=== PATIENT | female | born 1995 ===

== ENCOUNTER 2020-08-07 10:49 | Outpatient (REF) | payer MEDICARE, MEDICAID, SELFPAY ==
[2020-08-08 09:27] LABS: CT PCR NOT DETECTED (Not Detect.); NG PCR NOT DETECTED (Not Detect.)
== END 2020-08-07 10:50 | disposition home or self-care (01) ==
LOC: HO.LAB 10:49
PROVIDERS: Visit Provider Obstetrics & Gynecology
DX: Z01.419 Encounter for gynecological examination (general) (routine) without abnormal findings (principal)
CPT/HCPCS: 87491; 87591

== ENCOUNTER 2020-09-23 16:08 | Outpatient (REF) | payer MEDICARE, MEDICAID, SELFPAY | END 2020-09-23 16:09 | disposition home or self-care (01) | LOC: HO.LAB 16:08 | PROVIDERS: Visit Provider Internal Medicine | DX: Z20.828 Contact with and (suspected) exposure to other viral communicable diseases (principal) | CPT/HCPCS: C9803; U0003 ==

== ENCOUNTER 2020-10-23 09:43 | Emergency (ER) | payer OTHER, MEDICAID, SELFPAY ==
[2020-10-23 10:12] VITALS: PULSE 97; RESP 16; TEMP 36.1; O2SAT 98; BMI 31.9
--- NOTE | 2020-10-23 10:40 | ED.URI ---
HPI - URI/Sore Throat General Chief Complaint: Headache Stated Complaint: sore throat,bodyaches Time Seen by Provider: 10/23/20 10:14 Source: patient Mode of arrival: ambulatory Limitations: no limitations History of Present Illness HPI Narrative: 24yoF c PMHx of obesity presenting to the ED c c/o of 1 week of intermittent headaches, body aches, sore throat and productive cough. Denies recent travel or sick contacts. 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 Denies any other symptoms complaints or concerns at this time. Related Data Previous Rx's Medication Instructions Recorded acetaminophen [Tylenol] 650 mg PO Q6H PRN #10 tab 10/23/20 azithromycin See Rx Instructions .ROUTE 10/23/20 .COMPLEX #6 tab cyclobenzaprine 10 mg PO TID PRN #10 tab 10/23/20 ibuprofen 800 mg PO Q8H PRN #14 tab 10/23/20 Allergies Allergy/AdvReac Type Severity Reaction Status Date / Time No Known Allergies Allergy Unverified 08/07/20 11:01 Review of Systems Review of Systems: Constitutional : No Fever, + Chills, + fatigue, + Malaise ENT/Mouth : No sore throat, No runny nose Eyes: No Discharge Cardiovascular : No Chest Pain, No SOB Respiratory : + Cough, + Sputum, No Wheezing, No Smoke Exposure, No Dyspnea Gastrointestinal : No Nausea, No Vomiting, No Diarrhea Genitourinary : No irregular bleeding, No Dysuria, No Urinary Frequency, No Hematuria, No Urinary Incontinence, No Urgency, No Flank Pain, Musculoskeletal : + Myalgia Skin : No rash Neuro : + Headache Yes all other systems are reviewed and are negative [facility] Past Medical History Attestation statement: The following information was validated with the patient. Medical History Obesity Social History Social History Alcohol intake: never Smoking Status: Current every day smoker Advance Directives: No Advance Directives Information Provided: No Sexual orientation: Straight/Heterosexual Gender identity: female Physical Exam Vital Signs: Vital Signs: Last Vital Signs Temp 96.9 F 10/23/20 10:12 Pulse 97 10/23/20 10:12 Resp 16 10/23/20 10:12 Pulse Ox 98 10/23/20 10:12 Body Mass Index 31.9 vital signs have been reviewed as normal and appeared to be correct. Blood pressure normal. Heart rate normal. Respiration rate normal. Temperature normal. Oxygen saturation normal. Appearance: Alert. Oriented X3. No acute distress. Head: Normal external exam. Normocephalic. Atraumatic. Eyes: PERRLA. EOMI. Conjunctiva and sclera normal. Eyelids normal. ENT: EAC normal. TM's Normal. Pharynx normal. Uvula midline. Moist mucous membranes. No trismus noted. No drooling noted. No muffled voice noted. Neck: Normal inspection. Neck supple. FROM. No adenopathy. No meningeal signs. CVS: Normal heart rate and rhythm. Heart sound normal. No murmurs noted. Pulses normal throughout. Respiratory: No respiratory distress. Painless inspiration. Breath sounds normal. No wheezes/rales/rhonchi noted. Chest nontender. No accessory muscle usage noted or decreased air movement noted. Back: Full range of motion noted. Skin: Skin warm and dry. Normal skin color. Normal skin turgor. No rashes/lesions/lacerations noted. Extremities: Extremities exhibit normal range of motion. Extremities nontender. Neuro: Oriented X 3. No motor deficit. No sensory deficit. Reflexes normal. Course Course Course Narrative: 24-year-old female with no significant past medical history presenting to the ED with upper respiratory like symptoms. Not in any acute distress. No signs of dehydration. No indication for x-rays or labs work done at this time. Will DC home with antibiotics and symptomatic treatment. Patient was already swab for COVID/RSV/flu and rapid strep. Instructed to return if any new or worsening symptoms to self isolate until negative test results and 10 days after symptoms started. Patient understands agrees with this plan. MDM - URI/Sore Throat Differential Diagnosis Differential diagnosis: Likely upper respiratory infection, viral infection, bronchitis and pharyngitis Medical Records Attestation: I reviewed the patient's medical records. Discharge Plan Discharge Clinical Impression: Acute viral syndrome Patient Disposition: Home, Self-Care Instructions: Viral Syndrome (ED), COVID-19 (Coronavirus Disease 2019) (ED) Additional Instructions: Based on your symptoms and history we have sent a COVID-19. Although your RESULT IS PENDING at this time. RESULTS should return within 72 hours. At this time you will be contacted with either NEGATIVE OR POSITIVE results. -Please wait until we contact you for your results. At this time you will be okay for discharge. Please plan for self quarantine for up to 14 days. Do not expose yourself to others. You may not go to work. If testing does come back negative you may return to activities as long as you are no longer having any symptoms for at least 3 days. Please continue to follow cold instructions and wash your hands frequently. You may take Tylenol as directed on the bottle for pain or fever. Patient seen in the emergency department on 10/23/2020 and should be excused from work until negative test results AND until 72 hours without any symptoms AND at least 10 days have passed since symptoms first appeared or since last exposure to COVID-19 positive patient CDC Guidelines for home isolation: - Stay away from others - WEAR A MASK if you are sick AND STAY HOME - Cover your mouth and nose with a tissue when you cough or sneeze. Dispose of tissues in a lined trash can and wash your hands immediately with soap and water for at least 20 seconds. If soap and water are not available, clean hands with alcohol-based hand mill operator helper that contains at least 60% alcohol. - Clean your hands often with soap and water for at least 20 seconds - Avoid touching your eyes, nose and mouth with unwashed hands - Do not share dishes, drinking glasses, cups, eating utensils, towels, or bedding with other people in your home. After using these items, wash them thoroughly with soap and water or put in the product support sales representative. - Clean high-touch surfaces in your isolation area ( sick room and bathroom) every day; let a caregiver clean and disinfect high-touch surfaces in other areas of the home. Clean the area or item with soap and water or another detergent if it is dirty. Then, use a household disinfectant. - Limit contact with pets and animals: If you must care for a pet, wash your hands before and after interacting with them). Prescriptions: New cyclobenzaprine 10 mg tablet 10 mg PO TID PRN (Reason: muscle spasm) Qty: 10 RF: 0 acetaminophen [Tylenol] 325 mg tablet 650 mg PO Q6H PRN (Reason: fever or pain) Qty: 10 RF: 0 azithromycin 250 mg tablet See Rx Instructions .ROUTE .COMPLEX Qty: 6 RF: 0 ibuprofen 800 mg tablet 800 mg PO Q8H PRN (Reason: pain) Qty: 14 RF: 0 Referrals: Physician,Unknown [Primary Care Provider] - 2 days (your pcp) Stand Alone Forms: Work/School Release Print Language: [place]se
[2020-10-23 11:28] LABS: Influenza A PCR NEGATIVE (Negative); Influenza B PCR NEGATIVE (Negative); Resp Syncy Virus RNA Qual PCR NEGATIVE (Negative); SARS COV2 PCR INHOUSE NEGATIVE (Negative)
== END 2020-10-23 11:04 | disposition home or self-care (01) ==
PROVIDERS: Physician Assistant Medical; Emergency Provider Emergency Medicine Emergency Medical Services
DX: B34.9 Viral infection, unspecified (principal); R51.9 Headache, unspecified; M79.10 Myalgia, unspecified site; R05 Cough; F17.200 Nicotine dependence, unspecified, uncomplicated; Z71.6 Tobacco abuse counseling; Z79.899 Other long term (current) drug therapy; Z20.822 Contact with and (suspected) exposure to COVID-19
CPT/HCPCS: 0241U; 36415; 87071; 87880; 99282; 99283

== ENCOUNTER 2020-11-16 13:55 | Emergency (ER) | payer OTHER, SELFPAY ==
--- NOTE | ~2020-11-16 | XR_ITS ---
EXAMINATION: XR LUMBOSACRAL SPINE CLINICAL INFORMATION: Status post fall COMPARISON: CT of the abdomen and pelvis 06/28/2020 TECHNIQUE: Three views of the lumbosacral spine. FINDINGS: There is mild straightening of the normal lordosis of the lumbar spine. The vertebral body heights and intervertebral disc spaces are maintained. The posterior elements are intact. The paravertebral soft tissues are normal. XR/XR lumbar spine 2-3V IMPRESSION: No acute bony abnormality of the lumbar spine.
[2020-11-16 13:57] VITALS: BP 129/81; PULSE 110; RESP 20; TEMP 36.2; O2SAT 98; BMI 29.0
--- NOTE | 2020-11-16 15:18 | ED_ITS ---
HPI - Back Pain/Injury General Chief Complaint: Back Pain/Injury Stated Complaint: FELL DOWN STAIRS Time Seen by Provider: 11/16/20 14:12 Source: patient Mode of arrival: ambulatory Limitations: no limitations History of Present Illness HPI Narrative: Patient slipped on ice steps yesterday and fell backwards hitting her lower back to the steps complaining of pain since then no neuro deficit no paresthesias patient ambulatory in the ER prior back pain problem MD elicited complaint: back pain Pertinent past history: recent trauma Onset (ago): day(s) (1) Timing: constant Severity: moderate Quality: sharp Location: lumbar spine Radiation: none Exacerbating factors: movement Relieving factors: none Associated symptoms: denies other symptoms Related Data Previous Rx's Medication Instructions Recorded acetaminophen [Tylenol] 650 mg PO Q6H PRN #10 tab 10/23/20 azithromycin See Rx Instructions .ROUTE 10/23/20 .COMPLEX #6 tab cyclobenzaprine 10 mg PO TID PRN #10 tab 10/23/20 ibuprofen 800 mg PO Q8H PRN #14 tab 10/23/20 tramadol 50 mg PO Q6H PRN #20 tab 11/16/20 Allergies Allergy/AdvReac Type Severity Reaction Status Date / Time No Known Allergies Allergy Unverified 08/07/20 11:01 Review of Systems Review of Systems: Yes all other systems are reviewed and are negative [facility] Past Medical History Medical History Obesity Social History Social History Alcohol intake: never Smoking Status: Current every day smoker Advance Directives: No Advance Directives Information Provided: No Sexual orientation: Straight/Heterosexual Gender identity: female Physical Exam Vital Signs: Vital Signs: Last Vital Signs Temp 97.2 F 11/16/20 13:57 Pulse 110 H 11/16/20 13:57 Resp 20 11/16/20 13:57 BP 129/81 11/16/20 13:57 Pulse Ox 98 11/16/20 13:57 Body Mass Index 29.0 Const: General: healthy appearing, comfortable and no acute distress HENMT: Head: Yes normocephalic and Yes atraumatic Eyes: General: appearance normal, both eyes and all related structures Neck: Neck: Yes normal visual inspection, Yes full ROM and No tender Chest: Chest palpation & inspection: normal inspection of the chest Resp: Effort & Inspection: normal respiratory effort Auscultation: clear to auscultation bilaterally Cardio: Rate: regular rate Rhythm: regular rhythm Heart sounds: S1 normal heart sound present and S2 normal heart sound present GI: Inspection: Yes normal to inspection Palpation (GI): Soft to palpation and nontender Auscultation: normal bowel sounds Back/Spine/Pelvis: Cervical Spine: normal cervical lordosis and cervical ROM normal Thoracic/Lumbar Spine: thoraco-lumbar ROM normal, No straight leg raise negative bilaterally, paraspinal muscle tenderness, No thoracic spinal tenderness and No lumbar spinal tenderness Skin: General skin exam: no rashes or lesions noted Neuro: General: patient oriented x3, gait normal and no focal motor deficits Extrem: General: Yes normal to inspection and Yes normal gait MDM - Back Pain/Injury MDM Narrative Medical decision making narrative: Patient status post mechanical fall with minor injury to the lower back x-ray of the spine is negative for any acute fracture clinically patient does not have any spinal cord involvement likely contusion to the lower back will discharge patient home on tramadol Discharge Plan Discharge Clinical Impression: Contusion of lower back Qualifiers: Encounter type: initial encounter Qualified Code(s): S30.0XXA - Contusion of lower back and pelvis, initial encounter Patient Disposition: Home, Self-Care Instructions: Acute Low Back Pain (ED) Additional Instructions: Apply ice take Tylenol for pain and tramadol for severe pain Prescriptions: New tramadol 50 mg tablet 50 mg PO Q6H PRN (Reason: pain) Qty: 20 RF: 0 No Action cyclobenzaprine 10 mg tablet 10 mg PO TID PRN (Reason: muscle spasm) Qty: 10 RF: 0 acetaminophen [Tylenol] 325 mg tablet 650 mg PO Q6H PRN (Reason: fever or pain) Qty: 10 RF: 0 azithromycin 250 mg tablet See Rx Instructions .ROUTE .COMPLEX Qty: 6 RF: 0 ibuprofen 800 mg tablet 800 mg PO Q8H PRN (Reason: pain) Qty: 14 RF: 0
[2020-11-16] MEDS: traMADoL HCL 50 MG TABLET PO (15:27)
== END 2020-11-16 15:34 | disposition home or self-care (01) ==
PROVIDERS: Emergency Provider Internal Medicine
DX: S30.0XXA Contusion of lower back and pelvis, initial encounter (principal); W00.1XXA Fall from stairs and steps due to ice and snow, initial encounter; Y93.89 Activity, other specified; Y92.019 Unspecified place in single-family (private) house as the place of occurrence of the external cause; Y99.9 Unspecified external cause status
CPT/HCPCS: 72100; 99283

== ENCOUNTER 2021-02-13 21:25 | Emergency (ER) | payer OTHER, SELFPAY ==
--- NOTE | ~2021-02-13 | XR_ITS ---
EXAMINATION: XR CHEST CLINICAL INFORMATION: Cough COMPARISON: None TECHNIQUE: 2 views of the chest were obtained. FINDINGS: No significant abnormality is noted involving the heart, lungs, mediastinum, bony thorax or soft tissues. XR/XR chest 2V IMPRESSION: Unremarkable examination.
--- NOTE | ~2021-02-13 | CT_ITS ---
EXAMINATION: CT ABDOMEN AND PELVIS WITH CONTRAST CLINICAL INFORMATION: Lower abdominal pain COMPARISON: CT abdomen pelvis 06/18/2020 TECHNIQUE: Multidetector volumetric images were obtained from the superior aspect of the liver through the pubic symphysis following administration 85 mL of Omnipaque 350 intravenous contrast. Sagittal and coronal reformatted images were obtained on the technologist's workstation. Oral contrast: No This CT examination was performed using dose optimization techniques as appropriate, variously including the following: *Automated exposure control *Adjustment of mA and/or kV according to patient size (this includes techniques or standardized protocols for targeted exams where dose is matched to indication/reason for exam; i.e. extremities or head) *Use of iterative reconstruction technique DLP: 890 mGy-cm FINDINGS: LUNG BASES: The visualized lung bases are unremarkable. LIVER, GALLBLADDER, AND BILIARY TREE: The liver is normal in size, shape, and attenuation. No focal hepatic lesion or biliary ductal dilatation is present. The gallbladder is contracted but otherwise unremarkable with no evidence of radiopaque gallstones, gallbladder wall thickening, or obvious pericholecystic inflammatory changes. PANCREAS: There is a hypoattenuating area is seen in the pancreatic tail which could be artifactual. If real I would suspect pancreatic enzymes would be elevated. Please correlate. No pancreatic ductal dilatation is seen. No discrete pancreatic mass is present. SPLEEN: Unremarkable. ADRENAL GLANDS: Unremarkable. KIDNEYS AND URETERS: The kidneys are normal in size, shape, and attenuation. No hydronephrosis, hydroureter, or calculi seen. No perinephric stranding. BLADDER: Unremarkable. GASTROINTESTINAL TRACT: The small and large bowel are unremarkable. The appendix is unremarkable. ABDOMINAL WALL: No significant hernia is appreciated. There is a tiny periumbilical hernia seen containing only fat. LYMPH NODES: No retroperitoneal lymphadenopathy seen. VASCULAR: Unremarkable. PELVIC VISCERA: An anteverted retroflexed uterus is present which appears normal. Normal ovaries are seen. No free intraperitoneal fluid present OSSEOUS STRUCTURES: Unremarkable. No fractures or bony destructive lesions. CT/CT abdomen pelvis w con IMPRESSION: No significant abnormality lower abdominal pain. There is a hypoattenuating area in the pancreatic tail which I suspect is probably artifactual in nature.
[2021-02-13 21:45] VITALS: BP 127/70; PULSE 91; RESP 18; TEMP 36.4; O2SAT 99; BMI 32.3
[2021-02-13 22:12] LABS: Appearance Urine TURBID; Color Urine YELLOW; Glucose Urine UA NEG (NEG); Leukocyte Esterase Urine 1+ (NEG); Nitrite Urine NEG (NEG); PH 6.5 (5.0-8.0); Specific Gravity - Urine 1.025 (1.005-1.025); UACC Culture Trigger YES; Urine Blood 1+ (NEG); Urine Ketones NEG (NEG); Urine Protein NEG (NEG-TRACE)
[2021-02-13 22:19] LABS: MANUAL DIFF FLAG NO
[2021-02-13 22:20] LABS: Basophils Absolute Auto 0.1 X10*3/uL (0.0-0.2); Basophils Percent Auto 0.3 % (0-2); Eosinophils Absolute Auto 0.2 X10*3/uL (0.0-0.4); Eosinophils Percent Auto 1.1 % (0-4); Hematocrit 39.6 % (37-47); Hemoglobin 12.9 g/dl (12.0-16.0); Imm Gran Abs Auto 0.09 X10*3/uL (0.00-0.03); Imm Gran Pct Auto 0.5 % (0.0-0.4); Lymphocytes Absolute Auto 3.5 X10*3/uL (1.2-4.9); Lymphocytes Percent Auto 19.5 % (20-40); Mean Corpuscular HGB Conc 32.6 g/dl (31.0-35.0); Mean Corpuscular Hemoglobin 25.1 pg (27.0-33.0); Mean Platelet Volume 11.2 fL (9.4-12.3); Monocytes Absolute Auto 0.9 X10*3/uL (0.1-1.2); Monocytes Percent Auto 5.1 % (2-11); Neutrophils Absolute Auto 13.2 X10*3/uL (2.0-8.3); Neutrophils Percent Auto 73.5 % (45-73); Platelet Count 318 X10*3/uL (160-400); Red Blood Count 5.14 X10*6/uL (4.20-5.50); Red Cell Distribution Width 16.4 % (11.0-16.0); White Blood Count 17.9 X10*3/uL (4.8-10.8)
[2021-02-13 22:24] LABS: COVID-19 Test Negative (Negative)
[2021-02-13 22:26] LABS: Bacteria Urine TRACE /LPF; Squamous Epithelial Cell Urine 2+ /LPF
--- NOTE | 2021-02-13 22:30 | ED.GENADULT ---
HPI - General Adult General Chief complaint: General Medical Stated complaint: abd pain, sob Time Seen by Provider: 02/13/21 22:29 Source: patient Mode of arrival: ambulatory History of Present Illness HPI narrative: 25-year-old female with history of dyspnea on exertion as well as cough and stating that she has had suprapubic pain without radiation that has been associated with a few episodes of nausea and vomiting but denies any urinary pain/burning/frequency or diarrhea. No recent history of long car rides or plane trips, hemoptysis, estrogen supplementation, personal history of cancer, recent surgery or bed bound state, calf pain or calf swelling. Related Data Previous Rx's Medication Instructions Recorded acetaminophen [Tylenol] 650 mg PO Q6H PRN #10 tab 10/23/20 azithromycin See Rx Instructions .ROUTE 10/23/20 .COMPLEX #6 tab cyclobenzaprine 10 mg PO TID PRN #10 tab 10/23/20 ibuprofen 800 mg PO Q8H PRN #14 tab 10/23/20 tramadol 50 mg PO Q6H PRN #20 tab 11/16/20 Allergies Allergy/AdvReac Type Severity Reaction Status Date / Time No Known Allergies Allergy Verified 02/13/21 21:45 Review of Systems Review of Systems: Pertinent positives and negatives as stated in HPI 10 point review systems is otherwise negative. PMFSH Past Medical History Source: nursing notes reviewed Medical History Obesity Social History Social History Alcohol intake: never Smoking Status: Current every day smoker Advance Directives: No Advance Directives Information Provided: Yes Sexual orientation: Straight/Heterosexual Gender identity: female Physical Exam Vital Signs: Vital Signs: Last Vital Signs Temp 97.6 F 02/13/21 21:45 Pulse 91 02/13/21 21:45 Resp 18 02/13/21 21:45 BP 127/70 02/13/21 21:45 Pulse Ox 99 02/13/21 21:45 Body Mass Index 32.3 VITAL SIGNS: Reviewed. GENERAL: Well developed, well nourished, in no acute distress. HEAD: Normocephalic/atraumatic EYES: PERRLA, EOMI OROPHARYNX: no oral lesions noted, posterior pharynx clear NECK: Supple, no adenopathy LUNGS: Normal breath sounds. No adventitious sounds or accessory muscle use. SpO2<99> CARDIOVASCULAR: Regular rate and rhythm without noted murmurs ABDOMEN: Obesity, Soft, non-tender, non-distended with bowel sounds. Exam limited by body habitus. EXTREMITIES: No cyanosis, clubbing or edema. NEUROLOGIC: Alert and oriented x 4. Course Course Course Narrative: 25-year-old female with history and clinical presentation suggestive of possible appendicitis as urinalysis reviewed is negative for infection when taken in contacts with nausea and vomiting episodes. Less likely felt to be renal colic as there is no history of flank pain or prior kidney stones. Low clinical suspicion for pneumonia and doubt PE. On review of all investigations there is a noted leukocytosis with left shift the may be further indication in support of possible appendicitis and will pursue CT abdomen/pelvis. Review of all investigations negative for any acute findings. Although there is a noted leukocytosis this is consistent with prior findings on 06/18/2020 and may be patient's baseline. She denies any use of steroids at this time however there are no findings in /GI/chest that would better explain patient's noted leukocytosis. Patient was informed of all results and discharged in stable condition with instructions to follow-up with her primary care provider for re-evaluation outpatient management. Medical Decision Making Lab Data Result diagrams: 02/13/21 22:12 02/13/21 22:12 Labs: Lab Results 02/13/21 02/13/21 02/13/21 Range/Units 22:00 22:01 22:01 WBC (4.8-10.8) X10*3/uL RBC (4.20-5.50) X10*6/uL Hgb (12.0-16.0) g/dl Hct (37-47) % MCV (80-98) fL MCH (27.0-33.0) pg MCHC (31.0-35.0) g/dl RDW (11.0-16.0) % Plt Count (160-400) X10*3/uL MPV (9.4-12.3) fL Immature Gran % (Auto) (0.0-0.4) % Neut % (Auto) (45-73) % Lymph % (Auto) (20-40) % [place] % (Auto) (2-11) % Eos % (Auto) (0-4) % Baso % (Auto) (0-2) % Lymph # (Auto) (1.2-4.9) X10*3/uL [place] # (Auto) (0.1-1.2) X10*3/uL Eos # (Auto) (0.0-0.4) X10*3/uL Baso # (Auto) (0.0-0.2) X10*3/uL Abs Immat Gran (auto) (0.00-0.03) X10*3/uL Absolute Neuts (auto) (2.0-8.3) X10*3/uL Absolute Nucleated RBC (0.0-0.012) X10*3/uL Nucleated RBC % (auto) (0.0-0.2) /100WBC Hold Blue Top Sodium (135-145) mmol/L Potassium (3.3-5.1) mmol/L Chloride (96-108) mmol/L Carbon Dioxide (22-29) mmol/L Anion Gap (12-20) BUN (9-16) mg/dL Creatinine (0.5-1.4) mg/dL Estim Creat Clear Calc Estimated GFR Random Glucose (60-115) mg/dL Calcium (8.4-10.2) mg/dL Total Bilirubin (0.0-1.0) mg/dL AST (5-31) U/L ALT (0-31) U/L Alkaline Phosphatase (39-117) U/L Total Protein (6.5-8.0) g/dL Albumin (3.5-5.0) g/dL Lipase (8-78) U/L Urine Color YELLOW Urine Appearance TURBID Urine pH 6.5 (5.0-8.0) Ur Specific Bliss 1.025 (1.005-1.025) Urine Protein NEG (NEG-TRACE) MG/DL Urine Glucose (UA) NEG (NEG) MG/DL Urine Ketones NEG (NEG) MG/DL Urine Blood 1+ H (NEG) Urine Nitrite NEG (NEG) Ur Leukocyte Esterase 1+ H (NEG) Urine RBC 1-4 (0) /HPF Urine WBC 1-4 (0-4) /HPF Ur Squamous Epith Cells 2+ /LPF Urine Bacteria TRACE /LPF Urine Test NEGATIVE (NEGATIVE) COVID-19 (MAR) Negative (Negative) COVID-19 Clin Com See Note 02/13/21 02/13/21 02/13/21 Range/Units 22:12 22:12 22:12 WBC 17.9 H (4.8-10.8) X10*3/uL RBC 5.14 (4.20-5.50) X10*6/uL Hgb 12.9 (12.0-16.0) g/dl Hct 39.6 (37-47) % MCV 77.0 L (80-98) fL MCH 25.1 L (27.0-33.0) pg MCHC 32.6 (31.0-35.0) g/dl RDW 16.4 H (11.0-16.0) % Plt Count 318 (160-400) X10*3/uL MPV 11.2 (9.4-12.3) fL Immature Gran % (Auto) 0.5 H (0.0-0.4) % Neut % (Auto) 73.5 H (45-73) % Lymph % (Auto) 19.5 L (20-40) % [place] % (Auto) 5.1 (2-11) % Eos % (Auto) 1.1 (0-4) % Baso % (Auto) 0.3 (0-2) % Lymph # (Auto) 3.5 (1.2-4.9) X10*3/uL [place] # (Auto) 0.9 (0.1-1.2) X10*3/uL Eos # (Auto) 0.2 (0.0-0.4) X10*3/uL Baso # (Auto) 0.1 (0.0-0.2) X10*3/uL Abs Immat Gran (auto) 0.09 H (0.00-0.03) X10*3/uL Absolute Neuts (auto) 13.2 H (2.0-8.3) X10*3/uL Absolute Nucleated RBC 0.000 (0.0-0.012) X10*3/uL Nucleated RBC % (auto) 0.0 (0.0-0.2) /100WBC Hold Blue Top SEE NOTE Sodium 141 (135-145) mmol/L Potassium 4.1 (3.3-5.1) mmol/L Chloride 105 (96-108) mmol/L Carbon Dioxide 27 (22-29) mmol/L Anion Gap 13 (12-20) BUN 13 (9-16) mg/dL Creatinine 0.83 (0.5-1.4) mg/dL Estim Creat Clear Calc 118.6 Estimated GFR > 60 Random Glucose 84 (60-115) mg/dL Calcium 9.2 (8.4-10.2) mg/dL Total Bilirubin 0.3 (0.0-1.0) mg/dL AST 16 (5-31) U/L ALT 20 (0-31) U/L Alkaline Phosphatase 83 (39-117) U/L Total Protein 6.7 (6.5-8.0) g/dL Albumin 3.8 (3.5-5.0) g/dL Lipase 11 (8-78) U/L Urine Color Urine Appearance Urine pH (5.0-8.0) Ur Specific Bliss (1.005-1.025) Urine Protein (NEG-TRACE) MG/DL Urine Glucose (UA) (NEG) MG/DL Urine Ketones (NEG) MG/DL Urine Blood (NEG) Urine Nitrite (NEG) Ur Leukocyte Esterase (NEG) Urine RBC (0) /HPF Urine WBC (0-4) /HPF Ur Squamous Epith Cells /LPF Urine Bacteria /LPF Urine Test (NEGATIVE) COVID-19 (MAR) (Negative) COVID-19 Clin Com Discharge Plan Discharge Clinical Impression: Abdominal discomfort, Shortness of breath Patient Disposition: Home, Self-Care Instructions: Abdominal Pain (ED) Additional Instructions: Follow-up with your primary care provider in the next 2-3 days for re-evaluation and further outpatient management of your symptoms. Do not hesitate to return to the emergency department should you experience any acute worsening of symptoms. Prescriptions: No Action cyclobenzaprine 10 mg tablet 10 mg PO TID PRN (Reason: muscle spasm) Qty: 10 RF: 0 acetaminophen [Tylenol] 325 mg tablet 650 mg PO Q6H PRN (Reason: fever or pain) Qty: 10 RF: 0 azithromycin 250 mg tablet See Rx Instructions .ROUTE .COMPLEX Qty: 6 RF: 0 ibuprofen 800 mg tablet 800 mg PO Q8H PRN (Reason: pain) Qty: 14 RF: 0 tramadol 50 mg tablet 50 mg PO Q6H PRN (Reason: pain) Qty: 20 RF: 0 Referrals: Physician,Unknown [Primary Care Provider] - 2 days
[2021-02-13 22:49] LABS: UPreg QC Valid YES; Urine Pregnancy NEGATIVE (NEGATIVE)
[2021-02-13 23:00] LABS: Alanine Aminotransferase 20 U/L (0-31); Albumin Level 3.8 g/dL (3.5-5.0); Alkaline Phosphatase 83 U/L (39-117); Anion Gap 13 (12-20); Aspartate Amino Transferase 16 U/L (5-31); Bilirubin Total 0.3 mg/dL (0.0-1.0); Blood Urea Nitrogen 13 mg/dL (9-16); Calcium 9.2 mg/dL (8.4-10.2); Carbon Dioxide 27 mmol/L (22-29); Chloride 105 mmol/L (96-108); Creatinine Clr Calc Pharmacy 118.6; Estimated Glomerular Filt Rate > 60; Glucose Random 84 mg/dL (60-115); Lipase 11 U/L (8-78); Potassium 4.1 mmol/L (3.3-5.1); Sodium 141 mmol/L (135-145); Total Protein 6.7 g/dL (6.5-8.0)
[2021-02-13] MEDS: iohexoL 350 MG/ML 100 ML INFUS..BTL 85 ML IV (23:57)
== END 2021-02-14 00:44 | disposition home or self-care (01) ==
PROVIDERS: Emergency Provider Student in an Organized Health Care Education/Training Program
DX: R06.02 Shortness of breath (principal); R10.9 Unspecified abdominal pain; F17.200 Nicotine dependence, unspecified, uncomplicated; Z71.6 Tobacco abuse counseling; Z20.822 Contact with and (suspected) exposure to COVID-19; Z79.899 Other long term (current) drug therapy
CPT/HCPCS: 36415; 71046; 74177; 80053; 81001; 81003; 81025; 83690; 85025; 87086; 87635; 96365; 99284; Q9967

== ENCOUNTER 2021-04-15 18:03 | Emergency (ER) | payer OTHER, SELFPAY ==
--- NOTE | ~2021-04-15 | US_ITS ---
EXAMINATION: US VENOUS ULTRASOUND WITH DOPPLER LOWER EXTREMITY, LEFT CLINICAL INFORMATION: Calf pain COMPARISON: None TECHNIQUE: Ultrasound of the deep veins is performed from the hip to the calf with compression sonography and color and pulse Doppler assessment. Spectral analysis with color-flow imaging is performed. FINDINGS: There is normal venous compression and respiratory variation and augmented flow. The visualized common femoral vein, superficial femoral vein, profunda femoral vein, popliteal vein, and the trifurcation region shows no evidence of deep venous thrombosis. There is no significant popliteal fossa cyst. If the patient's symptoms persist, followup ultrasound in 5 days 7 days might be of value to exclude proximal propagation from a non-visualized calf vein. US/US venous duplex LE LT IMPRESSION: No DVT demonstrated in the left lower extremity.
[2021-04-15 18:45] VITALS: BP 111/60; PULSE 90; RESP 16; TEMP 35.8; O2SAT 99; BMI 31.6
--- NOTE | 2021-04-15 19:13 | ED.EXTPRO ---
HPI - Extremity Problem General Chief complaint: Extremity Problem Stated complaint: leg pain Time Seen by Provider: 04/15/21 18:53 Source: patient Mode of arrival: ambulatory Limitations: no limitations History of Present Illness HPI Narrative: 25 y/o female presenting with 4 days of left calf cramping and pain. She denies injury or trauma but recalls a bruise on her calf. It was swollen 2 days ago but swelling has improved. She reports pain with palpation and walking. She has no ankle or knee pain. She reports both her mother and father have history of blood clots in their legs. She denies a personal history of clots. She is not on OCPs. No chest pain or SOB. MD Complaint: extremity pain Onset (ago): day(s) (4) Pain Consistency: constant Location: left and lower extremity Severity scale (1-10): 6 Quality: aching and sharp Radiation: none Relieving factors: immobilization and rest Exacerbating factors: walking and palpation Related Data Previous Rx's Medication Instructions Recorded acetaminophen [Tylenol] 650 mg PO Q6H PRN #10 tab 10/23/20 azithromycin See Rx Instructions .ROUTE 10/23/20 .COMPLEX #6 tab cyclobenzaprine 10 mg PO TID PRN #10 tab 10/23/20 ibuprofen 800 mg PO Q8H PRN #14 tab 10/23/20 tramadol 50 mg PO Q6H PRN #20 tab 11/16/20 cyclobenzaprine 10 mg PO TID PRN #10 tab 04/15/21 ibuprofen 600 mg PO Q8H PRN #15 tab 04/15/21 lidocaine [Lidoderm] 1 patch TOPICAL DAILY #15 ea 04/15/21 Allergies Allergy/AdvReac Type Severity Reaction Status Date / Time No Known Allergies Allergy Verified 02/13/21 21:45 Review of Systems Review of Systems: Constitutional: No Fever, No Chills Cardiovascular: No Chest Pain, No SOB, No Orthopnea, No Edema Respiratory: No Cough, No dyspnea Gastrointestinal: No Nausea, No Vomiting, No Diarrhea, No abdominal Pain Genitourinary: No Dysuria, No Urinary Frequency, No Hematuria Musculoskeletal: No joint pain, + Myalgias Skin: No Skin Lesions, No rash Neuro: No Weakness, No Numbness Psych: + Anxiety/Panic, No Depression Heme/Lymph: + Bruising, No Lymphadenopathy PMFSH Past Medical History Attestation statement: The following information was validated with the patient. Medical History Obesity Social History Social History Alcohol intake: never Advance Directives: No Advance Directives Information Provided: No Patient : No Sexual orientation: Straight/Heterosexual Gender identity: female Physical Exam Vital Signs: Vital Signs: Last Vital Signs Temp 96.4 F L 04/15/21 18:45 Pulse 90 04/15/21 18:45 Resp 16 04/15/21 18:45 BP 111/60 04/15/21 18:45 Pulse Ox 99 04/15/21 18:45 Body Mass Index 31.6 Appearance: Alert. Oriented X3. No acute distress. HEENT: normal inspection CVS: Normal heart rate and rhythm. Pulses normal. Respiratory: No respiratory distress. Skin: Skin warm and dry. Normal skin color. Normal skin turgor. No rashes. Extremities: normal inspection of left calf, tender gastronemius muscle medially, healing ecchymosis centrally, Achielles tendon intact. normal plantar and dorsiflexion, no warmth or erythema, NV intact distally. Neuro: Oriented X 3. No motor deficit. No sensory deficit. Ambulates with slight limping gait. Course Course Course Narrative: 25 y/o female presenting with left calf pain, question of trauma with bruising and prior swelling. Family hx blood clot. Will get U/S to r/o DVT although exam is most consistent with muscle strain and spasm. Reevaluation(s) Reevaluation #1: US negative for DVT. Will treat for muscle strain/spasm and have her f/u with her PCP for further management. Stable for d/c home. Critical Care Time Critical Care Time Critical Care Time: No Discharge Plan Discharge Clinical Impression: Muscle strain Patient Disposition: Home, Self-Care Instructions: Muscle Strain (ED) Additional Instructions: Your ultrasound today was normal. You most likely strained or pulled a muscle in your lower leg. Recommend rest and elevation of your leg when possible. Use ice several times per day for 20 minutes at a time for the next 48 hours and then change to heat. Take medications as prescribed to help with pain and discomfort. Follow up with your Primary Care Doctor this week. If your pain worsens, if you develop new numbness, tingling, weakness, loss of function or any other concerning symptoms call 911 or come back to the ER right away for evaluation. Prescriptions: New cyclobenzaprine 10 mg tablet 10 mg PO TID PRN (Reason: muscle spasm) Qty: 10 RF: 0 ibuprofen 600 mg tablet 600 mg PO Q8H PRN (Reason: pain) Qty: 15 RF: 0 lidocaine [Lidoderm] 5 % adhesive patch,medicated 1 patch topical DAILY Qty: 15 RF: 0 No Action cyclobenzaprine 10 mg tablet 10 mg PO TID PRN (Reason: muscle spasm) Qty: 10 RF: 0 acetaminophen [Tylenol] 325 mg tablet 650 mg PO Q6H PRN (Reason: fever or pain) Qty: 10 RF: 0 azithromycin 250 mg tablet See Rx Instructions .ROUTE .COMPLEX Qty: 6 RF: 0 ibuprofen 800 mg tablet 800 mg PO Q8H PRN (Reason: pain) Qty: 14 RF: 0 tramadol 50 mg tablet 50 mg PO Q6H PRN (Reason: pain) Qty: 20 RF: 0 Stand Alone Forms: Work/School Release
== END 2021-04-15 20:28 | disposition home or self-care (01) ==
PROVIDERS: Emergency Provider Emergency Medicine
DX: S86.912A Strain of unspecified muscle(s) and tendon(s) at lower leg level, left leg, initial encounter (principal); M79.605 Pain in left leg; X58.XXXA Exposure to other specified factors, initial encounter; Y93.9 Activity, unspecified; Y92.9 Unspecified place or not applicable; Y99.9 Unspecified external cause status
CPT/HCPCS: 93971; 99284

== ENCOUNTER 2021-09-05 21:22 | Emergency (ER) | payer OTHER, SELFPAY ==
[2021-09-05 22:02] LABS: COVID-19 Test Negative (Negative)
--- NOTE | 2021-09-05 22:11 | ED_ITS ---
HPI - General Adult General Chief complaint: General Medical Stated complaint: fever,chills ,body aches headache Source: patient Mode of arrival: ambulatory Limitations: no limitations History of Present Illness HPI narrative: 25-year-old female presents with fevers, body aches, headaches accompanied with nausea and vomiting. States that she has felt this way for several months. Onset (ago): month(s) Location: head and abdomen Severity: moderate Severity scale (1-10): 7 Quality: aching Pain Consistency: intermittent Relieving factors: none Associated symptoms: fever/chills, headaches and nausea/vomiting Treatments prior to arrival: none Related Data Previous Rx's Medication Instructions Recorded acetaminophen 325 mg tablet 650 mg PO Q6H PRN #10 tab 10/23/20 (Tylenol) azithromycin 250 mg tablet See Rx Instructions .ROUTE 10/23/20 .COMPLEX #6 tab cyclobenzaprine 10 mg tablet 10 mg PO TID PRN #10 tab 10/23/20 ibuprofen 800 mg tablet 800 mg PO Q8H PRN #14 tab 10/23/20 tramadol 50 mg tablet 50 mg PO Q6H PRN #20 tab 11/16/20 cyclobenzaprine 10 mg tablet 10 mg PO TID PRN #10 tab 04/15/21 ibuprofen 600 mg tablet 600 mg PO Q8H PRN #15 tab 04/15/21 lidocaine 5 % topical patch 1 patch TOPICAL DAILY #15 ea 04/15/21 (Lidoderm) ondansetron HCl 4 mg tablet 4 mg PO Q8H PRN #20 tab 09/05/21 (Zofran) Allergies Allergy/AdvReac Type Severity Reaction Status Date / Time No Known Allergies Allergy Verified 02/13/21 21:45 Review of Systems Review of Systems: Constitutional: Positive Fever, positive Chills ENT/Mouth: No Ear Pain, No Hoarseness, No sore throat Eyes: No Eye Pain, No Swelling, No Redness, No Foreign Body Cardiovascular: No Chest Pain, No SOB Respiratory: No Cough, No Dyspnea Gastrointestinal: Positive Nausea, positive Vomiting, No Diarrhea, No abdominal Pain Genitourinary: No Dysuria, No Hematuria Musculoskeletal: positive joint pain, No Myalgias, No Joint Swelling Skin: No Skin lacerations, No rash Neuro: No Weakness, No Numbness, No Paresthesias, No Loss of Consciousness, No Dizziness, positive Headache Psych: No Anxiety/Panic, No Depression Heme/Lymph: no easy bruising, no Lymphadenopathy Endocrine: No Polyuria, No Polydipsia Yes all other systems are reviewed and are negative [facility] Past Medical History Attestation statement: The following information was validated with the patient. Source: old records reviewed Medical History Obesity Social History Social History Alcohol intake: never Patient Tobacco Use Status: Never used Tobacco Use of substances other than those prescribed or required for medical reasons: No Advance Directives: No Patient : No Sexual orientation: Straight/Heterosexual Gender identity: Female Physical Exam Vital Signs: Vital Signs: Last Vital Signs Temp 98.4 F 09/05/21 22:34 Pulse 84 09/05/21 22:34 Resp 14 09/05/21 22:34 BP 138/68 09/05/21 22:34 Pulse Ox 99 09/05/21 22:34 Body Mass Index 33.3 Appearance: Alert. Oriented X3. No acute distress. Eyes: Pupils equal, round and reactive to light. ENT: Pharynx normal. Neck: Normal inspection. Neck supple. CVS: Normal heart rate and rhythm. Pulses normal. Respiratory: No respiratory distress. Breath sounds normal. Abdomen: Soft and nontender. Skin: Skin warm and dry. Normal skin color. Normal skin turgor. Extremities: No lower extremity edema. Neuro: No motor deficit. No sensory deficit. Cranial nerves 2-12 intact. Course Course Course Narrative: 25-year-old female presents with body aches, fevers, chills, nausea and vomiting for the past several months. COVID test was completed while patient was in the emergency department waiting room. COVID test is negative. When I informed patient that her COVID test negative, she stated that she had concerns because she does not feel that anyone takes her complaints seriously. She has had a history of leukocytosis for the past 2 years and was evaluated by heme oncology in [place]. She stated that ?they did not do anything? and that nothing she has tried has helped her. She did not report losing any weight, denies diarrhea. Patient is afebrile, even unlabored respirations. Vital signs are stable and within normal limits. I did inform patient that I would probably not be able to solve her problem today, that she must follow-up with heme oncology. I did order CBC, Chem 7 and urinalysis with test. White count is 17.3 which is consistent with prior values dating back to 2 years ago. I discussed options with her, I will refer to heme Onc at [facility]. Patient agrees to that plan. I did prescribe Zofran for her nausea Patient verbalized understanding of and agrees to plan of care discharge home. Medical Decision Making Differential Diagnosis Differential Diagnosis: URI, viral syndrome, gastritis, IBD Medical Records Medical records reviewed: Yes I reviewed the patient's medical records. Lab Data Lab results reviewed: Yes I reviewed the patient's lab results. Result diagrams: 09/05/21 22:55 09/05/21 22:55 Labs: Lab Results 09/05/21 09/05/21 09/05/21 Range/Units 21:31 22:54 22:55 WBC 17.3 H (4.8-10.8) X10*3/uL RBC 5.48 (4.20-5.50) X10*6/uL Hgb 13.6 (12.0-16.0) g/dl Hct 41.9 (37.0-47.0) % MCV 76.5 L (80.0-98.0) fL MCH 24.8 L (27.0-33.0) pg MCHC 32.5 (31.0-35.0) g/dl RDW 16.9 H (11.0-16.0) % Plt Count 331 (160-400) X10*3/uL MPV 10.8 (9.4-12.3) fL Immature Gran % (Auto) 0.4 (0.0-0.4) % Neut % (Auto) 65.3 (45-73) % Lymph % (Auto) 26.6 (20-40) % Dubois % (Auto) 6.2 (2-11) % Eos % (Auto) 1.2 (0-4) % Baso % (Auto) 0.3 (0-2) % Lymph # (Auto) 4.6 (1.2-4.9) X10*3/uL Dubois # (Auto) 1.1 (0.1-1.2) X10*3/uL Eos # (Auto) 0.2 (0.0-0.4) X10*3/uL Baso # (Auto) 0.1 (0.0-0.2) X10*3/uL Abs Immat Gran (auto) 0.07 H (0.00-0.03) X10*3/uL Absolute Neuts (auto) 11.3 H (2.0-8.3) x10*3/uL Absolute Nucleated RBC 0.000 (0.0-0.012) X10*3/uL Nucleated RBC % (auto) 0.0 (0.0-0.2) /100WBC Sodium (135-145) mmol/L Potassium (3.3-5.1) mmol/L Chloride (96-108) mmol/L Carbon Dioxide (22-29) mmol/L Anion Gap (12-20) BUN (9-16) mg/dL Creatinine (0.5-1.4) mg/dL Estim Creat Clear Calc Estimated GFR Random Glucose (60-115) mg/dL Calcium (8.4-10.2) mg/dL Urine Color Urine Appearance Urine pH (5.0-8.0) Ur Specific [place] (1.005-1.025) Urine Protein (NEG-TRACE) MG/DL Urine Glucose (UA) (NEG) MG/DL Urine Ketones (NEG) MG/DL Urine Blood (NEG) Urine Nitrite (NEG) Ur Leukocyte Esterase (NEG) Urine Test NEGATIVE (NEGATIVE) COVID-19 (MAR) Negative (Negative) COVID-19 Clin Com See Note 09/05/21 09/05/21 Range/Units 22:55 22:55 WBC (4.8-10.8) X10*3/uL RBC (4.20-5.50) X10*6/uL Hgb (12.0-16.0) g/dl Hct (37.0-47.0) % MCV (80.0-98.0) fL MCH (27.0-33.0) pg MCHC (31.0-35.0) g/dl RDW (11.0-16.0) % Plt Count (160-400) X10*3/uL MPV (9.4-12.3) fL Immature Gran % (Auto) (0.0-0.4) % Neut % (Auto) (45-73) % Lymph % (Auto) (20-40) % Dubois % (Auto) (2-11) % Eos % (Auto) (0-4) % Baso % (Auto) (0-2) % Lymph # (Auto) (1.2-4.9) X10*3/uL [place] # (Auto) (0.1-1.2) X10*3/uL Eos # (Auto) (0.0-0.4) X10*3/uL Baso # (Auto) (0.0-0.2) X10*3/uL Abs Immat Gran (auto) (0.00-0.03) X10*3/uL Absolute Neuts (auto) (2.0-8.3) x10*3/uL Absolute Nucleated RBC (0.0-0.012) X10*3/uL Nucleated RBC % (auto) (0.0-0.2) /100WBC Sodium 141 (135-145) mmol/L Potassium 4.2 (3.3-5.1) mmol/L Chloride 110 H (96-108) mmol/L Carbon Dioxide 24 (22-29) mmol/L Anion Gap 11 L (12-20) BUN 12 (9-16) mg/dL Creatinine 0.71 (0.5-1.4) mg/dL Estim Creat Clear Calc 135.9 Estimated GFR > 60 Random Glucose 92 (60-115) mg/dL Calcium 9.0 (8.4-10.2) mg/dL Urine Color YELLOW Urine Appearance HAZY Urine pH 6.0 (5.0-8.0) Ur Specific [place] 1.025 (1.005-1.025) Urine Protein NEG (NEG-TRACE) MG/DL Urine Glucose (UA) NEG (NEG) MG/DL Urine Ketones NEG (NEG) MG/DL Urine Blood NEG (NEG) Urine Nitrite NEG (NEG) Ur Leukocyte Esterase NEG (NEG) Urine Test (NEGATIVE) COVID-19 (MAR) (Negative) COVID-19 Clin Com Discharge Plan Discharge Clinical Impression: Leukocytosis, Nausea & vomiting, Acute viral syndrome Patient Disposition: Home, Self-Care Instructions: Acute Nausea and Vomiting (ED), Leukocytosis (ED), Viral Syndrome (ED) Additional Instructions: You were evaluated for flu-like symptoms. Your COVID test was negative. Your lab values indicate an elevated white count, which is consistent with your prior lab values over the past 2 years. Please follow-up with heme oncology. I referred you to Dr. Morin. Please call and request an appointment. I prescribe Zofran for your nausea. Please follow the directions and take medication as prescribed. Thank you for choosing this emergency department for evaluation. Please follow-up with primary care physician as needed. Return to the emergency department for any new, concerning, or worsening symptoms. Prescriptions: New ondansetron HCl [Zofran] 4 mg tablet 4 mg PO Q8H PRN (Reason: nausea and vomiting) Qty: 20 RF: 0 No Action cyclobenzaprine 10 mg tablet 10 mg PO TID PRN (Reason: muscle spasm) Qty: 10 RF: 0 ibuprofen 600 mg tablet 600 mg PO Q8H PRN (Reason: pain) Qty: 15 RF: 0 lidocaine [Lidoderm] 5 % adhesive patch,medicated 1 patch topical DAILY Qty: 15 RF: 0 cyclobenzaprine 10 mg tablet 10 mg PO TID PRN (Reason: muscle spasm) Qty: 10 RF: 0 acetaminophen [Tylenol] 325 mg tablet 650 mg PO Q6H PRN (Reason: fever or pain) Qty: 10 RF: 0 azithromycin 250 mg tablet See Rx Instructions .ROUTE .COMPLEX Qty: 6 RF: 0 ibuprofen 800 mg tablet 800 mg PO Q8H PRN (Reason: pain) Qty: 14 RF: 0 tramadol 50 mg tablet 50 mg PO Q6H PRN (Reason: pain) Qty: 20 RF: 0 Referrals: Alison Morin MD [Physician] - 2 days (Chronic leukocytosis) Stand Alone Forms: Work/School Release Interventions: ED Discharge Assessment Last Done: 09/05/21 23:50 Discharge Date/Time: 09/05/21 23:51
[2021-09-05 22:34] VITALS: BP 138/68; PULSE 84; RESP 14; TEMP 36.9; O2SAT 99; BMI 33.3
[2021-09-05 23:02] LABS: Basophils Absolute Auto 0.1 X10*3/uL (0.0-0.2); Basophils Percent Auto 0.3 % (0-2); Eosinophils Absolute Auto 0.2 X10*3/uL (0.0-0.4); Eosinophils Percent Auto 1.2 % (0-4); Hematocrit 41.9 % (37.0-47.0); Hemoglobin 13.6 g/dl (12.0-16.0); Imm Gran Abs Auto 0.07 X10*3/uL (0.00-0.03); Imm Gran Pct Auto 0.4 % (0.0-0.4); Lymphocytes Absolute Auto 4.6 X10*3/uL (1.2-4.9); Lymphocytes Percent Auto 26.6 % (20-40); MANUAL DIFF FLAG NO; Mean Corpuscular HGB Conc 32.5 g/dl (31.0-35.0); Mean Corpuscular Hemoglobin 24.8 pg (27.0-33.0); Mean Corpuscular Volume 76.5 fL (80.0-98.0); Mean Platelet Volume 10.8 fL (9.4-12.3); Monocytes Absolute Auto 1.1 X10*3/uL (0.1-1.2); Monocytes Percent Auto 6.2 % (2-11); Neutrophils Absolute Auto 11.3 x10*3/uL (2.0-8.3); Neutrophils Percent Auto 65.3 % (45-73); Platelet Count 331 X10*3/uL (160-400); Red Blood Count 5.48 X10*6/uL (4.20-5.50); Red Cell Distribution Width 16.9 % (11.0-16.0); White Blood Count 17.3 X10*3/uL (4.8-10.8)
[2021-09-05 23:07] LABS: Appearance Urine HAZY; Color Urine YELLOW; Glucose Urine UA NEG (NEG); Leukocyte Esterase Urine NEG (NEG); Nitrite Urine NEG (NEG); Specific Gravity - Urine 1.025 (1.005-1.025); Urine Blood NEG (NEG); Urine Ketones NEG (NEG); Urine Protein NEG (NEG-TRACE)
[2021-09-05 23:09] LABS: UPreg QC Valid YES; Urine Pregnancy NEGATIVE (NEGATIVE)
[2021-09-05 23:15] LABS: Anion Gap 11 (12-20); Blood Urea Nitrogen 12 mg/dL (9-16); Carbon Dioxide 24 mmol/L (22-29); Chloride 110 mmol/L (96-108); Creatinine Clr Calc Pharmacy 135.9; Estimated Glomerular Filt Rate > 60; Glucose Random 92 mg/dL (60-115); Potassium 4.2 mmol/L (3.3-5.1); Sodium 141 mmol/L (135-145)
== END 2021-09-05 23:51 | disposition home or self-care (01) ==
PROVIDERS: Nurse Practitioner Family; Emergency Provider Internal Medicine
DX: B34.9 Viral infection, unspecified (principal); R11.2 Nausea with vomiting, unspecified; D72.829 Elevated white blood cell count, unspecified; Z20.822 Contact with and (suspected) exposure to COVID-19
CPT/HCPCS: 36415; 80048; 81003; 81025; 85025; 87635; 99283

== ENCOUNTER 2021-09-24 09:57 | Outpatient (REF) | payer OTHER, SELFPAY ==
[2021-09-25 02:47] LABS: CT PCR NOT DETECTED (Not Detect.); NG PCR NOT DETECTED (Not Detect.)
== END 2021-09-24 09:58 | disposition home or self-care (01) ==
LOC: HO.LAB 09:57
PROVIDERS: Visit Provider Obstetrics & Gynecology
DX: Z01.419 Encounter for gynecological examination (general) (routine) without abnormal findings (principal)
CPT/HCPCS: 87491; 87591; 88142

== ENCOUNTER 2021-10-08 14:07 | Emergency (ER) | payer OTHER, SELFPAY ==
[2021-10-08 14:55] VITALS: BP 105/69; PULSE 99; RESP 18; TEMP 36.6; O2SAT 99; BMI 33.4
== END 2021-10-08 18:34 | disposition left against medical advice (07) ==
PROVIDERS: Emergency Provider Emergency Medicine
DX: M79.605 Pain in left leg (principal)
CPT/HCPCS: 99281; 99282

== ENCOUNTER 2021-11-04 14:48 | Emergency (ER) | payer OTHER, SELFPAY ==
--- NOTE | ~2021-11-04 | XR_ITS ---
EXAMINATION: XR WRIST, RIGHT CLINICAL INFORMATION: Right wrist pain COMPARISON: None TECHNIQUE: PA, lateral, and oblique views of the right wrist. FINDINGS: The bones and soft tissues are normal. No fracture. Alignment is anatomic with normal joint spaces. No erosions or abnormal soft tissue calcifications. There is a small bone fragment adjacent to the ulnar styloid process likely old injury. XR/XR wrist RT 2V IMPRESSION: Normal right wrist.
[2021-11-04 15:15] VITALS: BP 131/81; PULSE 88; RESP 18; TEMP 36.9; BMI 33.3
--- NOTE | 2021-11-04 16:57 | ED_ITS ---
HPI - Extremity Problem General Chief complaint: Extremity Problem Stated complaint: r wrist inj Time Seen by Provider: 11/04/21 16:54 Source: patient Mode of arrival: ambulatory History of Present Illness HPI Narrative: 26-year-old female presenting to the ED complaining of right wrist pain and decreased ROM s/p trip and fall on Tuesday. Patient reports she was intoxicated and tripped and fell and landed on right hand, denies head trauma or LOC. Denies numbness, tingling, weakness, injury to other area MD Complaint: joint paint Onset (ago): day(s) Related Data Allergies Allergy/AdvReac Type Severity Reaction Status Date / Time No Known Allergies Allergy Verified 09/24/21 10:26 Review of Systems Verdana 4l Review of Systems: Verdana 4d Verdana 4d Constitutional: No Fever, No Chills ENT/Mouth: No Ear Pain, No Hoarseness, No sore throat, No Rhinorrhea, No Swallowing Difficulty Cardiovascular: No Chest Pain, No SOB Respiratory: No Cough Gastrointestinal: No Nausea, No Vomiting, No DiarrheaDiarrhea, No Constipation, No Abdominal pain Musculoskeletal: + joint pain, No Myalgias, No Joint Swelling Skin: No Skin Lesions, No rash Neuro: No Weakness, No Numbness, No Paresthesias Yes all other systems are reviewed and are negative [facility] Past Medical History Attestation statement: The following information was validated with the patient. 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 4d Temp 98.4 F 11/04/21 15:15 [employer] 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 Service 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 4d Pulse 88 11/04/21 15:15 [employer] Machine Service 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 4d Resp 18 11/04/21 15:15 BP 131/81 11/04/21 15:15 BMI result Body Mass Index 33.3 Const: General: cooperative, healthy appearing and no acute distress Orientation/consciousness: patient oriented x3 Limitations: no limitations HENMT: Head: Yes normal to inspection Ears: hearing grossly normal bilaterally General nose exam: Normal external nose present Face and sinus: Yes normal facial exam Eyes: General: appearance normal, both eyes and all related structures EOM: EOMs intact bilaterally Neck: Neck: Yes normal visual inspection and Yes no meningeal signs Resp: Effort & Inspection: normal respiratory effort and no respiratory distress Cardio: Rate: regular rate Peripheral pulses: radial pulses present Skin: Rashes: no rashes Wounds: no wounds Neuro: General: patient oriented x3 and no meningeal signs Gait exam (Neuro): Normal gait present Extrem: Other: Right wrist with mild swelling. Tender to palpation. Decreased ROM secondary to pain. Neurovascularly intact, cap refill WNL. No snuffbox tenderness. Digits/hand nontender. [id number] opposition intact No erythema/crepitus/warmth Course Course Course Narrative: XR wrist RT 2V IMPRESSION: Normal right wrist. >> patient placed in Manuel wrap. Is to follow-up with PCP MDM - Extremity (Nontraumatic) MDM Narrative Medical decision making narrative: 26-year-old female presenting to the ED complaining of right wrist pain and decreased ROM s/p trip and fall on Tuesday. On exam vital signs stable, NAD/nontoxic-appearing, physical exam as above. Concern for fracture versus sprain. Plan: X-rays Medical Records Attestation: I reviewed the patient's medical records. Lab Data Attestation: I reviewed the patient's lab results. Discharge Plan Discharge Clinical Impression: Sprain of wrist Qualifiers: Encounter type: initial encounter Laterality: right Qualified Code(s): S63.501A - Unspecified sprain of right wrist, initial encounter Patient Disposition: Home, Self-Care Instructions: Wrist Sprain (ED) Additional Instructions: Your x-rays do not show fracture, use range her wrist. Wear Manuel wrap at home for comfort instability Ice, elevate, rest. Take Tylenol and Motrin for pain/swelling follow up with your doctor as needed Referrals: Physician,Unknown J [Primary Care Provider] - 1 week Stand Alone Forms: Work/School Release
[2021-11-04 17:06] VITALS: BP 123/86; PULSE 88; RESP 16; O2SAT 99
== END 2021-11-04 17:43 | disposition home or self-care (01) ==
PROVIDERS: Emergency Provider Internal Medicine
DX: S63.501A Unspecified sprain of right wrist, initial encounter (principal); W01.0XXA Fall on same level from slipping, tripping and stumbling without subsequent striking against object, initial encounter; Y93.9 Activity, unspecified; Y92.9 Unspecified place or not applicable; Y99.9 Unspecified external cause status
CPT/HCPCS: 73100; 99283; 99284

== ENCOUNTER → 2021-11-24 09:54 | Outpatient (BNVA) | payer OTHER, SELFPAY | PROVIDERS: Visit Provider Nurse Practitioner Family | DX: M79.18 Myalgia, other site (principal); M47.816 Spondylosis without myelopathy or radiculopathy, lumbar region; M47.812 Spondylosis without myelopathy or radiculopathy, cervical region; E66.9 Obesity, unspecified; Z68.39 Body mass index [BMI] 39.0-39.9, adult | CPT/HCPCS: 99202 ==

== ENCOUNTER 2021-12-23 09:00 | Outpatient (RCR) | payer OTHER, SELFPAY ==
--- NOTE | 2021-12-11 13:54 | MHC.PT.EP ---
[facility] [place] Office [place] Office [place] Office [address] Elliott Chambers [address] [phone] F: [phone] F: [phone] F: [phone] F: [phone] Physical Therapy Plan of Care Date of Evaluation: Date of Surgery: N/A Diagnosis: INCREASING LOW BACK PAIN OVER THE LAST FEW MONTHS. STATES THAT SHE HAS HAD BACK PAIN FOR SEVERAL YEARS, HAS HAD SOME PT/CHIRO IN THE PAST BUT DCed DUE TO COVID CONCERNS. SHE REPORTS THAT SHE IS IN PAIN ALL THE TIME: AND PAIN WORSENS WITH WALKING, CARRYING, STAIRS AND BENDING (IE TO SCRUB FLOORS) REPORTS DISRUPTED SLEEP AND PAIN IS WORSE AT NIGHT AND KEEPS HER AWAKE. SHE HAS BEEN SEEN BY PAIN MANAGEMENT X 1. LIVES IN 3RD FLOOR APARTMENT WITH 8 AND 10 YEAR OLD DAUGHTERS AT HOME. REPORTS THAT HEAT PACKS HELP WITH PAIN. PREFERS TO PERFORM MOVEMENT THROUGHOUT THE DAY. REPORTS NUMBNESS DOWN ANTERIOR THIGH AND TORRES STOPPING IN FOOT ON THE LEFT. Assessment: ANABEL IS A PLEASANT 26 YO FEMALE WHO PRESENTS WITH CHRONIC LOW BACK PAIN. UPON EXAM SHE DEMONSTRATES IMPAIRMENTS OF DECREASED LE AND LUMBAR ROM, DECREASED LE STRENGTH, DECREASED SOFT TISSUE MOBILITY AND MUSCULAR LENGTH AND STRENGTH IMBALANCES WHICH ARE FOSTERING PATTERNED MOVEMENT STYLES AND LEADING TO INCREASED PAIN. FUNCTIONAL LIMITATIONS INCLUDE DECREASED TOLERANCE TO LIFTING, CARRYING, PUSHING, PULLING AND SLEEPING. SHE REPORTS DECREASED PARTICIPATION IN HOMEMAKING AND SELF CARE TASKS, DECREASED PARTICIPATION IN FITNESS AND RECREATIONAL ACTIVITIES AND DISRUPTED SLEEP. A PT IS A GOOD CANDIDATE FOR SKILLED PT DUE TO AGE, POTENTIAL REMEDIATION OF IMPAIRMENTS, TYPICAL DISEASE/CONDITION PROGRESSION AND PROGNOSIS, COMORBIDITIES, AND MOTIVATION. PT WOULD BENEFIT FROM TAILORED PROGRAM OF THERAPEUTIC ACTIVITIES, FUNCTIONAL TRAINING, GAIT TRAINING, POSTURAL EDUCATION, NEUROMUSCULAR RE-EDUCATION, AND MODALITIES NEEDED. Frequency and Duration: The patient will be seen 2 X WEEK FOR 4 WEEKS THEN REASSESS Short Term Goals: INITIATE HEP AND PROMOTE SELF MANAGEMENT OF SYMPTOMS Hand Embroiderer Goals: To ambulate ad clementina without pain greater than 2/10 in 5 weeks To demonstrate 5/5 LE strength equal Jc IN 5 weeks To demonstrate full lumbar ROM without pain greater than 2/10 in 5 weeks Independent HEP in 5 weeks Treatment Plan: Modalities to reduce pain, spasms and effusion. Manual therapy to restore motion and function. Therapeutic exercise to improve strength and flexibility. Neuromuscular re-education for posture and balance. Therapeutic activities to return to functional activities of daily living. Electronically signed by: ARTI ALVAREZ PT, DPT Please sign and return to therapist. Thank you for your referral.
--- NOTE | 2022-02-08 16:42 | MHC.PT.DC ---
[facility] [place] [facility] [place] [facility] [place] [facility] [address] Elliott Chambers [address] [phone] F: [phone] F: [phone] F: [phone] F: [phone] Physical Therapy Discharge Report Diagnosis: LOW BACK PAIN Date of Surgery: N/A Date of Evaluation: 12/11/21 Date of Discharge: 12/30/21 Treatments to Date: 4 Cancellations to Date: 1 No Shows to Date: 1 Discharge Status: Achieved Goals Improved Function Independent with HEP Discharge Summary: Independent with current HEP and self management of symptoms. Did not return for her final appointment but we would be happy to address any questions or concerns she has with her home program in the future. Electronically signed by: Mely Gonzalez PT, DPT Please sign and return to therapist. Thank you for your referral.
== END 2022-02-08 16:42 | disposition home or self-care (01) ==
LOC: HO.PT 09:00
PROVIDERS: Visit Provider Nurse Practitioner Family
DX: M79.18 Myalgia, other site (principal); M47.816 Spondylosis without myelopathy or radiculopathy, lumbar region; M47.812 Spondylosis without myelopathy or radiculopathy, cervical region
CPT/HCPCS: 97110; 97140; 97161

== ENCOUNTER 2022-04-28 16:35 | Emergency (ER) | payer OTHER, SELFPAY ==
[2022-04-28 17:28] VITALS: BP 117/66; PULSE 99; RESP 18; TEMP 36.6; O2SAT 99; BMI 33.3
[2022-04-28 17:58] LABS: IDNOW Serial# 55D5AD1C; Influenza A Negative (Negative); Influenza B2 Negative (Negative)
[2022-04-28 18:02] LABS: Strep A Nucleic Acid Negative (Negative)
[2022-04-28 18:04] LABS: COVID-19 Test Negative (Negative); IDNOW Serial# 16C4AD1C
--- NOTE | 2022-04-28 21:11 | ED_ITS ---
HPI - URI/Sore Throat General Chief Complaint: Upper Respiratory Symptoms Stated Complaint: body aches, sore throat, rash on r foot Time Seen by Provider: 04/28/22 21:05 Source: patient Mode of arrival: ambulatory Limitations: no limitations History of Present Illness HPI Narrative: Patient comes to the emergency room complaining of bilateral ear pain, flu-like symptoms, diffuse body aches. Patient complaining of nasal congestion. Patient denies fever chills, patient denies UTI symptoms Related Data Home Medications Medication Instructions Recorded Confirmed fluticasone propionate 50 spray intranasal 11/24/21 mcg/actuation nasal spray,suspension ibuprofen 600 mg tablet 600 mg PO TID 11/24/21 loratadine 10 mg tablet 10 mg PO DAILY 11/24/21 ondansetron 4 mg disintegrating 0 mg PO 11/24/21 tablet trazodone 100 mg tablet 200 mg PO BEDTIME PRN 11/24/21 Previous Rx's Medication Instructions Recorded tizanidine 4 mg tablet 4 mg PO Q8H PRN muscle spasticity 01/28/22 30 days #90 tabs ibuprofen 600 mg tablet 600 mg PO TID PRN fever or pain 04/28/22 #20 tabs Allergies Allergy/AdvReac Type Severity Reaction Status Date / Time No Known Allergies Allergy Verified 11/24/21 10:03 Review of Systems Review of Systems: Constitutional : No Weight loss, No Fever, No Chills, No Night Sweats, complaining of fatigue, generalized malaise, diffuse body aches ENT/Mouth : No Hearing loss, No Ear Pain, complaining of Nasal Congestion, No Sinus Pain, No Hoarseness, mild sore throat, No Rhinorrhea, No Swallowing Difficulty Eyes: No Eye Pain, No Swelling, No Redness, No Foreign Body, No Discharge, No Vision Changes Cardiovascular : No Chest Pain, No SOB, No Dyspnea on Exertion, No Orthopnea, No Edema, No Palpitations Respiratory : No Cough, No Sputum, No Wheezing, No Smoke Exposure, No Dyspnea Gastrointestinal : No Nausea, No Vomiting, No Diarrhea, No Constipation, No abdominal Pain, No Hematochezia, No Melena Genitourinary : no irregular bleeding, No Dysuria, No Urinary Frequency, No Hematuria, No Urinary Incontinence, No Urgency, No Flank Pain, No Urinary Flow Changes, No Hesitancy Musculoskeletal : No joint pain, No Myalgias, No Joint Swelling Skin : No Skin Lesions, No rash Neuro : No Weakness, No Numbness, No Paresthesias, No Loss of Consciousness, No Dizziness, No Headache Psych : No Anxiety/Panic, No Depression, No SI/HI/AH/VH, No Social Issues, Heme/Lymph: No Bruising, No Bleeding,No Lymphadenopathy Endocrine : No Polyuria, No Polydipsia, No Temperature Intolerance [facility] Past Medical History Medical History Bipolar affective disorder, current episode depressed Obesity Scoliosis Surgical History Hx of tonsillectomy Family History Family History Mother Deep vein thrombosis (DVT) Hypothyroidism Arthritis Social History Social History Alcohol intake: never Patient Tobacco Use Status: Never used Tobacco Advance Directives: No Sexual orientation: Straight/Heterosexual Gender identity: Female Physical Exam Vital Signs: Vital Signs: Last Vital Signs Temp 97.8 F 04/28/22 17:28 Pulse 99 04/28/22 17:28 Resp 18 04/28/22 17:28 BP 117/66 04/28/22 17:28 Pulse Ox 99 04/28/22 17:28 O2 Del Method 04/28/22 17:28 BMI result Body Mass Index 33.3 Const: Other: Appearance: Alert. Oriented X3. No acute distress. Eyes: Pupils equal, round and reactive to light. ENT: Very mild erythema in the Pharynx , no exudates, no abscess is visualized. Does not seem congested, bilateral tympanic membranes within normal limits Neck: Normal inspection. Neck supple. No lymph nodes noted. No crepitus CVS: Normal heart rate and rhythm. Pulses normal. Normal S1 and S2 Respiratory: No respiratory distress. Breath sounds normal. No Wheezing. No rales Abdomen: Soft and nontender. No rigidity. No distention. Skin: Skin warm and dry. Normal skin color. Normal skin turgor. Extremities: No lower extremity edema. No Lacerations. No Rash Neuro: Oriented X 3. No motor deficit. No sensory deficit. Moving all extremities. No slurred speech. CN 2 through 12 grossly intact Psych: calm, cooperative, normal affect Course Course Course Narrative: Patient tested negative for COVID and influenza, all of her vitals are stable. Patient likely having a viral syndrome. MDM - URI/Sore Throat Lab Data Labs: Lab Results 04/28/22 04/28/22 04/28/22 Range/Units 17:31 17:31 17:31 COVID-19 (MAR) Negative (Negative) COVID-19 Clin Com See Note Influenza Type A (CATERINA) Negative (Negative) Influenza Type B ([facility]) Negative (Negative) Influenza A & B Note See Note S. pyogenes GrpA [facility] Negative (Negative) Discharge Plan Discharge Clinical Impression: Acute viral syndrome Patient Disposition: Home, Self-Care Instructions: Viral Syndrome (ED) Additional Instructions: Please follow-up with your primary care physician tomorrow. If you have any worsening or new symptoms, please return to the emergency room or call 911 Prescriptions: New ibuprofen 600 mg tablet 600 mg PO TID PRN (Reason: fever or pain) Qty: 20 0RF No Action tizanidine 4 mg tablet 4 mg PO Q8H PRN (Reason: muscle spasticity) 30 Days Qty: 90 1RF ondansetron 4 mg tablet,disintegrating 0 mg PO trazodone 100 mg tablet 200 mg PO BEDTIME PRN ibuprofen 600 mg tablet 600 mg PO TID fluticasone propionate 50 mcg/actuation spray,suspension intranasal loratadine 10 mg tablet 10 mg PO DAILY
== END 2022-04-28 21:22 | disposition home or self-care (01) ==
PROVIDERS: Emergency Provider Emergency Medicine
DX: B34.9 Viral infection, unspecified (principal); M79.10 Myalgia, unspecified site; J02.9 Acute pharyngitis, unspecified; Z20.822 Contact with and (suspected) exposure to COVID-19; Z79.899 Other long term (current) drug therapy
CPT/HCPCS: 87502; 87635; 87651; 99283; 99284

== ENCOUNTER 2022-05-29 09:37 | Emergency (ER) | payer OTHER, SELFPAY ==
--- NOTE | ~2022-05-29 | US_ITS ---
EXAMINATION: US PELVIS CLINICAL INFORMATION: Abnormal vaginal bleeding, cramping. COMPARISON: CT scan of the abdomen and pelvis dated 02/14/2021, pelvic ultrasound dated 08/02/2018. TECHNIQUE: Ultrasound of the pelvis is performed using both transabdominal and transvaginal transducers along with Doppler. Transvaginal imaging is performed due to inadequate visualization transabdominally. FINDINGS: Uterus: Anteverted, mildly retroflexed measuring 8.1 x 4.6 x 4.5 cm. The endometrial stripe measures up to 1.2 cm. The cervix is closed without abnormality. No significant free fluid in the cul-de-sac. The uterus is smooth in contour and has normal myometrial echogenicity. No visible fibroid. Right ovary: 3.9 x 3.7 x 3.8 cm with a volume of 29 mL. Dominant anechoic follicle measures 3.1 cm. Color Doppler showed no abnormal vascular flow. Left ovary: 2.8 x 2.3 x 1.9 cm with a volume of 6 4 4 mL. Small anechoic follicles. Color Doppler showed no abnormal vascular flow. US/US pelvic ovarian doppler IMPRESSION: Unremarkable pelvic ultrasound.
--- NOTE | ~2022-05-29 | US_ITS ---
EXAMINATION: US PELVIS CLINICAL INFORMATION: Abnormal vaginal bleeding, cramping. COMPARISON: CT scan of the abdomen and pelvis dated 02/14/2021, pelvic ultrasound dated 08/02/2018. TECHNIQUE: Ultrasound of the pelvis is performed using both transabdominal and transvaginal transducers along with Doppler. Transvaginal imaging is performed due to inadequate visualization transabdominally. FINDINGS: Uterus: Anteverted, mildly retroflexed measuring 8.1 x 4.6 x 4.5 cm. The endometrial stripe measures up to 1.2 cm. The cervix is closed without abnormality. No significant free fluid in the cul-de-sac. The uterus is smooth in contour and has normal myometrial echogenicity. No visible fibroid. Right ovary: 3.9 x 3.7 x 3.8 cm with a volume of 29 mL. Dominant anechoic follicle measures 3.1 cm. Color Doppler showed no abnormal vascular flow. Left ovary: 2.8 x 2.3 x 1.9 cm with a volume of 6 4 4 mL. Small anechoic follicles. Color Doppler showed no abnormal vascular flow. US/US pelvic and transvaginal IMPRESSION: Unremarkable pelvic ultrasound.
[2022-05-29 09:45] VITALS: BP 122/57; PULSE 83; RESP 18; TEMP 36.2; O2SAT 98
[2022-05-29 10:37] VITALS: BMI 32.4
[2022-05-29 10:53] LABS: MANUAL DIFF FLAG NO
[2022-05-29 10:59] LABS: Basophils Percent Auto 0.3 % (0-2); Eosinophils Absolute Auto 0.1 X10*3/uL (0.0-0.4); Eosinophils Percent Auto 1.1 % (0-4); Hematocrit 40.9 % (37.0-47.0); Hemoglobin 13.3 g/dl (12.0-16.0); Imm Gran Abs Auto 0.04 X10*3/uL (0.00-0.03); Imm Gran Pct Auto 0.3 % (0.0-0.4); Lymphocytes Absolute Auto 3.1 X10*3/uL (1.2-4.9); Mean Corpuscular HGB Conc 32.5 g/dl (31.0-35.0); Mean Corpuscular Hemoglobin 24.4 pg (27.0-33.0); Mean Corpuscular Volume 74.9 fL (80.0-98.0); Mean Platelet Volume 10.4 fL (9.4-12.3); Monocytes Absolute Auto 0.6 X10*3/uL (0.1-1.2); Monocytes Percent Auto 5.3 % (2-11); Neutrophils Absolute Auto 8.1 x10*3/uL (2.0-8.3); Platelet Count 312 X10*3/uL (160-400); Red Blood Count 5.46 X10*6/uL (4.20-5.50); Red Cell Distribution Width 16.1 % (11.0-16.0)
[2022-05-29 11:02] LABS: Appearance Urine Cloudy; Color Urine Red; Glucose Urine UA Negative (Negative); Leukocyte Esterase Urine Moderate (2+) (Negative); Nitrite Urine Negative (Negative); PH 5.5 (5.0-8.0); UPreg QC Valid YES; Urine Blood Large (3+) (Negative); Urine Ketones Negative (Negative); Urine Pregnancy NEGATIVE (NEGATIVE); Urine Protein 30 (1+) mg/dL (Neg-Trace)
[2022-05-29 11:05] LABS: Bacteria Urine None Seen (None Seen); Hyaline Casts Urine 0-2 /LPF (0-2); RBC Urine >20 /HPF (0-2); Squamous Epithelial Cell Urine 0-2 /HPF (0-2); UACC Culture Trigger YES
[2022-05-29 11:15] LABS: Anion Gap 13 (12-20); Blood Urea Nitrogen 9 mg/dL (9-16); Carbon Dioxide 26 mmol/L (22-29); Chloride 106 mmol/L (96-108); Creatinine Clr Calc Pharmacy 143.1; Estimated Glomerular Filt Rate > 60; Glucose Random 82 mg/dL (60-115); Potassium 4.1 mmol/L (3.3-5.1); Sodium 141 mmol/L (135-145)
[2022-05-29 11:56] VITALS: BP 116/68; PULSE 77; RESP 18; TEMP 36.6; O2SAT 100
--- NOTE | 2022-05-29 12:29 | ED_ITS ---
HPI - General Chief complaint: General Medical Stated complaint: heavy vaginal bleeding dizzy headache Time Seen by Provider: 05/29/22 10:38 Source: patient Mode of arrival: ambulatory Limitations: no limitations History of Present Illness HPI Narrative: 26-year-old female with a past medical history of obesity and scoliosis presenting to the ED with complaints of abnormal vaginal bleeding for the past 2 weeks. Reports she is changing her pad every 30-60 minutes where it is completely saturated with bright red blood. Denies any clots. She reports associated dizziness/lightheadedness and headaches. She is not on any control at this time. She denies any thoughts of STDs. She reports this has never happened in the past. She reports she usually has her menstrual period for approximately 2 days and resolved on its own. She denies any thoughts of . She denies any fevers, chills, change in vision, neck pain/stiffness, trouble swallowing or breathing, chest pain or shortness of breath, dyspnea on exertion, orthopnea, palpitations, paresthesias, flank pain, back pain, abdominal pain, abnormal vaginal discharge, black or bloody stools, recent travel or sick contacts or any other symptoms complaints or concerns at this time. MD Complaint: vaginal bleeding Onset (ago): week(s) (2) Pain Consistency: constant Location: pelvis Severity: mild Relieving factors: none Exacerbating factors: none Associated symptoms: denies other symptoms Vaginal discharge: none Vaginal bleeding: heavy Patient : No Related Data Home Medications Medication Instructions Recorded Confirmed fluticasone propionate 50 spray intranasal 11/24/21 mcg/actuation nasal spray,suspension ibuprofen 600 mg tablet 600 mg PO TID 11/24/21 loratadine 10 mg tablet 10 mg PO DAILY 11/24/21 ondansetron 4 mg disintegrating 0 mg PO 11/24/21 tablet trazodone 100 mg tablet 200 mg PO BEDTIME PRN 11/24/21 Previous Rx's Medication Instructions Recorded ibuprofen 600 mg tablet 600 mg PO TID PRN fever or pain 04/28/22 #20 tabs tizanidine 4 mg tablet 4 mg PO Q8H PRN for muscle spasm 05/13/22 30 days #90 tabs desogestrel 0.15 mg-ethinyl 1 tab PO DAILY Menorrhagia #84 tabs 05/29/22 estradiol 0.03 mg tablet (Apri) Allergies Allergy/AdvReac Type Severity Reaction Status Date / Time No Known Allergies Allergy Verified 11/24/21 10:03 Review of Systems Review of Systems: Constitutional : No Fever, No Chills ENT/Mouth : No sore throat, No Rhinorrhea Eyes: No Eye Pain, No Redness Cardiovascular : No Chest Pain, No SOB Respiratory : No Cough, No Sputum, No Wheezing Gastrointestinal : No Nausea, No Vomiting, No Diarrhea, No abdominal pain, Genitourinary : + irregular bleeding, No Dysuria, No Urinary Frequency, No pelvic pain Musculoskeletal : No Myalgias Skin : No rash Neuro : No Weakness, No Headache Psych : No Anxiety/Panic, No Depression Heme/Lymph: No bruising, No Lymphadenopathy Endocrine : No Polyuria, No Polydipsia Yes all other systems are reviewed and are negative [facility] Past Medical History Attestation statement: The following information was validated with the patient. Source: old records reviewed and nursing notes reviewed Medical History Bipolar affective disorder, current episode depressed Obesity Scoliosis Surgical History Hx of tonsillectomy Family History Family History Mother Deep vein thrombosis (DVT) Hypothyroidism Arthritis Social History Social History Alcohol intake: never Patient Tobacco Use Status: Never used Tobacco Use of substances other than those prescribed or required for medical reasons: No Advance Directives: No Advance Directives Information Provided: No Patient : No Sexual orientation: Straight/Heterosexual Gender identity: Female Physical Exam Vital Signs: Vital Signs: Last Vital Signs Temp 97.9 F 05/29/22 11:56 Pulse 77 05/29/22 11:56 Resp 18 05/29/22 11:56 BP 116/68 05/29/22 11:56 Pulse Ox 100 05/29/22 11:56 O2 Del Method 05/29/22 11:56 BMI result Body Mass Index 32.4 vital signs have been reviewed as normal and appeared to be correct. Blood pressure 122/57. Heart rate normal. Respiration rate normal. Temperature normal. Oxygen saturation normal. Appearance: Alert. Oriented X3. No acute distress. Head: Normal external exam. Normocephalic. Atraumatic. Eyes: PERRLA. EOMI. Conjunctiva and sclera normal. Eyelids normal. ENT: Pharynx normal. Uvula midline. Moist mucous membranes. No trismus noted. No drooling noted. No muffled voice noted. Neck: Normal inspection. Neck supple. FROM. No adenopathy. Thyroid Normal. No meningeal signs. No neck mass noted. CVS: Normal heart rate and rhythm. Heart sound normal. No murmurs noted. Pulses normal throughout. Respiratory: No respiratory distress. Painless inspiration. Breath sounds normal. No wheezes/rales/rhonchi noted. No accessory muscle usage noted or decreased air movement noted. Abdomen: Soft and nontender. Bowel sounds normal in all 4 quadrants. No distention noted. No organomegaly noted. No visible injury noted. : Supervised byRAJI Steel. Normal external appearance of urethra. No lesions/lacerations or discharge or tenderness noted. Speculum exam normal appearance/palpation of vagina normal. No abnormal vaginal discharge noted. Otherwise no vaginal erythema. No foreign bodies noted. No vaginal laceration/lesions. Although patient is noted to have some bright red blood in the vaginal canal. No hemorrhaging noted. No tissue present in vagina. No vaginal mass noted. No vaginal swelling noted. No vaginal tenderness noted. Normal appearance of cervix. Normal palpation of cervix. Cervical os is closed. No abnormal cervical discharge noted. No cervical lesion/mass. No Bartholin cyst noted. No cervical motion tenderness noted. Negative chandelier sign. Normal bimanual exam. Uterine size normal. Bladder normal to palpation. Uterine consistency normal. Normal cervical palpation. Uterine mobility normal. Uterine shape normal. Normal adnexa. Normal rectovaginal exam. Back: No CVA tenderness. Full range of motion noted. Skin: Skin warm and dry. Normal skin color. Normal skin turgor. No rashes/lesions/lacerations noted. Extremities: No lower extremity edema. Extremities exhibit normal range of motion. Extremities nontender. Neuro: Oriented X 3. No motor deficit. No sensory deficit. Reflexes normal. Course Course Course Narrative: 12:15pm - 26-year-old female with a past medical history of obesity and scoliosis presenting to the ED with complaints of abnormal vaginal bleeding for the past 2 weeks. Reports she is changing her pad every 30-60 minutes where it is completely saturated with bright red blood. Denies any clots. She reports associated dizziness/lightheadedness and headaches. She is not on any control at this time. She denies any thoughts of STDs. She reports this has never happened in the past. She reports she usually has her menstrual period for approximately 2 days and resolved on its own. On exam she does have bright red blood in the vaginal canal although cervical os is closed and no active bleeding/hemorrhaging. No abdominal pain or CVA tenderness or flank pain noted at this time. Labs were obtained while the patient was in waiting room and patient has an elevated white blood cell count at 12,000 otherwise she has a normal H&H. Otherwise all other labs are within normal limits. UA revealed 30 protein and large amounts of blood and leukocytes otherwise negative for . Plan: Will obtain bacterial vaginosis/Trichomonas/yeast/gonorrhea chlamydia swab, pelvic/transvaginal/ovarian and Doppler ultrasound re-evaluate. Reevaluation(s) Reevaluation #1: - ultrasound was unremarkable no acute processes were noted. Therefore discussing this case with Dr. Bee the OBGYN at this time and he recommended starting the patient on Apri control daily and to follow-up in the next few weeks with OBGYN and to return if any new or worsening symptoms. Patient understands agrees with this plan. Time: 14:21 [facility] - OB/Uterine Contractions Medical Records Attestation: I reviewed the patient's medical records. Lab Data Attestation: I reviewed the patient's lab results. Result diagrams: 05/29/22 10:48 05/29/22 10:48 Labs: Lab Results 05/29/22 05/29/22 05/29/22 Range/Units 10:48 10:48 10:48 WBC 12.0 H (4.8-10.8) X10*3/uL RBC 5.46 (4.20-5.50) X10*6/uL Hgb 13.3 (12.0-16.0) g/dl Hct 40.9 (37.0-47.0) % MCV 74.9 L (80.0-98.0) fL MCH 24.4 L (27.0-33.0) pg MCHC 32.5 (31.0-35.0) g/dl RDW 16.1 H (11.0-16.0) % Plt Count 312 (160-400) X10*3/uL MPV 10.4 (9.4-12.3) fL Immature Gran % (Auto) 0.3 (0.0-0.4) % Neut % (Auto) 67.0 (45-73) % Lymph % (Auto) 26.0 (20-40) % [place] % (Auto) 5.3 (2-11) % Eos % (Auto) 1.1 (0-4) % Baso % (Auto) 0.3 (0-2) % Lymph # (Auto) 3.1 (1.2-4.9) X10*3/uL [place] # (Auto) 0.6 (0.1-1.2) X10*3/uL Eos # (Auto) 0.1 (0.0-0.4) X10*3/uL Baso # (Auto) 0.0 (0.0-0.2) X10*3/uL Abs Immat Gran (auto) 0.04 H (0.00-0.03) X10*3/uL Absolute Neuts (auto) 8.1 (2.0-8.3) x10*3/uL Absolute Nucleated RBC 0.000 (0.0-0.012) X10*3/uL Nucleated RBC % (auto) 0.0 (0.0-0.2) /100WBC Sodium (135-145) mmol/L Potassium (3.3-5.1) mmol/L Chloride (96-108) mmol/L Carbon Dioxide (22-29) mmol/L Anion Gap (12-20) BUN (9-16) mg/dL Creatinine (0.5-1.4) mg/dL Estim Creat Clear Calc Estimated GFR Random Glucose (60-115) mg/dL Calcium (8.4-10.2) mg/dL Urine Color Red A Urine Appearance Cloudy Urine pH 5.5 (5.0-8.0) Ur Specific [place] 1.020 (1.005-1.025) Urine Protein 30 (1+) H (Neg-Trace) mg/dL Urine Glucose (UA) Negative (Negative) mg/dL Urine Ketones Negative (Negative) mg/dL Urine Blood Large (3+) H (Negative) Urine Nitrite Negative (Negative) Ur Leukocyte Esterase Moderate (2+) H (Negative) Urine RBC >20 H (0-2) /HPF Urine WBC 11-20 H (0-5) /HPF Ur Squamous Epith Cells 0-2 (0-2) /HPF Urine Bacteria None Seen (None Seen) Hyaline Casts 0-2 (0-2) /LPF Urine Test NEGATIVE (NEGATIVE) 05/29/22 Range/Units 10:48 WBC (4.8-10.8) X10*3/uL RBC (4.20-5.50) X10*6/uL Hgb (12.0-16.0) g/dl Hct (37.0-47.0) % MCV (80.0-98.0) fL MCH (27.0-33.0) pg MCHC (31.0-35.0) g/dl RDW (11.0-16.0) % Plt Count (160-400) X10*3/uL MPV (9.4-12.3) fL Immature Gran % (Auto) (0.0-0.4) % Neut % (Auto) (45-73) % Lymph % (Auto) (20-40) % [place] % (Auto) (2-11) % Eos % (Auto) (0-4) % Baso % (Auto) (0-2) % Lymph # (Auto) (1.2-4.9) X10*3/uL [place] # (Auto) (0.1-1.2) X10*3/uL Eos # (Auto) (0.0-0.4) X10*3/uL Baso # (Auto) (0.0-0.2) X10*3/uL Abs Immat Gran (auto) (0.00-0.03) X10*3/uL Absolute Neuts (auto) (2.0-8.3) x10*3/uL Absolute Nucleated RBC (0.0-0.012) X10*3/uL Nucleated RBC % (auto) (0.0-0.2) /100WBC Sodium 141 (135-145) mmol/L Potassium 4.1 (3.3-5.1) mmol/L Chloride 106 (96-108) mmol/L Carbon Dioxide 26 (22-29) mmol/L Anion Gap 13 (12-20) BUN 9 (9-16) mg/dL Creatinine 0.66 (0.5-1.4) mg/dL Estim Creat Clear Calc 143.1 Estimated GFR > 60 Random Glucose 82 (60-115) mg/dL Calcium 9.0 (8.4-10.2) mg/dL Urine Color Urine Appearance Urine pH (5.0-8.0) Ur Specific [place] (1.005-1.025) Urine Protein (Neg-Trace) mg/dL Urine Glucose (UA) (Negative) mg/dL Urine Ketones (Negative) mg/dL Urine Blood (Negative) Urine Nitrite (Negative) Ur Leukocyte Esterase (Negative) Urine RBC (0-2) /HPF Urine WBC (0-5) /HPF Ur Squamous Epith Cells (0-2) /HPF Urine Bacteria (None Seen) Hyaline Casts (0-2) /LPF Urine Test (NEGATIVE) Imaging Data Pelvic/Doppler/ovarian ultrasound: Attestation: I personally reviewed and interpreted this imaging study as follows: Radiologist's impression: FINDINGS: Uterus: Anteverted, mildly retroflexed measuring 8.1 x 4.6 x 4.5 cm. The endometrial stripe measures up to 1.2 cm. The cervix is closed without abnormality. No significant free fluid in the cul-de-sac. The uterus is smooth in contour and has normal myometrial echogenicity. ? No visible fibroid. Right ovary: 3.9 x 3.7 x 3.8 cm with a volume of 29 mL. Dominant anechoic follicle measures 3.1 cm. Color Doppler showed no abnormal vascular flow. Left ovary: 2.8 x 2.3 x 1.9 cm with a volume of 6 4 4 mL. Small anechoic follicles. Color Doppler showed no abnormal vascular flow. US/US pelvic and transvaginal IMPRESSION: Unremarkable pelvic ultrasound. Discharge Plan Discharge Clinical Impression: Menorrhagia Patient Disposition: Home, Self-Care Instructions: Menorrhagia (ED) Prescriptions: New desogestrel-ethinyl estradiol [Apri] 0.15-0.03 mg tablet 1 tab PO DAILY Qty: 84 0RF No Action tizanidine 4 mg tablet 4 mg PO Q8H PRN (Reason: for muscle spasm) 30 Days Qty: 90 1RF ibuprofen 600 mg tablet 600 mg PO TID PRN (Reason: fever or pain) Qty: 20 0RF ondansetron 4 mg tablet,disintegrating 0 mg PO trazodone 100 mg tablet 200 mg PO BEDTIME PRN ibuprofen 600 mg tablet 600 mg PO TID fluticasone propionate 50 mcg/actuation spray,suspension intranasal loratadine 10 mg tablet 10 mg PO DAILY Referrals: Abiodun Bee MD [Physician] - 2 weeks (Call to make a follow-up appointment within the next 2-4 weeks) Print Language: [place]
[2022-05-29 14:00] VITALS: BP 135/63; PULSE 70; RESP 18; TEMP 36.7; O2SAT 100
--- NOTE | 2022-05-29 16:15 | P.CONOB_ITS ---
[employer] - CN: HPI Data of Consult Consult date: 05/29/22 Primary Care Provider: Unknown Physician Consult Narrative Narrative: Late entry note I was consulted at 14:17 on Deyanira Thomas at who is a 26 year old female presented to the emergency room planing of vaginal bleeding for the last 2 weeks, no passage of blood clots or pelvic cramping.? LMP was 2 weeks ago and since then the patient has been bleeding.? No other associated symptoms. cc:: CC: [facility] Past Medical History Medical History Bipolar affective disorder, current episode depressed Obesity Scoliosis Family History Family History Mother Deep vein thrombosis (DVT) Hypothyroidism Arthritis Surgical History Surgical History Hx of tonsillectomy Social History Social History Alcohol intake: never Patient Tobacco Use Status: Never used Tobacco Use of substances other than those prescribed or required for medical reasons: No Advance Directives: No Advance Directives Information Provided: No Patient : No Sexual orientation: Straight/Heterosexual Gender identity: Female Meds Allergies Allergy/AdvReac Type Severity Reaction Status Date / Time No Known Allergies Allergy Verified 11/24/21 10:03 Home Medications Medication Instructions Recorded Confirmed Last Taken Type fluticasone propionate 50 spray intranasal 11/24/21 Unknown History mcg/actuation nasal spray,suspension ibuprofen 600 mg tablet 600 mg PO TID 11/24/21 Unknown History loratadine 10 mg tablet 10 mg PO DAILY 11/24/21 Unknown History ondansetron 4 mg disintegrating 0 mg PO 11/24/21 Unknown History tablet trazodone 100 mg tablet 200 mg PO BEDTIME PRN 11/24/21 Unknown History [employer] Physical Exam Vitals Vital signs: Temp Pulse Resp BP Pulse Ox O2 Del Method 98.0 F 70 18 135/63 100 05/29/22 14:00 05/29/22 14:00 05/29/22 14:00 05/29/22 14:00 05/29/22 14:00 05/29/22 14:00 BMI result Body Mass Index 32.4 Additional Comments: Exam reported by BRANDAN Zhong in the emergency as the following: Abdomen soft benign nontender Pelvic exam: Minimal blood per vagina no active bleeding , no blood clots otherwise unremarkable [employer] - Results Labs CBC & Chem 7: 05/29/22 10:48 05/29/22 10:48 Labs: Short CBC 05/29/22 Range/Units 10:48 WBC 12.0 H (4.8-10.8) X10*3/uL Hgb 13.3 (12.0-16.0) g/dl Hct 40.9 (37.0-47.0) % Plt Count 312 (160-400) X10*3/uL BMP 05/29/22 10:48 Sodium 141 Potassium 4.1 Chloride 106 Carbon Dioxide 26 BUN 9 Creatinine 0.66 Calcium 9.0 Urine 05/29/22 05/29/22 Range/Units 10:48 10:48 Urine Color Red A Urine Appearance Cloudy Urine pH 5.5 (5.0-8.0) Ur Specific [place] 1.020 (1.005-1.025) Urine Protein 30 (1+) H (Neg-Trace) mg/dL Urine Glucose (UA) Negative (Negative) mg/dL Urine Test NEGATIVE (NEGATIVE) Imaging US - abdomen: Radiologist's impression: ITS Impressions Doppler Study Ultrasound 05/29/22 12:40 IMPRESSION: Unremarkable pelvic ultrasound. Pelvic/Transvag US 05/29/22 12:40 IMPRESSION: Unremarkable pelvic ultrasound. Assessment and Plan (1) Abnormal uterine bleeding (AUB): Status: Acute Plan Since the patient's abdominal and pelvic exam is within normal with no evidence of active vaginal bleeding, stable vital signs, H&H is within normal and negative test , I recommended to BRANDAN Zhong in the emergency room the following: Start the patient on Apri 1 tablet p.o. q.d. if the patient is not interested in future fertility, the patient is to follow up in the outpatient office within few days, to come back to the emergency room in case of heavy vaginal bleeding, passage of blood clots, fever above 100.4 and other concerns. I spent a total of 20 minutes reviewing the chart, communicating with the ER provider and documenting in the medical record
[2022-05-29 18:12] LABS: CT PCR NOT DETECTED (Not Detect.)
[2022-05-29 18:13] LABS: NG PCR NOT DETECTED (Not Detect.)
[2022-05-31 09:55] LABS: BV Int Neg Control Negative (Negative); BV Int Pos Control Positive (Positive)
== END 2022-05-29 14:40 | disposition home or self-care (01) ==
PROVIDERS: Physician Assistant Medical; Emergency Provider Emergency Medicine
DX: N92.0 Excessive and frequent menstruation with regular cycle (principal); R42 Dizziness and giddiness; R51.9 Headache, unspecified; E66.9 Obesity, unspecified; Z68.32 Body mass index [BMI] 32.0-32.9, adult; R82.71 Bacteriuria; B95.1 Streptococcus, group B, as the cause of diseases classified elsewhere
CPT/HCPCS: 36415; 76830; 76856; 80048; 81001; 81003; 81025; 85025; 87086; 87147; 87480; 87491; 87510; 87591; 87660; 93975; 99284

== ENCOUNTER 2022-06-11 07:58 | Outpatient (REF) | payer OTHER, SELFPAY ==
[2022-06-11 08:23] LABS: COVID-19 Test Positive (Negative); IDNOW Serial# 9DB6401D
== END 2022-06-11 07:59 | disposition home or self-care (01) ==
LOC: HO.LAB 07:58
PROVIDERS: Visit Provider Internal Medicine
DX: Z20.822 Contact with and (suspected) exposure to COVID-19 (principal)
CPT/HCPCS: 87635; C9803

== ENCOUNTER 2022-11-01 19:52 | Emergency (ER) | payer OTHER, SELFPAY ==
[2022-11-01 19:56] VITALS: BP 145/82; RESP 20; TEMP 36.2; O2SAT 96; BMI 32.9
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
[2022-11-01] MEDS: Ketorolac Tromethamine 30 MG/ML VIAL IM (20:17)
[2022-11-01] MEDS: Lidocaine 4 % Patch ADH..PATCH 1 PATCH TRANSDERMA (20:18)
[2022-11-01 20:26] VITALS: BP 140/89; PULSE 69; RESP 16; O2SAT 98
== END 2022-11-01 20:27 | disposition home or self-care (01) ==
PROVIDERS: Emergency Provider Emergency Medicine
DX: S16.1XXA Strain of muscle, fascia and tendon at neck level, initial encounter (principal); V43.52XA Car driver injured in collision with other type car in traffic accident, initial encounter; Y93.89 Activity, other specified; Y92.414 Local residential or business street as the place of occurrence of the external cause; Y99.9 Unspecified external cause status
CPT/HCPCS: 96372; 99284; J1885

== ENCOUNTER → 2022-12-29 09:15 | Outpatient (BNVA) | payer OTHER, SELFPAY | PROVIDERS: Visit Provider Obstetrics & Gynecology | DX: Z13.89 Encounter for screening for other disorder (principal) ==

== ENCOUNTER 2023-07-01 07:50 | Emergency (ER) | payer OTHER, SELFPAY ==
--- NOTE | ~2023-07-01 | CT_ITS ---
CT HEAD WITHOUT CONTRAST CLINICAL INFORMATION: Headaches and dizziness. COMPARISON: Head CT 12/26/2018. TECHNIQUE: Contiguous axial imaging was performed from the skull base to vertex without intravenous administration of contrast. This CT examination was performed using dose optimization techniques as appropriate, variously including the following: *Automated exposure control *Adjustment of mA and/or kV according to patient size (this includes techniques or standardized protocols for targeted exams where dose is matched to indication/reason for exam; i.e. extremities or head) *Use of iterative reconstruction technique FINDINGS: There is no intracranial hemorrhage, hydrocephalus, extra-axial surface collection, midline shift, or other herniation pattern. [place] to white matter differentiation is diffusely maintained without evidence of an evolved acute territorial infarct. The basilar cisterns are preserved. No significant soft tissue abnormality. No acute osseous abnormality. The paranasal sinuses and the mastoid air cells are well aerated. CT/CT head/brain wo IV con IMPRESSION: No acute intracranial abnormality.
[2023-07-01 07:56] VITALS: BP 116/65; PULSE 87; RESP 16; TEMP 36.7; O2SAT 97; BMI 33.3
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
[2023-07-01 12:20] VITALS: BP 117/62; PULSE 76
[2023-07-01 12:21] VITALS: BP 119/76; PULSE 83
[2023-07-01 12:22] VITALS: BP 114/68; PULSE 90
[2023-07-01 12:53] LABS: Basophils Percent Auto 0.3 % (0-2); Eosinophils Absolute Auto 0.2 X10*3/uL (0.0-0.4); Eosinophils Percent Auto 1.7 % (0-4); Hematocrit 40.1 % (37.0-47.0); Hemoglobin 12.9 g/dl (12.0-16.0); Imm Gran Abs Auto 0.04 X10*3/uL (0.00-0.03); Imm Gran Pct Auto 0.3 % (0.0-0.4); Lymphocytes Absolute Auto 3.9 X10*3/uL (1.2-4.9); Lymphocytes Percent Auto 32.3 % (20-40); MANUAL DIFF FLAG NO; Mean Corpuscular HGB Conc 32.2 g/dl (31.0-35.0); Mean Corpuscular Hemoglobin 23.9 pg (27.0-33.0); Mean Corpuscular Volume 74.3 fL (80.0-98.0); Mean Platelet Volume 10.7 fL (9.4-12.3); Monocytes Absolute Auto 0.7 X10*3/uL (0.1-1.2); Monocytes Percent Auto 5.9 % (2-11); Neutrophils Absolute Auto 7.1 x10*3/uL (2.0-8.3); Neutrophils Percent Auto 59.5 % (45-73); Platelet Count 335 X10*3/uL (160-400); Red Cell Distribution Width 16.6 % (11.0-16.0); White Blood Count 11.9 X10*3/uL (4.8-10.8)
[2023-07-01 13:08] LABS: Alanine Aminotransferase 12 U/L (0-31); Albumin Level 3.8 g/dL (3.5-5.0); Alkaline Phosphatase 70 U/L (39-117); Anion Gap 12 (12-20); Aspartate Amino Transferase 14 U/L (5-31); Bilirubin Total 0.3 mg/dL (0.0-1.0); Blood Urea Nitrogen 8 mg/dL (9-16); Calcium 9.1 mg/dL (8.4-10.2); Carbon Dioxide 24 mmol/L (22-29); Chloride 108 mmol/L (96-108); Creatinine Clr Calc Pharmacy 163.5; Estimated Glomerular Filt Rate > 60; Glucose Random 73 mg/dL (60-115); Potassium 3.9 mmol/L (3.3-5.1); Sodium 140 mmol/L (135-145); Total Protein 7.3 g/dL (6.5-8.0)
[2023-07-01] MEDS: Ketorolac Tromethamine 15 MG/ML VIAL 30 MG IM (13:16)
[2023-07-01 13:50] VITALS: BP 122/66; PULSE 72; RESP 18; TEMP 36.6; O2SAT 100
== END 2023-07-01 13:53 | disposition home or self-care (01) ==
PROVIDERS: Physician Assistant; Emergency Provider Emergency Medicine Emergency Medical Services
DX: F07.81 Postconcussional syndrome (principal); H53.8 Other visual disturbances; R51.9 Headache, unspecified; R42 Dizziness and giddiness; Z79.899 Other long term (current) drug therapy
CPT/HCPCS: 36415; 70450; 80053; 85025; 96372; 99284; J1885

== ENCOUNTER 2024-01-05 08:04 | Outpatient (REF) | payer OTHER, SELFPAY | END 2024-01-05 08:05 | disposition home or self-care (01) | LOC: HO.LNP 08:04 | PROVIDERS: Visit Provider Obstetrics & Gynecology | DX: Z01.419 Encounter for gynecological examination (general) (routine) without abnormal findings (principal) | CPT/HCPCS: 88142 ==

== ENCOUNTER 2024-01-05 08:04 | Outpatient (AMB) | payer OTHER, SELFPAY ==
--- NOTE | 2024-01-05 08:28 | MHC.OFFVIS ---
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 No complaints. 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 Sexually active: No Sexual orientation: Straight/Heterosexual Gender identity: Female Female Reproductive History Menstrual Age of Menarche: 11 Duration of menses: 3-5 days Date of last menstrual period: 12/09/23 control method: pills Total pregnancies: 2 Full term: 2 Number of Living Children: 2 Date of last pap smear: 09/10/21 Review of Systems Const All systems reviewed & are unremarkable except as noted in HPI and below Card Reports as per HPI Resp Reports as per HPI GI Reports as per HPI and Reports no additional complaints Reports as per HPI Physical Exam Vital Signs: BMI result Body Mass Index 41.9 Const General: cooperative, healthy appearing and comfortable Chest Chest palpation & inspection: normal inspection of the chest and normal palpation of entire chest wall Breast/axilla inspection: normal inspection of the breasts and normal inspection of the axillae Breast/axilla palpation: normal palpation of the breasts, normal palpation of the axillae and no axillary lymphadenopathy Resp Effort & Inspection: normal respiratory effort Auscultation: clear to auscultation bilaterally Percussion: percussion normal Cardio Palpation: normal PMI Rate: regular rate Rhythm: regular rhythm Heart sounds: no murmurs and no rubs Peripheral pulses: Peripheral pulses 2+ throughout GI Inspection: Yes normal to inspection Palpation (GI): Soft to palpation, nontender, no guarding, not rigid and No hepatosplenomegaly present Percussion: Yes normal to percussion Auscultation: normal bowel sounds Rectal Exam - Female: deferred General: Yes bladder normal to palpation External Female Exam: No lesion Speculum Exam - Vagina: normal appearance of the vagina, normal palpation, normal vaginal discharge and not erythematous Speculum Exam - Cervix: normal appearance of the cervix and normal palpation Bimanual exam- vagina & uterus: normal bimanual exam, normal palpation, uterine size normal, bladder normal to palpation, consistency normal and normal palpation Bimanual Exam- Adnexa, other: normal adnexae, no masses and no tenderness Assessment & Plan Assessment & Plan (1) Well woman exam: Code(s): Z01.419 - Encounter for gynecological examination (general) (routine) without abnormal findings Plan: Pap smear taken. Counseled the patient about the recommended dietary allowance of 1000 mg of Calcium & 600 IU of vitamin D. The patient was instructed to perform monthly self-breast exams , to call for any changes in menstrual patterns and to schedule an annual exam in a year; all questions answered and the patient verbalized understanding. Coding Level of Care Code Est Pt Prev Care [id number]) Diagnoses Well woman exam Z01.419
[2024-01-05 08:30] VITALS: BMI 41.9
== END 2024-01-05 08:52 | disposition home or self-care (01) ==
PROVIDERS: Visit Provider Obstetrics & Gynecology
DX: Z01.419 Encounter for gynecological examination (general) (routine) without abnormal findings (principal)
CPT/HCPCS: 99395

== ENCOUNTER 2024-04-30 21:10 | Emergency (ER) | payer OTHER, SELFPAY ==
--- NOTE | 2024-04-30 | ECG_ITS ---
Test Reason : CHEST PAIN Blood Pressure : / mmHG Vent. Rate : 114 BPM Atrial Rate : 114 BPM P-R Int : 144 ms QRS Dur : 084 ms QT Int : 316 ms P-R-T Axes : 049 007 028 degrees QTc Int : 435 ms Sinus tachycardia Minimal voltage criteria for LVH, may be normal variant ( R in aVL ) Borderline ECG When compared with ECG of 01-JUL-2014 01:23, No significant change was found Referred By: Generic ED Physician Electronically Signed By:ES NINO
--- NOTE | ~2024-04-30 | XR_ITS ---
EXAMINATION: CHEST 2 VIEWS CLINICAL INFORMATION: Dyspnea. COMPARISON: 02/13/2021. TECHNIQUE: PA and lateral views of the chest obtained. FINDINGS: The lungs are mildly hypoexpanded. No focal infiltrate, effusion, edema, or pneumothorax. Cardiac and mediastinal silhouettes are within normal limits for technique. No acute bony abnormality seen XR/XR chest 2V IMPRESSION: Mildly hypoexpanded but otherwise no evidence of acute disease.
--- NOTE | ~2024-04-30 | US_ITS ---
EXAMINATION: US PELVIS CLINICAL INFORMATION: Reason for Exam Abnormal CT in abdominal pain COMPARISON: CT from the same day TECHNIQUE: Ultrasound of the pelvis is performed using both transabdominal and transvaginal transducers along with Doppler. Transvaginal imaging is performed due to inadequate visualization transabdominally. FINDINGS: The uterus measures 9.1 x 4.0 x 5.5 cm. Endometrial stripe measures 0.6 cm in thickness. The right ovary measures 7.1 x 4.1 x 4.6 cm. There is a complex cystic appearing structure in the right adnexa measuring up to 4.9 cm with multiple low-level internal echoes, suggestive of a hemorrhagic cyst. An additional smaller cystic structure measures up to approximately 1.9 cm. The left ovary measures 2.6 x 1.5 x 2.4 cm on transabdominal imaging and is not visible on transvaginal imaging. Doppler evaluation demonstrates arterial and venous waveforms in both ovaries. No free fluid identified. US/US pelvic and transvaginal IMPRESSION: Complex cystic structure in the right adnexa measuring up to 4.9 cm, suggestive of a hemorrhagic cyst. Follow-up pelvic ultrasound in 6-12 weeks is recommended to assess for resolution.
--- NOTE | ~2024-04-30 | CT_ITS ---
EXAMINATION: CT ABDOMEN AND PELVIS WITHOUT CONTRAST CLINICAL INFORMATION: Abdominal pain and elevated white blood cell count COMPARISON: 02/14/2021 TECHNIQUE: Multidetector volumetric imaging was performed from the superior aspect of the liver through the pubic symphysis. Sagittal and coronal reformatted images were obtained on the technologist's workstation. This CT examination was performed using dose optimization techniques as appropriate, variously including the following: *Automated exposure control *Adjustment of mA and/or kV according to patient size (this includes techniques or standardized protocols for targeted exams where dose is matched to indication/reason for exam; i.e. extremities or head) *Use of iterative reconstruction technique DLP: 880 mGy-cm FINDINGS: LUNG BASES: The visualized lung bases are unremarkable. LIVER, GALLBLADDER, AND BILIARY TREE: The liver is normal in size, shape, and attenuation. No focal hepatic lesion or biliary ductal dilatation is identified on this noncontrast exam. The gallbladder is unremarkable. PANCREAS: Unremarkable. SPLEEN: Unremarkable. ADRENAL GLANDS: Unremarkable. KIDNEYS AND URETERS: The kidneys are normal in size, shape, and attenuation. No hydronephrosis, hydroureter, or calculi seen. No perinephric stranding. BLADDER: Unremarkable. GASTROINTESTINAL TRACT: No evidence of bowel obstruction or wall thickening. Appendix appears nondilated. No free fluid or free air is seen. ABDOMINAL WALL: No significant hernia is appreciated. LYMPH NODES: No lymphadenopathy is seen, though assessment is limited in the absence of intravenous contrast. VASCULAR: Unremarkable. PELVIC VISCERA: There is increased fullness of tissue in the right adnexa compared to prior, for example measuring up to approximately 5.2 cm in diameter on image 70/102 with density at the upper limits of simple fluid. OSSEOUS STRUCTURES: Unremarkable. CT/CT abdomen pelvis wo IV con IMPRESSION: 1. Increased fullness of the right adnexa compared to 02/14/2021, which may represent a mildly complex cyst measuring up to approximately 5.2 cm. In the proper clinical setting, tubo-ovarian abscess cannot be excluded. Further workup with pelvic ultrasound is recommended. 2. No additional acute findings identified in the abdomen/pelvis.
--- NOTE | ~2024-04-30 | US_ITS ---
EXAMINATION: US PELVIS CLINICAL INFORMATION: Reason for Exam Abnormal CT in abdominal pain COMPARISON: CT from the same day TECHNIQUE: Ultrasound of the pelvis is performed using both transabdominal and transvaginal transducers along with Doppler. Transvaginal imaging is performed due to inadequate visualization transabdominally. FINDINGS: The uterus measures 9.1 x 4.0 x 5.5 cm. Endometrial stripe measures 0.6 cm in thickness. The right ovary measures 7.1 x 4.1 x 4.6 cm. There is a complex cystic appearing structure in the right adnexa measuring up to 4.9 cm with multiple low-level internal echoes, suggestive of a hemorrhagic cyst. An additional smaller cystic structure measures up to approximately 1.9 cm. The left ovary measures 2.6 x 1.5 x 2.4 cm on transabdominal imaging and is not visible on transvaginal imaging. Doppler evaluation demonstrates arterial and venous waveforms in both ovaries. No free fluid identified. US/US pelvic ovarian doppler IMPRESSION: Complex cystic structure in the right adnexa measuring up to 4.9 cm, suggestive of a hemorrhagic cyst. Follow-up pelvic ultrasound in 6-12 weeks is recommended to assess for resolution.
[2024-04-30 21:14] VITALS: BP 125/64; PULSE 113; RESP 22; TEMP 36.9; O2SAT 99; BMI 42.0
[2024-04-30 21:38] LABS: MANUAL DIFF FLAG NO
[2024-04-30 21:41] LABS: Appearance Urine Clear; Basophils Percent Auto 0.2 % (0-2); Color Urine Yellow; Eosinophils Absolute Auto 0.2 X10*3/uL (0.0-0.4); Eosinophils Percent Auto 0.9 % (0-4); Glucose Urine UA Negative (Negative); Hematocrit 37.9 % (37.0-47.0); Hemoglobin 12.7 g/dl (12.0-16.0); Imm Gran Abs Auto 0.05 X10*3/uL (0.00-0.03); Imm Gran Pct Auto 0.3 % (0.0-0.4); Leukocyte Esterase Urine Negative (Negative); Lymphocytes Absolute Auto 3.5 X10*3/uL (1.2-4.9); Lymphocytes Percent Auto 20.8 % (20-40); Mean Corpuscular HGB Conc 33.5 g/dl (31.0-35.0); Mean Corpuscular Hemoglobin 24.7 pg (27.0-33.0); Mean Corpuscular Volume 73.7 fL (80.0-98.0); Mean Platelet Volume 10.9 fL (9.4-12.3); Monocytes Absolute Auto 0.9 X10*3/uL (0.1-1.2); Neutrophils Absolute Auto 12.3 x10*3/uL (2.0-8.3); Neutrophils Percent Auto 72.8 % (45-73); Nitrite Urine Negative (Negative); Platelet Count 327 X10*3/uL (160-400); Red Blood Count 5.14 X10*6/uL (4.20-5.50); Red Cell Distribution Width 17.3 % (11.0-16.0); UPreg QC Valid YES; Urine Blood Negative (Negative); Urine Ketones Negative (Negative); Urine Pregnancy NEGATIVE (NEGATIVE); Urine Protein Negative (Neg-Trace); White Blood Count 16.9 X10*3/uL (4.8-10.8)
[2024-04-30 21:54] LABS: Alanine Aminotransferase 13 U/L (0-31); Albumin Level 3.7 g/dL (3.5-5.0); Alkaline Phosphatase 90 U/L (39-117); Anion Gap 14 (12-20); Aspartate Amino Transferase 13 U/L (5-31); Bilirubin Direct < 0.2 mg/dL (0.0-0.5); Bilirubin Total 0.2 mg/dL (0.0-1.0); Blood Urea Nitrogen 10 mg/dL (9-16); Calcium 9.2 mg/dL (8.4-10.2); Carbon Dioxide 20 mmol/L (22-29); Chloride 108 mmol/L (96-108); Creatinine Clr Calc Pharmacy 154.6; Estimated Glomerular Filt Rate > 60; Glucose Random 145 mg/dL (60-115); Lipase 12 U/L (8-78); Potassium 3.7 mmol/L (3.3-5.1); Sodium 138 mmol/L (135-145); Total Protein 7.2 g/dL (6.5-8.0)
[2024-04-30 22:52] VITALS: BP 104/45; PULSE 100; RESP 19; TEMP 36.8; O2SAT 98
--- NOTE | 2024-05-01 00:38 | ED_ITS ---
HPI - General Adult General Chief complaint: General Medical Stated complaint: abdominal pain, lower back pain Time Seen by Provider: 05/01/24 00:13 Source: patient Mode of arrival: ambulatory Limitations: no limitations History of Present Illness ED Provider: DR. Browne HPI narrative: 28-year-old female came in for evaluation of multiple complaints, abdominal cramps radiate to the lower abdomen, pain started 7 days ago pain is been intermittent described as severe, patient also describing another pain of mid back that radiates to the chest, no shortness of breath, no fever, no chills. Normal bowel movement, passing flatus, no dysuria, no frequency urination, no previous intra-abdominal surgery in the past. Related Data Home Medications ?Medication ?Instructions ?Recorded ?Confirmed fluticasone propionate 50 spray intranasal 11/24/21 mcg/actuation nasal spray,suspension loratadine 10 mg tablet 10 mg PO DAILY 11/24/21 ondansetron 4 mg disintegrating 0 mg PO 11/24/21 tablet Previous Rx's ?Medication ?Instructions ?Recorded ibuprofen 600 mg tablet 600 mg PO TID PRN fever or pain 04/28/22 #20 tabs diphenhydramine HCl 25 mg capsule 25 mg PO TID PRN allergic reaction 07/01/23 (Benadryl) #20 caps ketorolac 10 mg tablet 10 mg PO TID PRN pain 5 days #15 07/01/23 tabs desogestrel 0.15 mg-ethinyl 1 tab PO DAILY Menorrhagia #84 tabs 11/30/23 estradiol 0.03 mg tablet (Apri) Allergies Allergy/AdvReac Type Severity Reaction Status Date / Time No Known Allergies Allergy Verified 04/30/24 21:21 Review of Systems 2 Review of Systems: All other systems are reviewed and are negative Constitutional: Reports as per HPI and Reports no additional constitutional complaints Eyes: Reports as per HPI and Reports no additional eye complaints Reports system reviewed and no additional complaints, except as documented Cardiovascular: Reports as per HPI and Reports no additional cardiovascular complaints Respiratory: Reports as per HPI and Reports no additional respiratory complaints Gastrointestinal: Reports as per HPI and Reports no additional gastrointestinal complaints Genitourinary: Reports no additional female genitourinary complaints Musculoskeletal: Reports no additional musculoskeletal complaints Skin/Breast: Reports system reviewed and no additional complaints, except as docu Psychiatric: Reports no additional psychiatric complaints Endocrine: Reports no additional endocrine complaints Hematologic/Lymphatic: Reports no additional hematologic/lymphatic complaints Allergic/Immunologic: Reports no additional allergic/immunologic complaints Reports system reviewed and no additional complaints, except as documented and Reports Abnormal speech present [facility] Past Medical History Medical History Bipolar affective disorder, current episode depressed Scoliosis Obesity Surgical History Hx of tonsillectomy Family History Family History Mother Deep vein thrombosis (DVT) Hypothyroidism Arthritis Maternal Grandmother Diabetes Paternal Grandmother Diabetes Father HTN (hypertension) Social History Social History Household Members: Children Housing: Condominium Alcohol intake: never Patient Tobacco Use Status: Former Tobacco user Smoked in Last 30 Days: No Advance Directives: No Advance Directives Information Provided: No Do you have a plan to hurt others: No Plan Patient : No Current occupational status: employed 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 Blood pressure elevated. Heart rate normal. Respiratory rate normal. Temperature normal. Oxygen saturation normal. Appearance: Alert. Oriented X3. No acute distress. Head: Normal external exam. Normocephalic. Atraumatic. No [place]les[place] signs noted. No raccoon eyes noted Eyes: PERRLA. EOMI. Conjunctiva and sclera normal. Eyelids normal. ENT: TM's Normal. Pharynx normal. Uvula midline. Moist mucous membranes. No trismus noted. No drooling noted. No muffled voice noted. Neck: Normal inspection. Neck supple. FROM. No adenopathy. Thyroid Normal. No meningeal signs. No neck mass noted. CVS: Normal heart rate and rhythm. Heart sound normal. No murmurs noted. Pulses normal throughout. Respiratory: No respiratory distress. Painless inspiration. Breath sounds normal. No wheezes/rales/rhonchi noted. Chest nontender. No accessory muscle usage noted or decreased air movement noted. Abdomen: Soft and nontender. Bowel sounds normal in all 4 quadrants. No distention noted. No organomegaly noted. No visible injury noted. Back: No CVA tenderness. Full range of motion noted. Skin: Skin warm and dry. Normal skin color. Normal skin turgor. No rashes/lesions/lacerations noted. Extremities: No lower extremity edema. Extremities exhibit normal range of motion. Extremities nontender. Neuro: Oriented X 3. Cranial nerve exam: II-XII are grossly intact No motor deficit. No sensory deficit. Reflexes normal. Course Reevaluation(s) Reevaluation #1: 28-year-old female came in with nonspecific intermittent abdominal pain radiates to the lower back. Labs revealed leukocytosis patient with chronic leukocytosis. CT abdomen pelvis is unremarkable for acute intra-abdominal pathology, pelvic ultrasound reveals reveals complex cyst on right ovary with no evidence of ovarian torsionrest of the workup today in the ED is unremarkable. Reassured and to follow-up with PCP. Time: 05:13 Medical Decision Making Differential Diagnosis Differential Diagnoses: The differential diagnosis associated with the presentation includes (UTI, pyelonephritis, colitis, diverticulitis, acute appendicitis, pancreatitis, acute cholecystitis, electrolyte derangement, severe anemia.) Admission/Observation Consideration of admission/observation: Escalation of care including admission/observation considered Lab Data MDM Lab Attestation statement: I reviewed the patient's lab results. 04/30/24 21:27 04/30/24 21:27 Labs: Lab Results 04/30/24 Range/Units 21:27 WBC 16.9 H (4.8-10.8) X10*3/uL RBC 5.14 (4.20-5.50) X10*6/uL Hgb 12.7 (12.0-16.0) g/dl Hct 37.9 (37.0-47.0) % MCV 73.7 L (80.0-98.0) fL MCH 24.7 L (27.0-33.0) pg MCHC 33.5 (31.0-35.0) g/dl RDW 17.3 H (11.0-16.0) % Plt Count 327 (160-400) X10*3/uL MPV 10.9 (9.4-12.3) fL Immature Gran % (Auto) 0.3 (0.0-0.4) % Neut % (Auto) 72.8 (45-73) % Lymph % (Auto) 20.8 (20-40) % Hart % (Auto) 5.0 (2-11) % Eos % (Auto) 0.9 (0-4) % Baso % (Auto) 0.2 (0-2) % Lymph # (Auto) 3.5 (1.2-4.9) X10*3/uL Hart # (Auto) 0.9 (0.1-1.2) X10*3/uL Eos # (Auto) 0.2 (0.0-0.4) X10*3/uL Baso # (Auto) 0.0 (0.0-0.2) X10*3/uL Abs Immat Gran (auto) 0.05 H (0.00-0.03) X10*3/uL Absolute Neuts (auto) 12.3 H (2.0-8.3) x10*3/uL Absolute Nucleated RBC 0.000 (0.0-0.012) X10*3/uL Nucleated RBC % (auto) 0.0 (0.0-0.2) /100WBC Sodium 138 (135-145) mmol/L Potassium 3.7 (3.3-5.1) mmol/L Chloride 108 (96-108) mmol/L Carbon Dioxide 20 L (22-29) mmol/L Anion Gap 14 (12-20) BUN 10 (9-16) mg/dL Creatinine 0.69 (0.5-1.4) mg/dL Estim Creat Clear Calc 154.6 Estimated GFR > 60 Random Glucose 145 H (60-115) mg/dL Calcium 9.2 (8.4-10.2) mg/dL Total Bilirubin 0.2 (0.0-1.0) mg/dL Direct Bilirubin < 0.2 (0.0-0.5) mg/dL AST 13 (5-31) U/L ALT 13 (0-31) U/L Alkaline Phosphatase 90 (39-117) U/L Total Protein 7.2 (6.5-8.0) g/dL Albumin 3.7 (3.5-5.0) g/dL Lipase 12 (8-78) U/L Urine Color Yellow Urine Appearance Clear Urine pH 6.0 (5.0-9.0) Ur Specific [place] 1.010 (1.005-1.025) Urine Protein Negative (Neg-Trace) mg/dL Urine Glucose (UA) Negative (Negative) mg/dL Urine Ketones Negative (Negative) mg/dL Urine Blood Negative (Negative) Urine Nitrite Negative (Negative) Ur Leukocyte Esterase Negative (Negative) Urine Test NEGATIVE (NEGATIVE) Independent Interpretation I performed an independent interpretation of an: CT Scan (Abdomen and Pelvis: No acute intra abdominal pathology) Radiology Impression Discussion of test interpretation with radiology: I have reviewed the radiologist's reading. Discharge Plan Discharge Clinical Impression: Leukocytosis, Abdominal pain, Cyst of right ovary Patient Disposition: Home, Self-Care Instructions: Abdominal Pain (ED) Prescriptions: No Action desogestrel-ethinyl estradiol [Apri] 0.15-0.03 mg tablet 1 tab PO DAILY Qty: 84 3RF ibuprofen 600 mg tablet 600 mg PO TID PRN (Reason: fever or pain) Qty: 20 0RF diphenhydramine HCl [Benadryl] 25 mg capsule 25 mg PO TID PRN (Reason: allergic reaction) Qty: 20 0RF ketorolac 10 mg tablet 10 mg PO TID PRN (Reason: pain) 5 Days Qty: 15 0RF ondansetron 4 mg tablet,disintegrating 0 mg PO fluticasone propionate 50 mcg/actuation spray,suspension intranasal loratadine 10 mg tablet 10 mg PO DAILY Referrals: Abiodun Bee MD [Physician] - Print Language: Azeri
[2024-05-01 02:01] VITALS: BP 108/55; PULSE 76; RESP 16; TEMP 36.6; O2SAT 97
[2024-05-01 05:00] VITALS: BP 122/72; PULSE 86; RESP 16; TEMP 36.6; O2SAT 97
[2024-05-01 05:22] VITALS: BP 122/72; PULSE 86; RESP 16; TEMP 36.6; O2SAT 97
== END 2024-05-01 05:24 | disposition home or self-care (01) ==
PROVIDERS: Emergency Provider Emergency Medicine
DX: N83.291 Other ovarian cyst, right side (principal); D72.829 Elevated white blood cell count, unspecified; R10.9 Unspecified abdominal pain; R07.89 Other chest pain; R00.0 Tachycardia, unspecified; R10.2 Pelvic and perineal pain; Z79.899 Other long term (current) drug therapy
CPT/HCPCS: 36415; 71046; 74176; 76830; 76856; 80048; 80076; 81003; 81025; 83690; 85025; 93005; 93975; 99284

== ENCOUNTER → 2024-04-30 21:27 | Outpatient (BNV) | payer OTHER, SELFPAY | PROVIDERS: Emergency Provider Emergency Medicine; Visit Provider Internal Medicine | DX: R07.9 Chest pain, unspecified (principal) | CPT/HCPCS: 93010 ==

== ENCOUNTER → 2024-08-08 10:49 | Outpatient (BNVA) | payer OTHER, SELFPAY | PROVIDERS: Visit Provider Physician Assistant Surgical ==

== ENCOUNTER 2024-08-17 08:02 | Outpatient (AMB) | payer OTHER, SELFPAY ==
--- NOTE | 2024-08-17 10:09 | A.OFFVIS_ITS ---
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 Allergies No Known Allergies Allergy (Verified 08/17/24 10:10) Medication List - Last Reconciled 08/17/24 by Vish Loera MD albuterol sulfate 90 mcg/actuation (Ventolin HFA) inhalation cholecalciferol (vitamin D3) 50 mcg PO DAILY clonazepam 1 mg PO TID PRN desogestrel-ethinyl estradiol 0.15-0.03 mg (Apri) 1 tab PO DAILY diphenhydramine HCl (Benadryl) 25 mg PO TID PRN famotidine 40 mg PO DAILY fluticasone propionate 50 mcg/actuation sprays intranasal ibuprofen 600 mg PO TID PRN loratadine 10 mg PO DAILY mecobalamin (vitamin B12) mcg IM ondansetron 0 mg PO HPI 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: Details: Start time: 10.02am, End time: 10.47am ?I spent 40 minutes speaking with the patient on the phone plus an additional 5 minutes reviewing and updating records for a total of 45 minutes HPI Comments Details: Previous weight loss efforts: OTC diet pills Wakes up: 6am, Sleeps: 1am Breakfast: skips Lunch: skips Dinner: 5pm (rice, beans, chicken) Snacks: 3 snacks before dinner (Doritos, candy), after dinner (candy) Exercise: none Fluids: Coffee/Tea: none, soda: Regular Coca-Cola, juice: none, ETOH: none PFSH Medical History (Updated 08/17/24 @ 10:25 by Vish Loera MD) Morbid obesity Bipolar affective disorder, current episode depressed Scoliosis Obesity Surgical History (Updated 08/17/24 @ 10:16 by Vish Loera MD) History of ovarian cystectomy Hx of bladder endoscopy Hx of tonsillectomy Family History (Updated 08/08/24 @ 11:29 by Elidia Flores CMA) Mother Deep vein thrombosis (DVT) Hypothyroidism Arthritis Maternal Grandmother Diabetes Paternal Grandmother Diabetes Father HTN (hypertension) Daughter Asthma ADHD Daughter ADHD Asthma Social History Household Members: Children Housing: Condominium Alcohol intake: never Patient Tobacco Use Status: Former Tobacco user Current occupational status: employed 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 Sexual orientation: Straight/Heterosexual Gender identity: Female Female Reproductive History Menstrual Age of Menarche: 11 Telehealth Telehealth Telehealth Platform: Telephone Location of provider rendering services: practice address Location of patient: address on file Patient Identification confirmed using: Name, : Yes Telehealth method: voice only Patient verbally consented to treatment: Yes Patient verbally consented to billing insurance company: Yes Patient informed of any privacy concerns related to visit: Yes Minutes spent on Phone/Video with Pt.: 45 Assessment & Plan Assessment & Plan (1) Morbid obesity: Code(s): E66.01 - Morbid (severe) obesity due to excess calories Category: Medical Plan: 1.? Plan for lap sleeve gastrectomy. If diaphragmatic or ventral hernias are present at time of surgery, these will be repaired laparoscopically as well. Risks and complications include possible conversion to an open procedure, anastomotic leak, bleeding requiring transfusion, small bowel obstruction, , DVT and pulmonary embolism, cardiac, or pulmonary complications, as qc analyst complications such as anastomotic ulcer, insufficient weight loss and vitamin deficiencies. I emphasized the importance of close follow-up, adherence to instructions and good communication. 2. Nutritional counseling. Start with 2 CELEBRATE REBUILD protein (buy at [facility] gift shop) shakes (HALF scoop EACH in 8oz low fat unsweetened almond milk each) at 7am-9am and 10am-12pm, 2 protein bars (CELEBRATE protein bars, buy at [facility]'s [employer] shop) at 1pm-3pm and 4p-6pm, dinner at 7pm (10 forks of protein and 10 forks of salad/vegetables) AND one more protein bar after dinner at 9pm-11pm. So you do 2 protein shakes, 3 protein bars and one meal per day. Meal to include lean meat (beef, fish, pork, turkey, chicken), or saudi [place]abian yogurt, or egg whites, or beans with a salad with olive oil and fruits (berries, pears, apples, kiwi). Avoid salt, breads, potatoes, rice, pasta, desserts. 3. Each shake would be drunk slowly, like coffee in a period of 2 hours. 4. Cut each bar in 4 pieces and eat each piece in 30min ?to make each bar last 2 hours. 5. I emphasized the importance of measuring accurately the food portion and measure it when serving the food in plate 6. The meal portions include 10 full-size forks of meat and 10 full-size forks of salad. You always eat the meat portion but you can replace up to 5 forks for salad/vegetables with rice, potatoes or pasta, or a fruit ?if you like. The less you do it the better weight loss will be. 7. One full-size fork is what it can be scooped on the fork without falling aside and not what can be bit with the fork. Use regular forks like those you find in a typical restaurant. 8.? Please send me weight measurements as soon as possible and then once a week. Always include your diet and exercise plan. 9. Start walking outside daily, tracking calories with a goal of 300 calories per day, daily. Goal is to burn 2000 calories per week on exercise, which means either 300 calories daily, or 400 calories 5 days per week, or 500 calories 4 days per week, or 650 calories 3 days per week. 10. The best choice would be to purchase a stationary bike, elliptical or treadmill at home that can track calories. Let me know if you do so I can give you an exercise plan. 11.?It is important of avoiding and for at least 18 months postoperatively and has been discussed at the infosession. 12. Goal is to lose at least 1.5-2lbs per week 13. Goal to lose 10% of your weight before surgery, which is about 25lbs. Ultimate weight goal: 220lbs before surgery 14. Please follow the diet plan exactly without any change. If you don't like something about the plan or you feel hungry you need to communicate with me so I can help you revise the plan. You should not change the plan yourself. 15. To be scheduled for EGD due to history of GERD. The possibility of biopsies was discussed. Patient needs to avoid use of NSAIDs and aspirin for 1 week prior to EGD. Risks of perforation and bleeding was discussed with the patient. This will be an outpatient procedure with IV sedation. Orders: Orders Hemoglobin A1c Today E66.01 - Morbid (severe) obesity due to excess calories, J45.909 - Unspecified asthma, uncomplicated, K21.9 - Gastro-esophageal reflux disease without esophagitis, M54.9 - Dorsalgia, unspecified H Pylori Breath Test Today E66.01 - Morbid (severe) obesity due to excess calories, J45.909 - Unspecified asthma, uncomplicated, K21.9 - Gastro-esophageal reflux disease without esophagitis, M54.9 - Dorsalgia, unspecified Lipid Panel Today E66.01 - Morbid (severe) obesity due to excess calories, J45.909 - Unspecified asthma, uncomplicated, K21.9 - Gastro-esophageal reflux disease without esophagitis, M54.9 - Dorsalgia, unspecified Vitamin B12 and Folate Today E66.01 - Morbid (severe) obesity due to excess calories, J45.909 - Unspecified asthma, uncomplicated, K21.9 - Gastro-esophageal reflux disease without esophagitis, M54.9 - Dorsalgia, unspecified Zinc Today E66.01 - Morbid (severe) obesity due to excess calories, J45.909 - Unspecified asthma, uncomplicated, K21.9 - Gastro-esophageal reflux disease without esophagitis, M54.9 - Dorsalgia, unspecified C Reactive Protein Today E66.01 - Morbid (severe) obesity due to excess calories, J45.909 - Unspecified asthma, uncomplicated, K21.9 - Gastro-esophageal reflux disease without esophagitis, M54.9 - Dorsalgia, unspecified Vitamin A Today E66.01 - Morbid (severe) obesity due to excess calories, J45.909 - Unspecified asthma, uncomplicated, K21.9 - Gastro-esophageal reflux disease without esophagitis, M54.9 - Dorsalgia, unspecified TSH reflex Free T4 Today E66.01 - Morbid (severe) obesity due to excess calories, J45.909 - Unspecified asthma, uncomplicated, K21.9 - Gastro-esophageal reflux disease without esophagitis, M54.9 - Dorsalgia, unspecified XR chest 2V Today E66.01 - Morbid (severe) obesity due to excess calories, J45.909 - Unspecified asthma, uncomplicated, K21.9 - Gastro-esophageal reflux disease without esophagitis, M54.9 - Dorsalgia, unspecified ECG 12 lead EKG Today E66.01 - Morbid (severe) obesity due to excess calories, J45.909 - Unspecified asthma, uncomplicated, K21.9 - Gastro-esophageal reflux disease without esophagitis, M54.9 - Dorsalgia, unspecified FL upper GI w air Today E66.01 - Morbid (severe) obesity due to excess calories, J45.909 - Unspecified asthma, uncomplicated, K21.9 - Gastro-esophageal reflux disease without esophagitis, M54.9 - Dorsalgia, unspecified Insulin Today E66.01 - Morbid (severe) obesity due to excess calories, J45.909 - Unspecified asthma, uncomplicated, K21.9 - Gastro-esophageal reflux disease without esophagitis, M54.9 - Dorsalgia, unspecified Complete Blood Count Auto Diff Today E66.01 - Morbid (severe) obesity due to excess calories, J45.909 - Unspecified asthma, uncomplicated, K21.9 - Gastro- esophageal reflux disease without esophagitis, M54.9 - Dorsalgia, unspecified IRON PROFILE Today E66.01 - Morbid (severe) obesity due to excess calories, J45.909 - Unspecified asthma, uncomplicated, K21.9 - Gastro-esophageal reflux disease without esophagitis, M54.9 - Dorsalgia, unspecified Comprehensive Met. Panel Today E66.01 - Morbid (severe) obesity due to excess calories, J45.909 - Unspecified asthma, uncomplicated, K21.9 - Gastro-esophageal reflux disease without esophagitis, M54.9 - Dorsalgia, unspecified Vitamin B1 Today E66.01 - Morbid (severe) obesity due to excess calories, J45.909 - Unspecified asthma, uncomplicated, K21.9 - Gastro-esophageal reflux disease without esophagitis, M54.9 - Dorsalgia, unspecified Ferritin Today E66.01 - Morbid (severe) obesity due to excess calories, J45.909 - Unspecified asthma, uncomplicated, K21.9 - Gastro-esophageal reflux disease without esophagitis, M54.9 - Dorsalgia, unspecified Vitamin D 25-OH Total Today E66.01 - Morbid (severe) obesity due to excess calories, J45.909 - Unspecified asthma, uncomplicated, K21.9 - Gastro-esophageal reflux disease without esophagitis, M54.9 - Dorsalgia, unspecified US abdomen comp w elastography Today E66.01 - Morbid (severe) obesity due to excess calories, J45.909 - Unspecified asthma, uncomplicated, K21.9 - Gastro- esophageal reflux disease without esophagitis, M54.9 - Dorsalgia, unspecified Referrals Behavioral Health Referral E66.01 - Morbid (severe) obesity due to excess calories, J45.909 - Unspecified asthma, uncomplicated, K21.9 - Gastro-esophageal reflux disease without esophagitis, M54.9 - Dorsalgia, unspecified Nutrition/Dietitian Referral E66.01 - Morbid (severe) obesity due to excess calories, J45.909 - Unspecified asthma, uncomplicated, K21.9 - Gastro-esophageal reflux disease without esophagitis, M54.9 - Dorsalgia, unspecified
[2024-08-17 10:19] VITALS: BMI 40.8
== END 2024-08-17 10:48 | disposition home or self-care (01) ==
LOC: HO.HBS 08:02
PROVIDERS: Visit Provider Surgery
DX: E66.813 Obesity, class 3 (principal); Z68.41 Body mass index [BMI] 40.0-44.9, adult
CPT/HCPCS: 99443

== ENCOUNTER → 2024-08-17 08:02 | Outpatient (BNVA) | payer OTHER, SELFPAY | PROVIDERS: Visit Provider Surgery ==

== ENCOUNTER → 2024-08-24 08:57 | Outpatient (REF) | payer OTHER, SELFPAY ==
--- NOTE | 2024-08-24 09:10 | ECG_ITS ---
Test Reason : E66.01 - Morbid (severe) obesity due to excess calories Blood Pressure : / mmHG Vent. Rate : 097 BPM Atrial Rate : 097 BPM P-R Int : 142 ms QRS Dur : 080 ms QT Int : 352 ms P-R-T Axes : 058 -02 025 degrees QTc Int : 447 ms Normal sinus rhythm Minimal voltage criteria for LVH, may be normal variant ( R in aVL ) Borderline ECG When compared with ECG of 30-APR-2024 21:27, No significant change was found Referred By: Vish Loera Electronically Signed By:Mir Feldman
[2024-08-24 09:35] LABS: MANUAL DIFF FLAG NO
[2024-08-24 10:40] LABS: Basophils Percent Auto 0.3 % (0-2); Eosinophils Absolute Auto 0.1 X10*3/uL (0.0-0.4); Eosinophils Percent Auto 1.1 % (0-4); Hematocrit 39.8 % (37.0-47.0); Hemoglobin 12.9 g/dl (12.0-16.0); Imm Gran Abs Auto 0.05 X10*3/uL (0.00-0.03); Imm Gran Pct Auto 0.4 % (0.0-0.4); Lymphocytes Absolute Auto 2.8 X10*3/uL (1.2-4.9); Lymphocytes Percent Auto 21.2 % (20-40); Mean Corpuscular HGB Conc 32.4 g/dl (31.0-35.0); Mean Corpuscular Hemoglobin 23.8 pg (27.0-33.0); Mean Corpuscular Volume 73.4 fL (80.0-98.0); Mean Platelet Volume 11.1 fL (9.4-12.3); Monocytes Absolute Auto 0.7 X10*3/uL (0.1-1.2); Neutrophils Absolute Auto 9.6 x10*3/uL (2.0-8.3); Platelet Count 331 X10*3/uL (160-400); Red Blood Count 5.42 X10*6/uL (4.20-5.50); White Blood Count 13.3 X10*3/uL (4.8-10.8)
[2024-08-24 10:55] LABS: Estimated Average Glucose 80 mg/dL; Hemoglobin A1C 84.8742 umol/L; Hemoglobin A1c % 4.4 % (<6.0); Total Hemoglobin (HGBA1C) 3390.6777 umol/L
[2024-08-24 11:24] LABS: Alanine Aminotransferase 14 U/L (0-31); Albumin Level 3.7 g/dL (3.5-5.0); Alkaline Phosphatase 103 U/L (39-117); Anion Gap 12 (12-20); Aspartate Amino Transferase 20 U/L (5-31); Bilirubin Total 0.6 mg/dL (0.0-1.0); Blood Urea Nitrogen 10 mg/dL (9-16); C Reactive Protein 3.35 mg/dL (< or = 0.50); Calcium 9.4 mg/dL (8.4-10.2); Carbon Dioxide 23 mmol/L (22-29); Chloride 106 mmol/L (96-108); Cholesterol 175 mg/dL (<200); Estimated Glomerular Filt Rate > 60; Ferritin 111 ng/mL (10-122); Glucose Random 84 mg/dL (60-115); HDL Cholesterol 33 mg/dL (>40); Insulin 22 uU/mL (2-29); Iron 84 mcg/dL (30-160); LDL Cholesterol Calculated 124 mg/dL (<100); Percent Iron Saturation 26 % (15-50); Sodium 137 mmol/L (135-145); TSH reflex Free T4 0.71 uIU/mL (0.32-4.0); Total Iron Binding Capacity 318 mcg/dL (228-428); Total Protein 7.3 g/dL (6.5-8.0); Triglycerides 91 mg/dL (<150); Unsaturated Iron Binding 234 ug/dL; Vitamin D 25-OH Total 31.2 ng/mL (>30)
[2024-08-24 11:41] LABS: Folate 14.5 ng/mL (> or = 4.0); Vitamin B12 353 pg/mL (200-900)
[2024-08-28 21:58] LABS: Zinc 66 mcg/dL (60-130)
[2024-08-30 17:58] LABS: Vitamin A 30 mcg/dL (38-98)
[2024-09-01 14:04] LABS: Vitamin B1 8 nmol/L (8-30)
== END ==
LOC: HO.CARD 08:57
PROVIDERS: PCP Family Medicine; Visit Provider Surgery
DX: Z13.1 Encounter for screening for diabetes mellitus (principal); K21.9 Gastro-esophageal reflux disease without esophagitis; J45.909 Unspecified asthma, uncomplicated; M54.9 Dorsalgia, unspecified; E66.01 Morbid (severe) obesity due to excess calories
CPT/HCPCS: 36415; 71046; 80053; 80061; 82306; 82607; 82728; 82746; 83036; 83525; 83540; 84425; 84443; 84590; 84630; 85025; 86140; 93005

== ENCOUNTER → 2024-08-24 09:10 | Outpatient (BNV) | payer OTHER, SELFPAY | PROVIDERS: PCP Family Medicine; Visit Provider Internal Medicine Cardiovascular Disease | DX: E66.01 Morbid (severe) obesity due to excess calories (principal) | CPT/HCPCS: 93010 ==

== ENCOUNTER 2024-08-31 08:22 | Outpatient (REF) | payer OTHER, SELFPAY | END 2024-08-31 08:23 | disposition home or self-care (01) | LOC: HO.US 08:22 | PROVIDERS: PCP Family Medicine; Visit Provider Surgery | DX: E66.01 Morbid (severe) obesity due to excess calories (principal); K21.9 Gastro-esophageal reflux disease without esophagitis; J45.909 Unspecified asthma, uncomplicated; M54.9 Dorsalgia, unspecified | CPT/HCPCS: 76700; 76981 ==

== ENCOUNTER → 2024-08-31 08:24 | Outpatient (BNV) | payer OTHER, SELFPAY | PROVIDERS: PCP Family Medicine; Visit Provider Radiology Diagnostic Radiology | DX: E66.01 Morbid (severe) obesity due to excess calories (principal) | CPT/HCPCS: 76700; 76981 ==

== ENCOUNTER 2024-09-11 08:46 | Day surgery (SDC) | payer OTHER, SELFPAY ==
--- NOTE | 2024-09-10 10:23 | HO.ANESPROP2 ---
Documented by User: Dixie Hampton NP 09/10/24 10:23 HPI - Anesthesia Eval Consult details Narrative: 28yo F for Upper Endoscopy PMFSH Active Problems Active Problems: All Active Problems Morbid obesity (Acute) Abnormal uterine bleeding (AUB) (Acute) Obesity (BMI 35.0-39.9 without comorbidity) (Acute) Myofascial pain (Acute) Lumbar spondylosis (Acute) Cervical spondylosis (Acute) Well woman exam (Acute) Leukocytosis (Acute) Obesity (Acute) Past Medical History Medical History Morbid obesity Bipolar affective disorder, current episode depressed Scoliosis Obesity Family History Family History Mother Deep vein thrombosis (DVT) Hypothyroidism Arthritis Maternal Grandmother Diabetes Paternal Grandmother Diabetes Father HTN (hypertension) Daughter Asthma ADHD Daughter ADHD Asthma Surgical History Surgical History History of ovarian cystectomy Hx of bladder endoscopy Hx of tonsillectomy Social History Social History Household Members: Children [facility] Alcohol intake: never Patient Tobacco Use Status: Current someday Tobacco user Cigarettes Per Day: 2 Use of substances other than those prescribed or required for medical reasons: No Are you DNR?: No Advance Directives: No Advance Directives Information Provided: Yes Current occupational status: employed 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 Sexual orientation: Straight/Heterosexual Gender identity: Female Meds Allergies Allergy/AdvReac Type Severity Reaction Status Date / Time No Known Allergies Allergy Verified 09/11/24 09:41 Home Medications ?Medication ?Instructions ?Recorded ?Confirmed ?Last Taken ?Type fluticasone propionate 50 spray intranasal 11/24/21 08/17/24 Unknown History mcg/actuation nasal spray,suspension loratadine 10 mg tablet 10 mg PO DAILY 11/24/21 09/11/24 Unknown History ondansetron 4 mg disintegrating 0 mg PO 11/24/21 08/17/24 Unknown History tablet albuterol sulfate 90 mcg/actuation inhalation 08/08/24 08/17/24 Unknown History aerosol inhaler (Ventolin HFA) cholecalciferol (vitamin D3) 50 50 mcg PO DAILY 08/08/24 09/11/24 Unknown History mcg (2,000 unit) capsule clonazepam 1 mg tablet 1 mg PO TID PRN Anxiety 08/08/24 09/11/24 Unknown History mecobalamin (vitamin B12) 10,000 mcg IM 08/08/24 08/17/24 Unknown History mcg solution for injection famotidine 40 mg tablet 40 mg PO DAILY 08/17/24 09/11/24 Unknown History Assessment and Plan Assessment Anesthesia Assessment: Chart Reviewed Documented by User: Genesis Martin MD 09/11/24 10:37 [facility] Past Medical History Medical History Morbid obesity Bipolar affective disorder, current episode depressed Scoliosis Obesity Family History Family History Mother Deep vein thrombosis (DVT) Hypothyroidism Arthritis Maternal Grandmother Diabetes Paternal Grandmother Diabetes Father HTN (hypertension) Daughter Asthma ADHD Daughter ADHD Asthma Surgical History Surgical History History of ovarian cystectomy Hx of bladder endoscopy Hx of tonsillectomy History of Problems with Anesthesia: No Social History Social History Household Members: Children [facility] Alcohol intake: never Patient Tobacco Use Status: Current someday Tobacco user Cigarettes Per Day: 2 Use of substances other than those prescribed or required for medical reasons: No Are you DNR?: No Advance Directives: No Advance Directives Information Provided: Yes Current occupational status: employed 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 Sexual orientation: Straight/Heterosexual Gender identity: Female Meds Allergies Allergy/AdvReac Type Severity Reaction Status Date / Time No Known Allergies Allergy Verified 09/11/24 09:41 Home Medications ?Medication ?Instructions ?Recorded ?Confirmed ?Last Taken ?Type fluticasone propionate 50 spray intranasal 11/24/21 08/17/24 Unknown History mcg/actuation nasal spray,suspension loratadine 10 mg tablet 10 mg PO DAILY 11/24/21 09/11/24 Unknown History ondansetron 4 mg disintegrating 0 mg PO 11/24/21 08/17/24 Unknown History tablet albuterol sulfate 90 mcg/actuation inhalation 08/08/24 08/17/24 Unknown History aerosol inhaler (Ventolin HFA) cholecalciferol (vitamin D3) 50 50 mcg PO DAILY 08/08/24 09/11/24 Unknown History mcg (2,000 unit) capsule clonazepam 1 mg tablet 1 mg PO TID PRN Anxiety 08/08/24 09/11/24 Unknown History mecobalamin (vitamin B12) 10,000 mcg IM 08/08/24 08/17/24 Unknown History mcg solution for injection famotidine 40 mg tablet 40 mg PO DAILY 08/17/24 09/11/24 Unknown History Exam Airway Mallampati Class: II TM Dist: >3cm Neck ROM: Full Loose/Missing/Broken Teeth: No Heart: RRR Lungs: CTA Assessment and Plan Assessment Anesthesia Assessment: Anesthesia Plan Discussed Final Anesthetic Review History of Problems with Anesthesia: No NPO: Yes ASA Class: III Final Preanesthetic Review: Meds/Allgs Chart Reviewed, Consent Obtained/Reviewed and Anes Risks/Benef Reviewed Patient Risk: Intermediate Procedure Risk: Intermediate Anesthetic Plan Anesthetic Plan: MAC: Disposition: Standard PACU
[2024-09-11 09:56] VITALS: BP 108/65; PULSE 87; RESP 16; TEMP 36; O2SAT 98; BMI 41.4
[2024-09-11 10:06] LABS: UPreg QC Valid YES; Urine Pregnancy NEGATIVE (NEGATIVE)
--- NOTE | 2024-09-11 10:10 | MHC.SHP ---
Pre-Procedural Eval Section A - 24 Hr Update-Section A only Date of Service: 09/11/24 The patient is an INPATIENT: No The patient has been examined within 24 hours of the surgical procedure. The History & Physical has been completed within 30 days and I have reviewed it.: Yes Section B - Complete if H&P > 30 days Chief Complaint: Morbid (severe) obesity due to excess calories Relevant Family History (Specify if Yes): No Relevant Social History: None Present Medications: None Medical History: No relevant PMH History of Previous Operations: No relevant previous surgery Allergies: Allergies Allergy/AdvReac Type Severity Reaction Status Date / Time No Known Allergies Allergy Verified 09/11/24 09:41 Review of Systems Sugical H&P ROS: Negative: Constitution, Cardiovascular, Respiratory, Neurological, Psychiatric, Hem-Onc, Allergic/Immunologic, Gastrointestinal, Genitourinary, Musculoskeletal, Integumentary, Endocrine and Eyes/Ears/Nose/Throat Exam Surgical H&P Exam: Normal: HEENT, Normal: Heart, Normal: Lungs, Normal: Extremities, Normal: Abdomen, Normal: Skin and Normal: Neurological Plan Diagnosis/Plan: Unchanged (EGD to assess the stomach's anatomy. Risks of bleeding and perforation were discussed with the patient and she is in agreement with the plan.) I have reviewed the history and physical and performed a pertinent physical examination on my patient. No changes have occurred unless specified. Time Spent With Patient Time: Total time managing care of this patient today ____ minutes.
[2024-09-11] MEDS: Lactated Ringers 1,000 ML 100 ML IVCONT (10:17)
--- NOTE | 2024-09-11 10:37 | PM.OP ---
Brief Operative Note Date of Service: 09/11/24 Pre-op diagnosis: Morbid obesity Post-op diagnosis: same Procedure: PROCEDURE DATE: 09/11/2024 PREOPERATIVE DIAGNOSIS: GERD POSTOPERATIVE DIAGNOSIS: ?Same as above. 1) very small hiatal hernia PROCEDURE: [id number] with biopsies Surgeon: ?Gomez Loera M.D.. Ph.D. Academic Intern: None ? Anesthesia: IV sedation Estimated blood loss: ?Minimal FINDINGS AND PROCEDURE: ? OPERATIVE INDICATIONS: ?The patient is a 28 year old female known to me who is interested in bariatric surgery. Based on this information I recommended an upper endoscopy to evaluate the stomach's anatomy. Risks and complications of the surgery were discussed with the patient in advance particularly the possibility of perforation or bleeding that may require surgical intervention. The patient understood the risks and was in agreement with the plan. ? PROCEDURE: After informed consent was obtained by the patient, the patient was ?transferred to the Operating Room and was placed in the supine position.? After successful induction of IV sedation, a mouth block was inserted and the patient was placed in the left lateral decubitus position. An upper endoscopy was performed next, the oropharynx and esophagus appeared within the normal limits. There was a very small 1cm hiatal hernia. The z-line was smooth. Two biopsies were obtained from the distal esophagus 2-3 cm proximal to the GE junction and two additional biopsies from the GE junction. The stomach was entered and it appeared to be of normal size. There was no gastritis. There was no stricture or ulcer. A biopsy was obtained from the gastric fundus and the antrum. No significant bleeding was noted from any of the biopsy sites. Retroflexion of the scope revealed no other significant pathology. The scope was then advanced into the duodenum which appeared to be normal as well. At that point the duodenum ?and the stomach were decompressed and the scope was withdrawn from the patient's mouth. The patient extubated and was transferred in stable condition to the Recovery Room for further care. I was present and performed all steps of the procedure. There were no residents to assist with this case. Gomez Loera M.D., Ph.D. Surgeon: Vish Loera MD Anesthesia: MAC Was an Academic Intern used for this Procedure?: No Estimated blood loss (mL): 0 IV fluids (mL): 400 Urine output (mL): 0 (No James to record output) Pathology: other (1) antrum x1, 2) fundus x1, 3) GE junction x2, 4) distal esophagus x2) Condition: stable Disposition: PACU
[2024-09-11 11:05] VITALS: BP 97/36; PULSE 99; RESP 18; TEMP 36.4; O2SAT 99
[2024-09-11 11:20] VITALS: BP 114/67; PULSE 94; RESP 18; TEMP 36.6; O2SAT 100
== END 2024-09-11 11:54 | disposition home or self-care (01) ==
PROVIDERS: Nurse Practitioner; PCP Family Medicine; Visit Provider Surgery
PROC: 0DJ08ZZ Inspection of Upper Intestinal Tract, Via Natural or Artificial Opening Endoscopic (ICD-10-PCS; CPT 43235; principal; 2024-09-11 11:10)
DX: K21.9 Gastro-esophageal reflux disease without esophagitis (principal); E66.01 Morbid (severe) obesity due to excess calories; Z68.41 Body mass index [BMI] 40.0-44.9, adult; K44.9 Diaphragmatic hernia without obstruction or gangrene; J45.909 Unspecified asthma, uncomplicated; F31.30 Bipolar disorder, current episode depressed, mild or moderate severity, unspecified; M41.9 Scoliosis, unspecified; M54.9 Dorsalgia, unspecified; Z79.1 Long term (current) use of non-steroidal anti-inflammatories (NSAID); Z79.899 Other long term (current) drug therapy; Z87.891 Personal history of nicotine dependence
CPT/HCPCS: 43239; 81025; 88305; 88313; 88342; J2003; J2250; J2704

== ENCOUNTER → 2024-09-11 08:46 | Outpatient (BNV) | payer OTHER, SELFPAY | PROVIDERS: PCP Family Medicine; Visit Provider Surgery | DX: K44.9 Diaphragmatic hernia without obstruction or gangrene (principal) | CPT/HCPCS: 43239 ==

== ENCOUNTER → 2024-09-14 10:23 | Outpatient (AMB) | payer OTHER, SELFPAY ==
--- NOTE | 2024-09-14 10:05 | MHC.WMTHER ---
Intake Intake Visit Reasons: VIDEO BH Intake Allergies No Known Allergies Allergy (Verified 09/11/24 09:41) PFSH Medical History Morbid obesity Bipolar affective disorder, current episode depressed Scoliosis Obesity Surgical History History of ovarian cystectomy Hx of bladder endoscopy Hx of tonsillectomy Family History Mother Deep vein thrombosis (DVT) Hypothyroidism Arthritis Maternal Grandmother Diabetes Paternal Grandmother Diabetes Father HTN (hypertension) Daughter Asthma ADHD Daughter ADHD Asthma Social History Household Members: Children Housing: Condominium Alcohol intake: never Patient Tobacco Use Status: Current someday Tobacco user Cigarettes Per Day: 2 Current occupational status: employed 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 Presenting Concerns Referral Source WMP Provider - PT has initial visit with Dr. Alexis on 08/17. Reason for referral Completion of behavioral health assessment as part of process for weight-loss surgery. Precipitating Event Obesity. Weight at initial visit: 245Lbs Living Situation Current Living Situation Rent At risk of losing current housing? No Satisfied with current living situation? Yes Comments PT lives with her 2 children. Food/Weight/Diet Expectations of change Initial goal to lose 10% of your weight before surgery, which is about 25lbs. Ultimate weight goal: 220lbs before surgery Weight at initial visit: 245Lbs Recent weight: Hasn't weight herself. PT is implementing the following: Current meal plan: 2 shakes, 3 bars, 1 meal (10F/10F) Exercise plan: walking. History/Relationship with food Example of meals before starting the program: Breakfast: Lunch: Dinner: Snacks: Drinks/Liquids: History/Relationship with weight In the last 10 years, the patient's Lowest weight was and highest Social History Family history and relationship PT is a single mother of 2. PT has 7 siblings on her mother's side and 2 from her dad's side. Parents are alive. PT reports she is close to her father, but not to her mom. Her family is distant from her and they don't communicate well. 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 As an adult she feels she's on the hyper side of ADHD. Social support Father. Community support PCP, therapist. Alevism/Spirituality None. Cultural/Ethnic information PT was born in [place] but her parents are from [place]. She lived in [place] in childhood, moved back to [place] at age 14. PT is bi-lingual. Legal Involvement and History Current or historical involvement with the legal system? None reported. Education Highest grade completed 10th grade. Preferred learning style Auditory and Visual Currently enrolled in educational program? No Interested in further educational program? No Educational Interests/Skills Health care, attending/caring for people. Employment Employment Status Unemployed (Last job 1 month ago. 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 Looking or a another job. ) Wants help to find employment? No Meaningful activities Cellphone, watching videos/shorts in [employer]. Financial Situation Describe current financial situation Comfortable Financial assistance? Food Avis, SSI (For youngest child. ) and TAFDC Service Service? No Mental Health and Addiction Treatment Current/Past substance abuse? No Comments Alcohol: None. Cigarettes/Tobacco: Daily, smokes 3 at day. when upset smokes more. PT has been without smoking 1 month but when anxiety increases then she gets back at smoking. Cannabis/Edibles: None. She gets arrhythmia when smokes cannabis. Current/Past addictive behavior concerns? No Psychiatric history PT reports she currently attends therapy via Telehealth on a weekly basis (on Mondays) at [facility] Address: [address] [place] [address], [address]. [place], [place] [address]. Prescriber was at [facility] in [place], this practice has closed but prescriber still provides medication until she's able to get a new one. PT reports she is diagnosed with bipolar disorder and anxiety. Currently gets prescribed with: - Clonazepam 1mg, 3 at day. 1 in the morning for anxiety and 2 at night to sleep. - Seroquel 300mg, 1 at bedtime. She's been using this meds for over 5 years and reports if she doesn't take then she gets very irritated and dunbar. PT reports she has sleeping disturbances, when not sleeping well her mood is fluctuating and mostly irritated. Pt also reports she has some short lapses of 2-3 days with some depressive Sx. At times she has to miss work due to her mood and levels of irritation. PT denies ever been in crisis or inpatient for mental health. There is no history and/or current concern about SI/SA and self-harm or other harm. Medical and Physical Health Summary Additional Medical History not covered in history Asthma, diagnosed 1 week ago with Sickle cell anemia Sexual History concerns None reported Physical exam in the last year? Yes Pain Screening Current pain? Yes Pain in the last few months? Yes Comments Back pain due to spondylosis. Medications Is the patient compliant with medications? Yes Does the patient have Paz Guardian in place? Not applicable Does the patient use complimentary health approaches? No Trauma/Abuse History History of trauma? No Questionnaires PHQ-9 Over the last 2 weeks, how often have you been bothered by any of the following problems? 1. Little interest or pleasure in doing things: more than half the days 2. Feeling down, depressed, or hopeless: several days 3. Trouble falling or staying asleep, or sleeping too much: nearly every day 4. Feeling tired or having little energy: nearly every day 5. Poor appetite or overeating: not at all 6. Feeling bad about yourself - or that you are a failure or have let yourself or your family down: nearly every day 7. Trouble concentrating on things, such as reading the newspaper or watching television: nearly every day 8. Moving or speaking so slowly that other people could have noticed. Or the opposite - being so fidgety or restless that you have been moving around a lot more than usual: not at all 9. Thoughts that you would be better off or of hurting yourself in some way: not at all Total score: 15 Depression Screening Interpretation: Positive (From new PT pack. New one will be repeated before finishing assessment. ) Depression Screening Follow-up: Existing condition Depression Screening Done: Yes Source: Developed by Drs. Leandro Palmer, Rubina Murrell, Gordon Yap and colleagues, with an educational meg from [employer]. Binge Eating Scale Group 1 A. I don't feel self-conscious about my wt. or body size when I'm with others. B. I feel concerned about how I look to others, but it normally does not make me fell disappointed with myself C. I do get self-conscious about my appearance and wt. which makes me feel disappointed in myself. D. I feel very self-conscious about my wt. and frequently I feel intense shame and disgust for myself. I try to avoid social contacts because of my self-consciousness. Response Group 1: C Group 2 A. I don't have any difficulty eating slowly in the proper manner. B. Although I seem to gobble down foods, I don't end up feeling stuffed because of eating to much. C. At times, I tend to eat quickly and then, I feel uncomfortably full afterwards. D. I have the habit of bolting down my food, without really chewing it. When this happens I usually feel uncomfortably stuffed because I've eaten to much. Response Group 2: C Group 3 A. I feel capable to control my eating urges when I want to. B. I feel like I have failed to control my eating more than the average person. C. I feel utterly helpless when it comes to feeling in control of my eating urges. D. Because I feel so helpless about controlling my eating I have become very desperate about trying to get control. Response Group 3: B Group 4 A. I don't have the habit of eating when I'm bored. B. I sometimes eat when I'm bored, but often I'm able to get busy and get my mind off food. C. I have a regular habit of eating when I'm bored, but occasionally, I can use some other activity to get my mind off eating. D. I have a strong habit of eating when I'm bored. Nothing seems to help me breath the habit. Response Group 4: D Group 5 A. I'm usually physically hungry when I eat something. B. Occasionally, I eat something on impulse even though I really am not hungry. C. I have the regular habit of eating foods, that I might not really enjoy, to satisfy a hungry feeling even though physically, I don't need the food. D. Although I'm not physically hungry, I get a hungry feeling in my mouth that only seems to be satisfied when I eat a food, like sandwich, that fills my mouth. Sometimes, when I eat the food to satisfy my mouth hunger, I then spit the food out so I won't gain weight. Response Group 5: A Group 6 A. I don't feel any guilt or self-hate after I overeat. B. After I overeat, occasionally I feel guilt or self-hate. C. Almost all the time I experience strong guilt or self-hate after I overeat. Response Group 6: B Group 7 A. I don't lose total control of my eating when dieting even after periods when I overeat. B. Sometimes when I eat a forbidden food on a diet, I feel like I blew it and eat even more. C. Frequently, I have the habit of saying to myself, I've blown it now, why not go all the way, when I overeat on a diet. When that happens I eat more. D. I have a regular habit of starting a strict diets for myself but I break the diets by going on an eating binge. My life seems to be either a feast or famine. Response Group 7: A Group 8 A. I rarely eat so much food that I feel uncomfortably stuffed afterwards. B. Usually about once a month, I each such a quantity of food, I end up feeling very stuffed. C. I have regular periods during the month when I eat large amounts of food, either at mealtime or at snacks. D. I eat so much food that I regularly feel quite uncomfortable after eating and sometimes a bit nauseous. Response Group 8: D Group 9 A. My level of calorie intake does not go up very high or go down very low on a regular basis. B. Sometimes after I overeat, I will try to reduce my caloric intake to almost nothing to compensate for the excess calories I've eaten. C. I have a regular habit of overeating during the night. It seems that my routine is not to be hungry in the morning but overeat in the evening. D. In my adult years, I have had week-long periods where I practically starve myself. This follows periods when I overeat. It seems I live a life of either feast or famine. Response Group 9: C Group 10 A. I usually am able to stop eating when I want to. I know when enough is enough. B. Every so often, I experience a compulsion to eat which I can't seem to control. C. Frequently, I experience strong urges to eat which I seem unable to control, but at other times I can control my eating urges. D. I feel incapable of controlling urges to eat. I have a fear of not being able to stop eating voluntarily. Response Group 10: B Group 11 A. I don't have any problem stopping eating when I feel full. B. I usually can stop eating when I feel full but occasionally overeat leaving me feeling uncomfortably stuffed. C. I have a problem stopping eating once I start and usually I feel uncomfortably stuffed after I eat a meal. D. Because I have a problem not being able to stop eating when I want, I sometimes have to induce vomiting to relieve my stuffed feeling. Response Group 11: A Group 12 A. I seem to eat just as much when I'm with others, Family social gatherings as when I'm by myself. B. Sometimes, when I'm with other persons, I don't eat as much as I want to eat because I'm self-conscious about my eating. C. Frequently, I eat only a small amount of food when others are present, because I'm very embarrassed about my eating. D. I feel so ashamed about overeating that I pick times to overeat when I know no one will see me. I feel like a closet eater. Response Group 12: C Group 13 A. I eat three meals a day with only an occasional between meal snack. B. I eat 3 meals a day, but I also normally snack between meals. C. When I am snacking heavily, I get in the habit of skipping regular meals. D. There are regular periods when I seem to be continually eating, with no planned meals. Response Group 13: C Group 14 A. I don't think much about trying to control unwanted eating urges. B. At least some of the time, I feel my thoughts are pre-occupied with trying to control my eating urges. C. I feel that frequently I spend much time thinking about how much I ate or about trying not to eat anymore. D. It seems to me that most of my waking hours are pre-occupied by thoughts about eating or not eating. I feel like I'm constantly struggling not to eat. Response Group 14: A Group 15 A. I don't think about food a great deal. B. I have strong craving for food but they last only for brief periods of time. C. I have days when I can't seem to think about anything else but food. D. Most of my days seem to be pre-occupied with thoughts about food. I feel like I live to eat. Response Group 15: B Group 16 A. I usually know whether or not I'm physically hungry. I take the right portion of food to satisfy me. B. Occasionally, I feel uncertain about knowing whether or not I'm physically hungry. A these times it's hard to know how much food I should take to satisfy me. C. Even though I might know how many calories I should eat, I don't have any idea what is a normal amount of food for me. Response Group 16: A Binge Eating Score: 20 Score less than 17 Minimal Risk Score between 18-26 Moderate Risk Score between 27-46 High Risk Assessment & Plan Assessment & Plan (1) Unspecified mood [affective] disorder: Code(s): F39 - Unspecified mood [affective] disorder (2) Anxiety disorder, unspecified: Code(s): F41.9 - Anxiety disorder, unspecified Plan PT not cleared yet, she will be seen again in 2-4 weeks to continue assessment. PT will need to provide a letter from provider to support her clearance. Next stephanie: 10/04/24 at 11am, Telehealth Telehealth Telehealth Telehealth Platform: [employer] Location of provider rendering services: practice address Location of patient: address on file Patient Identification confirmed using: Name, : Yes Telehealth method: video Patient verbally consented to treatment: Yes Patient verbally consented to billing insurance company: Yes Patient informed of any privacy concerns related to visit: Yes Minutes spent on Phone/Video with Pt.: 50 Coding Level of Care Code New Pt Tele Psy Diag Eval ([id number]) Patient Type New Diagnoses Unspecified mood [affective] disorder F39 Anxiety disorder, unspecified F41.9 Time Spent (min) 50
== END ==
PROVIDERS: PCP Family Medicine; Visit Provider Counselor Mental Health
DX: F39 Unspecified mood [affective] disorder (principal); F41.9 Anxiety disorder, unspecified
CPT/HCPCS: 90791

== ENCOUNTER 2024-10-12 09:09 | Outpatient (AMB) | payer OTHER, SELFPAY ==
--- NOTE | 2024-10-12 09:00 | A.OFFWM_ITS ---
Intake Intake Visit Reasons: VIDEO BH F/U Allergies No Known Allergies Allergy (Verified 09/11/24 09:41) [facility] Medical History Morbid obesity Bipolar affective disorder, current episode depressed Scoliosis Obesity Surgical History History of ovarian cystectomy Hx of bladder endoscopy Hx of tonsillectomy Family History Mother Deep vein thrombosis (DVT) Hypothyroidism Arthritis Maternal Grandmother Diabetes Paternal Grandmother Diabetes Father HTN (hypertension) Daughter Asthma ADHD Daughter ADHD Asthma Social History Household Members: Children Housing: Condominium Alcohol intake: never Patient Tobacco Use Status: Current someday Tobacco user Cigarettes Per Day: 2 Current occupational status: employed 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 The patient reports attending counseling but is currently without a prescriber. She has a history of bipolar disorder and anxiety. She is currently prescribed: * Clonazepam 1mg, 3 times a day (1 in the morning for anxiety and 2 at night for sleep). * Seroquel 300mg, 1 at bedtime. She has been using these medications for over 5 years and reports that if she misses a dose, she becomes very irritated and dunbar. The patient also reports sleep disturbances, with her mood fluctuating and becoming mostly irritated when she does not sleep well. Occasionally, she experiences 2-3 day episodes of depressive symptoms. At times, her mood and irritability interfere with her ability to work. The patient denies any past mental health crises or inpatient admissions. She also denies any current or past concerns regarding suicidal ideation (SI), suicidal attempts (SA), self-harm, or harm to others. Substance use is limited to daily cigarette smoking. During today?s visit, the patient reported discontinuing her medications about a month ago. Since then, she has felt more anxious and down, with increased difficulty sleeping, leading to daily naps. She has not weighed herself in several weeks and reports being ill with a stomach bug followed by asthma, which has prevented her from exercising. Today?s PHQ-9 scores were elevated, indicating active depressive symptoms, which align with her reports of ongoing challenges. Due to the active symptoms of depression and anxiety, as well as her discontinuation of psychotropic medications, the patient is not cleared from a behavioral health standpoint at this time. She will need to achieve stability before being considered for clearance. Presenting Concerns Referral Source WMP Provider - PT has initial visit with Dr. Alexis on 08/17. Reason for referral Completion of behavioral health assessment as part of process for weight-loss surgery. Precipitating Event Obesity. Weight at initial visit: 245Lbs Living Situation Current Living Situation Rent At risk of losing current housing? No Satisfied with current living situation? Yes Comments PT lives with her 2 children. Food/Weight/Diet Expectations of change Initial goal to lose 10% of your weight before surgery, which is about 25lbs. Ultimate weight goal: 220lbs before surgery Weight at initial visit: 245Lbs (10/12/24)Today's weight: 245Lbs PT is implementing the following: Current meal plan: 2 shakes, 3 bars, 1 meal (10F/10F). Not following as indicated, because Exercise plan: None. PT reports she's not aware of [facility]. History/Relationship with food PT reports she doesn't have appetite in the morning, she has only 1 big meal at day, which is her Dinner, and snacks on sweets after dinner. When feeling anxious/stressed she tends to pick on candy and sweets which happens often. PT doesn't like vegetables or salads. She only eats Lettuce, tomatoes, boiled broccoli with cheese and corn. Her diet consist in chicken ron pasta, rice/beans/pork dish, fried food like tostones, alcapurrias, fried meat. PT reports she doesn't use food to reward her good behavior with food but tends to use food to lift her mood after a hard/difficult day. Example of meals before starting the program: Breakfast: Skip. - would have 1 glass of coke and 1 cigarrette. Lunch: Skip. Dinner: In between 3 and 5pm. white Rice, beans, fried pork or pasta with ron sauce. Does take out on weekends, 2-3 Saturdays at month, her go to is pizza or Gabonese food. Night snacks: Soda, caramels and kit-Stephanie (5-10 total), Doritos once in a while. Drinks/Liquids: drinking 12-15 cans of soda at day. 1 large [place] dragon fruit refresher w/ 2 sugars (around 200Calories) History/Relationship with weight PT reports she has at a healthy weight in childhood. PT was 120Lbs at age 15. At this age age had her first child, she didn't gain as much weight during the , was 135Lbs at her . Her second was at age 17, she was around 130Lbs pre- and was around 190Lbs when had the child. Her second was hard emotionally and started over eating. She had the arm implant ( control) post 2nd for 1 year and she ga ined 30Lbs during that period. Before having the implant was around 160-170Lbs. She removed the implant at 210Lbs, and has not been able to lose that weight. PT also Tried the short and also had increased appetite and had hair loss. In the last 10 years, the patient's Lowest weight was 190Lbs and highest 250Lbs (last year) History/Relationship with dieting OTC Pills, weight-loss teas, gym membership. Binge Eating Do you frequently eat large amounts of food in short periods of time, not feeling physically hungry? No Do you feel out of control when you eat a large amount of food in a short period of time? No Do you eat large amounts of food rapidly and typically alone? No Night Eating Do you wake up at least once during the night to eat? No If you wake up in the night, do you find that it is necessary to eat something in order to fall back asleep? No Do you have little or no appetite in the morning and feel very hungry in the evening, often overeating between dinner and when you go to bed? Yes Social History Family history and relationship PT is a single mother of 2. PT has 7 siblings on her mother's side and 2 from her dad's side. Parents are alive. PT reports she is close to her father, but not to her mom. Her family is distant from her and they don't communicate well. 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 As an adult she feels she's on the hyper side of ADHD. Social support Father. Community support PCP, therapist. Judaism/Spirituality None. Cultural/Ethnic information PT was born in [place] but her parents are from [place]. She lived in [place] in childhood, moved back to [place] at age 14. PT is bi-lingual. Legal Involvement and History Current or historical involvement with the legal system? None reported. Education Highest grade completed 10th grade. Preferred learning style Auditory and Visual Currently enrolled in educational program? No Interested in further educational program? No Educational Interests/Skills Health care, attending/caring for people. Employment Employment Status Unemployed (Last job 1 month ago. 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 Looking or a another job. ) Wants help to find employment? No Meaningful activities Cellphone, watching videos/shorts in [place]. Financial Situation Describe current financial situation Comfortable Financial assistance? Food [employer], SSI (For youngest child. ) and TAFDC Service Service? No Mental Health and Addiction Treatment Current/Past substance abuse? No Comments Alcohol: None. Cigarettes/Tobacco: Daily, smokes 3 at day. when upset smokes more. PT has been without smoking 1 month but when anxiety increases then she gets back at smoking. Cannabis/Edibles: None. She gets arrhythmia when smokes cannabis. Current/Past addictive behavior concerns? No Psychiatric history PT reports she currently attends therapy via Telehealth on a weekly basis (on Mondays) at [facility] Address: [facility], [address]. [place], [place] [address]. Therapist: Linda Laughlin - Prescriber was at [facility] in [place], this practice has closed but prescriber still provides medication until she's able to get a new one. PT reports she is diagnosed with bipolar disorder and anxiety. Currently gets prescribed with: - Clonazepam 1mg, 3 at day. 1 in the mor harriet for anxiety and 2 at night to sleep. - Seroquel 300mg, 1 at bedtime. She's been using this meds for over 5 years and reports if she doesn't take then she gets very irritated and dunbar. PT reports she has sleeping disturbances, when not sleeping well her mood is fluctuating and mostly irritated. Pt also reports she has some short lapses of 2-3 days with some depressive Sx. At times she has to miss work due to her mood and levels of irritation. PT denies ever been in crisis or inpatient for mental health. There is no history and/or current concern about SI/SA and self-harm or other harm. Medical and Physical Health Summary Additional Medical History not covered in history Asthma, diagnosed 1 week ago with Sickle cell anemia Sexual History concerns None reported Physical exam in the last year? Yes Pain Screening Current pain? Yes Pain in the last few months? Yes Comments Back pain due to spondylosis. Medications Is the patient compliant with medications? Yes Does the patient have Paz Guardian in place? Not applicable Does the patient use complimentary health approaches? No Trauma/Abuse History History of trauma? No Questionnaires PHQ-9 Over the last 2 weeks, how often have you been bothered by any of the following problems? 1. Little interest or pleasure in doing things: nearly every day 2. Feeling down, depressed, or hopeless: not at all 3. Trouble falling or staying asleep, or sleeping too much: more than half the days (during the day because she cant' fall asleep at night. ) 4. Feeling tired or having little energy: nearly every day 5. Poor appetite or overeating: several days (Eating more) 6. Feeling bad about yourself - or that you are a failure or have let yourself or your family down: not at all 7. Trouble concentrating on things, such as reading the newspaper or watching television: more than half the days 8. Moving or speaking so slowly that other people could have noticed. Or the opposite - being so fidgety or restless that you have been moving around a lot more than usual: nearly every day (Anxious, feeling stressed. ) 9. Thoughts that you would be better off or of hurting yourself in some way: not at all Total score: 14 Depression Screening Interpretation: Positive (PT has been off of psych meds about a month ago since she hasn't find a prescriber. ) Depression Screening Follow-up: Existing condition and In treatment Depression Screening Done: Yes 99772 - PHQ-9 Billing: Yes Source: Developed by Drs. Leandro Palmer, Rubina Murrell, Gordon Yap and colleagues, with an educational meg from [employer]. Binge Eating Scale Group 1 A. I don't feel self-conscious about my wt. or body size when I'm with others. B. I feel concerned about how I look to others, but it normally does not make me fell disappointed with myself C. I do get self-conscious about my appearance and wt. which makes me feel disappointed in myself. D. I feel very self-conscious about my wt. and frequently I feel intense shame and disgust for myself. I try to avoid social contacts because of my self- consciousness. Response Group 1: C Group 2 A. I don't have any difficulty eating slowly in the proper manner. B. Although I seem to gobble down foods, I don't end up feeling stuffed because of eating to much. C. At times, I tend to eat quickly and then, I feel uncomfortably full afterwards. D. I have the habit of bolting down my food, without really chewing it. When this happens I usually feel uncomfortably stuffed because I've eaten to much. Response Group 2: C Group 3 A. I feel capable to control my eating urges when I want to. B. I feel like I have failed to control my eating more than the average person. C. I feel utterly helpless when it comes to feeling in control of my eating urges. D. Because I feel so helpless about controlling my eating I have become very desperate about trying to get control. Response Group 3: B Group 4 A. I don't have the habit of eating when I'm bored. B. I sometimes eat when I'm bored, but often I'm able to get busy and get my mind off food. C. I have a regular habit of eating when I'm bored, but occasionally, I can use some other activity to get my mind off eating. D. I have a strong habit of eating when I'm bored. Nothing seems to help me breath the habit. Response Group 4: D Group 5 A. I'm usually physically hungry when I eat something. B. Occasionally, I eat something on impulse even though I really am not hungry. C. I have the regular habit of eating foods, that I might not really enjoy, to satisfy a hungry feeling even though physically, I don't need the food. D. Although I'm not physically hungry, I get a hungry feeling in my mouth that only seems to be satisfied when I eat a food, like sandwich, that fills my mouth. Sometimes, when I eat the food to satisfy my mouth hunger, I then spit the food out so I won't gain weight. Response Group 5: A Group 6 A. I don't feel any guilt or self-hate after I overeat. B. After I overeat, occasionally I feel guilt or self-hate. C. Almost all the time I experience strong guilt or self-hate after I overeat. Response Group 6: B Group 7 A. I don't lose total control of my eating when dieting even after periods when I overeat. B. Sometimes when I eat a forbidden food on a diet, I feel like I blew it and eat even more. C. Frequently, I have the habit of saying to myself, I've blown it now, why not go all the way, when I overeat on a diet. When that happens I eat more. D. I have a regular habit of starting a strict diets for myself but I break the diets by going on an eating binge. My life seems to be either a feast or famine. Response Group 7: A Group 8 A. I rarely eat so much food that I feel uncomfortably stuffed afterwards. B. Usually about once a month, I each such a quantity of food, I end up feeling very stuffed. C. I have regular periods during the month when I eat large amounts of food, either at mealtime or at snacks. D. I eat so much food that I regularly feel quite uncomfortable after eating and sometimes a bit nauseous. Response Group 8: D Group 9 A. My level of calorie intake does not go up very high or go down very low on a regular basis. B. Sometimes after I overeat, I will try to reduce my caloric intake to almost nothing to compensate for the excess calories I've eaten. C. I have a regular habit of overeating during the night. It seems that my routine is not to be hungry in the morning but overeat in the evening. D. In my adult years, I have had week-long periods where I practically starve myself. This follows periods when I overeat. It seems I live a life of either feast or famine. Response Group 9: C Group 10 A. I usually am able to stop eating when I want to. I know when enough is enough. B. Every so often, I experience a compulsion to eat which I can't seem to control. C. Frequently, I experience strong urges to eat which I seem unable to control, but at other times I can control my eating urges. D. I feel incapable of controlling urges to eat. I have a fear of not being able to stop eating voluntarily. Response Group 10: B Group 11 A. I don't have any problem stopping eating when I feel full. B. I usually can stop eating when I feel full but occasionally overeat leaving me feeling uncomfortably stuffed. C. I have a problem stopping eating once I start and usually I feel uncomfortably stuffed after I eat a meal. D. Because I have a problem not being able to stop eating when I want, I sometimes have to induce vomiting to relieve my stuffed feeling. Response Group 11: A Group 12 A. I seem to eat just as much when I'm with others, Family social gatherings as when I'm by myself. B. Sometimes, when I'm with other persons, I don't eat as much as I want to eat because I'm self-conscious about my eating. C. Frequently, I eat only a small amount of food when others are present, because I'm very embarrassed about my eating. D. I feel so ashamed about overeating that I pick times to overeat when I know no one will see me. I feel like a closet eater. Response Group 12: C Group 13 A. I eat three meals a day with only an occasional between meal snack. B. I eat 3 meals a day, but I also normally snack between meals. C. When I am snacking heavily, I get in the habit of skipping regular meals. D. There are regular periods when I seem to be continually eating, with no planned meals. Response Group 13: C Group 14 A. I don't think much about trying to control unwanted eating urges. B. At least some of the time, I feel my thoughts are pre-occupied with trying to control my eating urges. C. I feel that frequently I spend much time thinking about how much I ate or about trying not to eat anymore. D. It seems to me that most of my waking hours are pre-occupied by thoughts about eating or not eating. I feel like I'm constantly struggling not to eat. Response Group 14: A Group 15 A. I don't think about food a great deal. B. I have strong craving for food but they last only for brief periods of time. C. I have days when I can't seem to think about anything else but food. D. Most of my days seem to be pre-occupied with thoughts about food. I feel like I live to eat. Response Group 15: B Group 16 A. I usually know whether or not I'm physically hungry. I take the right portion of food to satisfy me. B. Occasionally, I feel uncertain about knowing whether or not I'm physically hungry. A these times it's hard to know how much food I should take to satisfy me. C. Even though I might know how many calories I should eat, I don't have any idea what is a normal amount of food for me. Response Group 16: A Binge Eating Score: 20 Score less than 17 Minimal Risk Score between 18-26 Moderate Risk Score between 27-46 High Risk Assessment & Plan Assessment & Plan (1) Unspecified mood [affective] disorder: Code(s): F39 - Unspecified mood [affective] disorder (2) Anxiety disorder, unspecified: Code(s): F41.9 - Anxiety disorder, unspecified Plan The patient is not cleared from a behavioral health standpoint at this time, as she is currently experiencing increased anxiety and depressive symptoms. She attends weekly counseling but has been off of psychiatric medications for several weeks. The patient will need to initiate outpatient psychiatric care to stabilize her symptoms before proceeding with surgery. Additionally, she must begin making the necessary behavioral changes outlined by the program to demonstrate her commitment and readiness for surgery. The patient should focus on habit-building and addressing emotional eating concerns prior to clearance. This provider will take the following actions before the next visit: * Contact the program RN (Gurdeep) to arrange a visit with a provider or to receive support with re-engaging in required practices, such as the meal/exercise plan. * Request a behavioral health questionnaire from the patient's current therapist. Next appointment: 11/08/2024 at 10:00 AM, Telehealth (Video). Telehealth Telehealth Telehealth Platform: [employer] Location of provider rendering services: practice address Location of patient: address on file Patient Identification confirmed using: Name, : Yes Telehealth method: video Patient verbally consented to treatment: Yes Patient verbally consented to billing insurance company: Yes Patient informed of any privacy concerns related to visit: Yes Minutes spent on Phone/Video with Pt.: 60 Coding Level of Care Code Established Pt Tele Psytx >53 mins (08591) Patient Type Established Diagnoses Unspecified mood [affective] disorder F39 Anxiety disorder, unspecified F41.9 Additional Codes PHQ-9 - 21253 - PHQ-9 Billing: Yes ([id number]) Time Spent (min) 60
== END 2024-10-12 10:45 | disposition home or self-care (01) ==
LOC: HO.HBST 09:09
PROVIDERS: PCP Family Medicine; Visit Provider Counselor Mental Health
DX: F39 Unspecified mood [affective] disorder (principal); F41.9 Anxiety disorder, unspecified
CPT/HCPCS: 90837

== ENCOUNTER → 2024-10-12 09:09 | Outpatient (BNVA) | payer OTHER, SELFPAY | PROVIDERS: PCP Family Medicine; Visit Provider Counselor Mental Health ==

== ENCOUNTER 2025-03-08 08:47 | Outpatient (AMB) | payer OTHER, SELFPAY ==
--- OUTSIDE RECORDS SUMMARY | 2025-03-08 08:50 | XMS_ITS | Clinical Summary ---
Author Organization [facility] [address] [place] [address] Address [address] [place] [address] Phone Care Team Providers Care Tobacco Grower Name Role Phone Deepti Espinoza MD Primary Care Pr ovider Allergies No known active allergies Medications ibuprofen (ADVIL,MOTRIN) 600 mg tablet Take 1 Tablet by mouth every 8 hours as needed for Pain. 4 Active albuterol HFA (PROAIR HFA ; PROVENTIL HFA ; VENTOLIN HFA) 90 mcg/actuation inhaler Inhale 2 Puffs into the lungs every 4 hours as needed for Cough or Wheezing. 4 Active albuterol HFA (PROAIR HFA ; PROVENTIL HFA ; VENTOLIN HFA) 90 mcg/actuation inhaler Inhale 2 Puffs into the lungs every 6 hours as needed for Cough or Wheezing. 3 INHALERS AND 3 REFILLS 4 025 Active cholecalcifero l (VITAMIN D-3) 50 mcg (2,000 unit) capsule Take 1 Capsule by mouth daily. 4 Active clonazePAM (KlonoPIN) 1 mg tablet Take 1 Tablet by mouth 3 times daily. 4 Active aluminum-magne sium hydroxide-richa thicone (MAALOX) 200-200-20 mg/5 mL suspension Take 15 mL by mouth 3 times daily as needed (heartburn and reflux). 3 Active fluticasone propion-salmet Tuan (ADVAIR HFA) 230-21 mcg/actuation inhaler Inhale 2 Puffs into the lungs 2 times daily for 360 days. 4 025 Active fluticasone propionate (FLONASE) 50 mcg/actuation nasal spray 1 [place] by Each Nare route daily. 2 sprays in each nostril daily 1 Active fluticasone HFA (FLOVENT HFA) 110 mcg/actuation inhaler Inhale 1 Puff into the lungs 2 times daily. 4 Active ondansetron (ZOFRAN) 4 mg tablet Take 1 Tablet by mouth every 8 hours as needed for Nausea. 4 Active sodium chloride (AYR) 0.65 % nasal drops 1 [place] by Nasal route as needed for Congestion. [place] each nostril as needed for postnasal drip 3 Active esomeprazole (NexIUM) [address] capsule TAKE 1 CAPSULE BY MOUTH EVERY MORNING (BEFORE BREAKFAST). ON EMPTY STOMACH, WAIT 30 MINUTES AND THEN EAT TO ACTIVATE MEDICATION 90 capsule 3 4 Active famotidine (PEPCID) 20 mg tablet TAKE 1 TABLET BY MOUTH 2 TIMES DAILY NEEDED FOR HEARTBURN. 180 tablet 1 5 Active albuterol HFA (PROAIR HFA ; PROVENTIL HFA ; VENTOLIN HFA) 90 mcg/actuation inhaler Inhale 2 puffs by mouth every 6 (six) hours if needed for wheezing. 1 each 2 5 025 Active desogestreL-et hinyl estradioL (Apri) 0.15-0.03 mg per tablet Take 1 tablet by mouth 1 (one) time each day. 84 tablet 3 5 Active Apri 0.15-0.03 mg per tablet TAKE 1 TABLET BY MOUTH EVERY DAY FOR MENORRHAGIA 84 tablet 5 025 Discontinu ed(Reorder ) doxycycline (VIBRAMYCIN) 100 mg capsule Take 1 capsule (100 mg total) by mouth 2 (two) times a day for 7 days. Take with at least 8 ounces (large glass) of water, do not lie down for 30 minutes after. Administer 2 hours before or after multivitamins, antacids, or other products containing polyvalent cations (i.e., calcium, iron, magnesium, selenium, zinc). 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 We cannot say for sure that this overall simple appearing cyst is causing her pain, but it may be. I discussed laparoscopic cystectomy. I explained risks of bleeding, infection, damage to surrounding organs, need to remove ovary. I discussed recovery. She will plan to take 4 weeks off. She is aware that it may take a month or two to get the surgery scheduled, but should hear from my sales and service advisor within the next 2 weeks with a date. If not, she should call back to our office and inquire on getting this arranged. She voiced understanding and agreed. Leukocytosis (leucocytosis) 11/20/2020 Sacroiliitis ([facility] V24) 10/25/2019 Overview (08/02/2024): Follows with [facility] referred for physical therapy as well as an x-ray of the lumbar spine Non-ulcer dyspepsia 08/06/2019 Hiatal hernia 05/08/2019 Gastroesophageal reflux disease 02/01/2019 Overview (08/02/2024): Normal gastric emptying study 06/2019 Anxiety 11/01/2018 Bipolar affective disorder, current episode depressed ([facility] V24, [facility] V28) 11/01/2018 Mild intermittent asthma without complication Morbid obesity with BMI of 4 0.0-44.9, adult ([facility] V24, [facility] V28) 11/01/2018 Ovarian cyst 02/06/2018 Overview (08/02/2024): Left 7.6 x7 x 4.4 cm Encounters Date Type Department Care Team Description 02/27/2025 10:15 AM EDT Clinical Support [address] [phone] Vitamin B12 deficiency disease (Primary Dx) 02/27/[address] [phone] Marina Cardenas MA Clinical (B12 Orders) 02/21/2025 Telephone Obstetrics and Gynecology [address] [phone] Steffi Etienne MA 02/20/2025 2:58 PM EDT - 02/20/2025 11:59 PM EDT Hospital Encounter Radiology Department - [address] [phone] Pelvic pain; History of ovarian cyst Discharge Disposition: Home or Self Care 02/20/2025 Telephone Obstetrics and Gynecology [address] [phone] Steffi Etienne MA 02/19/2025 8:30 AM EDT Office Visit Obstetrics and Gynecology - [address] [phone] Espinoza Denson CNM Women's annual routine gynecological examination (Primary Dx); Oral contraceptive pill surveillance; Venereal disease screening; Encounter for screening for viral disease; BMI 40.0-44.9, adult ([facility] V24, [facility] V28); Urinary frequency; Pelvic pain; History of ovarian cyst 01/30/2025 10:30 AM EDT Clinical Support [address] [phone] Vitamin B12 deficiency disease (Primary Dx) 01/02/2025 10:30 AM EDT Clinical Support [address] [phone] Vitamin B12 deficiency disease (Primary Dx) from Last 3 Months Immunizations Name Administration Dates Next Due DTP 05/22/1997,03/11/1997,01/01/1997 DTaP (Infanrix) 6wks to less than 7yo 06/07/2013 DTaP 5 pertussis antigens, D iptheria Tetanus acellular pertussis (Daptacel) 6wks to less than 7yo 01/19/2001,01/19/2000 HPV 9-valent (Gardisil) 9yo to less than 46yo 07/14/2022 HPV, Quadrivalent 09/08/2011,07/08/2010,12/02/19 09 Hepatitis A Pediatric (Havri x; Vaqta) 12mo to less than 19yo 08/26/2015,08/01/2014 Hepatitis B Pediatric (Enger ix B; Recombivax HB) to less than 20 yo 02/17/2016,12/19/2014,05/22/1997,01/01,1996 HiB PRP-T conjugate (Acthib, Hiberix) 6wks and older 01/20/1998,05/22/1997,03/11/1997,01/01 IPV Inactivated polio (Ipol) 6wks and older 01/19/2001,05/22/1997,03/11/1997 Influenza Quadravalent, MDCK , 0.5ml, preservative free (Flucelvax) 6mo and older 07/07/2022 Influenza Quadravalent, MDCK , 0.5ml, with preservative (Flucelvax) 6mo and older 08/26/2015 Influenza Quadrivalent, 0.5m l, preservative free (Fluarix; FluLaval; Fluzone) ages 6mo and older (Afluria) 3yo and older 08/01/2014 Influenza Quadrivalent, with preservative (Fluzone; Afluria) 6mo and older 08/26/2015 Influenza Split 06/24/2011,07/08/2010 Influenza trivalent, 0.5mL, preservative free (Fluarix; FluLaval; Fluzone) ages 6mo and older (Afluria) 3 years and older 07/13/2024 Influenza trivalent, with pr eservative (Fluzone; Afluria) 6mo and older 12/02/2008,09/07/2004 MMR, measles mumps and rubel la Live (Priorix; M-M-R II) 12mo and older 06/07/2013,01/19/2001,01/20/1998 Meningococcal MCV4P 12/19/2014,07/08/2010 OPV 01/01/1997 Tdap Tetanus diptheria acell ular pertussis (Boostrix; Adacel) 7yo and older 06/14/2023,12/02/2008 Varicella live (Varivax) 12m o and older 07/08/2010,01/19/2000 Surgical History Surgery Date Site/Laterality Comments OTHER SURGICAL HISTORY PROCEDURE: DENIES PREVIOUS SURGERY TONSILLECTOMY 2017 N/A PROCEDURE: HISTORICAL TONSILLECTOMY Medical History Medical History Date Comments Ovarian cyst 02/06/2018 DX:Ovarian cyst; COMMENT: Left 7.6 x7 x 4.4 cm Obesity (BMI 30-39.9) 11/01/2018 DX:Obesity (BMI 30-39.9) Bipolar affective disorder, current episode depressed ([facility] V24, [facility] V28) 11/01/2018 DX:Bipolar affective disorde r, current episode depressed ([facility]) Anxiety 11/01/2018 DX:Anxiety Mild intermittent asthma wit hout complication 11/01/2018 DX:Mild intermittent asthma without complication Tobacco use 11/01/2018 DX:Tobacco use Hiatal hernia 05/08/2019 DX:Hiatal hernia H. pylori infection 01/23/2020 DX:H. pylori infection Esophageal reflux DX:Esophageal reflux Nausea and vomiting DX:Nausea an d vomiting Postnasal drip DX:Postnasal dri p Dysphagia DX:Dysphagia Family History Medical History Relation Name Comments Breast cancer Aunt Rheum arthritis Maternal Grandmother Rheum arthritis Mother Other: lupus Paternal Grandmother RA Ovarian cancer Sister Colon cancer Neg Hx Relation Name Status Comments Aunt Alive Maternal Grandmother Mother Paternal Grandmother Sister Social History Tobacco Use Types Packs/Day Years Used Date Smoking Tobacco: Former Cigarettes 2 19.4 S tarted: 10/10/2005 Smokeless Tobacco: Former Quit: [...] care for your loved ones. For example, director of child welfare services or elderly care for an older adult? [...] What is your living situation? 1 11/04/2023 Comments Unknown Sex and Gender Information Value Date Recorded Sex Assigned at Not on file Legal Sex Female 4:35 AM EST Gender Identity Not on file Sexual Orientation Not on file Obstetrics History Last Filed Vital Signs Vital Sign Reading Time Taken Comments Blood Pressure 106/67 02/19/2025 8:35 AM EDT Pulse 84 02/19/2025 8:35 AM EDT Temperature - - Respiratory Rate - - Oxygen Saturation - - Inhaled Oxygen Concentration - - Weight 112 kg (248 lb) 02/19/2025 8:35 AM EDT Height 165.1 cm (5' 5 ) 07/18/2024 11:01 AM EDT Body Mass Index 41.27 07/18/2024 11:01 AM EDT Plan of Treatment Upcoming Encounters Date Type Department Care Team (Late st Contact Info) Description 03/12/2025 8:00 AM EDT Office Visit Pulmonolgy - [place] [address] [phone] Kiki Mix MD [address] [address] 04/03/2025 2:30 PM EDT Clinical Support Adult Medicine [address] [phone] 04/08/2025 5:00 PM EDT Office Visit Adult Medicine [address] [phone] Deepti Espinoza MD [address] [place] [address] 04/18/2025 8:30 AM EDT Office Visit Obstetrics and Gynecology - [place] [address] [place] [phone] Espinoza Denson CNM [address] [place] [address] 05/01/2025 10:30 AM EDT Clinical Support Adult [address] [phone] Health Maintenance Due Date Last Done Comments Pneumococcal Vaccine: Pediatrics (0 to 5 Years) and At-Risk Patients (6 to 64 Years) (1 of 2 - PCV) 2015 Medicare Annual Wellness Visit 09/18/2022 COVID-19 Vaccine ( season) 2024 02/15/2022, 06/23/2021, 02/26/2021 Social Influencers of Health Screening 09/04/2025 09/04/2024 Depression Screening 02/18/2026 02/18/2025 Cervical Cancer Screening: Pap Smear 01/22/2027 01/23/2024, 01/23/2024 Cholesterol Screening (Lipid Panel) 09/22/2028 09/22/2023 DTaP,Tdap,and Td Vaccines (9 - Td or Tdap) 06/14/2033 06/14/2023, 06/07/2013, 12/02/2008, Additional history exists HIB Vaccines Completed 01/20/1998, 05/10, 03/11/1997, Additional history exists IPV Vaccines Completed 01/19/2001, 05/10, 03/11/1997, Additional history exists Varicella Vaccines Completed 07/08/2010, 01/19/2000 MMR Vaccines Completed 06/07/2013, 01/08, 01/20/1998 Meningococcal ACWY Vaccine Completed 12/19/2014, Hepatitis A Vaccines Completed 08/26/2015, 08/01/20 14 Hepatitis B Vaccines Completed 02/17/2016, 12/19/2014, 05/22/1997, Additional history exists HPV Vaccines Completed 07/14/2022, 08/12, 07/08/2010, Additional history exists Influenza Vaccine Completed 07/13/2024, , 08/26/2015, Additional history exists HIV Screening Completed 02/19/2025, 07/07/2022 Hepatitis C Screening Completed 02/19/2025, 019 Meningococcal B Vaccine Aged Out No l onger eligible based on patient's age to complete this topic RSV Immunization Patients Under 20 months Aged Out No longer eligible based on patient's age to complete this topic Procedures Procedure Name Priority Date/Time Associated Diagnosis Comments US PELVIS NON OB COMPLETE W TRANSVAGINAL Routine 02/20/2025 3:47 PM EDT Pelvic pain History of ovarian cyst HEPATITIS C ANTIBODY Routine 02/19/2025 9:18 AM EDT Encounter for screening for viral disease HIV 1, 2 ANTIBODY, P24 ANTIGEN WITH REFLEX TO DIFFERENTIATION Routine 02/19/2025 9:18 AM EDT Encounter for screening for viral disease TREPONEMA PALLIDUM ANTIBODY WITH REFLEX TO RPR AND PARTICLE AGGLUTINATION Routine 02/19/2025 9:18 AM EDT Venereal disease screening CULTURE URINE Routine 02/19/2025 9:03 AM EDT Urinary frequency CHLAMYDIA TRACHOMATIS AND NEISSERIA GONORRHOEAE PCR Routine 02/19/2025 9:03 AM EDT Venereal disease screening PAP SMEAR Routine 01/23/2024 LIPID PANEL Routine 09/22/2023 from Last 3 Months or Most Recently Relevant to Health Maintenance Results * US Pelvis Non OB Complete w Transvaginal (02/20/2025 3:47 PM EDT) Anatomical Region Laterality Modality Body, Pelvis Ultrasound 02/20/2025 4:17 PM EDT Impressions 02/20/2025 4:23 PM EDT No concerning findings in the uterus or ovaries. -------- FINAL REPORT -------- Dictated By: Gabby Watts Dictated Date: 02/20/2025 16:17 ET Assigned Physician: Gabby Watts Reviewed and Electronically Signed By: Gabby Watts Signed Date: 02/20/2025 16:23 ET Workstation ID: [id number] Transcribed By: Self Edit Transcribed Date: 02/20/2025 16:17 ET Narrative 02/20/2025 4:23 PM EDT EXAM(s): ?? US PELVIS NON OB COMPLETE W TRANSVAGINAL COMPARISON: Ultrasound on February 28, 2024 HISTORY: hx of ovarian cyst FINDINGS: UTERUS: The uterus is mildly enlarged, measures 9.8 x 4.8 x 6.1 cm, volume of 150.2 cm3, and demonstrates homogeneous ??myometrial echotexture. The endometrial echocomplex measures 0.8 cm in thickness. RIGHT OVARY: 4.0 x 2.8 x 2.3 cm, volume of 13.5 cm3. Cystic structure measuring 2.7 x 1.4 x 1.7 cm within the right ovary likely represents an involuting cyst. ??Additional simple cyst measuring 1.6 x 1.3 x 1.4 cm could represent an exophytic ovarian cyst or paraovarian cyst. Vascularity could not be demonstrated with Doppler evaluation. LEFT OVARY: 2.8 x 2.0 x 1.2 cm, volume of 3.5 cm3. Unremarkable appearance. Vascularity could not be demonstrated with Doppler evaluation. PELVIS: No free fluid. Procedure Note Gabby Watts MD - 02/20/2025 EXAM(s): US PELVIS NON OB COMPLETE W TRANSVAGINAL COMPARISON: Ultrasound on February 28, 2024 HISTORY: hx of ovarian cyst FINDINGS: UTERUS: The uterus is mildly enlarged, measures 9.8 x 4.8 x 6.1 cm, volumeof 150.2 cm3, and demonstrates homogeneous myometrial echotexture. Theendometrial echocomplex measures 0.8 cm in thickness. RIGHT OVARY: 4.0 x 2.8 x 2.3 cm, volume of 13.5 cm3. Cystic structuremeasuring 2.7 x 1.4 x 1.7 cm within the right ovary likely represents aninvoluting cyst. Additional simple cyst measuring 1.6 x 1.3 x 1.4 cmcould represent an exophytic ovarian cyst or paraovarian cyst. Vascularitycould not be demonstrated with Doppler evaluation. LEFT OVARY: 2.8 x 2.0 x 1.2 cm, volume of 3.5 cm3. Unremarkableappearance. Vascularity could not be demonstrated with Dopplerevaluation. PELVIS: No free fluid. IMPRESSION: No concerning findings in the uterus or ovaries. -------- FINAL REPORT -------- Dictated By: Gabby Watts Dictated Date: 02/20/2025 16:17 ET Assigned Physician: Gabby Watts Reviewed and Electronically Signed By: Gabby Watts Signed Date: 02/20/2025 16:23 ET Workstation ID: [id number] Transcribed By: Self Edit Transcribed Date: 02/20/2025 16:17 ET Espinoza Denson CNM IMG US PROCEDURES Final Resul t * Hepatitis C antibody (02/19/2025 9:18 AM EDT) Hepatitis C Antibody Negative Negative LAB CHEMISTRY METHOD 02/19/2025 2:42 PM EDT [facility] Blood Venous blood specimen / Unknown Venipuncture / Unknown 02/19/2025 9:18 AM EDT 02/19/2025 9:18 AM EDT Espinoza GARCIA LAB BLOOD ORDERABLES Final Re sult [facility] [address] [place] [address], * HIV 1,2 antibody, p24 antigen with reflex to differentiation (02/19/2025 9:18 AM EDT) HIV Combo AB/AG Negative Negative LAB CHEMISTRY METHOD 02/19/2025 2:43 PM EDT [facility] Blood Venous blood specimen / Unknown Venipuncture / Unknown 02/19/2025 9:18 AM EDT 02/19/2025 9:18 AM EDT Narrative [facility] - 02/19/2025 2:43 PM EDT This assay is a 4th generation assay allowing for earlier detection of HIV infection by detecting the presence of the HIV-1 p24 antigen as well as the traditional antibodies to HIV type 1 (including group O) and type 2. ??Use of a 4th generation assay is the current CDC recommendation for HIV screening. [facility] LAB BLOOD ORDERABLES Final Re sult Performing Organization Address City/[facility]/ZIP Co de Phone Number [facility] [address] [place] [address], [place] [phone] * Treponema pallidum antibody with reflex to RPR and particle agglutination (02/19/2025 9:18 AM EDT) [facility] T. Pallidum Antibodies Negative Negative LAB CHEMISTRY METHOD 02/19/2025 2:14 PM EDT [facility] Blood Venous blood specimen / Unknown Venipuncture / Unknown 02/19/2025 9:18 AM EDT 02/19/2025 9:18 AM EDT [facility] LAB BLOOD ORDERABLES Final Re sult Performing Organization Address [facility]/ZIP Co de Phone Number [facility] [address] [place] [address], [place] [phone] * (ABNORMAL) Chlamydia trachomatis and Neisseria gonorrhoeae molecular study (02/19/2025 9:03 AM EDT) [facility] Neisseria gonorrhoeae PCR Negative Negative LAB MOLECULAR DIAGNOSTICS METHOD 02/20/2025 8:46 AM EDT [facility] Chlamydia trachomatis PCR Positive(A) Negative LAB MOLECULAR DIAGNOSTICS METHOD 02/20/2025 8:46 AM EDT [facility] Swab Vaginal structure / Unknown Non-blood Collection / Unknown 02/19/2025 9:03 AM EDT 02/19/2025 9:03 AM EDT [facility] LAB MICROBIOLOGY - GENERAL OR DERABLES Final Result Performing Organization Address [facility]/ZIP Co de Phone Number [facility] [address] [place] [address], [place] [phone] * Culture urine (02/19/2025 9:03 AM EDT) Culture, Urine 10,000-49,000 CFU/mL Mixed urogenital john, no uropathogens present. Suggest repeat specimen if clinically indicated. 02/20/2025 2:02 PM EDT [facility] Urine Urine specimen obtained by clean catch procedure / Unknown Non-blood Collection / Unknown 02/19/2025 9:03 AM EDT 02/19/2025 9:03 AM EDT Espinoza Denson CNM LAB MICROBIOLOGY - GENERAL OR DERABLES Final Result [facility] [address] [place] [address], [place] [phone] * Pap smear (01/23/2024) 01/23/2024 Narrative HISTORICAL TESTING LAB RESULTING AGENCY - 01/27/2024 12:05 PM EDT [id number] THINPREP PAP, IMAGED: NEGATIVE FOR SQUAMOUS INTRAEPITHELIAL LESION AND MALIGNANCY NOTE: ??ADEQUACY DEEMED SATISFACTORY AFTER REPROCESSING WITH ACID WASH PROCEDURE. JOHN HAGAN(ASCP) (CASE ELECTRONICALLY SIGNED 01 27 2024) ADEQUACY: SATISFACTORY ENDOCERVICAL/TRANSFORMATION ZONE COMPONENT PRESENT. SOURCE: THINPREP PAP HPV IF ASCUS, CERVICAL, IMAGED CLINICAL INFORMATION: HPV IF DIAGNOSIS OF ASCUS. HORMONES, LMP 01/09/24, [Z01.419] Cuca Posada DO LAB CYTOLOGY ORDERABLES Final Result HISTORICAL TESTING LAB RESULTING AGENCY * (ABNORMAL) Lipid panel (09/22/2023) LDL/HDL Ratio 4 0 - 4 Triglycerides 122 0 - 150 mg/dL Cholesterol 185 0 - 200 mg/dL HDL 42 >=40 mg/dL LDL Cholesterol 119(A) 0 - 100 mg/dL Blood Venous blood specimen / Unknown Historical Provider LAB BLOOD ORDERABLES Shu montero Result from Last 3 Months or Most Recently Relevant to Health Maintenance Insurance [employer] Member Subscriber Plan / Payer (Ef fective 2020-Present) Name:DEYANIRA THOMAS Relation to Subscriber:Self Name:Deyanira Thomas Payer ID:[id number] Group ID:[id number] Type:Not on file Address: [place] [address] [address] [phone] Care Teams Tobacco Grower Relationship Specialty Start Date End Date Deepti Espinoza MD [address] [place], [place] PCP - General Internal Medicine 04/26/22
[2025-03-08 08:52] VITALS: BP 102/85; BMI 41.6
--- NOTE | 2025-03-08 08:52 | A.OFFVIS_ITS ---
Vital Signs 03/08/25 08:52 Height 5 ft 5 in Weight 250 lb BMI 41.6 BP 102/85 Intake Visit Reasons: [facility] NURSING DIRECTOR annual exam/DO NOT RS Real Estate Agency Principal Required: No Information Interpreted: non-clinical & clinical Capital Markets Specialist: Capital Markets Specialist Present (Stephanie DOMINGUEZ) Accompanied by: Self / Same As Patient Allergies No Known Allergies Allergy (Verified 03/08/25 08:53) Is last menstrual period known: Yes Last menstrual period: 02/18/25 HPI Comments Details: Presenting for annual exam. Complaining of pelvic pain associated with urinary frequency, no dysuria no nausea or vomiting no vaginal discharge. Last Pap was negative in 12/31 [facility] Medical History Morbid obesity Bipolar affective disorder, current episode depressed Scoliosis Obesity Surgical History History of ovarian cystectomy Hx of bladder endoscopy Hx of tonsillectomy Family History Mother Deep vein thrombosis (DVT) Hypothyroidism Arthritis Maternal Grandmother Diabetes Paternal Grandmother Diabetes Father HTN (hypertension) Daughter Asthma ADHD Daughter ADHD Asthma Social History Household Members: Children [facility] Alcohol intake: never Patient Tobacco Use Status: Current someday Tobacco user Cigarettes Per Day: 2 Current occupational status: employed 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 Sexual orientation: Straight/Heterosexual Gender identity: Female Female Reproductive History Menstrual Age of Menarche: 11 Date of last menstrual period: 02/18/25 control method: pills Date of last pap smear: 01/06/24 Review of Systems Const All systems reviewed & are unremarkable except as noted in HPI and below Card Reports as per HPI Resp Reports as per HPI GI Reports as per HPI and Reports no additional complaints Reports as per HPI Physical Exam Vital Signs: Last Vital Signs BP 102/85 03/08/25 08:52 BMI result Body Mass Index 41.6 Const General: cooperative, healthy appearing and comfortable Chest Chest palpation & inspection: normal inspection of the chest and normal palpation of entire chest wall Breast/axilla inspection: normal inspection of the breasts and normal inspection of the axillae Breast/axilla palpation: normal palpation of the breasts, normal palpation of the axillae and no axillary lymphadenopathy Resp Effort & Inspection: normal respiratory effort Auscultation: clear to auscultation bilaterally Percussion: percussion normal Cardio Palpation: normal PMI Rate: regular rate Rhythm: regular rhythm Heart sounds: no murmurs and no rubs Peripheral pulses: Peripheral pulses 2+ throughout GI Inspection: Yes normal to inspection Palpation (GI): Soft to palpation, nontender, no guarding, not rigid and No hepatosplenomegaly present Percussion: Yes normal to percussion Auscultation: normal bowel sounds Rectal Exam - Female: deferred General: Yes bladder normal to palpation External Female Exam: No lesion Speculum Exam - Vagina: normal appearance of the vagina, normal palpation, normal vaginal discharge and not erythematous Speculum Exam - Cervix: normal appearance of the cervix and normal palpation Bimanual exam- vagina & uterus: normal bimanual exam, normal palpation, uterine size normal, bladder normal to palpation, consistency normal and normal palpation Bimanual Exam- Adnexa, other: normal adnexae, no masses and no tenderness Assessment & Plan Assessment & Plan (1) Well woman exam: Code(s): Z01.419 - Encounter for gynecological examination (general) (routine) without abnormal findings Category: Medical Plan: Pap smear not indicated this year Counseled the patient about the recommended dietary allowance of 1000 mg of Calcium & 600 IU of vitamin D. The patient was instructed to perform monthly self-breast exams and to schedule an annual exam in a year; All questions answered and the patient verbalized understanding. Instructed the patient to schedule annual exam in a year (2) Pelvic pain: Code(s): R10.2 - Pelvic and perineal pain Category: Medical Plan: Urine dip and test done in the office were both negative. GC and chlamydia taken and pelvic ultrasound ordered. Discussed with the patient the differential diagnosis of pelvic pain including but not limited to adnexal, uterine masses, pelvic infections (PID), GI the (Irritable bowel syndrome, diverticulitis, others), musculoskeletal, myofascial pain abdominal wall , adhesions, endometriosis, psychological and others causes. Will check results and treat accordingly. All questions answered, the patient verbalized understanding. Instructed the patient to schedule an ultrasound and a follow-up appointment in 2 weeks. All questions answered, the patient verbalized understanding and agreed with the plan. Orders: Orders CT NG by PCR Today R10.2 - Pelvic and perineal pain US pelvic and transvaginal Today R10.2 - Pelvic and perineal pain Coding Level of Care Code Est Pt Prev Care 18-39y(40793) Diagnoses Well woman exam Z01.419 Pelvic pain R10.2
== END 2025-03-08 09:20 | disposition home or self-care (01) ==
LOC: HO.HWS 08:47
PROVIDERS: PCP Family Medicine; Visit Provider Obstetrics & Gynecology
DX: Z01.419 Encounter for gynecological examination (general) (routine) without abnormal findings (principal); R10.2 Pelvic and perineal pain; Z32.02 Encounter for pregnancy test, result negative
CPT/HCPCS: 99395; 99459

== ENCOUNTER 2025-03-08 08:47 | Outpatient (REF) | payer OTHER, SELFPAY ==
[2025-03-09 03:55] LABS: CT PCR DETECTED (Not Detect.); NG PCR NOT DETECTED (Not Detect.)
== END 2025-03-08 08:48 | disposition home or self-care (01) ==
LOC: HO.LNP 08:47
PROVIDERS: PCP Family Medicine; Visit Provider Obstetrics & Gynecology
DX: Z01.419 Encounter for gynecological examination (general) (routine) without abnormal findings (principal); R10.2 Pelvic and perineal pain
CPT/HCPCS: 81025; 87491; 87591; 99395; 99459

== ENCOUNTER 2025-03-26 14:43 | Outpatient (AMB) | payer OTHER, SELFPAY ==
--- NOTE | 2025-03-26 14:45 | MHC.OFFVIS ---
Intake Visit Reasons: inocencio per nurse Legal Services Manager: Legal Services Manager Present (Pinky) Accompanied by: Self / Same As Patient Allergies No Known Allergies Allergy (Verified 03/26/25 14:46) HPI Comments Details: The patient is presenting for a test of cure for positive chlamydia. The patient took the antibiotics course; she informed her partner who was treated too. The patient reports no intercourse since then. STD serology not done yet [facility] Medical History Morbid obesity Bipolar affective disorder, current episode depressed Scoliosis Obesity Surgical History History of ovarian cystectomy Hx of bladder endoscopy Hx of tonsillectomy Family History Mother Deep vein thrombosis (DVT) Hypothyroidism Arthritis Maternal Grandmother Diabetes Paternal Grandmother Diabetes Father HTN (hypertension) Daughter Asthma ADHD Daughter ADHD Asthma Social History Household Members: Children [facility]: [facility] Alcohol intake: never Patient Tobacco Use Status: Current someday Tobacco user Cigarettes Per Day: 2 Current occupational status: employed 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 Sexual orientation: Straight/Heterosexual Gender identity: Female Female Reproductive History Menstrual Age of Menarche: 11 Review of Systems Const All systems reviewed & are unremarkable except as noted in HPI and below Physical Exam General: Yes no CVA tenderness External Female Exam: normal external appearance and normal appearance of the urethra Speculum Exam - Vagina: normal appearance of the vagina, normal palpation, no lesions and no masses Speculum Exam - Cervix: normal appearance of the cervix, normal palpation, no lesions, no masses and nontender Bimanual exam- vagina & uterus: normal bimanual exam, normal palpation, uterine size normal, normal palpation, uterine shape normal, No Cervical tenderness present and non-tender Bimanual Exam- Adnexa, other: normal adnexae Back/Spine/Pelvis Back: no CVA tenderness Assessment & Plan Assessment & Plan (1) Chlamydia: Comment: Treated, for test of cure Code(s): A74.9 - Chlamydial infection, unspecified Category: Medical Plan: GC/CT and BV panel collected, instructions given the patient to go to the lab for STD screening serology including HIV, syphilis, hepatitis-B surface antigen and hepatitis-C antibody, orders placed and to schedule a three-month INOCENCIO appointment. All questions answered, the patient verbalized understanding Coding Level of Care Code Est Pt Level 3 (86150) Diagnoses Chlamydia A74.9
--- OUTSIDE RECORDS SUMMARY | 2025-03-26 17:01 | XMS_ITS | Clinical Summary ---
Author Organization [facility] [address] [place] [address] Address [address] [place] [address] Phone Care Team Providers Care Insole Filler Name Role Phone Deepti Espinoza MD Primary Care Pr ovider Allergies No known active allergies Medications ibuprofen (ADVIL,MOTRIN) 600 mg tablet Take 1 Tablet by mouth every 8 hours as needed for Pain. 12/19/19 24 Active albuterol HFA (PROAIR HFA ; PROVENTIL HFA ; VENTOLIN HFA) 90 mcg/actuation inhaler Inhale 2 Puffs into the lungs every 4 hours as needed for Cough or Wheezing. 01/03/20 24 Active albuterol HFA (PROAIR HFA ; PROVENTIL HFA ; VENTOLIN HFA) 90 mcg/actuation inhaler Inhale 2 Puffs into the lungs every 6 hours as needed for Cough or Wheezing. 3 INHALERS AND 3 REFILLS 07/18/20 24 025 Active cholecalciferol (VITAMIN D-3) 50 mcg (2,000 unit) capsule Take 1 Capsule by mouth daily. 05/23/20 24 Active clonazePAM (KlonoPIN) 1 mg tablet Take 1 Tablet by mouth 3 times daily. 03/04/20 24 Active aluminum-magnes ium hydroxide-simet hicone (MAALOX) 200-200-20 mg/5 mL suspension Take 15 mL by mouth 3 times daily as needed (heartburn and reflux). 08/31/20 23 Active fluticasone propion-salmete roL (ADVAIR HFA) 230-21 mcg/actuation inhaler Inhale 2 Puffs into the lungs 2 times daily for 360 days. 07/18/20 24 025 Active fluticasone propionate (FLONASE) 50 mcg/actuation nasal spray 1 Amma by Each Nare route daily. 2 sprays in each nostril daily 09/22/20 21 Active fluticasone HFA (FLOVENT HFA) 110 mcg/actuation inhaler Inhale 1 Puff into the lungs 2 times daily. 07/13/20 24 Active ondansetron (ZOFRAN) 4 mg tablet Take 1 Tablet by mouth every 8 hours as needed for Nausea. 12/19/19 24 Active sodium chloride (AYR) 0.65 % nasal drops 1 Amma by Nasal route as needed for Congestion. Amma each nostril as needed for postnasal drip 08/31/20 23 Active esomeprazole (NexIUM) [address] capsule TAKE 1 CAPSULE BY MOUTH EVERY MORNING (BEFORE BREAKFAST). ON EMPTY STOMACH, WAIT 30 MINUTES AND THEN EAT TO ACTIVATE MEDICATION 90 capsule 3 08/31/20 24 Active famotidine (PEPCID) 20 mg tablet TAKE 1 TABLET BY MOUTH 2 TIMES DAILY NEEDED FOR HEARTBURN. 180 tablet 1 12/11/19 25 Active albuterol HFA (PROAIR HFA ; PROVENTIL HFA ; VENTOLIN HFA) 90 mcg/actuation inhaler Inhale 2 puffs by mouth every 6 (six) hours if needed for wheezing. 1 each 2 02/05/20 25 025 Active desogestreL-eth inyl estradioL (Apri) 0.15-0.03 mg per tablet Take 1 tablet by mouth 1 (one) time each day. 84 tablet 3 02/20/20 25 Active umeclidinium (Incruse Ellipta) 62.5 mcg/actuation inhalationIndic ations:Moderate persistent asthma, unspecified whether complicated Inhale 1 puff by mouth 1 (one) time each day. 1 each 03/12/20 25 026 Active doxycycline (VIBRAMYCIN) 100 mg capsule Take 1 capsule (100 mg total) by mouth 2 (two) times a day for 7 days. Take with at least 8 ounces (large glass) of water, do not lie down for 30 minutes after. Administer 2 hours before or after multivitamins, antacids, or other products containing polyvalent cations (i.e., calcium, iron, magnesium, selenium, zinc). 14 capsule 1 02/21/20 025 tiotropium (SPIRIVA RESPIMAT) 2.5 mcg/actuation inhalation sprayIndication s:Moderate persistent asthma, unspecified whether complicated Inhale 2 puffs by mouth 1 (one) time each day. 1 each 03/12/20 025 Discontinued Hospital, Clinic, or Other Facility Administered Medication [...] Last Assessment & Plan: I discussed with Anabel that it is reasonable to consider removal. [...] surgery scheduled, but should hear from my physician assistant surgery within the next 2 weeks with a date. If not, she should call back to our office and inquire on getting this arranged. She voiced understanding and agreed. Leukocytosis (leucocytosis) 11/20/2020 Sacroiliitis (CMS/HCC V24) 10/25/2019 Overview (08/02/2024): Follows with [facility] referred for physical therapy as well as an x-ray of the lumbar spine Non-ulcer dyspepsia 08/06/2019 Hiatal hernia 05/08/2019 Gastroesophageal reflux disease 02/01/2019 Overview (08/02/2024): Normal gastric emptying study 06/2019 Anxiety 11/01/2018 Bipolar affective disorder, current episode depressed ([facility] [place], [facility] V28) 11/01/2018 Mild intermittent asthma without complication Morbid obesity with BMI of 4 0.0-44.9, adult ([facility] V24, [facility] V28) 11/01/2018 Ovarian cyst 02/06/2018 Overview (08/02/2024): Left 7.6 x7 x 4.4 cm Encounters Date Type Department Care Team Description 03/12/2025 8:00 AM EDT Office Visit Pulmonolgy [facility] [address] [phone] Kiki Mix MD Moderate persistent asthma, unspecified whether complicated (Primary Dx); Class 3 severe obesity with body mass index (BMI) of 40.0 to 44.9 in adult, unspecified obesity type, unspecified whether serious comorbidity present ([facility] V24, [facility] V28); Chronic cough; Allergic rhinitis due to pollen, unspecified seasonality 03/12/2025 Telephone Pulmonolgy [facility] [address] [phone] Kiki Mix MD 02/27/2025 10:15 AM EDT Clinical Support Adult Medicine [address] [phone] Vitamin B12 deficiency disease (Primary Dx) 02/27/2025 Telephone Adult Medicine [address] [phone] Marina Cardenas MA Clinical (B12 Orders) 02/21/2025 Telephone Obstetrics and Gynecology [address] [phone] Steffi Etienne MA 02/20/2025 2:58 PM EDT - 02/20/2025 11:59 PM EDT Hospital Encounter Radiology Department - [address] [place], [place] [phone] Pelvic pain; History of ovarian cyst Discharge Disposition: Home or Self Care 02/20/2025 Telephone Obstetrics and Gynecology - [address] [phone] Steffi Etienne [place] 02/19/2025 8:30 AM EDT Office Visit Obstetrics and Gynecology - [address] [phone] Espinoza Denson, LUCAS Women's annual routine gynecological examination (Primary Dx); Oral contraceptive pill surveillance; Venereal disease screening; Encounter for screening for viral disease; BMI 40.0-44.9, adult (CMS/HCC V24, CMS/HCC V28); Urinary frequency; Pelvic pain; History of ovarian cyst 01/30/2025 10:30 AM EDT Clinical Support Adult Medicine [address] [phone] Vitamin B12 deficiency disease (Primary Dx) 01/02/2025 10:30 AM EDT Clinical Support Adult Medicine [address] [phone] Vitamin B12 deficiency disease (Primary Dx) from [...] 30-39.9) Bipolar affective disorder, current episode depressed ([facility] V24, [facility] V28) 11/01/2018 DX:Bipolar affective disorde r, current episode depressed ([facility]) Anxiety 11/01/2018 DX:Anxiety Mild intermittent asthma wit [...] Used Date Smoking Tobacco: Former Cigarettes 2 19.5 S tarted: 10/10/2005 Smokeless Tobacco: Former Quit: [...] for your loved ones. For example, director child abuse therapy or elderly care for an older adult? [...] Sign Reading Time Taken Comments Blood Pressure 117/66 03/12/2025 8:18 AM EDT Pulse 90 03/12/2025 8:18 AM EDT Temperature 36.1 ??C (96.9 ??F) 03/12/2025 8:18 AM ED T Respiratory Rate - - Oxygen Saturation 100% 03/12/2025 8:18 AM EDT Inhaled Oxygen Concentration - - Weight 113 kg (250 lb) 03/12/2025 8:18 AM EDT Height 165.1 cm (5' 5 ) 03/12/2025 8:18 AM EDT Body Mass Index 41.6 03/12/2025 8:18 AM EDT Plan of Treatment Upcoming Encounters Date Type Department Care Team (Late st Contact Info) Description 04/03/2025 2:30 PM EDT Clinical Support Adult Medicine [address] [phone] 04/08/2025 5:00 PM EDT Office Visit Adult [address] [phone] Deepti Espinoza MD [address] [place], [place] 04/18/2025 8:30 AM EDT Office Visit Obstetrics and Gynecology [facility] [address] [place] [phone] Espinoza Denson, [facility] [address] [place] [address] 05/01/2025 10:30 AM EDT Clinical Support [address] [phone] 05/08/2025 9:40 AM EDT Office Visit Gastroenterology - [place] [address] [phone] Mook Childress DO [address] [phone] 09/11/2025 10:15 AM EST Ancillary Procedure Pulmonolgy - [address] [phone] 09/11/2025 11:00 AM EST Office Visit Pulmonolgy - [address] [phone] Kiki Mix MD [address] [phone] Health Maintenance Due Date Last Done Comments Pneumococcal Vaccine: Pediatrics (0 to 5 Years) and At-Risk Patients (6 to 64 Years) (1 of 2 - PCV) 2015 Medicare Annual Wellness Visit 09/18/2022 COVID-19 Vaccine (2023- season) 2024 02/15/2022, 06/23/2021, 02/26/2021 Social Influencers [...] Signed Date: 02/20/2025 16:23 ET Workstation ID: [id number] Transcribed By: Self Edit Transcribed Date: 02/20/2025 [...] Signed Date: 02/20/2025 16:23 ET Workstation ID: [id number] Transcribed By: Self Edit Transcribed Date: 02/20/2025 16:17 ET Espinoza Denson [facility] IMG US PROCEDURES Final Resul t * Hepatitis C antibody (02/19/2025 9:18 AM EDT) Hepatitis C Antibody Negative Negative LAB CHEMISTRY METHOD 02/19/2025 2:[address] [facility] Blood Venous blood specimen / Unknown Venipuncture / Unknown 02/19/2025 9:18 AM EDT 02/19/2025 9:18 AM EDT [facility] LAB BLOOD ORDERABLES Final Re sult Performing Organization Address [facility]/ZIP Co de Phone Number [facility] [address] [place] [address], * HIV 1,2 antibody, p24 antigen with reflex to differentiation (02/19/2025 9:18 AM EDT) [facility] HIV Combo AB/AG Negative Negative LAB CHEMISTRY METHOD 02/19/2025 2:[address] [facility] Blood Venous blood specimen / Unknown Venipuncture / Unknown 02/19/2025 9:18 AM EDT 02/19/2025 9:[address] [facility] - 02/19/2025 2:43 PM EDT This assay is a 4th generation assay allowing for earlier detection of HIV infection by detecting the presence of the HIV-1 p24 antigen as well as the traditional antibodies to HIV type 1 (including group O) and type 2. ??Use of a 4th generation assay is the current CDC recommendation for HIV screening. [facility] LAB BLOOD ORDERABLES Final Re sult Performing Organization Address [facility]/ZIP Co de Phone Number [facility] [address] [place] [address], * Treponema pallidum antibody with reflex to RPR and particle agglutination (02/19/2025 9:18 AM EDT) [facility] T. Pallidum Antibodies Negative Negative LAB CHEMISTRY METHOD 02/19/2025 2:[address] [facility] Blood Venous blood specimen / Unknown Venipuncture / Unknown 02/19/2025 9:18 AM EDT 02/19/2025 9:18 AM EDT Espinoza Denson [facility] LAB BLOOD ORDERABLES Final Re sult Performing Organization Address [facility]/ZIP Co de Phone Number [facility] [address] [place] [address], [place] [phone] * (ABNORMAL) Chlamydia trachomatis and Neisseria gonorrhoeae molecular study (02/19/2025 9:03 AM EDT) [facility] Neisseria gonorrhoeae PCR Negative Negative LAB MOLECULAR DIAGNOSTICS METHOD 02/20/2025 8:[address] [facility] Chlamydia trachomatis PCR Positive(A) Negative LAB MOLECULAR DIAGNOSTICS METHOD 02/20/2025 8:[address] [facility] Swab Vaginal structure / Unknown Non-blood Collection / Unknown 02/19/2025 9:03 AM EDT 02/19/2025 9:03 AM EDT [facility] LAB MICROBIOLOGY - GENERAL OR DERABLES Final Result [facility] [address] [place] [address], [place] [phone] * Culture urine (02/19/2025 9:03 AM EDT) [facility] Culture, Urine 10,000-49,000 CFU/mL Mixed urogenital john, no uropathogens present. Suggest repeat specimen if clinically indicated. 02/20/2025 2:[address] [facility] Urine Urine specimen obtained by clean catch procedure / Unknown Non-blood Collection / Unknown 02/19/2025 9:03 AM EDT 02/19/2025 9:03 AM EDT Espinoza Denson CNM LAB MICROBIOLOGY - GENERAL OR DERABLES Final Result [facility] [address] [place] [address], * Pap smear (01/23/2024) 01/23/2024 Narrative HISTORICAL TESTING LAB RESULTING AGENCY - 01/27/2024 12:05 PM EDT [id number] THINPREP PAP, IMAGED: NEGATIVE FOR SQUAMOUS INTRAEPITHELIAL [...] mg/dL Blood Venous blood specimen / Unknown us Historical Provider LAB BLOOD ORDERABLES Shu montero Result from Last 3 Months or Most Recently Relevant to Health Maintenance Insurance [facility] MEDIC[facility] Member Subscriber Plan / Payer (Ef fective 2020-Present) Name:ANABEL THOMAS Relation to Subscriber:Self Name:Anabel Thomas Payer ID:[id number] Group ID:[id number] Type:Not on file Address: [place] [address] [address] [id number] Care Teams Insole Filler Relationship Specialty Start Date End Date Deepti Espinoza MD [address] [facility] [place] PCP - General Internal Medicine 04/26/22
== END 2025-03-26 15:15 | disposition home or self-care (01) ==
LOC: HO.HWS 14:43
PROVIDERS: PCP Family Medicine; Visit Provider Obstetrics & Gynecology
DX: A74.9 Chlamydial infection, unspecified (principal)
CPT/HCPCS: 99213

== ENCOUNTER 2025-03-26 14:43 | Outpatient (REF) | payer OTHER, SELFPAY ==
[2025-03-26 18:10] LABS: Bacterial Vaginosis PCR POSITIVE (Negative); Candida Group PCR NOT DETECTED (Not Detect); Candida glab krusei PCR NOT DETECTED (Not Detect); Trichomonas vaginalis PCR NOT DETECTED (Not Detect)
[2025-03-26 18:43] LABS: CT PCR NOT DETECTED (Not Detect.); NG PCR NOT DETECTED (Not Detect.)
[2025-03-27 02:52] LABS: Syphilis Screen Nonreactive (Nonreactive)
[2025-03-27 03:02] LABS: HBsAGNum1 2.33 S/CO (0.00-0.99); HIV AB/AG Nonreactive (Nonreactive); HIV Num 1 0.13 S/CO (0.00-0.99); ~HepC Num1 0.14 S/CO (0.00-0.79); ~Hepatitis C Antibody Nonreactive (Nonreactive)
[2025-03-27 06:33] LABS: HBsAGNum2 Nonreactive; HBsAGNum3 Nonreactive; Hepatitis B Surface Antigen NEGATIVE (Negative)
== END 2025-03-26 14:44 | disposition home or self-care (01) ==
LOC: HO.LAB 14:43
PROVIDERS: PCP Family Medicine; Visit Provider Obstetrics & Gynecology
DX: Z11.3 Encounter for screening for infections with a predominantly sexual mode of transmission (principal); A74.9 Chlamydial infection, unspecified
CPT/HCPCS: 36415; 81515; 86780; 86803; 87340; 87389; 87491; 87591; 99212

== ENCOUNTER 2025-03-26 15:07 | Outpatient (REF) | payer OTHER, SELFPAY | END 2025-03-26 15:08 | disposition home or self-care (01) | LOC: HO.LNP 15:07 | PROVIDERS: Visit Provider Obstetrics & Gynecology | DX: Z13.89 Encounter for screening for other disorder (principal) ==

== ENCOUNTER 2025-05-28 14:52 | Outpatient (REF) | payer OTHER, SELFPAY ==
--- NOTE | ~2025-05-28 | US_ITS ---
EXAMINATION: US PELVIS TRANSABDOMINAL AND TRANSVAGINAL HISTORY: R10.2 - Pelvic and perineal pain COMPARISON: Comparison is made with the prior examination dated 05/01/2024. TECHNIQUE: Transabdominal and endovaginal real-time 2D sesay-scale ultrasound was performed. FINDINGS: Uterus: The uterus is normal in size, measuring 9.7 x 5.1 x 5.9 cm. Myometrium has a normal echotexture. No fibroids are identified. Endometrium: The endometrial stripe measures 6 mm in thickness. Right ovary: The right ovary measures 4.4 x 2.3 x 3.0 cm. The right ovary is normal in size and echotexture. There is a 1.4 x 1.5 x 1.3 cm paraovarian cyst. Left ovary: The left ovary measures 2.0 x 1.1 x 1.1 cm. The left ovary is normal in size and echotexture. Pelvic fluid: none. US/US pelvic and transvaginal IMPRESSION: 1.5 cm right paraovarian cyst. Otherwise unremarkable pelvic ultrasound. Electronically signed by: Leandro Suarez MD 05/28/2025 03:35 PM EDT
--- OUTSIDE RECORDS SUMMARY | 2025-05-28 16:17 | XMS_ITS | Clinical Summary ---
Author Organization [facility] [address] [facility] Address [address] [place] [address] Phone Care Team Providers Care Wind Development Director Name Role Phone Deepti Espinoza MD Primary Care Pr ovider Allergies No known active allergies Medications ibuprofen (ADVIL,MOTRIN) 600 mg tablet Take 1 Tablet by mouth every 8 hours as needed for Pain. 12/19/19 24 Active clonazePAM (KlonoPIN) 1 mg tablet Take 1 Tablet by mouth 3 times daily. 03/04/20 24 Active aluminum-magne sium hydroxide-richa thicone (MAALOX) 200-200-20 mg/5 mL suspension Take 15 mL by mouth 3 times daily as needed (heartburn and reflux). 08/31/20 23 Active fluticasone propion-salmet Tuan (ADVAIR HFA) 230-21 mcg/actuation inhaler Inhale 2 Puffs into the lungs 2 times daily for 360 days. 07/18/20 24 025 Active fluticasone propionate (FLONASE) 50 mcg/actuation nasal spray 1 [place] by Each Nare route daily. 2 sprays in each nostril daily 09/22/20 21 Active fluticasone HFA (FLOVENT HFA) 110 mcg/actuation inhaler Inhale 1 Puff into the lungs 2 times daily. 07/13/20 24 Active ondansetron (ZOFRAN) 4 mg tablet Take 1 Tablet by mouth every 8 hours as needed for Nausea. 12/19/19 24 Active sodium chloride (AYR) 0.65 % nasal drops 1 [place] by Nasal route as needed for Congestion. [place] each nostril as needed for postnasal drip [...] HEARTBURN. 180 tablet 1 12/11/19 25 Active desogestreL-et hinyl estradioL (Apri) 0.15-0.03 mg per tablet Take 1 tablet by mouth 1 (one) time each day. 84 tablet 3 02/20/20 25 Active umeclidinium (Incruse Ellipta) 62.5 mcg/actuation inhalationIndi cations:Modera te persistent asthma, unspecified whether complicated Inhale 1 puff by mouth 1 (one) time each day. 1 each 03/12/20 25 026 Active SUMAtriptan (IMITREX) 25 mg tabletIndicati ons:Chronic migraine without aura without status migrainosus, not intractable Take 1 tablet (25 mg total) by mouth 1 (one) time if needed for migraine. May repeat dose once in 2 hours if no relief. Do not exceed 2 doses in 24 hours. 27 tablet 04/08/20 25 026 Active topiramate (TOPAMAX) 50 mg tabletIndicati ons:Chronic migraine without aura without status migrainosus, not intractable Take 1 tablet (50 mg total) by mouth at bedtime. 90 each 04/08/20 25 025 Active cholecalcifero l (VITAMIN D-3) 50 mcg (2,000 unit) capsule Take 2 capsules (4,000 Units total) by mouth 1 (one) time each day. 180 each 1 04/11/20 25 025 Active albuterol HFA (PROAIR HFA ; PROVENTIL HFA ; VENTOLIN HFA) 90 mcg/actuation inhaler Inhale 2 puffs by mouth every 6 (six) hours if needed for wheezing. 1 each 04/18/20 25 026 Active metoclopramide (REGLAN) 10 mg tabletIndicati ons:Chronic migraine without aura without status migrainosus, not intractable TAKE 1 TABLET BY MOUTH DAILY IF NEEDED (NAUSEA/VOMITIN G). 30 tablet 05/08/20 25 Active polyethylene glycol (Golytely) 236-22.74-6.74 -5.86 gram solution Take 4L by mouth once for one dose. May substitue any PEG. Starting at 2PM the day before your procedure drink 1 8oz glasses at your own pace until you complete half of the gallon. Finish 2nd half of the gallon at 8PM. 4000 mL 05/08/20 25 Active bisacodyL (DULCOLAX) 5 mg EC tablet Take 2 tablets by mouth right before beginning bowel prep. See instructions provided by the office 2 tablet 05/08/20 25 Active folic acid (FOLVITE) 1 mg tablet Take 1 tablet (1,000 mcg total) by mouth 1 (one) time each day. Active FLUoxetine (PROzac) 20 mg capsule Take 1 capsule (20 mg total) by mouth 1 (one) time each day in the morning. 09/28/20 24 Active QUEtiapine (SEROquel) 300 mg tablet Take 2 tablets (600 mg total) by mouth. at bedtime 10/11/19 25 Active Breztri Aerosphere 160-9-4.8 mcg/actuation HFA aerosol inhaler inhaler Inhale 2 puffs by mouth 2 (two) times a day. 05/17/20 25 Active cetirizine (ZyrTEC) 10 mg tablet Take 1 tablet (10 mg total) by mouth at bedtime. 05/16/20 25 Active nitrofurantoin , macrocrystal-m onohydrate, (MACROBID) 100 mg capsule TAKE 1 CAPSULE BY MOUTH TWICE A DAY FOR 5 DAYS.TAKE WITH A MEAL/FOOD 05/22/20 25 Active metoclopramide (REGLAN) 10 mg tabletIndicati ons:Chronic migraine without aura without status migrainosus, not intractable Take 1 tablet (10 mg total) by mouth 1 (one) time each day if needed (nausea/vomitin g). 30 tablet 04/08/20 25 025 Discontinued Hospital, Clinic, or Other Facility Administered Medication Ordered Dose Route Frequency Start Date End Date Status cyanocobalamin (VITAMIN B-12) injection 1,000 mcgIndications:Vitamin B12 deficiency disease 1000 mcg IM Every 30 days 05/15/2025 01/10/2026 Active Active Problems Problem Noted Date Diagnosed Date Delta-beta thalassemia trait 07/19/2024 Vitamin B12 deficiency disease 05/23/2024 Assessment & Plan (04/08/2025 5:29 PM EDT): She will continue vitamin B12 injections monthly. Will update labs Orders: Vitamin B12; Future Vitamin D insufficiency 05/23/2024 Assessment & Plan (04/08/2025 5:29 PM EDT): Continue vitamin D 2000 units daily Orders: Vitamin D 25 hydroxy; Future Endometrioma of ovary 03/27/2024 Overview (08/02/2024): Last [...] surgery scheduled, but should hear from my clinic scheduler within the next 2 weeks with a date. If not, she should call back to our office and inquire on getting this arranged. She voiced understanding and agreed. Leukocytosis (leucocytosis) 11/20/2020 Sacroiliitis ([facility] V24) 10/25/2019 Overview (08/02/2024): Follows with [facility] referred for physical therapy as well as an x-ray of the lumbar spine Non-ulcer dyspepsia 08/06/2019 Hiatal hernia 05/08/2019 Gastroesophageal reflux disease 02/01/2019 Overview (08/02/2024): Normal gastric emptying study 06/2019 Anxiety 11/01/2018 Bipolar affective disorder, current episode depressed ([facility] V24, [facility] V28) 11/01/2018 Morbid obesity with BMI of 4 0.0-44.9, adult ([facility] V24, [facility] V28) 11/01/2018 Ovarian cyst 02/06/2018 Overview (08/02/2024): Left 7.6 x7 x 4.4 cm Asthma 12/02/2008 Resolved Problems Problem Noted Date Diagnosed Date Resolved Date Mild intermittent asthma without complication 11/01/19 19 05/28/2025 Encounters Date Type Department Care Team Description 05/15/2025 2:00 PM EDT Clinical Support Adult Medicine [address] [phone] Vitamin B12 deficiency disease (Primary Dx) 05/13/2025 3:44 PM EDT Anesthesia Event [facility] Endoscopy [address] [place] [phone] Martin Morales DO 05/13/2025 2:09 PM EDT - 05/13/2025 11:59 PM EDT Hospital Encounter [facility] Endoscopy [address] [place] [phone] Kaleigh Childress DO Couture, Alison, CRNA Korobkov, Vitaliy, DO Change in bowel habit; H pylori ulcer Discharge Disposition: Home or Self Care 05/13/2025 10:15 AM EDT Lab Draw Station - [address] Chronic cough; Dyspepsia; Change in bowel habit 05/08/2025 9:40 AM EDT Office Visit Gastroenterology - [place] [facility] [address] [facility] [address] [place] [phone] Kaleigh Childress DO Dyspepsia (Primary Dx); Chronic cough; Change in bowel habit 05/02/2025 10:26 AM EDT - 05/02/2025 11:59 PM EDT Hospital Encounter Radiology Department [address] [phone] Chronic migraine without aura without status migrainosus, not intractable Discharge Disposition: Home or Self Care 05/01/2025 Telephone Adult Medicine [address] [phone] Deepti Espinoza MD Immunizations 04/30/[address] [phone] Deepti Espinoza MD Lab Results 04/11/[address] [phone] Toshia Newsome RN 04/08/2025 5:00 PM EDT Office Visit [address] [phone] Deepti Espinoza MD Chronic migraine without aura without status migrainosus, not intractable (Primary Dx); Vitamin B12 deficiency disease; Vitamin D insufficiency 04/03/2025 2:30 PM EDT Clinical Support [address] [phone] B12 deficiency (Primary Dx) 03/12/2025 8:00 AM EDT Office Visit [address] [phone] Kiki Mix MD Moderate persistent asthma, unspecified whether complicated (Primary Dx); Class 3 severe obesity with body mass index (BMI) of 40.0 to 44.9 in adult, unspecified obesity type, unspecified whether serious comorbidity present (CMS/HCC V24, CMS/HCC V28); Chronic cough; Allergic rhinitis due to pollen, unspecified seasonality 03/12/2025 Telephone [facility] [address] [phone] Kiki Mix MD 02/27/2025 10:15 AM EDT Clinical Support [address] [phone] Vitamin B12 deficiency disease (Primary Dx) 02/27/[address] [phone] Marina Cardenas [place] Clinical (B12 Orders) from Last 3 Months Immunizations Name Administration [...] SURGERY TONSILLECTOMY 2017 N/A PROCEDURE: HISTORICAL TONSILLECTOMY OVARIAN CYST SURGERY Medical History Medical History Date Comments Ovarian cyst 02/06/2018 DX:Ovarian cyst; COMMENT: Left 7.6 x7 x 4.4 cm Obesity (BMI 30-39.9) 11/01/2018 DX:Obesity (BMI 30-39.9) Bipolar affective disorder, current episode depressed ([facility] V24, [facility] V28) 11/01/2018 DX:Bipolar affective disorde r, current episode depressed ([facility]) Anxiety 11/01/2018 DX:Anxiety Mild intermittent asthma wit [...] Used Date Smoking Tobacco: Former Cigarettes 2 19.6 S tarted: 10/10/2005 Smokeless Tobacco: Former Quit: [...] for your loved ones. For example, child and adolescent therapist or elderly care for an older adult? [...] Sexual Orientation Not on file Obstetrics History Para Term AB IAB SAB Ectopic Multiple Livin g Live Births 2 1 1 2 2 Date Outcome GA Total Labor Labor/2nd/3rd Weight Sex Type Anes PTL Ruby A1 A5 Name Clin 2010 F Vag-S pont Living 2012 Term F Vag-S pont Living Last Filed Vital Signs Vital Sign Reading Time Taken Comments Blood Pressure 121/85 05/13/2025 4:30 PM EDT Pulse 92 05/13/2025 4:30 PM EDT Temperature 36.1 C (97 F) 05/13/2025 4:10 PM EDT Respiratory Rate 18 05/13/2025 4:30 PM EDT Oxygen Saturation 100% 05/13/2025 4:30 PM EDT Inhaled Oxygen Concentration - - Weight 110 kg (242 lb) 05/13/2025 3:01 PM EDT Height 165.1 cm (5' 5 ) 05/13/2025 3:01 PM EDT Body Mass Index 40.27 05/13/2025 3:01 PM EDT Plan of Treatment Upcoming Encounters Date Type Department Care Team (Late st Contact Info) Description 05/31/2025 9:45 AM EDT Office Visit Obstetrics and Gynecology [address] [phone] Comfort Connolly, [facility] [address] [place] [address] 06/12/2025 11:15 AM EDT Clinical Support Adult Medicine [address] [phone] 07/25/2025 2:00 PM EDT Consult [facility] [address] [facility] [address] [place] [phone] Charlee Durant MD [address] [facility] [address] [place] [phone] 09/11/2025 10:15 AM EST Ancillary Procedure Pulmonolgy - [place] [address] [phone] 09/11/2025 11:00 AM EST Office Visit [facility] [address] [phone] Kiki Mix MD [address] [phone] 09/13/2025 8:30 AM EST Office Visit Adult Medicine [facility] [address] [place] [phone] Nataly Hein PA [address] [place] [address] Health Maintenance Due Date Last Done Comments Pneumococcal Vaccine: Pediatrics (0 to 5 Years) and At-Risk Patients (6 to 49 Years) (1 of 2 - PCV) 2015 Medicare Annual Wellness Visit 09/18/2022 COVID-19 Vaccine ( season) 2024 02/15/2022, 06/23/2021, 02/26/2021 Influenza Vaccine (#1) 2025 , 07/07/2022, 08/26/2015, Additional history exists Social Influencers of Health Screening 09/04/2025 09/04/2024 Cervical Cancer Screening: Pap Smear 01/22/2027 01/23/2024, [...] Completed 07/14/2022, 08/12, 07/08/2010, Additional history exists HIV Screening Completed 02/19/2025, 07/07/2022 Hepatitis C Screening Completed 02/19/2025, 019 Depression Screening Completed 05/24/2025 Meningococcal B Vaccine Aged Out No l onger eligible based on patient's age to complete this topic RSV Immunization Patients Under 20 months Aged Out No longer eligible based on patient's age to complete this topic Procedures Procedure Name Priority Date/Time Associated Diagnosis Comments COLONOSCOPY Routine 05/13/2025 4:09 PM EDT Change in bowel habit H pylori ulcer EGD Routine 05/13/2025 4:09 PM EDT Change in bowel habit H pylori ulcer TISSUE EXAM Routine 05/13/2025 3:51 PM EDT Change in bowel habit H pylori ulcer TISSUE TRANSGLUTAMINASE, IGA Routine 05/13/2025 10:17 AM EDT Chronic cough Dyspepsia Change in bowel habit C-REACTIVE PROTEIN Routine 05/13/2025 10 :17 AM EDT Chronic cough Dyspepsia Change in bowel habit IMMUNOGLOBULIN IGA Routine 05/13/2025 10 :17 AM EDT Chronic cough Dyspepsia Change in bowel habit INTERFERON GAMMA INTERPRETATION Routine 05/06/2025 11:24 AM EDT Screening-pulmonary TB INTERFERON GAMMA ANTIGEN 2 Routine 05/06/2025 11:24 AM EDT Screening-pulmonary TB INTERFERON GAMMA ANTIGEN 1 Routine 05/06/2025 11:24 AM EDT Screening-pulmonary TB INTERFERON GAMMA MITOGEN Routine 05/06/2025 11:24 AM EDT Screening-pulmonary TB INTERFERON GAMMA NIL Routine 05/06/2025 11:24 AM EDT Screening-pulmonary TB INTERFERON GAMMA FOR TB, QUALITATIVE Routine 05/06/2025 11:24 AM EDT Screening-pulmonary TB MR BRAIN WO AND W CONTRAST Routine 05/02/2025 11:27 AM EDT Chronic migraine without aura without status migrainosus, not intractable CBC WITH AUTO DIFFERENTIAL Routine 04/18/2025 12:42 PM EDT Leukocytosis, unspecified type CBC AND DIFFERENTIAL Routine 04/18/2025 12:42 PM EDT Leukocytosis, unspecified type SEDIMENTATION RATE Routine 04/18/2025 12 :42 PM EDT Leukocytosis, unspecified type CBC WITH AUTO DIFFERENTIAL Routine 04/09/2025 2:08 PM EDT Chronic migraine without aura without status migrainosus, not intractable SEDIMENTATION RATE Routine 04/09/2025 2: 08 PM EDT Chronic migraine without aura without status migrainosus, not intractable CBC AND DIFFERENTIAL Routine 04/09/2025 2:08 PM EDT Chronic migraine without aura without status migrainosus, not intractable COMPREHENSIVE METABOLIC PANEL Routine 04/09/2025 2:08 PM EDT Chronic migraine without aura without status migrainosus, not intractable THYROID STIMULATING HORMONE WITH REFLEX TO FREE T4 AND FREE T3 Routine 04/09/2025 2:08 PM EDT Chronic migraine without aura without status migrainosus, not intractable VITAMIN B12 Routine 04/09/2025 2:08 PM EDT Vitamin B12 deficiency disease VITAMIN D 25 HYDROXY Routine 04/09/2025 2:08 PM EDT Vitamin D insufficiency HEPATITIS C ANTIBODY Routine 02/19/2025 9:18 AM EDT Encounter for screening for viral disease HIV 1, 2 ANTIBODY, P24 ANTIGEN WITH REFLEX TO DIFFERENTIATION Routine 02/19/2025 9:18 AM EDT Encounter for screening for viral disease HM PAP SMEAR Routine 01/23/2024 LIPID PANEL Routine 09/22/2023 from Last 3 Months or Most Recently Relevant to Health Maintenance Results * COLONOSCOPY Anesthesia - [facility]; [facility] ENDOSCOPY (05/13/2025 4:09 PM EDT) Anatomical Region Laterality Modality Endoscopy 05/13/2025 3:38 PM EDT Impressions 05/13/2025 4:08 PM EDT - Hemorrhoids found on perianal exam. - One 8 mm polyp in the cecum, removed with a cold snare. Resected and retrieved. - The entire examined colon is normal. Biopsied. - The examined portion of the ileum was normal. Biopsied. Recommendation: - Discharge patient to home. - Resume previous diet. - Continue present medications. - Await pathology results. Narrative 05/13/2025 4:08 PM EDT [facility] GI Patient Name: Anabel Thomas Procedure Date: 05/13/2025 3:38 PM Date of : 1995 Age: 29 Gender: Female Note Status: Finalized Attending MD: Kaleigh Childress DO, [id number] Procedure Date No Time: 05/13/2025 Procedure: Colonoscopy Indications: Generalized abdominal pain, , change in bowels, sacroileitis Providers: Kaleigh Childress DO Referring MD: Kaleigh Childress DO Medicines: Monitored Anesthesia Care Complications: No immediate complications. Estimated blood loss: Minimal. Estimated Blood Loss: Estimated blood loss was minimal. Procedure: Pre-Anesthesia Assessment: - - Prior to the procedure, a History and Physical was performed, and patient medications and allergies were reviewed. The patient is competent. The risks and benefits of the procedure and the sedation options and risks were discussed with the patient. All questions were answered and informed consent was obtained. Patient identification and proposed procedure were verified by the physician, the nurse, the anesthesiologist, the hosiery looper and the optical technician in the pre-procedure area in the endoscopy suite. Mental Status Examination: alert and oriented. Airway Examination: normal oropharyngeal airway and neck mobility. Respiratory Examination: clear to auscultation. CV Examination: normal. Prophylactic Antibiotics: The patient does not require prophylactic antibiotics. Prior Anticoagulants: The patient has taken no anticoagulant or antiplatelet agents. ASA Grade Assessment: II - A patient with mild systemic disease. After reviewing the risks and benefits, the patient was deemed in satisfactory condition to undergo the procedure. The anesthesia plan was to use monitored anesthesia care (MAC). Immediately prior to administration of medications, the patient was re-assessed for adequacy to receive sedatives. The heart rate, respiratory rate, oxygen saturations, blood pressure, adequacy of pulmonary ventilation, and response to care were monitored throughout the procedure. The physical status of the patient was re-assessed after the procedure. After I obtained informed consent, the scope was passed under direct vision. Throughout the procedure, the patient's blood pressure, pulse, and oxygen saturations were monitored continuously. The Colonoscope was introduced through the anus and advanced to the terminal ileum. The colonoscopy was performed without difficulty. The patient tolerated the procedure well. The quality of the bowel preparation was good. Findings: Hemorrhoids were found on perianal exam. An 8 mm polyp was found in the cecum. The polyp was sessile. The polyp was removed with a cold snare. Resection and retrieval were complete. Verification of patient identification for the specimen was done. Estimated blood loss was minimal. The colon (entire examined portion) appeared normal. Biopsies were taken with a cold forceps for histology. The terminal ileum appeared normal. Biopsies were taken with a cold forceps for histology. Procedure Code(s): --- Professional --- 10720, Colonoscopy, flexible; with removal of tumor(s), polyp(s), or other lesion(s) by snare technique 32311, 59, Colonoscopy, flexible; with biopsy, single or multiple Diagnosis Code(s): --- Professional --- K64.9, Unspecified hemorrhoids D12.0, Benign neoplasm of cecum R10.84, Generalized abdominal pain CPT copyright 2020 [employer]. All rights reserved. The codes documented in this report are preliminary and upon mechanical engineering specialist review may be revised to meet current compliance requirements. KALEIGH Childress DO 05/13/2025 4:08:23 PM This report has been signed electronically.Kaleigh Childress DO Number of Addenda: 0 Note Initiated On: 05/13/2025 3:38 PM Scope Withdrawal Time: 0 hours 7 minutes 10 seconds Scope In: Scope Out: 4:06:52 PM Endoscopy Department at [facility] - [address] [place] [phone] Procedure Note Kaleigh Childress DO - 05/13/2025 [facility] GI Patient Name: Anabel Thomas Procedure Date: 05/13/2025 3:38 PM Date of : 1995 Age: 29 Gender: Female Note Status: Finalized Attending MD: Kaleigh Childress DO, [id number] Procedure Date No Time: 05/13/2025 Procedure: Colonoscopy Indications: Generalized abdominal pain, , change in bowels, sacroileitis Providers: Kaleigh Childress DO Referring MD: Kaleigh Childress DO Medicines: Monitored Anesthesia Care Complications: No immediate complications. Estimated blood loss: Minimal. Estimated Blood Loss: Estimated blood loss was minimal. Procedure: Pre-Anesthesia Assessment: - - Prior to the procedure, a History and Physicalwas performed, and patient medications and allergieswere reviewed. The patient is competent. The risks and benefits of the procedure and the sedation optionsand risks were discussed with the patient. Allquestions were answered and informed consent was obtained. Patient identification and proposed procedure were verified by the physician, the nurse, the anesthesiologist, the hosiery looper and thetechnician in the pre-procedure area in the endoscopy suite. Mental Status Examination: alert and oriented.Airway Examination: normal oropharyngeal airway and neck mobility. Respiratory Examination: clear to auscultation. CV Examination: normal. Prophylactic Antibiotics: The patient does not requireprophylactic antibiotics. Prior Anticoagulants: The patient has taken no anticoagulant or antiplatelet agents. ASA Grade Assessment: II - A patient with mild systemic disease. After reviewing the risks and benefits,the patient was deemed in satisfactory condition to undergo the procedure. The anesthesia plan was touse monitored anesthesia care (MAC). Immediately priorto administration of medications, the patient was re-assessed for adequacy to receive sedatives. The heart rate, respiratory rate, oxygen saturations, blood pressure, adequacy of pulmonary ventilation,and response to care were monitored throughout the procedure. The physical status of the patient was re-assessed after the procedure. After I obtained informed consent, the scope was passed under direct vision. Throughout theprocedure, the patient's blood pressure, pulse, and oxygen saturations were monitored continuously. The Colonoscope was introduced through the anus and advanced to the terminal ileum. The colonoscopy was performed without difficulty. The patient tolerated the procedure well. The quality of the bowel preparation was good. Findings: Hemorrhoids were found on perianal exam. An 8 mm polyp was found in the cecum. The polyp was sessile. The polyp was removed with a cold snare. Resection and retrieval were complete. Verificationof patient identification for the specimen was done. Estimated blood loss was minimal. The colon (entire examined portion) appearednormal. Biopsies were taken with a cold forceps forhistology. The terminal ileum appeared normal. Biopsies were taken with a cold forceps for histology. Procedure Code(s): --- Professional --- 12321, Colonoscopy, flexible; with removal of tumor(s), polyp(s), or other lesion(s) by snare technique 99239, 59, Colonoscopy, flexible; with biopsy,single or multiple Diagnosis Code(s): --- Professional --- K64.9, Unspecified hemorrhoids D12.0, Benign neoplasm of cecum R10.84, Generalized abdominal pain CPT copyright 2020 [employer]. All rights reserved. The codes documented in this report are preliminary and upon mechanical engineering specialist reviewmay be revised to meet current compliance requirements. KALEIGH Childress DO 05/13/2025 4:08:23 PM This report has been signed electronically.Kaleigh Childress DO Number of Addenda: 0 Note Initiated On: 05/13/2025 3:38 PM Scope Withdrawal Time: 0 hours 7 minutes 10 seconds Scope In: Scope Out: 4:06:52 PM Endoscopy Department at [facility] - [address] [place] [phone] IMPRESSION: - Hemorrhoids found on perianal exam. - One 8 mm polyp in the cecum, removed with a cold snare. Resected and retrieved. - The entire examined colon is normal. Biopsied. - The examined portion of the ileum was normal. Biopsied. Recommendation: - Discharge patient to home. - Resume previous diet. - Continue present medications. - Await pathology results. us Kaleigh Childress DO GI~PROCEDURE ORDERABLES Final Re sult * EGD Anesthesia - MAC; [facility] ENDOSCOPY (05/13/2025 4:09 PM EDT) Anatomical Region Laterality Modality Endoscopy 05/13/2025 3:38 PM EDT Impressions 05/13/2025 3:55 PM EDT - Normal esophagus. Biopsied. - Normal stomach. Biopsied. - Normal examined duodenum. Biopsied. Recommendation: - Discharge patient to home. - Resume previous diet. - Continue present medications. - Await pathology results. Narrative 05/13/2025 3:55 PM EDT [facility] GI Patient Name: Anabel Thomas Procedure Date: 05/13/2025 3:38 PM Date of : 1995 Age: 29 Gender: Female Note Status: Finalized Attending MD: Kaleigh Childress DO, [id number] Procedure Date No Time: 05/13/2025 Procedure: Upper GI endoscopy Indications: Functional Dyspepsia, Heartburn Providers: Kaleigh Childress DO Referring MD: Kaleigh Childress DO Medicines: Monitored Anesthesia Care Complications: No immediate complications. Estimated blood loss: Minimal. Estimated Blood Loss: Estimated blood loss was minimal. Procedure: Pre-Anesthesia Assessment: - - Prior to the procedure, a History and Physical was performed, and patient medications and allergies were reviewed. The patient is competent. The risks and benefits of the procedure and the sedation options and risks were discussed with the patient. All questions were answered and informed consent was obtained. Patient identification and proposed procedure were verified by the physician, the nurse, the anesthesiologist, the hosiery looper and the optical technician in the pre-procedure area in the endoscopy suite. Mental Status Examination: alert and oriented. Airway Examination: normal oropharyngeal airway and neck mobility. Respiratory Examination: clear to auscultation. CV Examination: normal. Prophylactic Antibiotics: The patient does not require prophylactic antibiotics. Prior Anticoagulants: The patient has taken no anticoagulant or antiplatelet agents. ASA Grade Assessment: II - A patient with mild systemic disease. After reviewing the risks and benefits, the patient was deemed in satisfactory condition to undergo the procedure. The anesthesia plan was to use monitored anesthesia care (MAC). Immediately prior to administration of medications, the patient was re-assessed for adequacy to receive sedatives. The heart rate, respiratory rate, oxygen saturations, blood pressure, adequacy of pulmonary ventilation, and response to care were monitored throughout the procedure. The physical status of the patient was re-assessed after the procedure. - - Prior to the procedure, a History and Physical was performed, and patient medications and allergies were reviewed. The patient is competent. The risks and benefits of the procedure and the sedation options and risks were discussed with the patient. All questions were answered and informed consent was obtained. Patient identification and proposed procedure were verified by the physician, the nurse, the anesthesiologist, the hosiery looper and the optical technician in the pre-procedure area in the endoscopy suite. Mental Status Examination: alert and oriented. Airway Examination: normal oropharyngeal airway and neck mobility. Respiratory Examination: clear to auscultation. CV Examination: normal. Prophylactic Antibiotics: The patient does not require prophylactic antibiotics. Prior Anticoagulants: The patient has taken no anticoagulant or antiplatelet agents. ASA Grade Assessment: II - A patient with mild systemic disease. After reviewing the risks and benefits, the patient was deemed in satisfactory condition to undergo the procedure. The anesthesia plan was to use monitored anesthesia care (MAC). Immediately prior to administration of medications, the patient was re-assessed for adequacy to receive sedatives. The heart rate, respiratory rate, oxygen saturations, blood pressure, adequacy of pulmonary ventilation, and response to care were monitored throughout the procedure. The physical status of the patient was re-assessed after the procedure. After obtaining informed consent, the endoscope was passed under direct vision. Throughout the procedure, the patient's blood pressure, pulse, and oxygen saturations were monitored continuously. The Olympus Gastroscope was introduced through the mouth, and advanced to the third part of duodenum. The upper GI endoscopy was accomplished without difficulty. The patient tolerated the procedure well. Findings: The esophagus was normal. Biopsies were taken with a cold forceps for histology. The stomach was normal. Biopsies were taken with a cold forceps for histology. The examined duodenum was normal. Biopsies were taken with a cold forceps for histology. A 2 cm hiatal hernia was present. Procedure Code(s): --- Professional --- 06512, Esophagogastroduodenoscopy, flexible, transoral; with biopsy, single or multiple Diagnosis Code(s): --- Professional --- K30, Functional dyspepsia R12, Heartburn CPT copyright 2020 [employer]. All rights reserved. The codes documented in this report are preliminary and upon mechanical engineering specialist review may be revised to meet current compliance requirements. KALEIGH Childress DO 05/13/2025 3:55:24 PM This report has been signed electronically.Kaleigh Childress DO Number of Addenda: 0 Note Initiated On: 05/13/2025 3:38 PM Scope In: Scope Out: Endoscopy Department at [facility] - [address] [place] [id number] Procedure Note Kaleigh Childress DO - 05/13/2025 [facility] GI Patient Name: Anabel Thomas Procedure Date: 05/13/2025 3:38 PM Date of : 1995 Age: 29 Gender: Female Note Status: Finalized Attending MD: Kaleigh Childress DO, [id number] Procedure Date No Time: 05/13/2025 Procedure: Upper GI endoscopy Indications: Functional Dyspepsia, Heartburn Providers: Kaleigh Childress DO Referring MD: Kaleigh Childress DO Medicines: Monitored Anesthesia Care Complications: No immediate complications. Estimated blood loss: Minimal. Estimated Blood Loss: Estimated blood loss was minimal. Procedure: Pre-Anesthesia Assessment: - - Prior to the procedure, a History and Physicalwas performed, and patient medications and allergieswere reviewed. The patient is competent. The risks and benefits of the procedure and the sedation optionsand risks were discussed with the patient. Allquestions were answered and informed consent was obtained. Patient identification and proposed procedure were verified by the physician, the nurse, the anesthesiologist, the hosiery looper and thetechnician in the pre-procedure area in the endoscopy suite. Mental Status Examination: alert and oriented.Airway Examination: normal oropharyngeal airway and neck mobility. Respiratory Examination: clear to auscultation. CV Examination: normal. Prophylactic Antibiotics: The patient does not requireprophylactic antibiotics. Prior Anticoagulants: The patient has taken no anticoagulant or antiplatelet agents. ASA Grade Assessment: II - A patient with mild systemic disease. After reviewing the risks and benefits,the patient was deemed in satisfactory condition to undergo the procedure. The anesthesia plan was touse monitored anesthesia care (MAC). Immediately priorto administration of medications, the patient was re-assessed for adequacy to receive sedatives. The heart rate, respiratory rate, oxygen saturations, blood pressure, adequacy of pulmonary ventilation,and response to care were monitored throughout the procedure. The physical status of the patient was re-assessed after the procedure. - - Prior to the procedure, a History and Physicalwas performed, and patient medications and allergieswere reviewed. The patient is competent. The risks and benefits of the procedure and the sedation optionsand risks were discussed with the patient. Allquestions were answered and informed consent was obtained. Patient identification and proposed procedure were verified by the physician, the nurse, the anesthesiologist, the hosiery looper and thetechnician in the pre-procedure area in the endoscopy suite. Mental Status Examination: alert and oriented.Airway Examination: normal oropharyngeal airway and neck mobility. Respiratory Examination: clear to auscultation. CV Examination: normal. Prophylactic Antibiotics: The patient does not requireprophylactic antibiotics. Prior Anticoagulants: The patient has taken no anticoagulant or antiplatelet agents. ASA Grade Assessment: II - A patient with mild systemic disease. After reviewing the risks and benefits,the patient was deemed in satisfactory condition to undergo the procedure. The anesthesia plan was touse monitored anesthesia care (MAC). Immediately priorto administration of medications, the patient was re-assessed for adequacy to receive sedatives. The heart rate, respiratory rate, oxygen saturations, blood pressure, adequacy of pulmonary ventilation,and response to care were monitored throughout the procedure. The physical status of the patient was re-assessed after the procedure. After obtaining informed consent, the endoscope was passed under direct vision. Throughout theprocedure, the patient's blood pressure, pulse, and oxygen saturations were monitored continuously. TheOlympus Gastroscope was introduced through the mouth, and advanced to the third part of duodenum. The upperGI endoscopy was accomplished without difficulty. The patient tolerated the procedure well. Findings: The esophagus was normal. Biopsies were taken witha cold forceps for histology. The stomach was normal. Biopsies were taken with a cold forceps for histology. The examined duodenum was normal. Biopsies weretaken with a cold forceps for histology. A 2 cm hiatal hernia was present. Procedure Code(s): --- Professional --- 23921, Esophagogastroduodenoscopy, flexible, transoral; with biopsy, single or multiple Diagnosis Code(s): --- Professional --- K30, Functional dyspepsia R12, Heartburn CPT copyright 2020 [employer]. All rights reserved. The codes documented in this report are preliminary and upon mechanical engineering specialist reviewmay be revised to meet current compliance requirements. KALEIGH Childress DO 05/13/2025 3:55:24 PM This report has been signed electronically.Kaleigh Childress DO Number of Addenda: 0 Note Initiated On: 05/13/2025 3:38 PM Scope In: Scope Out: Endoscopy Department at [facility] - [address] [place] [id number] IMPRESSION: - Normal esophagus. Biopsied. - Normal stomach. Biopsied. - Normal examined duodenum. Biopsied. Recommendation: - Discharge patient to home. - Resume previous diet. - Continue present medications. - Await pathology results. Kaleigh Childress DO GI~PROCEDURE ORDERABLES Final Re sult * Tissue exam (05/13/2025 3:51 PM EDT) Final Diagnosis A. Duodenum, biopsies: Benign duodenal mucosa with no specific pathologic change. No villous blunting or increased intraepithelial lymphocytes identified. B. Stomach, random gastric biopsies: Gastric mucosa with mild chronic inactive gastritis. No Helicobacter type gastritis or reactive changes identified. C. Esophagus, biopsies: Benign esophageal squamous mucosa with no specific pathologic change identified. D. Terminal ileum, biopsies: Ileal mucosa with no specific pathologic changes. No enteritis identified. E. Cecum, polyp: Tubular adenoma. F. Colon, random biopsies: Benign colonic mucosa with no specific pathologic change. No colitis identified. 05/14/2025 3:27 PM EDT [facility] Gross Description A. Small Intestine, Duodenum, biopsies: Labeled biopsies duodenum . Received in formalin are two soft to friable, velvety, holloway-pink, red-stippled tissue fragments measuring 0.2 cm and 0.35 cm in greatest diameter, which are wrapped in paper and submitted in toto in one cassette, two pieces, multiple levels. B. Stomach, random gastric biopsies: Labeled random ga stomach . Received in formalin are six soft, holloway-pink to red tissue fragmentas ranging from 0.25 cm to 0.55 cm in greatest diameter, which are wrapped in paper and submitted in toto in one cassette, six pieces, multiple levels. C. Esophagus, biopsies: Labeled biopsies esophagus . Received in formalin are three soft, white, red-stippled tissue fragments measure approximately 0.2 cm in greatest diameter, which are wrapped in paper and submitted in toto in one cassette, three pieces, multiple levels. D. Small Intestine, Ileum, terminal biopsies: Labeled biopsies ileum . Received in formalin is a solitary, soft, holloway-pink to red, 0.25 cm in greatest diameter tissue fragment which is wrapped in paper and submitted in toto in one cassette, one piece, multiple levels. E. Large Intestine, Cecum, polyp: Labeled polyp in colon cecum . Received in green-holloway stained formalin, are four soft, lobular, holloway-pink polypoid tissues ranging from 0.25 cm to 0.5 cm in greatest diameter, which are wrapped in paper and submitted in toto in one cassette, four pieces, for levels. F. Colon, random biopsies: Labeled random co colon . Received in formalin are five soft, holloway to red tissue fragments ranging from 0.25 cm to 0.55 cm in greatest diameter, which are wrapped in paper and submitted in toto in one cassette, five pieces, multiple levels. TS 05/14/2025 3:27 PM EDT [facility] Disclaimer Unless otherwise specified, all tissue is 10% NB formalin fixed and paraffin embedded. 05/14/2025 3:27 PM EDT [facility] Tissue Duodenal structure / Unknown 05/13/2025 3:51 PM EDT 05/13/2025 4:38 PM EDT Tissue specimen (specimen) Stomach structure / Unknown 05/13/2025 3:52 PM EDT 05/13/2025 4:38 PM EDT Tissue specimen (specimen) Esophageal structure / Unknown 05/13/2025 3:53 PM EDT 05/13/2025 4:38 PM EDT Tissue specimen (specimen) Ileal structure / Unknown 05/13/2025 4:01 PM EDT 05/13/2025 4:38 PM EDT Tissue specimen (specimen) Cecum structure / Unknown 05/13/2025 4:05 PM EDT 05/13/2025 4:38 PM EDT Tissue specimen (specimen) Colon structure / Unknown 05/13/2025 4:05 PM EDT 05/13/2025 4:38 PM EDT [employer] LAB PATHOLOGY ORDERABLES Final R esult Performing Organization Address [facility]/ZIP Co de Phone Number [facility] [address] [place] [address], [place] [phone] * Tissue transglutaminase, IgA (05/13/2025 10:17 AM EDT) Tissue Transglutaminase Ab, IgA Quant 1 <4 unit/mL LAB CHEMISTRY METHOD 05/15/2025 11:46 AM EDT [facility] Tissue Transglutaminase Ab, IgA Negative Negative LAB CHEMISTRY METHOD 05/15/2025 11:46 AM EDT [facility] Blood Venous blood specimen / Unknown Venipuncture / Unknown 05/13/2025 10:17 AM EDT 05/13/2025 10:17 AM EDT [employer] LAB BLOOD ORDERABLES Final Resul t Performing Organization Address [facility] de Phone Number [facility] [address] [place] [address], [place] [phone] * (ABNORMAL) C-reactive protein (05/13/2025 10:17 AM EDT) C-Reactive Protein 3.05(H) <=0.50 mg/dL LAB CHEMISTRY METHOD 05/13/2025 2:32 PM EDT [facility] Blood Venous blood specimen / Unknown Venipuncture / Unknown 05/13/2025 10:17 AM EDT 05/13/2025 10:17 AM EDT [facility] BLOOD ORDERABLES Final Resul t Performing Organization Address [facility]/ZIP Co de Phone Number [facility] [address] [place] [address], * Immunoglobulin IgA (05/13/2025 10:17 AM EDT) IgA 247 61 - 348 mg/dL LAB CHEMISTRY METHOD 05/13/2025 1:44 PM EDT [facility] Blood Venous blood specimen / Unknown Venipuncture / Unknown 05/13/2025 10:17 AM EDT 05/13/2025 10:17 AM EDT [facility] LAB BLOOD ORDERABLES Final Resul t Performing Organization Address [facility] de Phone Number [facility] [address] [place] [address], * Interferon gamma interpretation (05/06/2025 11:24 AM EDT) [facility] Interpretation Negative Negative LAB CHEMISTRY METHOD 05/07/2025 10:37 AM EDT [facility] Blood Venous blood specimen / Unknown Venipuncture / Unknown 05/06/2025 11:24 AM EDT 05/06/2025 11:24 AM EDT Deepti Espinoza MD LAB BLOOD ORDERA BLES Final Result Performing Organization Address City/[facility] Co de Phone Number [facility] [address] [place] [address], * Interferon gamma antigen 2 (05/06/2025 11:24 AM EDT) Blood Venous blood specimen / Unknown Venipuncture / Unknown 05/06/2025 11:24 AM EDT 05/06/2025 11:24 AM EDT Deepti Espinoza MD LAB BLOOD ORDERA BLES Final Result [facility] [address] [place] [address], [place] [phone] * Interferon gamma antigen 1 (05/06/2025 11:24 AM EDT) Blood Venous blood specimen / Unknown Venipuncture / Unknown 05/06/2025 11:24 AM EDT 05/06/2025 11:24 AM EDT Deepti Espinoza MD LAB BLOOD ORDERA BLES Final Result Performing Organization Address [facility]/ZIP Co de Phone Number [facility] [address] [place] [address], [place] [phone] * Interferon gamma mitogen (05/06/2025 11:24 AM EDT) Blood Venous blood specimen / Unknown Venipuncture / Unknown 05/06/2025 11:24 AM EDT 05/06/2025 11:24 AM EDT Deepti Espinoza MD LAB BLOOD ORDERA BLES Final Result Performing Organization Address City/[facility]/ZIP Co de Phone Number [facility] [address] [place] [address], [place] [phone] * Interferon gamma NIL (05/06/2025 11:24 AM EDT) Blood Venous blood specimen / Unknown Venipuncture / Unknown 05/06/2025 11:24 AM EDT 05/06/2025 11:24 AM EDT Deepti Espinoza MD LAB BLOOD ORDERA BLES Final Result Performing Organization Address City/[facility]/ZIP Co de Phone Number [facility] [address] [place] [address], [place] [phone] * MR Brain wo and w Contrast (05/02/2025 11:27 AM EDT) Anatomical Region Laterality Modality Head and Neck Magnetic Resonan ce 05/02/2025 4:27 PM EDT Narrative 05/02/2025 4:34 PM EDT MRI of the head without and with intravenous contrast. HISTORY: Nonspecific chronic headaches. Examination was performed on 1.5 Jessie magnet without administration of intravenous contrast, followed by postcontrast study after administration of 20 mL of DOTAREM. Comparison with nonenhanced MRI of the head from 12/27/2022. There is no evidence of midline shift, extra or intra-axial blood fluid collections. There is no visible masses, mass effect, focal areas of restricted diffusion, territorial infarctions or areas of magnetic susceptibility artifact. Images obtained after administration of intravenous contrast revealed no abnormal enhancing lesions. Ventricular system is symmetric and normal in size. Fourth ventricle and basal cisterns are midline and patent. Paranasal sinuses and mastoid processes are aerated. CONCLUSIONS: Unremarkable MRI of the head. -------- FINAL REPORT -------- Dictated By: Ivania Mccullough Dictated Date: 05/02/2025 16:27 ET Assigned Physician: Ivania Mccullough Reviewed and Electronically Signed By: Ivania Mccullough Signed Date: 05/02/2025 16:34 ET Workstation ID: [id number] Transcribed By: Self Edit Transcribed Date: 05/02/2025 16:27 ET Procedure Note Ivania Mccullough MD - 05/02/2025 MRI of the head without and with intravenous contrast. HISTORY: Nonspecific chronic headaches. Examination was performed on 1.5 Jessie magnet without administration ofintravenous contrast, followed by postcontrast study after administrationof 20 mL of DOTAREM. Comparison with nonenhanced MRI of the head from12/27/2022. There is no evidence of midline shift, extra or intra-axial blood fluidcollections. There is no visible masses, mass effect, focal areas ofrestricted diffusion, territorial infarctions or areas of magneticsusceptibility artifact. Images obtained after administration ofintravenous contrast revealed no abnormal enhancing lesions. Ventricular system is symmetric and normal in size. Fourth ventricle andbasal cisterns are midline and patent. Paranasal sinuses and mastoid processes are aerated. CONCLUSIONS: Unremarkable MRI of the head. -------- FINAL REPORT -------- Dictated By: Ivania Mccullough Dictated Date: 05/02/2025 16:27 ET Assigned Physician: Ivania Mccullough Reviewed and Electronically Signed By: Ivania Mccullough Signed Date: 05/02/2025 16:34 ET Workstation ID: [id number] Transcribed By: Self Edit Transcribed Date: 05/02/2025 16:27 ET Deepti Espinoza MD IM MRI PROCEDUR ES Final Result * (ABNORMAL) CBC auto differential (04/18/2025 12:42 PM EDT) Only the most recent of2 resultswithin the time period is included. WBC 15.6(H) 4.8 - 10.8 K/mcL LAB HEMETOLOGY METHOD [facility]2025 2[facility] RBC 5.60(H) 3.80 - 4.80 M/mcL LAB HEMETOLOGY METHOD 04/18/2025 2:01 PM [facility] Hemoglobin 13.1 11.5 - 16.0 g/dL LAB HEMETOLOGY METHOD 04/18/2025 2:01 PM [facility] Hematocrit 41.0 35.0 - 47.0 % LAB HEMETOLOGY METHOD 04/18/2025 2:01 PM [facility] MCV 73.5(L) 79.0 - 98.0 FL LAB HEMETOLOGY METHOD 04/18/2025 2:01 PM [facility] MCH 23.5(L) 27.0 - 32.0 pcg LAB HEMETOLOGY METHOD 04/18/2025 2:01 PM [facility] MCHC 32.0 32.0 - 37.0 g/dL LAB HEMETOLOGY METHOD 04/18/2025 2:01 PM [facility] RDW 17.7(H) 11.0 - 15.0 % LAB HEMETOLOGY METHOD 04/18/2025 2:01 PM [facility] Platelets 329 130 - 400 K/mcL LAB HEMETOLOGY METHOD 04/18/2025 2:01 PM [facility] MPV 11.4(H) 7.0 - 11.0 FL LAB HEMETOLOGY METHOD 04/18/2025 2:01 PM [facility] NRBC 0.0 <1.0 % LAB HEMETOLOGY METHOD 04/18/2025 2:01 PM [facility] NRBC Absolute 0.00 <0.10 K/mcL LAB HEMETOLOGY METHOD 04/18/2025 2:01 PM [facility] Neutrophils Relative 75.0 % LAB HEMETOLOGY METHOD 04/18/2025 2:01 PM [facility] Lymphocytes Relative 20.1 % LAB HEMETOLOGY METHOD 04/18/2025 2:01 PM [facility] Monocytes Relative 3.5 % LAB HEMETOLOGY METHOD 04/18/2025 2:01 PM [facility] Eosinophils Relative 0.6 % LAB HEMETOLOGY METHOD 04/18/2025 2:01 PM [facility] Basophils Relative 0.4 % LAB HEMETOLOGY METHOD 04/18/2025 2:01 PM [facility] Immature Granulocytes Relative 0.4 % LAB HEMETOLOGY METHOD 04/18/2025 2:01 PM [facility] Neutrophils Absolute 11.67(H) 1.50 - 7.00 K/mcL LAB HEMETOLOGY METHOD 04/18/2025 2:01 PM EDT [facility] Lymphocytes Absolute 3.12 1.00 - 5.00 K/mcL LAB HEMETOLOGY METHOD 04/18/2025 2:01 PM EDT [facility] Monocytes Absolute 0.55 0.20 - 1.00 K/mcL LAB HEMETOLOGY METHOD 04/18/2025 2:01 PM EDT [facility] Eosinophils Absolute 0.09 0.00 - 0.50 K/mcL LAB HEMETOLOGY METHOD 04/18/2025 2:01 PM EDT [facility] Basophils Absolute 0.06 0.00 - 0.20 K/mcL LAB HEMETOLOGY METHOD 04/18/2025 2:01 PM EDT [facility] Immature Granulocytes Absolute 0.07(H) 0.00 - 0.03 K/mcL LAB HEMETOLOGY METHOD 04/18/2025 2:01 PM EDT [facility] Blood Venous blood specimen / Unknown Venipuncture / Unknown 04/18/2025 12:42 PM EDT 04/18/2025 12:42 PM EDT Deepti Espinoza MD LAB BLOOD ORDERA BLES Final Result [facility] [address] [place] [address], * (ABNORMAL) Sedimentation rate (04/18/2025 12:42 PM EDT) Only the most recent of2 resultswithin the time period is included. Sed Rate 54(H) 0 - 20 mm/hr LAB HEMETOLOGY METHOD 04/18/2025 2:15 PM EDT [facility] Blood Venous blood specimen / Unknown Venipuncture / Unknown 04/18/2025 12:42 PM EDT 04/18/2025 12:42 PM EDT us Deepti Espinoza MD LAB BLOOD ORDERA BLES Final Result Performing Organization Address City/[facility]/ZIP Co de Phone Number [facility] [address] [place] [address], [place] [phone] * Thyroid stimulating hormone with reflex to free t4 and free t3 (04/09/2025 2:08 PM EDT) [facility] TSH 0.69 0.40 - 4.00 mcIU/mL LAB CHEMISTRY METHOD 04/09/2025 6:19 PM EDT [facility] Blood Venous blood specimen / Unknown Venipuncture / Unknown 04/09/2025 2:08 PM EDT 04/09/2025 2:08 PM EDT Deepti Espinoza MD LAB BLOOD ORDERA BLES Final Result Performing Organization Address [facility]/ZIP Co de Phone Number [facility] [address] [place] [address], [place] [phone] * (ABNORMAL) Vitamin D 25 hydroxy (04/09/2025 2:08 PM EDT) [facility] Vit D, 25-Hydroxy 24.5(L) 30.0 - 80.0 ng/mL LAB CHEMISTRY METHOD 04/09/2025 6:19 PM EDT [facility] Blood Venous blood specimen / Unknown Venipuncture / Unknown 04/09/2025 2:08 PM EDT 04/09/2025 2:08 PM EDT Deepti Espinoza MD LAB BLOOD ORDERA BLES Final Result Performing Organization Address City/[facility]/ZIP Co de Phone Number [facility] [address] [place] [address], [place] [phone] * Vitamin B12 (04/09/2025 2:08 PM EDT) [facility] Vitamin B-12 562 250 - 900 pcg/mL LAB CHEMISTRY METHOD 04/09/2025 5:55 PM EDT [facility] Blood Venous blood specimen / Unknown Venipuncture / Unknown 04/09/2025 2:08 PM EDT 04/09/2025 2:08 PM EDT Deepti Espinoza MD LAB BLOOD ORDERA BLES Final Result [facility] [address] [place] [address], * Comprehensive metabolic panel (04/09/2025 2:08 PM EDT) [facility] Sodium 139 133 - 145 mmol/L LAB CHEMISTRY METHOD 04/09/2025 5:55 PM [facility] Potassium 4.3 3.5 - 5.5 mmol/L LAB CHEMISTRY METHOD 04/09/2025 5:55 PM [facility] Chloride 107 96 - 110 mmol/L LAB CHEMISTRY METHOD 04/09/2025 5:55 PM [facility] CO2 24 21 - 32 mmol/L LAB CHEMISTRY METHOD 04/09/2025 5:55 PM [facility] Anion Gap 8 3 - 11 LAB CHEMISTRY METHOD 04/09/2025 5:55 PM [facility] Glucose 72 70 - 100 mg/dL LAB CHEMISTRY METHOD 04/09/2025 5:55 PM [facility] BUN 9 5 - 25 mg/dL LAB CHEMISTRY METHOD 04/09/2025 5:55 PM [facility] Creatinine 0.56 0.50 - 1.10 mg/dL LAB CHEMISTRY METHOD 04/09/2025 5:55 PM [facility] eGFR 128 >=60 mL/min/1. 73m2 LAB CHEMISTRY METHOD 04/09/2025 5:55 PM EDT [facility] Comment:Calculation based on the Chronic Kidney Disease Epidemiology Collaboration (CKD-EPI) equation refit without adjustment for race. BUN/Creatinine Ratio 16.1 LAB CHEMISTRY METHOD 04/09/2025 5:55 PM EDT [facility] Calcium 9.0 8.5 - 10.5 mg/dL LAB CHEMISTRY METHOD 04/09/2025 5:55 PM EDT [facility] AST (SGOT) 14 10 - 42 unit/L LAB CHEMISTRY METHOD 04/09/2025 5:[facility] ALT (SGPT) 21 10 - 60 unit/L LAB CHEMISTRY METHOD 04/09/2025 5:55 PM EDT [facility] Alkaline Phosphatase 94 42 - 121 unit/L LAB CHEMISTRY METHOD 04/09/2025 5:55 PM EDT [facility] Total Protein 7.2 6.0 - 8.0 g/dL LAB CHEMISTRY METHOD 04/09/2025 5:55 PM EDT [facility] Albumin 3.4 3.2 - 5.0 g/dL LAB CHEMISTRY METHOD 04/09/2025 5:55 PM [facility] Total Bilirubin 0.3 0.0 - 1.4 mg/dL LAB CHEMISTRY METHOD 04/09/2025 5:55 PM EDT [facility] Blood Venous blood specimen / Unknown Venipuncture / Unknown 04/09/2025 2:08 PM EDT 04/09/2025 2:08 PM EDT us Deepti Espinoza MD LAB BLOOD ORDERA BLES Final Result [facility] [address] [place] [address], * Hepatitis C antibody (02/19/2025 9:18 AM EDT) [facility] Hepatitis C Antibody Negative Negative LAB CHEMISTRY METHOD 02/19/2025 2:42 PM EDT [facility] Blood Venous blood specimen / Unknown Venipuncture / Unknown 02/19/2025 9:18 AM EDT 02/19/2025 9:18 AM EDT [facility] LAB BLOOD ORDERABLES Final Re sult Performing Organization Address City/[facility]/ZIP Co de Phone Number [facility] [address] [place] [address], [place] [phone] * HIV 1,2 antibody, p24 antigen with reflex to differentiation (02/19/2025 9:18 AM EDT) [facility] HIV Combo AB/AG Negative Negative LAB CHEMISTRY METHOD 02/19/2025 2:43 PM EDT [facility] Blood Venous blood specimen / Unknown Venipuncture / Unknown 02/19/2025 9:18 AM EDT 02/19/2025 9:18 AM EDT Narrative [facility] - 02/19/2025 2:43 PM EDT This assay is a 4th generation assay allowing for earlier detection of HIV infection by detecting the presence of the HIV-1 p24 antigen as well as the traditional antibodies to HIV type 1 (including group O) and type 2. Use of a 4th generation assay is the current CDC recommendation for HIV screening. [facility] LAB BLOOD ORDERABLES Final Re sult Performing Organization Address City/[facility]/ZIP Co de Phone Number [facility] [address] [place] [address], [place] [phone] * Hm Pap Smear (01/23/2024) [facility] HM Pap smear Negative, Abstracted Historical Provider HEALTH MAINTENANCE Final Result * (ABNORMAL) Lipid panel (09/22/2023) LDL/HDL Ratio 4 0 - 4 Triglycerides 122 0 - 150 mg/dL Cholesterol 185 0 - 200 mg/dL HDL 42 >=40 mg/dL LDL Cholesterol 119(A) 0 - 100 mg/dL Blood Venous blood specimen / Unknown Historical Provider LAB BLOOD ORDERABLES Shu montero Result from Last 3 Months or Most Recently Relevant to Health Maintenance Insurance [facility] MEDICARE Member Subscriber Plan / Payer (Ef fective 2020-Present) Name:ANABEL THOMAS Relation to Subscriber:Self Name:Anabel Thomas Payer ID:[id number] Group ID:[id number] Type:Not on file Address: [facility] [address] [id number] Care Teams Wind Development Director Relationship Specialty Start Date End Date Deepti Espinoza MD [address] [place], [place] PCP - General Internal Medicine 04/26/22
--- OUTSIDE RECORDS SUMMARY | 2025-05-28 16:17 | XMS_ITS | Clinical Summary ---
Author Organization [facility] Address [address] [place] [address] Care Team Providers Care Second Baller Name Role Phone Deepti Espinoza MD Primary Care Pr ovider Allergies No known active allergies Medications Medication Sig Dispensed Refills Start Date End Date Status hyoscyamine (ANASPAZ,LEVSIN) 0.125 MG tablet Take 0.125 mg by mouth every 4 (four) hours as needed for cramping. 0 Active amitriptyline (ELAVIL) tablet 25 mg Take 25 mg by mouth every night at bedtime. 0 Active cetirizine (ZyrTEC) 10 MG tablet Take 10 mg by mouth daily. 0 Active loratadine (CLARITIN) 10 MG tablet Take 1 tablet (10 mg total) by mouth daily. 0 Active fluticasone (FLONASE) 50 MCG/ACT nasal spray spray/apply 2 sprays in each nostril daily. 0 Active polyethylene glycol (MIRALAX) 17 g packet Take 17 g by mouth daily. 0 Active clonazePAM (KlonoPIN) 2 MG tablet Take 1 tablet (2 mg total) by mouth 2 (two) times a day as needed for anxiety. 0 Active famotidine (PEPCID) 20 MG tablet Take 1 tablet (20 mg total) by mouth 2 (two) times a day. 0 Active Albuterol Sulfate 108 (90 Base) MCG/ACT AEPB Inhale into the lungs. 0 Active ondansetron (ZOFRAN-ODT) 4 MG disintegrating tablet Take by mouth. 0 Active ibuprofen 600 MG tablet Take 1 tablet (600 mg total) by mouth every 6 (six) hours as needed for pain. 0 Active esomeprazole (NexIUM) 40 MG capsule Take 1 capsule (40 mg total) by mouth every morning before breakfast. 0 Active alum & mag hydroxide-simethicone (Ibwsdve-Dlzurjbv-Quepw hicone) 200-200-20 MG/5ML suspension Take by mouth every 6 (six) hours as needed for indigestion. 0 Active sodium chloride (OCEAN) 0.65 % nasal spray spray or apply 1 spray inside Nose as needed for congestion. 0 Active cyanocobalamin (VITAMIN B12) 1000 MCG/ML injection Inject 1 mL (1,000 mcg total) into the muscle once. 0 Active folic acid (FOLVITE) tablet 1 mg Take 1 tablet (1 mg total) by mouth daily. 90 tablet 3 07/19/2024 Active Active Problems Problem Noted Date Diagnosed Date Delta-beta thalassemia trait 07/19/2024 Mild intermittent asthma without complication Non-ulcer dyspepsia 12/22/2020 Sacroiliitis 12/22/2020 Gastroesophageal reflux disease 12/22/2020 Anxiety 12/22/2020 Social History Tobacco Use Types Packs/Day Years Used Date Smoking Tobacco: Every Day Cigarettes Smokeless Tobacco: Never Alcohol Use Standard Drinks/Week Comments No 0 (1 standard drink = 0.6 oz pur e alcohol) Sex and Gender Information Value Date Recorded Sex Assigned at Not on file Gender Identity Not on file Sexual Orientation Not on file Job Start Date Occupation Industry Not on file Not on file Not on file Last Filed Vital Signs Vital Sign Reading Time Taken Comments Blood Pressure 114/61 07/13/2024 1:12 PM EDT Pulse 95 07/13/2024 1:12 PM EDT Temperature 36.7 C (98 F) 07/13/2024 1:12 PM EDT Respiratory Rate - - Oxygen Saturation 98% 07/13/2024 1:12 PM EDT Inhaled Oxygen Concentration - - Weight 113.7 kg (250 lb 9.6 oz) 07/13/2024 1:12 PM EDT Height 165.1 cm (5' 5 ) 07/13/2024 1:12 PM EDT Body Mass Index 41.7 07/13/2024 1:12 PM EDT Plan of Treatment Health Maintenance Due Date Last Done Comments Hepatitis C Screening 1996 Pneumococcal Vaccine (1 of 2 - PCV) 2002 Depression Screening 2008 BMI Counseling 2014 Preventative Health Evaluation 2014 Tobacco Cessation Counseling 2014 Cervical Cancer Screening (Pap Smear) 2017 DTap / Tdap / Td (7 - Td or Tdap) 12/02/2018 12/02/2008, 01/19/2001, 01/19/2000, Additional history exists COVID-19 Vaccine ( season) 2024 02/15/2022, 06/23/2021, 02/26/2021 Influenza Vaccine (#1) 2025 2, 08/26/2015, 08/26/2015, Additional history exists Hepatitis B Vaccines Completed 02/17/2016, 12/19/2014, 05/22/1997, Additional history exists RSV Ped < 20 months Aged Out No longe r eligible based on patient's age to complete this topic Care Teams Second Baller Relationship Specialty Start Date End Date Deepti Espinoza MD [address] [place] [address] PCP - General 05/31/24
== END 2025-05-28 14:53 | disposition home or self-care (01) ==
LOC: HO.US 14:52
PROVIDERS: PCP Family Medicine; Visit Provider Obstetrics & Gynecology
DX: R10.2 Pelvic and perineal pain (principal)
CPT/HCPCS: 76830; 76856

== ENCOUNTER → 2025-05-28 14:54 | Outpatient (BNV) | payer OTHER, SELFPAY | PROVIDERS: PCP Family Medicine; Visit Provider Radiology Diagnostic Radiology | DX: N83.291 Other ovarian cyst, right side (principal) | CPT/HCPCS: 76830; 76856 ==

== ENCOUNTER 2025-06-27 10:26 | Outpatient (REF) | payer OTHER, SELFPAY ==
[2025-06-27 22:28] LABS: Bacterial Vaginosis PCR POSITIVE (Negative); Candida Group PCR NOT DETECTED (Not Detect); Candida glab krusei PCR NOT DETECTED (Not Detect); Trichomonas vaginalis PCR NOT DETECTED (Not Detect)
[2025-06-27 23:50] LABS: CT PCR DETECTED (Not Detect.); NG PCR NOT DETECTED (Not Detect.)
== END 2025-06-27 10:27 | disposition home or self-care (01) ==
LOC: HO.LNP 10:26
PROVIDERS: PCP Family Medicine; Visit Provider Obstetrics & Gynecology
DX: A74.9 Chlamydial infection, unspecified (principal); Z20.2 Contact with and (suspected) exposure to infections with a predominantly sexual mode of transmission
CPT/HCPCS: 81515; 87491; 87591; 99212

== ENCOUNTER 2025-06-27 10:26 | Outpatient (AMB) | payer OTHER, SELFPAY ==
--- OUTSIDE RECORDS SUMMARY | 2024-07-13 12:54 | XMS_ITS | Encounter Summary ---
Author Organization [facility] Address [address] [place] [address] Care Team Providers Care Rug Drying Machine Operator Name Role Phone Deepti Espinoza MD Primary Care Pr ovider Encounter Details Date Type Department Care Team (Late st Contact Info) Description 07/13/2024 12:54 PM EDT Hospital Encounter TH HISTORIC ENCOUNTERS EASTERN CONVERSION ONLY Ivania Ortega PA [address] [place] [phone] Social History Tobacco Use Types Packs/Day Years Used Date Smoking Tobacco: Former Cigarettes 2 19.7 S tarted: 10/10/2005 Smokeless Tobacco: Former Quit: [...] care for your loved ones. For example, childcare aide or elderly care for an older adult? [...] Date Recorded What is your living situation? 1 11/04/2023 Interpersonal Safety Answer Date Record ed Physical Abuse 05/13/2025 Verbal Abuse 05/13/2025 Comments No Sex and Gender Information [...] this encounter Progress Notes * BRANDAN Arroyo - 07/13/2024 1:00 PM EDT Images from the original note were not included. Progress Notes by Ivania Ortega PA-C at 07/13/2024 1:00 PM Author: Ivania Ortega PA-C Service: -- Author Type: Physician Dry Kiln Loader Filed: 07/13/2024 1:59 PM Encounter Date: 07/13/2024 Status: Signed Extension Service Supervisor: Ivania Ortega PA-C (Physician Dry Kiln Loader) Cosigner: Wale Smith MD at 07/16/2024 10:23AM [...] , Rfl: ? 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 Results discussed with patient over the phone. She would benefit from daily folic acid supplementation. Prescriptionsent in. documented in this encounter Plan of Treatment Upcoming Encounters Date Type Department Care Team (Late st Contact Info) Description 07/10/2025 2:00 PM EDT Clinical Support [address] [address] 07/12/2025 11:[address] [facility] 175 [facility] [address] [place] [address] Charlee Durant MD [address] [place] [address] 09/11/2025 10:15 AM EST Ancillary Procedure [address] [place] [phone] 09/11/2025 11:00 AM EST Office Visit [address] [place] [phone] Kiki Mix MD 175 [facility] 200 [place] [address] 09/13/2025 8:30 AM EST Office Visit Adult [address] [address] Nataly Hein PA [address] [place] [address] documented as of this encounter Procedures Procedure Name Priority Date/Time Associated Diagnosis Comments ..MISCELLANEOUS REFERENCE LAB TEST 07/13/2024 documented in this encounter Results * Miscellaneous reference lab test (07/13/2024) us Provider Onbase MD LAB BLOOD ORDERABLES Final Re sult documented in this encounter Visit Diagnoses Not on filedocumented in this encounter Care Teams Rug Drying Machine Operator Relationship Specialty Start Date End Date Deepti Espinoza MD [address] [facility], [place] PCP - General Internal Medicine 04/26/22 documented as of this encounter
--- NOTE | 2025-06-27 10:43 | MHC.OFFVIS ---
Vital Signs 06/27/25 10:47 Height 5 ft 5 in Weight 250 lb BMI 41.6 Intake Visit Reasons: CASSANDRA Packager Machine Required: No Information Interpreted: non-clinical & clinical Neon Sign Installer: Neon Sign Installer Present (Cherie) Accompanied by: Self / Same As Patient Allergies No Known Allergies Allergy (Verified 06/27/25 10:48) Is last menstrual period known: Yes Last menstrual period: 06/03/25 HPI Comments Details: The patient is presenting for a three-month test of cure. The patient had a negative CASSANDRA weeks after initial positive chlamydia. STD screening serology were negative [facility] Medical History Morbid obesity Bipolar affective disorder, current episode depressed Scoliosis Obesity Surgical History History of ovarian cystectomy Hx of bladder endoscopy Hx of tonsillectomy Family History Mother Deep vein thrombosis (DVT) Hypothyroidism Arthritis Maternal Grandmother Diabetes Paternal Grandmother Diabetes Father HTN (hypertension) Daughter Asthma ADHD Daughter ADHD Asthma Social History Household Members: [facility] Alcohol intake: never Patient Tobacco Use Status: Current someday Tobacco user Cigarettes Per Day: 2 Current occupational status: employed 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 Sexual orientation: Straight/Heterosexual Gender identity: Female Female Reproductive History Menstrual Age of Menarche: 11 Date of last menstrual period: 06/03/25 Review of Systems Const All systems reviewed & are unremarkable except as noted in HPI and below Physical Exam Vital Signs: BMI result Body Mass Index 41.6 General: Yes no CVA tenderness External Female Exam: normal external appearance and normal appearance of the urethra Speculum Exam - Vagina: normal appearance of the vagina, normal palpation, no lesions and no masses Speculum Exam - Cervix: normal appearance of the cervix, normal palpation, no lesions, no masses and nontender Bimanual exam- vagina & uterus: normal bimanual exam, normal palpation, uterine size normal, normal palpation, uterine shape normal, No Cervical tenderness present and non-tender Bimanual Exam- Adnexa, other: normal adnexae Back/Spine/Pelvis Back: no CVA tenderness Assessment & Plan Assessment & Plan (1) Chlamydia: Comment: Treated, for test of cure Code(s): A74.9 - Chlamydial infection, unspecified Category: Medical Plan: GC/CT with BV panel taken. Will check the results and treat accordingly. All questions answered, the patient verbalized understanding Coding Level of Care Code Est Pt Level 3 (98816) Diagnoses Chlamydia A74.9
[2025-06-27 10:47] VITALS: BMI 41.6
--- OUTSIDE RECORDS SUMMARY | 2025-06-27 12:25 | XMS_ITS | Encounter Summary ---
Author Organization [facility] Address [address] [place] [phone] Phone Care Team Providers Care Plant Taxonomy Teacher Name Role Phone Madison Tamayo MD Primary Care Provider [phone] Encounter Details Date Type Department Care Team (Late st Contact Info) Description 09/01/2015 Documentation EM Family Medicine [address] [place] [address] Family Medicine, Physician [address] [place], [place] [id number] Social History Tobacco Use Types Packs/Day Years Used Date Smoking Tobacco: Never Assessed Comments Unknown Sex and Gender Information Value Date Recorded Sex Assigned at Not on file Legal Sex Female 5:10 PM EDT Gender Identity Not on file Sexual Orientation Not on file documented as of this encounter Plan of Treatment Not on file documented as of this encounter Visit Diagnoses Not on filedocumented in this encounter Care Teams Plant Taxonomy Teacher Relationship Specialty Start Date End Date Madison Tamayo MD [address] [place] [id number] PCP - General 05/20/17 03/16/23 documented as of this encounter
--- OUTSIDE RECORDS SUMMARY | 2025-06-27 12:25 | XMS_ITS | Clinical Summary ---
Author Organization [facility] [address] [facility] Address [address] [place] [address] Phone Care Team Providers Care Food And Beverage Assistant Manager Name Role Phone Deepti Espinoza MD Primary [...] times daily for 360 days. 07/18/20 24 2024 Active fluticasone propionate (FLONASE) 50 mcg/actuation nasal spray 1 [place] by Each Nare route daily. 2 sprays in each nostril daily 09/22/20 21 Active fluticasone HFA (FLOVENT HFA) 110 mcg/actuation inhaler Inhale 1 Puff into the lungs 2 times daily. 07/13/20 24 Active ondansetron (ZOFRAN) 4 mg tablet Take 1 Tablet by mouth every 8 hours as needed for Nausea. 12/19/19 24 Active sodium chloride (AYR) 0.65 % nasal drops 1 [place] by Nasal route as needed for Congestion. [place]on each nostril as needed for postnasal drip 08/31/20 23 Active esomeprazole (NexIUM) [address] capsule TAKE 1 CAPSULE BY MOUTH EVERY MORNING (BEFORE BREAKFAST). ON EMPTY STOMACH, WAIT 30 MINUTES AND THEN EAT TO ACTIVATE MEDICATION 90 capsule 3 08/31/20 24 Active umeclidinium (Incruse Ellipta) 62.5 mcg/actuation inhalationIndi cations:Modera te persistent asthma, unspecified whether complicated Inhale 1 puff by mouth 1 (one) time each day. 1 each 03/12/20 25 2025 Active topiramate (TOPAMAX) 50 mg tabletIndicati ons:Chronic migraine without aura without status migrainosus, not intractable Take 1 tablet (50 mg total) by mouth at bedtime. 90 each 04/08/20 25 2024 Active cholecalcifero l (VITAMIN D-3) 50 mcg (2,000 unit) capsule Take 2 capsules (4,000 Units total) by mouth 1 (one) time each day. 180 each 1 04/11/20 25 2024 Active albuterol HFA (PROAIR HFA ; PROVENTIL HFA ; VENTOLIN HFA) 90 mcg/actuation inhaler Inhale 2 puffs by mouth every 6 (six) hours if needed for wheezing. 1 each 04/18/20 25 2025 Active metoclopramide (REGLAN) 10 mg tabletIndicati ons:Chronic [...] DAYS.TAKE WITH A MEAL/FOOD 05/22/20 25 Active SUMAtriptan (IMITREX) 25 mg tabletIndicati ons:Chronic migraine without aura without status migrainosus, not intractable TAKE 1 TAB BY MOUTH IF NEEDED FOR MIGRAINE.MAY REPEAT ONCE IN 2 HRS IF NO RELIEF *MAX 2 TAB/DAY 12 tablet 2 06/03/20 25 Active famotidine (PEPCID) 20 mg tablet Take 1 tablet (20 mg total) by mouth 2 (two) times a day if needed for heartburn. 180 each 1 06/07/20 25 2025 Active famotidine (PEPCID) 20 mg tablet TAKE 1 TABLET BY MOUTH 2 TIMES DAILY NEEDED FOR HEARTBURN. 180 tablet 1 12/11/19 25 2024 Discontinued(R eorder) desogestreL-et hinyl estradioL (Apri) 0.15-0.03 mg per tablet Take 1 tablet by mouth 1 (one) time each day. 84 tablet 3 02/20/20 25 2024 Discontinued SUMAtriptan (IMITREX) 25 mg tabletIndicati ons:Chronic migraine without aura without status migrainosus, not intractable Take 1 tablet (25 mg total) by mouth 1 (one) time if needed for migraine. May repeat dose once in 2 hours if no relief. Do not exceed 2 doses in 24 hours. 27 tablet 04/08/20 25 2024 Discontinued Hospital, Clinic, or Other Facility Administered [...] surgery scheduled, but should hear from my chief crew scheduler within the next 2 weeks with a date. If not, she should call back to our office and inquire on getting this arranged. She voiced understanding and agreed. Leukocytosis (leucocytosis) 11/20/2020 Sacroiliitis (CMS/HCC V24) 10/25/2019 Overview (08/02/2024): Follows with [facility] referred for physical therapy as well as an x-ray of the lumbar spine Non-ulcer dyspepsia 08/06/2019 Hiatal hernia 05/08/2019 Gastroesophageal reflux disease 02/01/2019 Overview (08/02/2024): Normal gastric emptying study 06/2019 Anxiety 11/01/2018 Bipolar affective disorder, current episode depressed ([facility] [place], [facility] [place]28) 11/01/2018 Morbid obesity with BMI of 4 0.0-44.9, adult ([facility] [place]24, [facility] V28) 11/01/2018 Ovarian cyst 02/06/2018 Overview (08/02/2024): Left 7.6 x7 x 4.4 cm Asthma 12/02/2008 Resolved Problems Problem Noted Date Diagnosed Date Resolved Date Mild intermittent asthma without complication 11/01/19 19 05/28/2025 Encounters Date Type Department Care Team Description 06/12/2025 11:15 AM EDT Clinical Support Adult Medicine [address] [phone] Vitamin B12 deficiency disease (Primary Dx) 05/31/2025 9:45 AM EDT Office Visit Obstetrics and Gynecology [address] [phone] Comfort Connolly CNM control counseling (Primary Dx); Menorrhagia with regular cycle; History of migraine with aura 05/15/2025 2:00 PM EDT Clinical Support Adult [address] [phone] Vitamin B12 deficiency disease (Primary Dx) 05/13/2025 3:44 PM EDT Anesthesia Event [facility] Endoscopy [address] [place] [phone] Martin Morales DO 05/13/2025 2:09 PM EDT - 05/13/2025 11:59 PM EDT Hospital Encounter [facility] Endoscopy [address] [place] [phone] Kaleigh Childress DO Couture, Alison, CRNA Korobkov, Vitaliy, DO Change in bowel habit; H pylori ulcer Discharge Disposition: Home or Self Care 05/13/2025 10:15 AM EDT Lab Draw Station [address] Chronic cough; Dyspepsia; Change in bowel habit 05/08/2025 9:40 AM EDT Office Visit Gastroenterology - [place] [address] [place] [address] [place] [address] Kaleigh Childress DO Dyspepsia (Primary Dx); Chronic cough; Change in bowel habit 05/02/2025 10:26 AM EDT - 05/02/2025 11:59 PM EDT Hospital Encounter Radiology Department [address] [phone] Chronic migraine without aura without status migrainosus, not intractable Discharge Disposition: Home or Self Care 05/01/2025 Telephone Adult Medicine [address] [phone] Deepti Espinoza MD 04/30/2025 Telephone Adult Medicine [address] [phone] Deepti Espinoza MD 04/11/2025 Telephone Adult Medicine [address] [phone] Toshia Newsome RN 04/08/2025 5:00 PM EDT Office Visit Adult [address] [phone] Deepti Espinoza MD Chronic migraine without aura without status migrainosus, not intractable (Primary Dx); Vitamin B12 deficiency disease; Vitamin D insufficiency 04/03/2025 2:30 PM EDT Clinical Support Adult Medicine [address] [phone] B12 deficiency (Primary Dx) from Last 3 Months Immunizations [...] affective disorder, current episode depressed ([facility] V24, [facility] V28) 11/01/2018 DX:Bipolar affective disorde r, current episode depressed ([facility]) Anxiety 11/01/2018 DX:Anxiety Mild intermittent asthma wit hout complication 11/01/2018 DX:Mild intermittent asthma without complication Tobacco use 11/01/2018 DX:Tobacco use Hiatal hernia 05/08/2019 DX:Hiatal hernia H. pylori infection 01/23/2020 DX:H. pylori infection Esophageal reflux DX:Esophageal reflux Nausea and vomiting DX:Nausea an d vomiting Postnasal drip DX:Postnasal dri p Dysphagia DX:Dysphagia Migraine with aura Family History Medical History Relation Name Comments [...] care for your loved ones. For example, early childhood coordinator or elderly care for an older adult? [...] Ectopic Multiple Livin g Live Births 2 2 2 2 2 Date Outcome GA Total Labor Labor/2nd/3rd Weight Sex Type Anes PTL Ruby A1 A5 Name Clin 2010 Term F Vag-S pont Living 2012 Term F Vag-S pont Living Last Filed Vital Signs Vital Sign Reading Time Taken Comments Blood Pressure 114/78 05/31/2025 9:45 AM EDT Pulse 101 05/31/2025 9:45 AM EDT Temperature 36.1 C (97 F) 05/13/2025 4:10 PM EDT Respiratory Rate 18 05/13/2025 4:30 PM EDT Oxygen Saturation 100% 05/13/2025 4:30 PM EDT Inhaled Oxygen Concentration - - Weight 109 kg (239 lb 9.6 oz) 05/31/2025 9:45 AM EDT Height 165.1 cm (5' 5 ) 05/31/2025 9:45 AM EDT Body Mass Index 39.87 05/31/2025 9:45 AM EDT Plan of Treatment Upcoming Encounters Date Type Department Care Team (Late st Contact Info) Description 07/10/2025 2:00 PM EDT Clinical Support Adult [address] [phone] 07/12/2025 11:30 AM EDT Telemedicine [facility] [address] [place] [phone] Charlee Durant MD [address] [place] [phone] 09/11/2025 10:15 AM EST [facility] [place] [facility] [address] [place] [phone] 09/11/2025 11:00 AM EST [facility] [address] [place] [phone] Kiki Mix MD 175 [facility] [address] [place] [address] 09/13/2025 8:30 AM EST Office Visit Adult [address] [phone] Nataly Hein PA [address] [place] [phone] Health Maintenance Due Date Last Done Comments Pneumococcal Vaccine: Pediatrics (0 to 5 Years) and At-Risk Patients (6 to 49 Years) (1 of 2 - PCV) 2015 Medicare Annual Wellness Visit 09/18/2022 COVID-19 Vaccine ( - season) 2025 02/15/2022, 06/23/2021, 02/26/2021 Influenza Vaccine (#1) 2025 , 07/07/2022, 08/26/2015, Additional history exists Social Influencers of Health Screening 09/04/2025 09/04/2024 Cervical Cancer Screening: Pap Smear 01/22/2027 01/23/2024, 01/23/2024 Cholesterol Screening (Lipid Panel) 09/22/2028 09/22/2023 Colorectal Cancer Screening: Colonoscopy 05/13/2030 05/13/2025 DTaP,Tdap,and Td Vaccines (9 - Td or Tdap) 06/14/2033 06/14/2023, 06/07/2013, 12/02/2008, Additional history exists RSV Immunization Adult Patients (1 - 1-dose 75+ series) 2071 HIB Vaccines Completed 01/20/1998, 05/10, 03/11/1997, Additional [...] Health Maintenance Results * COLONOSCOPY Anesthesia - MAC; SP ENDOSCOPY (05/13/2025 4:09 PM EDT) Anatomical Region [...] pathology results. Narrative 05/13/2025 4:08 PM EDT [facility] GI Patient Name: Anabel Thomas Procedure Date: 05/13/2025 3:38 PM Date of : 1995 Age: 29 Gender: Female Note Status: Finalized Attending MD: Kaleigh Childress DO, [id number] Procedure Date No Time: 05/13/2025 Procedure: Colonoscopy [...] the physician, the nurse, the anesthesiologist, the vibrator equipment tester and the support technician in the pre-procedure area in the [...] for histology. Procedure Code(s): --- Professional --- 05092, Colonoscopy, flexible; with removal of tumor(s), polyp(s), or other lesion(s) by snare technique 89534, 59, Colonoscopy, flexible; with biopsy, single or multiple Diagnosis Code(s): --- Professional --- K64.9, Unspecified hemorrhoids D12.0, Benign neoplasm of cecum R10.84, Generalized abdominal pain CPT copyright 202 [employer]. All rights reserved. The codes documented in this report are preliminary and upon heat treat operator review may be revised to meet current compliance requirements. KALEIGH Childress DO 05/13/2025 4:08:23 PM This report has been signed electronically.Kaleigh Childress DO Number of Addenda: 0 Note Initiated On: 05/13/2025 3:38 PM Scope Withdrawal Time: 0 hours 7 minutes 10 seconds Scope In: Scope Out: 4:06:52 PM Endoscopy Department at [facility] - [address] [place] [phone] Procedure Note Kaleigh Childress DO - 05/13/2025 [facility] GI Patient Name: Anabel Thomas Procedure Date: 05/13/2025 3:38 PM Date of : 1995 Age: 29 Gender: Female Note Status: Finalized Attending MD: Kaleigh Childress DO, [id number] Procedure Date No Time: 05/13/2025 Procedure: Colonoscopy [...] the physician, the nurse, the anesthesiologist, the vibrator equipment tester and thetechnician in the pre-procedure area in [...] for histology. Procedure Code(s): --- Professional --- 66774, Colonoscopy, flexible; with removal of tumor(s), polyp(s), or other lesion(s) by snare technique 52378, 59, Colonoscopy, flexible; with biopsy,single or multiple Diagnosis Code(s): --- Professional --- K64.9, Unspecified hemorrhoids D12.0, Benign neoplasm of cecum R10.84, Generalized abdominal pain CPT copyright 2020 [employer]. All rights reserved. The codes documented in this report are preliminary and upon heat treat operator reviewmay be revised to meet current compliance requirements. KALEIGH Childress DO 05/13/2025 4:08:23 PM This report has been signed electronically.Kaleigh Childress DO Number of Addenda: 0 Note Initiated On: 05/13/2025 3:38 PM Scope Withdrawal Time: 0 hours 7 minutes 10 seconds Scope In: Scope Out: 4:06:52 PM Endoscopy Department at [facility] - [address] [place] [phone] IMPRESSION: - Hemorrhoids found on perianal exam. [...] Re sult * EGD Anesthesia - MAC; [facility] ENDOSCOPY (05/13/2025 4:09 PM EDT) Anatomical Region Laterality Modality Endoscopy 05/13/2025 3:38 PM EDT Impressions 05/13/2025 3:55 PM EDT - Normal esophagus. Biopsied. - Normal stomach. Biopsied. - Normal examined duodenum. Biopsied. Recommendation: - Discharge patient to home. - Resume previous diet. - Continue present medications. - Await pathology results. Narrative 05/13/2025 3:55 PM EDT [facility] GI Patient Name: Anabel Thomas Procedure Date: 05/13/2025 3:38 PM Date of : 1995 Age: 29 Gender: Female Note Status: Finalized Attending MD: Kaleigh Childress DO, [id number] Procedure Date No Time: 05/13/2025 Procedure: Upper [...] the physician, the nurse, the anesthesiologist, the vibrator equipment tester and the support technician in the pre-procedure area in the [...] the physician, the nurse, the anesthesiologist, the vibrator equipment tester and the support technician in the pre-procedure area in the [...] was present. Procedure Code(s): --- Professional --- 76067, Esophagogastroduodenoscopy, flexible, transoral; with biopsy, single or multiple Diagnosis Code(s): --- Professional --- K30, Functional dyspepsia R12, Heartburn CPT copyright 2020 [employer]. All rights reserved. The codes documented in this report are preliminary and upon heat treat operator review may be revised to meet current compliance requirements. KALEIGH Childress DO 05/13/2025 3:55:24 PM This report has been signed electronically.Kaleigh Childress DO Number of Addenda: 0 Note Initiated On: 05/13/2025 3:38 PM Scope In: Scope Out: Endoscopy Department at [facility] - [address] [place] [phone] Procedure Note Kaleigh Chilrdess DO - 05/13/2025 [facility] GI Patient Name: Anabel Thomas Procedure Date: 05/13/2025 3:38 PM Date of : 1995 Age: 29 Gender: Female Note Status: Finalized Attending MD: Kaleigh Childress DO, [id number] Procedure Date No Time: 05/13/2025 Procedure: Upper [...] the physician, the nurse, the anesthesiologist, the vibrator equipment tester and thetechnician in the pre-procedure area in [...] the physician, the nurse, the anesthesiologist, the vibrator equipment tester and thetechnician in the pre-procedure area in [...] was present. Procedure Code(s): --- Professional --- 36818, Esophagogastroduodenoscopy, flexible, transoral; with biopsy, single or multiple Diagnosis Code(s): --- Professional --- K30, Functional dyspepsia R12, Heartburn CPT copyright 2020 [employer]. All rights reserved. The codes documented in this report are preliminary and upon heat treat operator reviewmay be revised to meet current compliance requirements. KALEIGH Childress DO 05/13/2025 3:55:24 PM This report has been signed electronically.Kaleigh Childress DO Number of Addenda: 0 Note Initiated On: 05/13/2025 3:38 PM Scope In: Scope Out: Endoscopy Department at [facility] - [address] [place] [phone] IMPRESSION: - Normal esophagus. Biopsied. - Normal [...] No colitis identified. 05/14/2025 3:27 PM EDT [facility] Gross Description A. [...] multiple levels. TS 05/14/2025 3:27 PM EDT [facility] Disclaimer Unless otherwise specified, all tissue is 10% NB formalin fixed and paraffin embedded. 05/14/2025 3:27 PM EDT [facility] Tissue Duodenal structure / Unknown 05/13/2025 [...] 4:05 PM EDT 05/13/2025 4:38 PM EDT us Kaleigh Childress DO LAB PATHOLOGY ORDERABLES Final R esult [facility]) [facility] [address] [place] [address], [place] [phone] * Tissue transglutaminase, IgA (05/13/2025 10:17 AM EDT) Tissue Transglutaminase Ab, IgA Quant 1 <4 unit/mL LAB CHEMISTRY METHOD 05/15/2025 11:46 AM EDT [facility] Tissue Transglutaminase Ab, IgA Negative Negative LAB CHEMISTRY METHOD 05/15/2025 11:46 AM EDT [facility] Blood Venous blood specimen / Unknown Venipuncture / Unknown 05/13/2025 10:17 AM EDT 05/13/2025 10:17 AM EDT [facility] BLOOD ORDERABLES Final Resul t Performing Organization Address [facility]/ZIP Co de Phone Number [facility] [address] [place] [address], * (ABNORMAL) C-reactive protein (05/13/2025 10:17 AM EDT) [facility] C-Reactive Protein 3.05(H) <=0.50 mg/dL LAB CHEMISTRY METHOD 05/13/2025 2:32 PM EDT [facility] Blood Venous blood specimen / Unknown Venipuncture / Unknown 05/13/2025 10:17 AM EDT 05/13/2025 10:17 AM EDT [facility] LAB BLOOD ORDERABLES Final Resul t [facility] [address] [place] [address], [place] [phone] * Immunoglobulin IgA (05/13/2025 10:17 AM EDT) IgA 247 61 - 348 mg/dL LAB CHEMISTRY METHOD 05/13/2025 1:44 PM EDT [facility] Blood Venous blood specimen / Unknown Venipuncture / Unknown 05/13/2025 10:17 AM EDT 05/13/2025 10:17 AM EDT Kaleigh Childress DO LAB BLOOD ORDERABLES Final Resul t [facility] [address] [place] [address], [place] [phone] * Interferon gamma interpretation (05/06/2025 11:24 AM EDT) [facility] Quantiferon Plus Interpretation Negative Negative LAB CHEMISTRY METHOD 05/07/2025 10:37 AM EDT [facility] Blood Venous blood specimen / Unknown Venipuncture / Unknown 05/06/2025 11:24 AM EDT 05/06/2025 11:24 AM EDT Deepti Espinoza MD LAB BLOOD ORDERA BLES Final Result Performing Organization Address City/[facility]/ZIP Co de Phone Number [facility] [address] [place] [address], [place] [phone] * Interferon gamma antigen 2 (05/06/2025 11:24 AM EDT) Blood Venous blood specimen / Unknown Venipuncture / Unknown 05/06/2025 11:24 AM EDT 05/06/2025 11:24 AM EDT Deepti Espinoza MD LAB BLOOD ORDERA BLES Final Result [facility] [address] [place] [address], [place] [phone] * Interferon gamma antigen 1 (05/06/2025 11:24 AM EDT) Blood Venous blood specimen / Unknown Venipuncture / Unknown 05/06/2025 11:24 AM EDT 05/06/2025 11:24 AM EDT Deepti Espinoza MD LAB BLOOD ORDERA BLES Final Result Performing Organization Address [facility]/ZIP Co de Phone Number [facility] [address] [place] [address], [place] [phone] * Interferon gamma mitogen (05/06/2025 11:24 AM EDT) Blood Venous blood specimen / Unknown Venipuncture / Unknown 05/06/2025 11:24 AM EDT 05/06/2025 11:24 AM EDT Deepti Espinoza MD LAB BLOOD ORDERA BLES Final Result Performing Organization Address [facility] Co de Phone Number [facility] [address] [place] [address], [place] [phone] * Interferon gamma NIL (05/06/2025 11:24 AM EDT) Blood Venous blood specimen / Unknown Venipuncture / Unknown 05/06/2025 11:24 AM EDT 05/06/2025 11:24 AM EDT Deepti Espinoza MD LAB BLOOD ORDERA BLES Final Result Performing Organization Address [facility] de Phone Number [facility] [address] [place] [address], [place] [phone] * MR Brain wo and w Contrast [...] Signed Date: 05/02/2025 16:34 ET Workstation ID: [id number] Transcribed By: Self Edit Transcribed Date: 05/02/2025 [...] Signed Date: 05/02/2025 16:34 ET Workstation ID: [id number] Transcribed By: Self Edit Transcribed Date: 05/02/2025 16:27 ET Deepti Espinoza MD IM MRI PROCEDUR ES Final Result * (ABNORMAL) CBC auto differential (04/18/2025 12:42 PM EDT) Only the most recent of2 resultswithin the time period is included. WBC 15.6(H) 4.8 - 10.8 K/mcL LAB HEMETOLOGY METHOD 04/18/2025 2:01 PM EDT [facility] RBC 5.60(H) 3.80 - 4.80 M/mcL LAB HEMETOLOGY METHOD 04/18/2025 2:01 PM EDT [facility] Hemoglobin 13.1 11.5 - 16.0 g/dL LAB HEMETOLOGY METHOD 04/18/2025 2:[facility] Hematocrit 41.0 35.0 - 47.0 % LAB HEMETOLOGY METHOD 04/18/2025 2:01 PM EDT [facility] MCV 73.5(L) 79.0 - 98.0 FL LAB HEMETOLOGY METHOD 04/18/2025 2:01 PM [facility] MCH 23.5(L) 27.0 - 32.0 pcg LAB HEMETOLOGY METHOD 04/18/2025 2:01 PM EDT [facility] MCHC 32.0 32.0 - 37.0 g/dL LAB HEMETOLOGY METHOD 04/18/2025 2:01 PM [facility] RDW 17.7(H) 11.0 - 15.0 % LAB HEMETOLOGY METHOD 04/18/2025 2:01 PM [facility] Platelets 329 130 - 400 K/mcL LAB HEMETOLOGY METHOD 04/18/2025 2:01 PM EDT [facility] MPV 11.4(H) 7.0 - 11.0 FL LAB HEMETOLOGY METHOD 04/18/2025 2:01 PM [facility] NRBC 0.0 <1.0 % LAB HEMETOLOGY METHOD 04/18/2025 2:01 PM [facility] NRBC Absolute 0.00 <0.10 K/mcL LAB HEMETOLOGY METHOD 04/18/2025 2:01 PM [facility] Neutrophils Relative 75.0 % LAB HEMETOLOGY METHOD 04/18/2025 2:01 PM [facility] Lymphocytes Relative 20.1 % LAB HEMETOLOGY METHOD 04/18/2025 2:01 PM [facility] Monocytes Relative 3.5 % LAB HEMETOLOGY METHOD 04/18/2025 2:01 PM [facility] Eosinophils Relative 0.6 % LAB HEMETOLOGY METHOD 04/18/2025 2:01 PM [facility] Basophils Relative 0.4 % LAB HEMETOLOGY METHOD 04/18/2025 2:01 PM [facility] Immature Granulocytes Relative 0.4 % LAB HEMETOLOGY METHOD 04/18/2025 2:01 PM [facility] Neutrophils Absolute 11.67(H) 1.50 - 7.00 K/mcL LAB HEMETOLOGY METHOD 04/18/2025 2:01 PM [facility] Lymphocytes Absolute 3.12 1.00 - 5.00 K/mcL LAB HEMETOLOGY METHOD 04/18/2025 2:01 PM [facility] Monocytes Absolute 0.55 0.20 - 1.00 K/mcL LAB HEMETOLOGY METHOD 04/18/2025 2:01 PM [facility] Eosinophils Absolute 0.09 0.00 - 0.50 K/mcL LAB HEMETOLOGY METHOD 04/18/2025 2:01 PM EDT [facility] Basophils Absolute 0.06 0.00 - 0.20 K/mcL LAB HEMETOLOGY METHOD 04/18/2025 2:01 PM EDT [facility] Immature Granulocytes Absolute 0.07(H) 0.00 - 0.03 K/mcL LAB HEMETOLOGY METHOD 04/18/2025 2:01 PM EDT [facility] Blood Venous blood specimen / Unknown Venipuncture / Unknown 04/18/2025 12:42 PM EDT 04/18/2025 12:42 PM EDT Deepti Espinoza MD LAB BLOOD ORDERA BLES Final Result Performing Organization Address [facility]/ZIP Co de Phone Number [facility] [address] [place] [address], [place] [phone] * (ABNORMAL) Sedimentation rate (04/18/2025 12:42 PM EDT) Only the most recent of2 resultswithin the time period is included. Sed Rate 54(H) 0 - 20 mm/hr LAB HEMETOLOGY METHOD 04/18/2025 2:15 PM EDT [facility] Blood Venous blood specimen / Unknown Venipuncture / Unknown 04/18/2025 12:42 PM EDT 04/18/2025 12:42 PM EDT Deepti Espinoza MD LAB BLOOD ORDERA BLES Final Result [facility] [address] [place] [address], [place] [phone] * Thyroid stimulating hormone with reflex to free t4 and free t3 (04/09/2025 2:08 PM EDT) TSH 0.69 0.40 - 4.00 mcIU/mL LAB CHEMISTRY METHOD 04/09/2025 6:19 PM EDT [facility] Blood Venous blood specimen / Unknown Venipuncture / Unknown 04/09/2025 2:08 PM EDT 04/09/2025 2:08 PM EDT Deepti Espinoza MD LAB BLOOD ORDERA BLES Final Result Performing Organization Address City/[facility]/ZIP Co de Phone Number [facility] [address] [place] [address], [place] [phone] * (ABNORMAL) Vitamin D 25 hydroxy (04/09/2025 2:08 PM EDT) Pathologist [facility], [facility] Vit D, 25-Hydroxy 24.5(L) 30.0 - 80.0 ng/mL LAB CHEMISTRY METHOD 04/09/2025 6:19 PM EDT [facility] Blood Venous blood specimen / Unknown Venipuncture / Unknown 04/09/2025 2:08 PM EDT 04/09/2025 2:08 PM EDT Deepti Espinoza MD LAB BLOOD ORDERA BLES Final Result Performing Organization Address City/[facility]/ZIP Co de Phone Number [facility] [address] [place] [address], [place] [phone] * Vitamin B12 (04/09/2025 2:08 PM EDT) Pathologist [facility] Vitamin B-12 562 250 - 900 pcg/mL LAB CHEMISTRY METHOD 04/09/2025 5:55 PM EDT [facility] Blood Venous blood specimen / Unknown Venipuncture / Unknown 04/09/2025 2:08 PM EDT 04/09/2025 2:08 PM EDT Deepti Espinoza MD LAB BLOOD ORDERA BLES Final Result [facility] [address] [place] [address], * Comprehensive metabolic panel (04/09/2025 2:08 PM EDT) Sodium 139 133 - 145 mmol/L LAB CHEMISTRY METHOD 04/09/2025 5:55 PM EDT [facility] Potassium 4.3 3.5 - 5.5 mmol/L LAB CHEMISTRY METHOD 04/09/2025 5:55 PM [facility] Chloride 107 96 - 110 mmol/L LAB CHEMISTRY METHOD 04/09/2025 5:55 PM [facility] CO2 24 21 - 32 mmol/L LAB CHEMISTRY METHOD 04/09/2025 5:55 PM [facility] Anion Gap 8 3 - 11 LAB CHEMISTRY METHOD 04/09/2025 5:55 PM [facility] Glucose 72 70 - 100 mg/dL LAB CHEMISTRY METHOD 04/09/2025 5:55 PM [facility] BUN 9 5 - 25 mg/dL LAB CHEMISTRY METHOD 04/09/2025 5:55 PM [facility] Creatinine 0.56 0.50 - 1.10 mg/dL LAB CHEMISTRY METHOD 04/09/2025 5:55 PM [facility] eGFR 128 >=60 mL/min/1. 73m2 LAB CHEMISTRY METHOD 04/09/2025 5:55 PM [facility] Comment:Calculation based on the Chronic Kidney Disease Epidemiology Collaboration (CKD-EPI) equation refit without adjustment for race. BUN/Creatinine Ratio 16.1 LAB CHEMISTRY METHOD 04/09/2025 5:55 PM [facility] Calcium 9.0 8.5 - 10.5 mg/dL LAB CHEMISTRY METHOD 04/09/2025 5:55 PM [facility] AST (SGOT) 14 10 - 42 unit/L LAB CHEMISTRY METHOD 04/09/2025 5:55 PM EDT [facility] ALT (SGPT) 21 10 - 60 unit/L LAB CHEMISTRY METHOD 04/09/2025 5:55 PM EDT [facility] Alkaline Phosphatase 94 42 - 121 unit/L LAB CHEMISTRY METHOD 04/09/2025 5:55 PM EDT [facility] Total Protein 7.2 6.0 - 8.0 g/dL LAB CHEMISTRY METHOD 04/09/2025 5:55 PM EDT [facility] Albumin 3.4 3.2 - 5.0 g/dL LAB CHEMISTRY METHOD 04/09/2025 5:55 PM EDT [facility] Total Bilirubin 0.3 0.0 - 1.4 mg/dL LAB CHEMISTRY METHOD 04/09/2025 5:55 PM EDT [facility] Blood Venous blood specimen / Unknown Venipuncture / Unknown 04/09/2025 2:08 PM EDT 04/09/2025 2:08 PM EDT Deepti Espinoza MD LAB BLOOD ORDERA BLES Final Result Performing Organization Address [facility]/ZIP Co de Phone Number [facility] [address] [place] [address], * Hepatitis C antibody (02/19/2025 9:18 AM EDT) Hepatitis C Antibody Negative Negative LAB CHEMISTRY METHOD 02/19/2025 2:42 PM EDT [facility] Blood Venous blood specimen / Unknown Venipuncture / Unknown 02/19/2025 9:18 AM EDT 02/19/2025 9:18 AM EDT Espinoza Denson CNM LAB BLOOD ORDERABLES Final Re sult [facility] [address] [place] [address], [place] [phone] * HIV 1,2 antibody, p24 antigen with reflex to differentiation (02/19/2025 9:18 AM EDT) [facility] HIV Combo AB/AG Negative Negative LAB CHEMISTRY METHOD 02/19/2025 2:43 PM EDT [facility] Blood Venous blood specimen / Unknown Venipuncture / Unknown 02/19/2025 9:18 AM EDT 02/19/2025 9:18 AM EDT Narrative [facility] - 02/19/2025 2:43 PM EDT This assay is a 4th generation assay allowing for earlier detection of HIV infection by detecting the presence of the HIV-1 p24 antigen as well as the traditional antibodies to HIV type 1 (including group O) and type 2. Use of a 4th generation assay is the current CDC recommendation for HIV screening. Espinoza GARCIA LAB BLOOD ORDERABLES Final Re sult [facility] [address] [place] [address], [place] [phone] * Hm Pap Smear (01/23/2024) [facility] Pap smear Negative, Abstracted Historical Provider HEALTH MAINTENANCE Final Result * (ABNORMAL) Lipid panel (09/22/2023) [facility] LDL/HDL Ratio 4 0 - 4 Triglycerides 122 0 - 150 mg/dL Cholesterol 185 0 - 200 mg/dL HDL 42 >=40 mg/dL LDL Cholesterol 119(A) 0 - 100 mg/dL Blood Venous blood specimen / Unknown Historical Provider LAB BLOOD ORDERABLES Shu l Result from Last 3 Months or Most Recently Relevant to Health Maintenance Insurance [facility] MEDICARE Member Subscriber Plan / Payer (Ef fective 2020-Present) Name:ANABEL THOMAS Relation to Subscriber:Self Name:Anabel Thomas Payer ID:[id number] Group ID:[id number] Type:Not on file Address: [facility] [address] [id number] Care Teams Food And Beverage Assistant Manager Relationship Specialty Start Date End Date Deepti Espinoza MD [address] [facility], [place] PCP - General Internal Medicine 04/26/22
--- OUTSIDE RECORDS SUMMARY | 2025-06-27 12:25 | XMS_ITS | Encounter Summary ---
Author Organization [facility] Address [address] [place] [address] Phone Care Team Providers Care In Home Sales Representative Name Role Phone Madison Tamayo MD Primary Care Provider [phone] Encounter Details Date Type Department Care Team (Late st Contact Info) Description 01/09/2015 Documentation EM Family Medicine [address] [place] [address] Family Medicine, Physician [address] [place] [id number] Social History Tobacco Use Types Packs/Day Years [...] on filedocumented in this encounter Care Teams In Home Sales Representative Relationship Specialty Start Date End Date Madison Tamayo MD [address] [place] [address] PCP - General 05/20/17 03/16/23 documented as of this encounter
--- OUTSIDE RECORDS SUMMARY | 2025-06-27 12:25 | XMS_ITS | Encounter Summary ---
Author Organization [facility] Address [address] [place] [address] Phone Care Team Providers Care Foundry Helper Name Role Phone Madison Tamayo MD Primary Care Provider [phone] Encounter Details Date Type Department Care Team (Late st Contact Info) Description 08/03/2016 Documentation EM Family Medicine [address] [place] [address] Family Medicine, Physician [address] [place] [id number] Social History Tobacco Use Types Packs/Day Years [...] on filedocumented in this encounter Care Teams Foundry Helper Relationship Specialty Start Date End Date Madison Tamayo MD [address] [place] [address] PCP - General 05/20/17 03/16/23 documented as of this encounter
--- OUTSIDE RECORDS SUMMARY | 2025-06-27 12:25 | XMS_ITS | Encounter Summary ---
Author Organization [facility] Address [address] [place] [address] Phone Care Team Providers Care Portfolio Accountant Name Role Phone Madison Tamayo MD Primary Care Provider [phone] Encounter Details Date Type Department Care Team (Late st Contact Info) Description 01/20/2015 Documentation EM Family Medicine [address] [place] [address] Family Medicine, Physician [address] [place] [phone] Social History Tobacco Use Types Packs/Day Years [...] on filedocumented in this encounter Care Teams Portfolio Accountant Relationship Specialty Start Date End Date Madison Tamayo MD [address] [place] [address] PCP - General 05/20/17 03/16/23 documented as of this encounter
--- OUTSIDE RECORDS SUMMARY | 2025-06-27 12:25 | XMS_ITS | Clinical Summary ---
Author Organization [facility] Address [address] [place] [address] Care Team Providers Care Embossing Unit Operator Name Role Phone Deepti Espinoza MD [...] breakfast. 0 Active alum & mag hydroxide-simethicone (Pjkhenh-Imdoyako-Dfrjb hicone) 200-200-20 MG/5ML suspension Take by mouth [...] Additional history exists COVID-19 Vaccine ( season) 2025 02/15/2022, 06/23/2021, 02/26/2021 Influenza Vaccine (#1) 2025 2, 08/26/2015, 08/26/2015, Additional history exists Hepatitis B Vaccines Completed 02/17/2016, 12/19/2014, 05/22/1997, Additional history exists RSV Ped < 20 months Aged Out No longe r eligible based on patient's age to complete this topic Care Teams Embossing Unit Operator Relationship Specialty Start Date End Date Deepti Espinoza MD [address] [place] [address] PCP - General 05/31/24
--- OUTSIDE RECORDS SUMMARY | 2025-06-27 12:25 | XMS_ITS | Clinical Summary ---
Author Organization [facility] Address [address] [place] [address] Phone Care Team Providers Care Make Up Operator Helper Name Role Phone Unavailable Primary Care Provider Unavailabl e Active Problems Problem Noted Date Diagnosed Date Obesity with body mass index of 30.0-39.9 2014 Depression 12/19/2014 Asthma 12/02/2008 Immunizations Immunization Administration Dates Next Due DTP 05/22/1997,03/11/1997,01/01/1997 DTaP 5 01/19/2001,01/19/2000 HPV, Quadrivalent 09/08/2011,07/08/2010,12/02/19 09 Hep A, ped/adol 08/26/2015,08/01/2014 Hep B, ped/adol 02/17/2016, 5,05/22/1997,01/01,1996 Hib (PRP-T) 01/20/1998, 7,03/11/1997,01/01 IPV 01/19/2001,05/22/1997,03/11/1997 Influenza Split 06/24/2011,07/08/2010 Influenza, injectable, quadrivalent 08/26/2015 Influenza, injectable, quadr ivalent, preservative free 08/01/2014 Influenza, injectable, trivalent 12/02/2008,08/11 MMR 01/19/2001,01/20/1998 Meningococcal Conj (Menactra) MCV4P 12/19/2014,0 07/08/2010 OPV 01/01/1997 Tdap 12/02/2008 Varicella 07/08/2010,01/19/2000 Family History Relation Name Status Comments Brother Brother: Migrai nunu, ADD Father Alive Father: Asthma Half-Brother Alive Half brother (M ): pre mature Half-Sister Alive Half sister (M) : pre-mature Mother Alive Mother: Systemi c lupus erythematosus Other Family history of Migraines, Family history of Deafness, Family history of ADD/ADHD, Family history of Developmental dislocation of hip, Family history of Autism, Family history of Asthma, Family history of Strabismus/amblyopia, Family history of Diabetes mellitus, Family history of Sudden /ID under age 55, Family history of Seizure disorder, Family history of Obesity, Family history of Elevated cholesterol Sister 1 Alive Sister: Alive a nd well, Hearing impairment, Developmental delay, Alive and well Sister 2 Alive Sister: Alive a nd well, Hearing impairment, Developmental delay, Alive and well Social History Tobacco Use Types Packs/Day Years Used Date Smoking Tobacco: Former Comments:Former smoker Comments Unknown Sex and Gender Information Value Date Recorded Sex Assigned at Not on file Legal Sex Female 5:10 PM EDT Gender Identity Not on file Sexual Orientation Not on file Last Filed Vital Signs Vital Sign Reading Time Taken Comments Blood Pressure 106/68 04/22/2017 12:00 AM EDT Pulse 84 04/22/2017 12:00 AM EDT Temperature 37 C (98.6 F) 08/26/2015 12:00 AM EST Respiratory Rate - - Oxygen Saturation - - Inhaled Oxygen Concentration - - Weight 101 kg (223 lb 6.4 oz) 04/22/2017 12:00 A M EDT Height 163.8 cm (5' 4.5 ) 04/22/2017 12:00 AM ED T Body Mass Index 37.75 04/22/2017 12:00 AM EDT Plan of Treatment Health Maintenance Due Date Last Done Comments DTaP,Tdap,and Td Vaccines (7 - Td or Tdap) 12/02/2018 12/02/2008, 01/19/2001, 01/19/2000, Additional history exists Influenza Vaccines (#1) 2025 08/26/20 15, 08/01/2014, 06/24/2011, Additional history exists COVID-19 Vaccine ( season) 2025 HIB Vaccines Completed 01/20/1998, 05/10, 03/11/1997, Additional history exists IPV Vaccines Completed 01/19/2001, 05/10, 03/11/1997, Additional history exists MMR Vaccines Completed 01/19/2001, 01/20/1998 Varicella Vaccines Completed 07/08/2010, 01/19/2000 HPV Vaccines Completed 09/08/2011, 06/11, 12/02/2008 Meningococcal Vaccine Completed 12/19/2014, 010 Hepatitis A Vaccines Completed 08/26/2015, 08/01/20 14 Hepatitis B Vaccines Completed 02/17/2016, 12/19/2014, 05/22/1997, Additional history exists Men B Vaccine Aged Out No longer elig ible based on patient's age to complete this topic Pneumococcal Vaccine Aged Out No long er eligible based on patient's age to complete this topic Procedures * Due to [place] [employer] law, this organization might not be sharing sensitive test results. Procedure Name Priority Date/Time Associated Diagnosis Comments CHLAMYDIA AND GONORRHEA, AMPLIFIED Routine 04/25/2017 1:56 PM EDT from Last 3 Months or Most Recently Relevant to Health Maintenance Results * Due to [place] [employer] law, this organization might not be sharing sensitive test results. * Chlamydia and Gonorrhoea, Amplified (04/25/2017 1:56 PM EDT) [facility]INE [facility] Comment: No Neisseria Gonorrhoeae RNA detected in this patient's sample (REFERENCE RANGE/NORMAL VALUE: NOT DETECTED) NOTE: This test uses event promoter-mediated amplification method to detect rRNA from C.Trachomatis and N.Gonorrhoeae. A negative result does not preclude infection. In the case of a negative urine result, testing of an endocervical(female) or urethral(male) specimen is recommended if there is high clinical suspicion of infection. Due to very high sensitivity of Nucleic Acid Amplification Test, false positive results may occur. Therefore, specimen handling is extremely important. In patients in whom the disease is unlikely, additional sample for testing should be considered after an initial positive result. The performance characteristics of this test have not been evaluated in children. The Aptima Combo2 assay is not intended for the evaluation of suspected sexual abuse or for other medico-legal indications. The ordering provider should assess if the patient had consensual sex without risk of sexual abuse. Consult the [facility] if needed. Contact phone number . Therapeutic failure or success cannot be determined with the Aptima Combo2 assay since nucleic acid may persist following appropriate antimicrobial therapy. The Centers for Disease Control and Prevention (CDC) recommends confirmatory retesting using culture or a different nucleic acid amplification test when positive results occur, if indicated. Testing performed or reported by [facility], a Service of [facility], [facility] [address], [place] [address] CLIA [id number] Richard Harley MD, PhD, Site Physician URINE CHLAMYDIA AMP PROBE NEGATIVE [facility] Comment: No Chlamydia Trachomatis RNA detected in this patient's sample (REFERENCE RANGE/NORMAL VALUE: NOT DETECTED) 04/25/2017 1:56 PM EDT Narrative [facility] - 04/25/2017 1:56 PM EDT URINE CHLAMYDIA GC AMP PROBE us Madison Tamayo MD LAB MICROBIOLOGY - GENERAL ORDER DANAY Final Result [facility] [address] [place] [address], [place] from Last 3 Months or Most Recently Relevant to Health Maintenance
--- OUTSIDE RECORDS SUMMARY | 2025-06-27 12:26 | XMS_ITS | Encounter Summary ---
Author Organization [facility] Address [address] [place] [address] Phone Care Team Providers Care Bending Roll Hand Name Role Phone Madison Tamayo MD Primary Care Provider [phone] Encounter Details Date Type Department Care Team (Late st Contact Info) Description 09/03/2014 Documentation EM Family Medicine [address] [place] [address] Family Medicine, Physician [address], [place] [phone] Social History Tobacco Use Types Packs/Day Years [...] on filedocumented in this encounter Care Teams Bending Roll Hand Relationship Specialty Start Date End Date Madison Tamayo MD [address] [place] [address] PCP - General 05/20/17 03/16/23 documented as of this encounter
--- OUTSIDE RECORDS SUMMARY | 2025-06-27 12:26 | XMS_ITS | Clinical Summary ---
Author Organization [facility] Address [address] [place] [address] Phone Care Team Providers Care Windows Security Engineer Name Role Phone Pcp, Unknown Primary Care Provider Unavailabl e Allergies No known active allergies Medications predniSONE (DELTASONE) 20 MG tablet Take 2 tablets (40 mg total) by mouth daily with breakfast. 10 tablet 09/02/2020 Active cyclobenzaprine (FLEXERIL) 10 MG tablet Take 1 tablet (10 mg total) by mouth 3 (three) times a day as needed. 15 tablet 09/02/2020 Active Social History Tobacco Use Types Packs/Day Years Used Date Smoking Tobacco: Every Day Cigarettes Smokeless Tobacco: Never Alcohol Use Standard Drinks/Week Comments Not Currently 0 (1 standard drink = 0.6 oz pur e alcohol) Education Answer Date Recorded Are you interested in more education? Not on linda e 02/04/2023 Are you concerned about learning? Not on file 02/04/2023 No 02/04/2023 No 02/04/2023 Digital Access Answer Date Recorded No 03/08/2023 No 03/08/2023 Reliable internet access at home? Not on file 03/08/2023 Device with a working camera? Not on file Comments Unknown Sex and Gender Information Value Date Recorded Sex Assigned at Female 09/02/2020 2:41 PM EST Legal Sex Female 1:51 PM EST Gender Identity Female 09/02/2020 2:41 PM EST Sexual Orientation Not on file Last Filed Vital Signs Vital Sign Reading Time Taken Comments Blood Pressure 109/75 09/02/2020 2:37 PM EST Pulse 90 09/02/2020 2:37 PM EST Temperature 36.2 C (97.2 F) 09/02/2020 2:37 PM EST Respiratory Rate 16 09/02/2020 2:37 PM EST Oxygen Saturation 99% 09/02/2020 2:37 PM EST Inhaled Oxygen Concentration - - Weight 97.5 kg (215 lb) 09/02/2020 2:37 PM EST Height 167.6 cm (5' 6 ) 09/02/2020 2:37 PM EST Body Mass Index 34.7 09/02/2020 2:37 PM EST Plan of Treatment Health Maintenance Due Date Last Done Comments DEPRESSION SCREENING 2008 SMOKING Hx and SMOKELESS TOBACCO SCREENING 2009 HEPATITIS C SCREENING 2014 HIV ONE-TIME SCREENING (18-65 YEARS) 2014 PNEUMOCOCCAL VACCINES (0-49 years) (1 of 2 - PCV) 2015 PAP SMEAR 2017 Adult Td,Tdap Booster 12/02/2018 12/02/2008 INFLUENZA VACCINE (#1) 2025 5, 08/01/2014, 06/24/2011, Additional history exists COVID-19 VACCINE ( - 2024- season) 2025 06/23/2021, 02/26/2021 HIB VACCINES Completed 01/20/1998, 05/10, 03/11/1997, Additional history exists MENINGOCOCCAL VACCINES (ACWY) Completed 12/19/2014, 07/08/2010 HEPATITIS A VACCINES Completed 08/26/2015, 08/01/20 14 MENINGOCOCCAL VACCINES (B) Aged Out N o longer eligible based on patient's age to complete this topic Medical Devices Not on file Insurance MEDICARE PART A & B Member Subscriber Plan / Payer (Ef fective 2018-Present) Name:Deyanira Thomas Member ID:[id number] Relation to Subscriber:Self Name:Deyanira Thomas Subscriber ID:[id number] Payer ID:[id number] Group ID:Not on file Type:Medicare Address: [employer] [address] [place] [phone] [facility] MEDICARE PART A & B Member Subscriber Plan / Payer (Ef fective 2018-Present) Name:Deyanira Thomas Member ID:[id number] Relation to Subscriber:Self Name:Deyanira Thomas Subscriber ID:[id number] Payer ID:[id number] Group ID:Not on file Type:Medicare Address: [employer] [address] [place] [phone] [facility] MEDICARE PART A & B Member Subscriber Plan / Payer (Ef fective 2018-Present) Name:Deyanira Thomas Member ID:[id number] Relation to Subscriber:Self Name:Deyanira Thomas Subscriber ID:[id number] Payer ID:[id number] Group ID:Not on file Type:Medicare Address: [employer] [address] [place] [address] [facility] Member Subscriber Plan / Payer (Ef fective 2018-Present) Name:Deyanira Thomas Member ID:[id number] Relation to Subscriber:Self Name:Deyanira Thomas Subscriber ID:[id number] Payer ID:[id number] Group ID:Not on file Type:Medicare Address: [employer] [address] [place] [address] [facility] MEDICARE PART A & B Member Subscriber Plan / Payer (Ef fective 2018-Present) Name:Deyanira Thomas Member ID:[id number] Relation to Subscriber:Self Name:Deyanira Thomas Subscriber ID:[id number] Payer ID:[id number] Group ID:Not on file Type:Medicare Address: [email or web address] [address] [place] [phone] [place] Member Subscriber Plan / Payer (Ef fective 2018-Present) Name:Deyanira Thomas Member ID:[id number] Relation to Subscriber:Self Name:Deyanira Thomas Subscriber ID:[id number] Payer ID:[id number] Group ID:Not on file Type:Medicare Address: [facility] Click With Me Now [facility] [address] [place] [address] [place] & B [place] [facility] Care Teams Windows Security Engineer Relationship Specialty Start Date End Date Pcp, Unknown PCP - General 09/02/20 Additional Source Comments The information contained in this document represents components of the legal health record. It is not the complete legal health record.[facility]
--- OUTSIDE RECORDS SUMMARY | 2025-06-27 12:26 | XMS_ITS | Encounter Summary ---
Author Organization [facility] Address [address] [place] [address] Phone Care Team Providers Care Software Lead Name Role Phone Madison Tamayo MD Primary Care Provider [phone] Encounter Details Date Type Department Care Team (Late st Contact Info) Description 05/26/2017 Conversion Encounter [facility] [place] [address] [place] [address] Social History Tobacco Use Types Packs/Day Years [...] on filedocumented in this encounter Care Teams Software Lead Relationship Specialty Start Date End Date Madison Tamayo MD [address] [place] [address] PCP - General 05/20/17 03/16/23 documented as of this encounter
== END 2025-06-27 11:00 | disposition home or self-care (01) ==
LOC: HO.HWS 10:26
PROVIDERS: PCP Family Medicine; Visit Provider Obstetrics & Gynecology
DX: A74.9 Chlamydial infection, unspecified (principal)
CPT/HCPCS: 99213

== ENCOUNTER 2025-07-24 14:56 | Outpatient (REF) | payer OTHER, SELFPAY ==
--- OUTSIDE RECORDS SUMMARY | 2024-07-13 12:54 | XMS_ITS | Encounter Summary ---
Author Organization [facility] [place] [address] Care Team Providers Care Insurance Licensing Supervisor Name Role Phone Deepti Espinoza MD Primary Care Pr ovider Encounter Details Date Type Department Care Team (Late st Contact Info) Description 07/13/2024 12:54 PM EDT Hospital Encounter TH HISTORIC ENCOUNTERS EASTERN CONVERSION ONLY Ivania Ortega PA [address] [place] [phone] Social History Tobacco Use Types Packs/Day Years Used Date Smoking Tobacco: Former Cigarettes 2 19.8 S tarted: 10/10/2005 Smokeless Tobacco: Former Quit: [...] care for your loved ones. For example, children's attendant or elderly care for an older adult? [...] 05/13/2025 Verbal Abuse Unrecognized value 05/13/2025 Comments No Sex and Gender Information Value Date Recorded [...] Ortega PA-C Service: -- Author Type: Physician Transit Specialist Filed: 07/13/2024 1:59 PM Encounter Date: 07/13/2024 Status: Signed Collateral Analyst: Ivania Ortega PA-C (Physician Transit Specialist) Cosigner: Wale Smith MD at 07/16/2024 10:23AM [...] , Rfl: ? 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 Results discussed with patient over the phone. She would benefit from daily folic acid supplementation. Prescriptionsent in. documented in this encounter Plan of Treatment Upcoming Encounters Date Type Department Care Team (Late st Contact Info) Description 08/07/2025 11:15 AM EDT Clinical Support Adult [address] [address] 09/11/2025 8:00 AM EST Office Visit [address] [address] Kathy Kent PA [address] [address] 09/11/2025 10:15 AM EST Ancillary Procedure Pulmonology - [address] [address] 09/11/2025 11:00 AM EST Office Visit Pulmonology [address] [address] Kiki Mix MD [address] [address] 09/13/2025 8:30 AM EST Office Visit Adult [address] [address] Nataly Hein PA [facility] [place] [address] 10/16/2025 1:00 PM EST Procedure visit [facility] 175 [facility] [address] [place] [phone] Charlee Durant MD 175 [place] [address] documented as of this encounter Procedures Procedure Name Priority Date/Time Associated Diagnosis Comments ..MISCELLANEOUS REFERENCE LAB TEST 07/13/2024 documented in this encounter Results * Miscellaneous reference lab test (07/13/2024) us Provider Onbase LAB BLOOD ORDERABLES Final Re sult documented in this encounter Visit Diagnoses Not on filedocumented in this encounter Care Teams Insurance Licensing Supervisor Relationship Specialty Start Date End Date Deepti Espinoza MD [address] [facility], [place] PCP - General Internal Medicine 04/26/22 documented as of this encounter
--- OUTSIDE RECORDS SUMMARY | 2025-07-24 13:40 | XMS_ITS | Encounter Summary ---
Author Organization [facility] Address [address] [place] [address] [address] Team [address] Care [address] Tester Name Role Phone Deepti Espinoza MD Primary Care Pr ovider Reason for Visit * Clinic-Administered Medication (Routine) - Authorized Specialty Diagnoses / Procedures Referred By Contac t Referred To Contact Neurology Diagnoses Chronic migraine without aura without status migrainosus, not intractable Charlee Durant MD [address] [place] [address] Phone: tel: fax: Chalree Durant MD [address] [place] [address] Phone: tel: fax: Referral ID Status Reason Start Date Expiration Date Visits Requested Visits Authorized [id number] Authorized Specialty Services Required 07/15/2025 07/15/2026 4 4 Encounter Details Date Type Department Care Team (Latest Contact Info) Description 07/24/2025 1:40 PM EDT Procedure visit [facility] [address] [facility] [address] [place] [phone] Charlee Durant MD [address] [place] [address] Migraine with aura and without status migrainosus, not intractable (Primary Dx) Social History Tobacco Use Types Packs/Day Years [...] for your loved ones. For example, childcare worker or elderly care for an older [...] on file documented as of this encounter Progress Notes * Charlee Durant MD - 07/24/2025 1:40 PM EDT At baselines the patient had 30 days out of 30 days of headaches and after botox will assess headaches per month in average. The patient would like to proceed. BOTULINUM TOXIN INJECTION PROCEDURE NOTE DATE: 07/24/2025 INDICATION(S): Chronic Migraine Complications of the botulinum toxin injection were explained to the patient and patient signed a written consent form. It was explained to the patient that botulinum toxin effects may not be felt for about 2 weeks. Side effects may include injection site pain, injection site swelling, bruising, infection, flu- like symptoms, diplopia, dysphagia, neck weakness. Skin was prepped with alcohol pads. 200 units of Botox (botulinum toxin type A) was dissolved in 4 ml of sterile normal saline solution. Lot Number:see MAR Patient had injection of the following with a 30G needle attached to a 1 ml insulin syringe: MUSCLES L side (sites) R side (sites) Neurology Technician 5 units (1) 5 units (1) Procerus 5 units (central) Frontalis 10 units (2) 10 units (2) Temporalis 20 units (4) 20 units (4) Occipitalis 15 units (3) 15 units (3) Cervical Paraspinal 10 units (2) 10 units (2) Trapezius 15 units (3) 15 units (3) Total injected: 155 units Total Wasted: 45 units Injection sites were watched closely to confirm hemostasis. No complications were observed with today's procedure.The patient tolerated the procedure well. Information hand out was provided to the patient. I asked the patient to call me with any problems. Patient was instructed not to massage or use heat over the injected site for 24 hours. I asked the patient to call me with any issues and to follow up with me for repeat injection in 3 months. documented in this encounter Plan of Treatment Upcoming Encounters Date Type Department Care Team ([facility] st Contact Info) Description 08/07/2025 11:15 AM EDT Clinical Support [address] [phone] 09/11/2025 8:00 AM EST Office Visit [address] [phone] Kathy Kent PA [address] [address] 09/11/2025 10:15 AM EST Ancillary Procedure [address]mon[address] [phone] 09/11/2025 11:00 AM EST Office Visit Pulmonology [address] [phone] Kiki Mix MD [address] [address] 09/13/2025 8:30 AM EST Office Visit Adult [address] [phone] Nataly Hein PA [address] [place] [phone] 10/16/2025 1:00 PM EST Procedure visit [facility] [address] [facility] [address] [place] [address] Charlee Durant MD [address] [place] [address] documented as of this encounter Visit Diagnoses Diagnosis Migraine with aura and without status migrainosus, not intractable- Primary documented in this encounter Administered Medications Inactive Administered Medications - up to 3 most recent administrations Medication Order MAR Action Action Date Dose Rate Site onabotulinumtoxinA (BOTOX) 200 unit injection 200 Units 200 Units, intramuscular, Once, On Tue07/24/25 at 1430, For 1 doseIndications:Migraine with aura and without status migrainosus, not intractable Given 07/24/2025 2:03 PM EDT 155 Units Other documented in this encounter Orders Medications Ordered That Wilfrid ht Not Have Been Administered Count Last Ordered Date First Ordered Date onabotulinumtoxinA (BOTOX) 2 00 unit injection 200 Units 1 07/24/2025 documented in this encounter Additional Health Concerns Assessment Noted Time PHQ-9 Depression Total Score: 7 07/06/20 25 12:52 AM EDT documented as of this encounter Care Teams Drive Tester Relationship Specialty Start Date End Date Deepti Espinoza MD [address] [facility] [place], [place] PCP - General Internal Medicine 04/26/22 documented as of this encounter
--- OUTSIDE RECORDS SUMMARY | 2025-07-24 19:05 | XMS_ITS | Clinical Summary ---
Author Organization [facility] [address] [facility] Address [address] [place] [address] Phone Care Team Providers Care Slot Ambassador Name Role Phone Deepti Espinoza MD Primary [...] times daily for 360 days. 07/18/20 24 Active fluticasone propionate (FLONASE) 50 mcg/actuation nasal spray 1 [place] by Each Nare route daily. 2 sprays in each nostril daily 09/22/20 21 Active fluticasone HFA (FLOVENT HFA) 110 mcg/actuation inhaler Inhale 1 Puff into the lungs 2 times daily. 07/13/20 24 Active ondansetron (ZOFRAN) 4 mg tablet Take 1 Tablet by mouth every 8 hours as needed for Nausea. 12/19/19 24 Active sodium chloride (AYR) 0.65 % nasal drops 1 [place] by Nasal route as needed for Congestion. [place] each nostril as needed for postnasal drip 08/31/20 23 Active esomeprazole (NexIUM) [address] capsule TAKE 1 CAPSULE BY MOUTH EVERY MORNING (BEFORE BREAKFAST). ON EMPTY STOMACH, WAIT 30 MINUTES AND THEN EAT TO ACTIVATE MEDICATION 90 capsule 3 08/31/20 24 Active umeclidinium (Incruse Ellipta) 62.5 mcg/actuation inhalationIndic ations:Moderate persistent asthma, unspecified whether complicated Inhale 1 puff by mouth 1 (one) time each day. 1 each 03/12/20 25 026 Active topiramate (TOPAMAX) 50 mg tabletIndicatio ns:Chronic migraine without aura without status migrainosus, not intractable Take 1 tablet (50 mg total) by mouth at bedtime. 90 each 04/08/20 25 Active cholecalciferol (VITAMIN D-3) 50 mcg (2,000 [...] 25 026 Active metoclopramide (REGLAN) 10 mg tabletIndicatio ns:Chronic migraine without aura without status migrainosus, not intractable TAKE 1 TABLET BY MOUTH DAILY IF NEEDED (NAUSEA/VOMITING ). 30 tablet 05/08/20 25 Active polyethylene glycol [...] by mouth at bedtime. 05/16/20 25 Active nitrofurantoin, macrocrystal-mo nohydrate, (MACROBID) 100 mg capsule TAKE 1 CAPSULE BY MOUTH TWICE A DAY FOR 5 DAYS.TAKE WITH A MEAL/FOOD 05/22/20 Active famotidine (PEPCID) 20 mg tablet Take 1 tablet (20 mg total) by mouth 2 (two) times a day if needed for heartburn. 180 each 1 06/07/20 25 026 Active SUMAtriptan (IMITREX) 50 mg tablet Take 1 tablet (50 mg total) by mouth 1 (one) time if needed for migraine. May repeat dose once in 2 hours if no relief. Do not exceed 2 doses in 24 hours. 9 tablet 5 07/12/20 25 025 Active SUMAtriptan (IMITREX) 25 mg tabletIndicatio ns:Chronic migraine without aura without status migrainosus, not intractable TAKE 1 TAB BY MOUTH IF NEEDED FOR MIGRAINE.MAY REPEAT ONCE IN 2 HRS IF NO RELIEF *MAX 2 TAB/DAY 12 tablet 2 06/03/20 25 025 Discontin ued(Thera py completed ) Hospital, Clinic, or Other Facility Administered Medication Ordered Dose Route Frequency Start Date End Date Status cyanocobalamin (VITAMIN B-12) injection 1,000 mcgIndications:Vitamin B12 deficiency disease 1000 mcg IM Every 30 days 05/15/2025 01/10/2026 Active onabotulinumtoxinA (BOTOX) 200 unit injection 200 UnitsIndications:Migrai ne with aura and without status migrainosus, not intractable 200 Units IM Once 07/24/2025 07/24/2025 Ended Active Problems Problem Noted Date Diagnosed [...] surgery scheduled, but should hear from my home care scheduler within the next 2 weeks with a date. If not, she should call back to our office and inquire on getting this arranged. She voiced understanding and agreed. Leukocytosis (leucocytosis) 11/20/2020 Sacroiliitis ([facility] V24) 10/25/2019 Overview (08/02/2024): Follows with [facility] referred for physical therapy as well as an x-ray of the lumbar spine Non-ulcer dyspepsia 08/06/2019 Hiatal hernia 05/08/2019 Gastroesophageal reflux disease 02/01/2019 Overview (08/02/2024): Normal gastric emptying study 06/2019 Anxiety 11/01/2018 Bipolar affective disorder, current episode depressed ([facility] V24, [facility] V28) 11/01/2018 Morbid obesity with BMI of 4 0.0-44.9, adult ([facility] V24, [facility] V28) 11/01/2018 Ovarian cyst 02/06/2018 Overview (08/02/2024): Left 7.6 x7 x 4.4 cm Asthma 12/02/2008 Resolved Problems Problem Noted Date Diagnosed Date Resolved Date Mild intermittent asthma without complication 11/01/19 19 05/28/2025 Encounters Date Type Department Care Team Description 07/24/2025 1:40 PM EDT Procedure visit [facility] [address] [phone] Charlee Durant MD Migraine with aura and without status migrainosus, not intractable (Primary Dx) 07/12/2025 11:30 AM EDT Telemedicine [facility] [address] [phone] Charlee Durant MD Migraine with aura and without status migrainosus, not intractable (Primary Dx); Vitamin B12 deficiency disease; Vitamin D insufficiency 07/10/2025 2:00 PM EDT Clinical Support Adult [address] [phone] Vitamin B12 deficiency disease (Primary Dx) 06/12/2025 11:15 AM EDT Clinical Support [address] [phone] Vitamin B12 deficiency disease (Primary Dx) 05/31/2025 9:45 AM EDT Office Visit Obstetrics and Gynecology - [address] [phone] Comfort Connolly CNM control counseling (Primary Dx); Menorrhagia with regular cycle; History of migraine with aura 05/15/2025 2:00 PM EDT Clinical Support Adult [address] [phone] Vitamin B12 deficiency disease (Primary Dx) 05/13/2025 3:44 PM EDT Anesthesia [facility] Endoscopy [address] [place] [phone] Martin Morales DO 05/13/2025 2:09 PM EDT - 05/13/2025 11:59 PM EDT Hospital Encounter [facility] Endoscopy [address] [place] [phone] Kaleigh Childress DO Couture, Alison, CRNA Korobkov, Vitaliy, DO Change in bowel habit; H pylori ulcer Discharge Disposition: Home or Self Care 05/13/2025 10:15 AM EDT Lab Draw Station [address] Chronic cough; Dyspepsia; Change in bowel habit 05/08/2025 9:40 AM EDT Office Visit Gastroenterology [facility] 175 [facility] 175 [facility] [address] [place] [phone] Kaleigh Childress DO Dyspepsia (Primary Dx); Chronic cough; Change in bowel habit 05/02/2025 10:26 AM EDT - 05/02/2025 11:59 PM EDT Hospital Encounter Radiology Department [address] [phone] Chronic migraine without aura without status migrainosus, not intractable Discharge Disposition: Home or Self Care 05/01/2025 Telephone Adult Medicine [address] [phone] Deepti Espinoza MD 04/30/2025 Telephone Adult Medicine [address] [phone] Deepti Espinoza MD from Last 3 Months Immunizations Immunization Administration Dates Next Due DTP [...] 30-39.9) Bipolar affective disorder, current episode depressed ([facility] V24, [facility] V28) 11/01/2018 DX:Bipolar affective disorde r, current episode depressed ([facility]) Anxiety 11/01/2018 DX:Anxiety Mild intermittent asthma wit [...] for your loved ones. For example, children's author or elderly care for an older adult? [...] 08/07/2025 11:15 AM EDT Clinical Support Adult [address] [phone] 09/11/2025 8:00 AM EST Office Visit [facility] [address] [phone] Kathy Kent PA [address] [phone] 09/11/2025 10:15 AM EST Ancillary Procedure Pulmonology [address] [phone] 09/11/2025 11:00 AM EST Office Visit Pulmonology - [place] [address] [phone] Kiki Mix MD [address] [address] 09/13/2025 8:30 AM EST Office Visit Adult [address] [phone] Nataly Hein PA [address] [place] [address] 10/16/2025 1:00 PM EST Procedure visit [facility] 175 [facility] [address] [place] [address] Charlee Durant MD 175 [place] [address] Health Maintenance Due Date Last Done Comments Pneumococcal Vaccine: Pediatrics (0 to 5 Years) and At-Risk Patients (6 to 49 Years) (1 of 2 - PCV) 2015 Medicare Annual Wellness Visit 09/18/2022 COVID-19 Vaccine ( season) 2025 02/15/2022, 06/23/2021, [...] Additional history exists HPV Vaccines Completed 07/14/2022, 11, 07/08/2010, Additional history exists HIV Screening Completed 02/19/2025, 07/07/2022 Hepatitis C Screening Completed 02/19/2025, 019 Depression Screening Completed 07/06/2025 Meningococcal B Vaccine Aged Out No l [...] without aura without status migrainosus, not intractable HEPATITIS C ANTIBODY Routine 02/19/2025 9:18 AM EDT Encounter for screening for viral disease HIV 1, 2 ANTIBODY, P24 ANTIGEN WITH REFLEX TO DIFFERENTIATION Routine 02/19/2025 9:18 AM EDT Encounter for screening for viral disease [facility] PAP SMEAR Routine 01/23/2024 LIPID PANEL Routine 09/22/2023 from Last 3 Months or Most Recently Relevant to Health Maintenance Results * COLONOSCOPY Anesthesia - [facility]; [facility] ENDOSCOPY (05/13/2025 4:09 PM EDT) Anatomical Region [...] pathology results. Narrative 05/13/2025 4:08 PM EDT [facility] GI Patient Name: Anabel Thomas Procedure Date: 05/13/2025 3:38 PM Date of : 1995 Age: 29 Gender: Female Note Status: Finalized Attending MD: Kaleigh Childress DO, [id number] Procedure Date No Time: 05/13/2025 Procedure: Colonoscopy [...] the physician, the nurse, the anesthesiologist, the safety investigator and the gas plant technician in the pre-procedure area in the [...] for histology. Procedure Code(s): --- Professional --- 42753, Colonoscopy, flexible; with removal of tumor(s), polyp(s), or other lesion(s) by snare technique 89519, 59, Colonoscopy, flexible; with biopsy, single or multiple Diagnosis Code(s): --- Professional --- K64.9, Unspecified hemorrhoids D12.0, Benign neoplasm of cecum R10.84, Generalized abdominal pain CPT copyright 2020 [employer]. All rights reserved. The codes documented in this report are preliminary and upon clutch operator review may be revised to meet current compliance requirements. KALEIGH Childress DO 05/13/2025 4:08:23 PM This report has been signed electronically.Kaleigh Childress DO Number of Addenda: 0 Note Initiated On: 05/13/2025 3:38 PM Scope Withdrawal Time: 0 hours 7 minutes 10 seconds Scope In: Scope Out: 4:06:52 PM Endoscopy Department at [facility] - [address] [place] [phone] Procedure Note Kaleigh Childress DO - 05/13/2025 [facility] GI Patient Name: Anabel Thomas Procedure Date: 05/13/2025 3:38 PM Date of : 1995 Age: 29 Gender: Female Note Status: Finalized Attending MD: Kaleigh Childress DO, [id number] Procedure Date No Time: 05/13/2025 Procedure: Colonoscopy [...] the physician, the nurse, the anesthesiologist, the safety investigator and thetechnician in the pre-procedure area in [...] for histology. Procedure Code(s): --- Professional --- 34138, Colonoscopy, flexible; with removal of tumor(s), polyp(s), or other lesion(s) by snare technique 77685, 59, Colonoscopy, flexible; with biopsy,single or multiple Diagnosis Code(s): --- Professional --- K64.9, Unspecified hemorrhoids D12.0, Benign neoplasm of cecum R10.84, Generalized abdominal pain CPT copyright 1 [employer]. All rights reserved. The codes documented in this report are preliminary and upon clutch operator reviewmay be revised to meet current compliance requirements. KALEIGH Childress DO 05/13/2025 4:08:23 PM This report has been signed electronically.Kaleigh Childress DO Number of Addenda: 0 Note Initiated On: 05/13/2025 3:38 PM Scope Withdrawal Time: 0 hours 7 minutes 10 seconds Scope In: Scope Out: 4:06:52 PM Endoscopy Department at [facility] - [address] [place] [phone] IMPRESSION: - Hemorrhoids found on perianal exam. [...] Re sult * EGD Anesthesia - [facility]; [facility] ENDOSCOPY (05/13/2025 4:09 PM EDT) Anatomical Region Laterality Modality Endoscopy 05/13/2025 3:38 PM EDT Impressions 05/13/2025 3:55 PM EDT - Normal esophagus. Biopsied. - Normal stomach. Biopsied. - Normal examined duodenum. Biopsied. Recommendation: - Discharge patient to home. - Resume previous diet. - Continue present medications. - Await pathology results. Narrative 05/13/2025 3:55 PM EDT [facility] GI Patient Name: Anabel Thomas Procedure Date: 05/13/2025 3:38 PM Date of : 1995 Age: 29 Gender: Female Note Status: Finalized Attending MD: Kaleigh Childress DO, [id number] Procedure Date No Time: 05/13/2025 Procedure: Upper [...] the physician, the nurse, the anesthesiologist, the safety investigator and the gas plant technician in the pre-procedure area in the [...] the physician, the nurse, the anesthesiologist, the safety investigator and the gas plant technician in the pre-procedure area in the [...] was present. Procedure Code(s): --- Professional --- 71134, Esophagogastroduodenoscopy, flexible, transoral; with biopsy, single or multiple Diagnosis Code(s): --- Professional --- K30, Functional dyspepsia R12, Heartburn CPT copyright 2020 [employer]. All rights reserved. The codes documented in this report are preliminary and upon clutch operator review may be revised to meet current compliance requirements. KALEIGH Childress DO 05/13/2025 3:55:24 PM This report has been signed electronically.Kaleigh Childress DO Number of Addenda: 0 Note Initiated On: 05/13/2025 3:38 PM Scope In: Scope Out: Endoscopy Department at [facility] - [address] [place] [phone] Procedure Note Kaleigh Childress DO - 05/13/2025 [facility] GI Patient Name: Anabel Thomas Procedure Date: 05/13/2025 3:38 PM Date of : 1995 Age: 29 Gender: Female Note Status: Finalized Attending MD: Kaleigh Childress DO, [id number] Procedure Date No Time: 05/13/2025 Procedure: Upper [...] the physician, the nurse, the anesthesiologist, the safety investigator and thetechnician in the pre-procedure area in [...] the physician, the nurse, the anesthesiologist, the safety investigator and thetechnician in the pre-procedure area in [...] was present. Procedure Code(s): --- Professional --- 62826, Esophagogastroduodenoscopy, flexible, transoral; with biopsy, single or multiple Diagnosis Code(s): --- Professional --- K30, Functional dyspepsia R12, Heartburn CPT copyright 2020 [employer]. All rights reserved. The codes documented in this report are preliminary and upon clutch operator reviewmay be revised to meet current compliance requirements. KALEIGH Childress DO 05/13/2025 3:55:24 PM This report has been signed electronically.Kaleigh Childress DO Number of Addenda: 0 Note Initiated On: 05/13/2025 3:38 PM Scope In: Scope Out: Endoscopy Department at [address] [phone] IMPRESSION: - Normal esophagus. Biopsied. - Normal [...] No colitis identified. 05/14/2025 3:27 PM EDT [facility] Gross Description A. Small Intestine, [...] multiple levels. TS 05/14/2025 3:27 PM EDT [facility] Disclaimer Unless otherwise specified, all tissue is 10% NB formalin fixed and paraffin embedded. 05/14/2025 3:27 PM EDT [facility] Tissue Duodenal structure / Unknown [...] 4:05 PM EDT 05/13/2025 4:38 PM EDT [facility] LAB PATHOLOGY ORDERABLES Final R esult Performing Organization Address City/[facility]/ZIP Co de Phone Number [facility] [address] [place] [address], [place] [phone] * Tissue transglutaminase, IgA (05/13/2025 10:17 AM EDT) Tissue Transglutaminase Ab, IgA Quant 1 <4 unit/mL LAB CHEMISTRY METHOD 05/15/2025 11:46 AM EDT [facility] Tissue Transglutaminase Ab, IgA Negative Negative LAB CHEMISTRY METHOD 05/15/2025 11:46 AM EDT [facility] Blood Venous blood specimen / Unknown Venipuncture / Unknown 05/13/2025 10:17 AM EDT 05/13/2025 10:17 AM EDT [facility] BLOOD ORDERABLES Final Resul t Performing Organization Address City/[facility]/ZIP Co de Phone Number [facility] [address] [place] [address], [place] [phone] * (ABNORMAL) C-reactive protein (05/13/2025 10:17 AM EDT) C-Reactive Protein 3.05(H) <=0.50 mg/dL LAB CHEMISTRY METHOD 05/13/2025 2:32 PM EDT [facility] Blood Venous blood specimen / Unknown Venipuncture / Unknown 05/13/2025 10:17 AM EDT 05/13/2025 10:17 AM EDT [facility] LAB BLOOD ORDERABLES Final Resul t Performing Organization Address City/[facility]/ZIP Co de Phone Number [facility] [address] [place] [address], [place] [phone] * Immunoglobulin IgA (05/13/2025 10:17 AM EDT) Pathologist [facility] IgA 247 61 - 348 mg/dL LAB CHEMISTRY METHOD 05/13/2025 1:44 PM EDT [facility] Blood Venous blood specimen / Unknown Venipuncture / Unknown 05/13/2025 10:17 AM EDT 05/13/2025 10:17 AM EDT [facility] LAB BLOOD ORDERABLES Final Resul t Performing Organization Address [facility] de Phone Number [facility] [address] [place] [address], [place] [phone] * Interferon gamma interpretation (05/06/2025 11:24 AM EDT) [facility] Quantiferon Plus Interpretation Negative Negative LAB CHEMISTRY METHOD 05/07/2025 10:37 AM EDT [facility] Blood Venous blood specimen / Unknown Venipuncture / Unknown 05/06/2025 11:24 AM EDT 05/06/2025 11:24 AM EDT Deepti Espinoza MD LAB BLOOD ORDERA BLES Final Result Performing Organization Address [facility]/ZIP Co de Phone Number [facility] [address] [place] [address], [place] [phone] * Interferon gamma antigen 2 (05/06/2025 11:24 AM EDT) Blood Venous blood specimen / Unknown Venipuncture / Unknown 05/06/2025 11:24 AM EDT 05/06/2025 11:24 AM EDT us Deepti Espinoza MD LAB BLOOD ORDERA BLES Final Result Performing Organization Address [facility]/ZIP Co de Phone Number [facility] [address] [place] [phone], * Interferon gamma antigen 1 (05/06/2025 11:24 AM EDT) Blood Venous blood specimen / Unknown Venipuncture / Unknown 05/06/2025 11:24 AM EDT 05/06/2025 11:24 AM EDT us Deepti Espinoza MD LAB BLOOD ORDERA BLES Final Result Performing Organization Address [facility] Co de Phone Number [facility] [address] [place] [address], [place] [phone] * Interferon gamma mitogen (05/06/2025 11:24 AM EDT) Blood Venous blood specimen / Unknown Venipuncture / Unknown 05/06/2025 11:24 AM EDT 05/06/2025 11:24 AM EDT us Deepti Espinoza MD LAB BLOOD ORDERA BLES Final Result Performing Organization Address City/[facility] Co de Phone Number [facility] [address] [place] [address], [place] [phone] * Interferon gamma NIL (05/06/2025 11:24 AM EDT) Blood Venous blood specimen / Unknown Venipuncture / Unknown 05/06/2025 11:24 AM EDT 05/06/2025 11:24 AM EDT us Deepti Espinoza MD LAB BLOOD ORDERA BLES Final Result [facility] [address] [place] [address], * MR Brain wo and w Contrast [...] Dictated Date: 05/02/2025 16:27 ET Assigned Physician: Ivaina Mccullough Reviewed and Electronically Signed By: Ivania Mccullough Signed Date: 05/02/2025 16:34 ET Workstation ID: [id number] Transcribed By: Self Edit Transcribed Date: 05/02/2025 16:27 ET Procedure Note Ivania Mccullough MD - 05/02/2025 MRI of the head without and with intravenous contrast. HISTORY: Nonspecific chronic headaches. Examination was performed on 1.5 Jessie magnet without administration ofintravenous contrast, followed by postcontrast study after administrationof 20 mL of DOTAREM. Comparison with nonenhanced MRI of the head from03/. There is no evidence of midline shift, [...] Signed Date: 05/02/2025 16:34 ET Workstation ID: [id number] Transcribed By: Self Edit Transcribed Date: 05/02/2025 16:27 ET Deepti Espinoza MD IMG MRI PROCEDUR ES Final Result * Hepatitis C antibody (02/19/2025 9:18 AM EDT) Hepatitis C Antibody Negative Negative LAB CHEMISTRY METHOD 02/19/2025 2:42 PM EDT [facility] Blood Venous blood specimen / Unknown Venipuncture / Unknown 02/19/2025 9:18 AM EDT 02/19/2025 9:18 AM EDT Espinoza Denson [facility] LAB BLOOD ORDERABLES Final Re sult [facility] [address] [place] [address], [place] [phone] * HIV 1,2 antibody, p24 antigen with reflex to differentiation (02/19/2025 9:18 AM EDT) HIV Combo AB/AG Negative Negative LAB CHEMISTRY METHOD 02/19/2025 2:43 PM EDT [facility] Blood Venous blood specimen / Unknown Venipuncture / Unknown 02/19/2025 9:18 AM EDT 02/19/2025 9:18 AM EDT Narrative [facility] - 02/19/2025 2:43 PM EDT [...] GARCIA LAB BLOOD ORDERABLES Final Re sult [facility] ([facility] [address] [place] [address], * Pap Smear (01/23/2024) Pap smear Negative, Abstracted Historical Provider HEALTH [...] Most Recently Relevant to Health Maintenance Insurance [facility] MEDICARE Member Subscriber Plan / Payer (Ef fective 2020-Present) Name:ANABEL THOMAS Relation to Subscriber:Self Name:Anable Thomas Payer ID:[id number] Group ID:[id number] Type:Not on file Address: [address] [place] [id number] Care Teams Slot Ambassador Relationship Specialty Start Date End Date Deepti Espinoza MD [address] [place], [place] PCP - General Internal Medicine 04/26/22
[2025-07-25 04:52] LABS: CT PCR NOT DETECTED (Not Detect.); NG PCR NOT DETECTED (Not Detect.)
== END 2025-07-24 14:57 | disposition home or self-care (01) ==
LOC: HO.LNP 14:56
PROVIDERS: PCP Family Medicine; Visit Provider Advanced Practice Midwife
DX: Z20.2 Contact with and (suspected) exposure to infections with a predominantly sexual mode of transmission (principal); A74.9 Chlamydial infection, unspecified
CPT/HCPCS: 87491; 87591; 99212

== ENCOUNTER 2025-09-26 09:35 | Outpatient (AMB) | payer OTHER, SELFPAY ==
--- OUTSIDE RECORDS SUMMARY | 2024-07-13 11:54 | XMS_ITS | Encounter Summary ---
Author Organization [facility] Address [address] [place] [address] Care Team Providers Care Physician Coder Name Role Phone Deepti Espinoza MD Primary Care Pr ovider Encounter Details Date Type Department Care Team (Late st Contact Info) Description 07/13/2024 12:54 PM EDT Hospital Encounter TH HISTORIC ENCOUNTERS EASTERN CONVERSION ONLY Ivania Ortega PA [address] [place] [phone] Social History Tobacco Use Types Packs/Day Years Used Date Smoking Tobacco: Former Cigarettes 2 20 S tarted: 10/10/2005 Smokeless Tobacco: Former Quit: 10/10/2020 Alcohol Use Standard Drinks/Week Comments No 0 (1 standard drink = 0.6 oz pur e alcohol) Housing Instability Answer Date Recorde d Are you worried that in the next 2 months you may not have stable housing? No 09/04/2024 Food Access & Nutrition Answer Date Rec orded Do you have access to a vari ety of food including fruits and vegetables? No 09/04/2024 Health Literacy Answer Date Recorded How often do you need to hav e someone help you when you read instructions, pamphlets, or other written material from your doctor or pharmacy? Unable to respond 09/04/2024 Caregiver: How often do you need to have someone help you when you read instructions, pamphlets, or other written material from your doctor or pharmacy? Not on file 024 Financial Risk Answer Date Recorded How hard is it for you to pa y for the very basics like food, housing, medical care, and air conditioning / heating? Not very hard 09/04/2024 Transportation Answer Date Recorded Has the lack of transportati on kept you from meetings, work, or from getting things needed for daily living? No Has the lack of transportati on kept you from medical appointments or from getting medications? No 09/04/2024 Social Isolation Answer Date Recorded How often do you feel lonely or isolated from those around you? Unable to respond 09/04/2024 Food Risk Answer Date Recorded Within the past 12 months we worried whether our food would run out before we got money to buy more. Never true 09/04/2024 Within the past 12 months th e food we bought just didn't last and we didn't have money to get more. Never true 09/04/2024 Dependent Care Answer Date Recorded Do you need help finding or paying for care for your loved ones. For example, child welfare worker or elderly care for an older adult? No 09/04/2024 Education Answer Date Recorded Do you think completing more education or training, like finishing a GED, going to college, or learning a trade, would be helpful for you? No 09/04/2024 Employment and Income Answer Date Recor ded During the last four weeks, have you been actively looking for work? No 09/04/2024 Living Situation Answer Date Recorded What is your living situation? Unrecognized valu e 09/04/2024 Interpersonal Safety Answer Date Record ed Physical Abuse Unrecognized value 05/13/2025 Verbal Abuse Unrecognized value 05/13/2025 Comments Unknown Sex and Gender Information Value Date Recorded Sex Assigned at Not on file Legal Sex Female 4:35 AM EST Gender Identity Not on file Sexual Orientation Not on file documented as of this encounter Last Filed Vital Signs Vital Sign Reading Time Taken Comments Blood Pressure 114/61 07/13/2024 1:12 PM EDT Sitting Right arm Pulse 95 07/13/2024 1:12 PM EDT Temperature - - Respiratory Rate - - Oxygen Saturation - - Inhaled Oxygen Concentration - - Weight 114 kg (250 lb 9.6 oz) 07/13/2024 1:12 PM EDT Height 165.1 cm (5' 5 ) 07/13/2024 1:12 PM EDT Body Mass Index 41.7 07/13/2024 1:12 PM EDT documented in this encounter Progress Notes * BRANDAN Arroyo 07/13/2024 1:00 PM EDT Images from the original note were not included. Progress Notes by Ivania Ortega PA-C at 07/13/2024 1:00 PM Author: Ivania Ortega PA-C Service: -- Author Type: Physician Tree And Shrub Technician Filed: 07/13/2024 1:59 PM Encounter Date: 07/13/2024 Status: Signed Care Associate: Ivania Ortega PA-C (Physician Tree And Shrub Technician) Cosigner: Wale Smith MD at 07/16/2024 10:23AM Dear Dr. Espinoza, Thank you very much for referring this patient for consultation. HPI: 28-year-old female who was referred to our hematology clinic by PCP team for further evaluation of chronic leukocytosis. Patient was seen by a former colleague, Dr. Sterling, back in December of 2020 for the same issue, whichwas deemed benign/reactive. See copy of those notes below for further details. Records indicate that WBC has been elevated at least since 2018. WBC level has oscillated between 12.7 and 15.8. Most recent level is 13.2 with mild neutrophilia at 9.41 with normal lymphocyte and monocyte counts. RBC is also chronically elevated, most recent level is 5.5. Platelet count is normal.There is no anemia associated with it but her MCV is chronically low, most recent MCV was 75.8. Shehas normal renal, liver, and thyroid functions. Recently, vitamin B12 and vitamin D were found to be low. She is on oral vitamin D supplementation and monthly B12 injections, she has had 2 injectionsso far. She used to get frequent throat infections until she had a tonsillectomy about 2 or 3 years ago. Now, those infections do not occur often, although she did have a throat infection about 2 weeks ago and required amoxicillin course. Due to her asthma, she tells me that she requires prednisone every few months. She quit smoking about a year ago. She is unaware of smoking at night claims that she was referred to sleep study, she is awaiting appointment. She is on BCP to help control heavy menses, iron studies were recently checked and they were normal. She has chronic fatigue, chronic body aches, chronic shortness of breath with asthma. She denies any clinical bleeding or black stools. She denies any fever or chills, unintentional weight loss, night sweats, swollen glands. COPIED FROM OV NOTES ON 01/06/[address] 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 Hemoglobin was normal. Similar bloodcounts had been over the past 3 years. She was noted to have intermittent asthma, bipolar disorder,sacroiliitis, nonulcer dyspepsia and was a tobacco smoker consuming 2 packs daily until October of this year and then cutting down to half a pack daily. She says she is trying to quit. Blood count taken in our office was essentially the same as previous counts. CRP was mildly elevated. Iron studieswere normal. Platelet count was 317,000. A year ago she had upper endoscopy small hiatal hernia iden tified. Nausea and vomiting were attributed to nonulcer dyspepsia. She had a positive H. pylori breath test and was treated with triple antibiotics. There was no improvement. The patient continues to to complain of feeling tired all the time. She is nauseated daily and often vomits yellow liquid. She has had normal upper endoscopy with negative H. pylori on biopsy. 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 This may be due to smoking tobacco even though she has cut down substantially on this. The mechanism ofneutrophilia associated with tobacco smoking is not known and the phenomena may continue for monthsor more after tobacco use ceases. Obesity may be associated with neutrophilic leukocytosis. Extremeemotional stress can also be associated with her GI symptoms as well as her neutrophilic leukocytosis. At this point it is reasonable to follow her expectantly. I have scheduled her to return for follow-up in 1 month. ?? Ranjan Sterling MD ?? ROS: GENERAL: + malaise, significant weight loss or fever NECK: No lumps, goiter, pain or significant neck swelling RESPIRATORY: No cough, wheezing or shortness of breath CARDIOVASCULAR: No chest pain, leg swelling or palpitations GI: No abdominal discomfort, blood in stools or black stools MUSCULOSKELETAL: No joint pain or swelling, back pain, or muscle pain. HEMATOLOGY/LYMPHOLOGY No prolonged bleeding, easy bruisability or swollen nodes Other Systems review is non contributory PAST MEDICAL HISTORY: Active Ambulatory Problems Diagnosis Date Noted ? Mild intermittent asthma without complication 12/22/2020 ? Non-ulcer dyspepsia 12/22/2020 ? Sacroiliitis (HCC) 12/22/2020 ? Gastroesophageal reflux disease 12/22/2020 ? Anxiety 12/22/2020 Resolved Ambulatory Problems Diagnosis Date Noted ? No Resolved Ambulatory Problems Past Medical History: Diagnosis Date ? Bipolar affective disorder, current episode depressed (HCC) ? Hiatal hernia PAST SURGICAL HISTORY: No past surgical history on file. SOCIAL HISTORY: Social History Tobacco Use ? Smoking status: Every Day Types: Cigarettes ? Smokeless tobacco: Never Substance Use Topics ? Alcohol use: No FAMILY HISTORY: No family history on file. MEDICATIONS: Current Outpatient Medications: ? Albuterol Sulfate 108 (90 Base) MCG/ACT AEPB, Inhale into the lungs., Disp: , Rfl: ? clonazePAM (KlonoPIN) 2 MG tablet, Take 1 tablet (2 mg total) by mouth 2 (two) times a day as needed for anxiety., Disp: , Rfl: ? cyanocobalamin (VITAMIN B12) 1000 MCG/ML injection, Inject 1 mL (1,000 mcg total) into the muscleonce., Disp: , Rfl: ? esomeprazole (NexIUM) 40 MG capsule, Take 1 capsule (40 mg total) by mouth every morning before breakfast., Disp: , Rfl: ? famotidine (PEPCID) 20 MG tablet, Take 1 tablet (20 mg total) by mouth 2 (two) times a day., Disp: , Rfl: ? fluticasone (FLONASE) 50 MCG/ACT nasal spray, spray/apply 2 sprays in each nostril daily., Disp: , Rfl: ? ibuprofen 600 MG tablet, Take 1 tablet (600 mg total) by mouth every 6 (six) hours as needed for pain., Disp: , Rfl: ? loratadine (CLARITIN) 10 MG tablet, Take 1 tablet (10 mg total) by mouth daily., Disp: , Rfl: ? ondansetron (ZOFRAN-ODT) 4 MG disintegrating tablet, Take by mouth., Disp: , Rfl: ? polyethylene glycol (MIRALAX) 17 g packet, Take 17 g by mouth daily., Disp: , Rfl: ? alum & mag hydroxide-simethicone (Hhxgkza-Drnzxzfg-Ogizvgokdjl) 200-200-20 MG/5ML suspension,Take by mouth every 6 (six) hours as needed for indigestion. (Patient not taking: Reported on 07/13/2024), Disp: , Rfl: ? amitriptyline (ELAVIL) tablet 25 mg, Take 25 mg by mouth every night at bedtime. (Patient not taking: Reported on 07/13/2024), Disp: , Rfl: ? cetirizine (ZyrTEC) 10 MG tablet, Take 10 mg by mouth daily. (Patient not taking: Reported on 07/13/2024), Disp: , Rfl: ? hyoscyamine (ANASPAZ,LEVSIN) 0.125 MG tablet, Take 0.125 mg by mouth every 4 (four) hours as needed for cramping. (Patient not taking: Reported on 07/13/2024), Disp: , Rfl: ? sodium chloride (OCEAN) 0.65 % nasal spray, spray or apply 1 spray inside Nose as needed for congestion. (Patient not taking: Reported on 07/13/2024), Disp: , Rfl: You are allergic to the following Date Reviewed: 07/13/2024 No active allergies PHYSICAL EXAM: BP 114/61 (BP Location: Right arm) Pulse 95 Temp 98 ??F (36.7 ??C) (Temporal) Ht 5' 5 (1.651m) Wt 113.7 kg (250 lb 9.6 oz) SpO2 98% BMI 41.70 kg/m?? APPEARANCE: Alert and in no acute distress EYES: PERRL, conjunctiva pink and sclera are Normal without icterus ORAL CAVITY: No erythema or exudates NECK: Neck supple, no adenopathy, HEART: RRR with normal S1 and S2, no murmurs, no gallops, no JVD appreciated LUNG: clear to auscultation bilaterally LYMPH NODES: No palpable superficial adenopathy ABDOMEN: Obese, Bowel sounds normoactive, no bruits, soft, non-tender, without organomegaly or palpable masses EXTREMITIES: Extremities warm and well perfused without clubbing, cyanosis, rash or edema NEURO: Oriented X 3, no focal weakness; sensation is normal LABS: Testing: Review of Lab results , interpreted Review of Imaging, interpreted Review of External Documentation Tests ordered - CBCd, LDH, Reticulocyte count, folic acid, EPO, Hgb electrophoresis ASSESSMENT SNOMED CT(R) 1. Leukocytosis LEUKOCYTOSIS 2. Class 3 severe obesity without serious comorbidity with body mass index (BMI) of 40.0 to 44.9 inadult, unspecified obesity type (HCC) SEVERE OBESITY 3. Low serum vitamin B12 SERUM VITAMIN B12 LOW 4. Erythrocytosis ERYTHROCYTOSIS PLAN: Leukocytosis: -Chronic issue -Seen by my former colleague, Dr. Sterling, in 2020 - condition was deemed reactive/benign -Records indicate that WBC has been elevated at least since 2018 -WBC level has oscillated between 12.7 and 15.8. Most recent level is 13.2 with mild neutrophilia at 9.41 with normal lymphocyte and monocyte counts. -RBC is also chronically elevated, most recent level is 5.5 -Platelet count is normal. There is no anemia associated with it -MCV is chronically low, most recent MCV was 75.8 -Normal renal, liver, and thyroid functions -Check labs such as CBCd, LDH, Reticulocyte count, folic acid, EPO, Hgb electrophoresis. I will call her with results -ESR is elevated suggesting inflammation -Asthma may also play a role; steroids will certainly contribute to leukocytosis -This is likely a reactive/benign process -PCP team can monitor CBCd periodically and she may return if it becomes progressively worse or if new significant blood dyscrasias arise -Follow up as needed Erythrocytosis: -Chronic elevation -She is a former smoker, quit smoking ~ a year ago -Smoking in a know cause of erythrocytosis -Awaiting sleep study -Microcytosis can be seen with asthma, no anemia associated with it -Check Hgb electrophoresis -Check EPO level -This is likely a reactive/conpensatory/benign elevation -May consider Efe 2 test in the future if RBC level continues to rise Obesity: -BMI is 41 -Obesity is considered a chronic inflammatory condition and it can cause/contribute to leukocytosis Low B12: -Started on monthly B12 injections by PCP team -Level is being monitored by PCP team, in fact, she had labs done today and B12 level is still pending -She has had 2 injections so far Ivania Ortega PA-C Cc: Deepti Espinoza O* Sign: Ivania Ortega PA-C [facility]ematology/[facility] [phone] * BRANDAN Arroyo - 07/13/2024 1:00 PM EDT 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 Results discussed with patient over the phone. She would benefit from daily folic acid supplementation. Prescriptionsent in. documented in this encounter Plan of Treatment Upcoming Encounters Date Type Department Care Team (Late st Contact Info) Description 10/01/2025 11:15 AM EST Office Visit Pulmonology [facility] 175 [facility] [address] [place] [phone] Anita Sethi MD [address] [place] [address] 10/02/2025 10:15 AM EST Clinical Support Adult [address] [address] 10/15/2025 1:15 PM EST Office Visit Obstetrics and Gynecology [address] [phone] Espionza Sterling CNM [address] [place] [address] 10/16/2025 1:00 PM EST Procedure visit [facility] [address] [facility] [address] [place] [phone] Charlee Durant MD 175 [place] [address] 03/14/2026 10:00 AM EDT Office Visit Adult Medicine [address] [address] Nataly Hein PA [address] [place] [address] documented as of this encounter Procedures Procedure Name Priority Date/Time Associated Diagnosis Comments ..MISCELLANEOUS REFERENCE LAB TEST 07/13/2024 documented in this encounter Results * Miscellaneous reference lab test (07/13/2024) us Provider Onbase MD LAB BLOOD ORDERABLES Final Re sult documented in this encounter Visit Diagnoses Not on filedocumented in this encounter Care Teams Physician Coder Relationship Specialty Start Date End Date Deepti Espinoza MD [address] [facility] [place], [place] PCP - General Internal Medicine 04/26/22 documented as of this encounter
--- NOTE | 2025-09-26 09:35 | A.OFFVIS_ITS ---
Intake Visit Reasons: Ultrasound follow up New Accounts Banking Representative Required: No Information Interpreted: non-clinical & clinical Allergies No Known Allergies Allergy (Verified 09/26/25 09:35) HPI Comments Details: The patient is scheduled a telehealth visit for ultrasound follow-up regarding her pelvic pain. The patient is doing well Pelvic ultrasound showed the following: IMPRESSION: 1.5 cm right paraovarian cyst. Otherwise unremarkable pelvic ultrasound. Urine dip and test were negative Test of cure for GC/CT were negative PFSH Medical History Morbid obesity Bipolar affective disorder, current episode depressed Scoliosis Obesity Surgical History History of ovarian cystectomy Hx of bladder endoscopy Hx of tonsillectomy Family History Mother Deep vein thrombosis (DVT) Hypothyroidism Arthritis Maternal Grandmother Diabetes Paternal Grandmother Diabetes Father HTN (hypertension) Daughter Asthma ADHD Daughter ADHD Asthma Social History Household Members: Children [facility] Alcohol intake: never Patient Tobacco Use Status: Current someday Tobacco user Cigarettes Per Day: 2 Current occupational status: employed Current occupation: [employer] Sexual orientation: Straight/Heterosexual Gender identity: Female Female Reproductive History Menstrual Age of Menarche: 11 Review of Systems Const All systems reviewed & are unremarkable except as noted in HPI and below Reports as per HPI and Reports no additional complaints GI Reports no additional complaints Reports no additional complaints Telehealth Telehealth Telehealth Platform: [facility] Location of provider rendering services: practice address Location of patient: address on file Patient Identification confirmed using: Name, : Yes Telehealth method: video Patient verbally consented to treatment: Yes Patient verbally consented to billing insurance company: Yes Patient informed of any privacy concerns related to visit: Yes Minutes spent on Phone/Video with Pt.: 2 Assessment & Plan Assessment & Plan (1) Pelvic pain: Code(s): R10.2 - Pelvic and perineal pain Category: Medical Plan: Discussed with the patient the results of the workup done including negative GC/chlamydia, urine dip, urine test and pelvic ultrasound. Differential diagnosis of rn compliance causes that have not be ruled out yet include but not limited to endometriosis, pelvic adhesions , or others. Recommended for the patient to see her PCP for further workup for non rn compliance causes; if the all the results are negative and the patient's pelvic pain is persistent, instructions given to patient to call back for further testing. Meanwhile, instructions were given the patient to go to emergency room or call in case of fever above 100.4, heavy vaginal bleeding, persistence or worsening of her pelvic pain. All questions answered, the patient verbalized understanding. I spent a total of 20 minutes reviewing the chart, talking to the patient via video and documenting in the medical record. Coding Level of Care Code Tele Est Pt Level 3 (75484) Diagnoses Pelvic pain R10.2
--- OUTSIDE RECORDS SUMMARY | 2025-09-26 11:08 | XMS_ITS | Encounter Summary ---
Author Organization [facility] Address [address] [place] [phone] Phone Care Team Providers Care Strategic Business Development Name Role Phone Madison Tamayo MD Primary Care Provider [phone] Encounter Details Date Type Department Care Team (Late st Contact Info) Description 09/01/2015 Documentation EM Family Medicine [address] [place] [address] Family Medicine, Physician [address] [id number] Social History Tobacco Use Types Packs/Day Years [...] on filedocumented in this encounter Care Teams Strategic Business Development Relationship Specialty Start Date End Date Madison Tamayo MD [address] [place] [id number] PCP - General 05/20/17 03/16/23 documented as of this encounter
--- OUTSIDE RECORDS SUMMARY | 2025-09-26 11:08 | XMS_ITS | Clinical Summary ---
Author Organization [facility] Prior to 03/09/25 Address [address] [place] [address] Care Team Providers Care Poured Pipe Maker Name Role Phone Deepti Espinoza MD Primary [...] breakfast. 0 Active alum & mag hydroxide-simethicone (Tlwrfzj-Qomycqsk-Xnxsc hicone) 200-200-20 MG/5ML suspension Take by mouth [...] age to complete this topic Care Teams Poured Pipe Maker Relationship Specialty Start Date End Date Deepti Espinoza MD [address] [place] [address] PCP - General 05/31/24
--- OUTSIDE RECORDS SUMMARY | 2025-09-26 11:08 | XMS_ITS | Clinical Summary ---
Author Organization [facility] [address] [facility] Address [address] [place] [phone] Phone Care Team Providers Care Aix Administrator Name Role Phone Deepti Espinoza MD Primary [...] (heartburn and reflux). 08/31/20 23 Active fluticasone propionate (FLONASE) 50 mcg/actuation nasal spray 1 [place] by Each Nare route daily. 2 sprays in each nostril daily 09/22/20 21 Active ondansetron (ZOFRAN) 4 mg tablet Take 1 Tablet by mouth every 8 hours as needed for Nausea. 12/19/19 24 Active sodium chloride (AYR) 0.65 % nasal drops 1 [place] by Nasal route as needed for Congestion. [place] each nostril as needed for postnasal drip 08/31/20 23 Active umeclidinium (Incruse Ellipta) 62.5 mcg/actuation inhalationIndi cations:Modera te persistent asthma, unspecified whether complicated Inhale 1 puff by mouth 1 (one) time each day. 1 each 03/12/20 25 2025 Active topiramate (TOPAMAX) 50 mg tabletIndicati ons:Chronic migraine without aura without status migrainosus, not intractable Take 1 tablet (50 mg total) by mouth at bedtime. 90 each 04/08/20 25 Active cholecalcifero l (VITAMIN D-3) 50 mcg (2,000 unit) capsule Take 2 capsules (4,000 Units total) by mouth 1 (one) time each day. 180 each 1 04/11/20 25 2024 Active albuterol HFA (PROAIR HFA ; PROVENTIL HFA ; VENTOLIN HFA) 90 mcg/actuation inhaler Inhale 2 puffs by mouth every 6 (six) hours if needed for wheezing. 1 each 11 04/18/20 25 2025 Active metoclopramide (REGLAN) 10 mg tabletIndicati ons:Chronic migraine without aura without status migrainosus, not intractable TAKE 1 TABLET BY MOUTH DAILY IF NEEDED (NAUSEA/VOMITIN G). 30 tablet 05/08/20 25 Active FLUoxetine (PROzac) 20 mg capsule Take [...] by mouth at bedtime. 05/16/20 25 Active famotidine (PEPCID) 20 mg tablet Take 1 tablet (20 mg total) by mouth 2 (two) times a day if needed for heartburn. 180 each 1 06/07/20 25 2025 Active SUMAtriptan (IMITREX) 50 mg tablet Take 1 tablet (50 mg total) by mouth 1 (one) time if needed for migraine. May repeat dose once in 2 hours if no relief. Do not exceed 2 doses in 24 hours. 9 tablet 5 07/12/20 25 Active folic acid (FOLVITE) 1 mg tablet TAKE 1 TABLET BY MOUTH EVERY DAY 90 tablet 09/06/20 Active esomeprazole (NexIUM) [address] capsule Take 1 capsule (40 mg total) by mouth 1 (one) time each day before breakfast. Do not open capsule. 90 each 1 09/02/20 25 2025 Active fluticasone propion-salmet Tuan (ADVAIR HFA) 230-21 mcg/actuation inhaler Inhale 2 Puffs into the lungs 2 times daily for 360 days. 07/18/20 24 2024 Discontinued fluticasone HFA (FLOVENT HFA) 110 mcg/actuation inhaler Inhale 1 Puff into the lungs 2 times daily. 07/13/20 24 2024 Discontinued esomeprazole (NexIUM) [address] capsule TAKE 1 CAPSULE BY MOUTH EVERY MORNING (BEFORE BREAKFAST). ON EMPTY STOMACH, WAIT 30 MINUTES AND THEN EAT TO ACTIVATE MEDICATION 90 capsule 3 08/31/20 24 2024 Discontinued(R eorder) polyethylene glycol (Golytely) 236-22.74-6.74 -5.86 gram solution Take 4L by mouth once for one dose. May substitue any PEG. Starting at 2PM the day before your procedure drink 1 8oz glasses at your own pace until you complete half of the gallon. Finish 2nd half of the gallon at 8PM. 4000 mL 05/08/20 25 2024 Discontinued(T herapy completed) bisacodyL (DULCOLAX) 5 mg EC tablet Take 2 tablets by mouth right before beginning bowel prep. See instructions provided by the office 2 tablet 05/08/20 25 2024 Discontinued folic acid (FOLVITE) 1 mg tablet Take 1 tablet (1,000 mcg total) by mouth 1 (one) time each day. 2024 Discontinued nitrofurantoin , macrocrystal-m onohydrate, (MACROBID) 100 mg capsule TAKE 1 CAPSULE BY MOUTH TWICE A DAY FOR 5 DAYS.TAKE WITH A MEAL/FOOD 05/22/20 25 2024 Discontinued(T herapy completed) Hospital, Clinic, or Other Facility Administered Medication Ordered Dose Route Frequency Start Date End Date Status cyanocobalamin (VITAMIN B-12) injection 1,000 mcgIndications:Vitamin B12 deficiency disease 1000 mcg IM Every 30 days 05/15/2025 01/10/2026 Active Active Problems Problem Noted Date Diagnosed Date Migraine with aura and witho ut status migrainosus, not intractable 09/13/2025 Delta-beta thalassemia trait 07/19/2024 Vitamin B12 deficiency [...] surgery scheduled, but should hear from my compounder within the next 2 weeks with a date. If not, she should call back to our office and inquire on getting this arranged. She voiced understanding and agreed. Leukocytosis (leucocytosis) 11/20/2020 Sacroiliitis 10/25/2019 Overview (08/02/2024): Follows with [facility] referred for physical therapy as well as an x-ray of the lumbar spine Non-ulcer dyspepsia 08/06/2019 Hiatal hernia 05/08/2019 Gastroesophageal reflux disease 02/01/2019 Overview (08/02/2024): Normal gastric emptying study 06/2019 Anxiety 11/01/2018 Bipolar affective disorder, current episode depr essed 11/01/2018 Morbid obesity with BMI of 40.0-44.9, adult 10/11 Ovarian cyst 02/06/2018 Overview (08/02/2024): Left 7.6 x7 x 4.4 cm Asthma 12/02/2008 Resolved Problems Problem Noted Date Diagnosed Date Resolved Date Mild intermittent asthma without complication 11/01/19 19 05/28/2025 Encounters Date Type Department Care Team Description 09/25/2025 Results Follow-Up Adult Medicine [address] [phone] Nataly Hein PA 09/13/2025 9:01 AM EST - 09/13/2025 11:59 PM EST Hospital Encounter [facility] [address] [phone] Chronic bilateral low back pain with bilateral sciatica Discharge Disposition: Home or Self Care 09/13/2025 9:00 AM EST - 09/13/2025 11:59 PM EST Hospital Encounter [facility] [address] [phone] Neck pain Discharge Disposition: Home or Self Care 09/13/2025 8:30 AM EST Office Visit Adult Medicine [address] [phone] Nataly Hein PA Migraine with aura and without status migrainosus, not intractable (Primary Dx); Chronic bilateral low back pain with bilateral sciatica; Neck pain; Bipolar affective disorder, current episode depressed, current episode severity unspecified (CMS/HCC V24, CMS/HCC V28); Mild persistent asthma without complication; Gastroesophageal reflux disease, unspecified whether esophagitis present 09/11/2025 11:00 AM EST Office Visit Pulmonology - [address] [phone] Kiki Mix MD Moderate persistent asthma, unspecified whether complicated (Primary Dx) 09/11/2025 10:15 AM EST Ancillary Procedure Pulmonology - [place] [address] [phone] Moderate persistent asthma, unspecified whether complicated 09/04/2025 10:30 AM EST Clinical Support Adult Medicine [address] [phone] Vitamin B12 deficiency disease (Primary Dx) 09/04/2025 Telephone Adult Medicine [address] [phone] Deepti Espinoza MD 09/02/2025 Telephone Gastroenterology [address] [place] [address] Monroe Kaleigh 08/07/2025 11:15 AM EDT Clinical Support [address] [phone] Vitamin B12 deficiency disease (Primary Dx) 07/24/2025 1:40 PM EDT Procedure visit [facility] - [place] [address] [facility] [address] [place] [phone] Charlee Durant MD Migraine with aura and without status migrainosus, not intractable (Primary Dx) 07/12/2025 11:30 AM EDT Telemedicine [address] [phone] Charlee Durant MD Migraine with aura and without status migrainosus, not intractable (Primary Dx); Vitamin B12 deficiency disease; Vitamin D insufficiency 07/10/2025 2:00 PM EDT Clinical Support [address] [phone] Vitamin B12 deficiency disease (Primary Dx) from Last 3 Months Immunizations Immunization Administration [...] 3 years and older 07/13/2024 Influenza trivalent, MDCK, 0 .5mL, preservative free (Flucelvax) 6mo and older 09/13/2025 Influenza trivalent, with pr eservative (Fluzone; Afluria) [...] 30-39.9) Bipolar affective disorder, current episode depressed ([facility] V24, [facility] V28) 11/01/2018 DX:Bipolar affective disorde r, current episode depressed ([facility]) Anxiety 11/01/2018 DX:Anxiety Mild intermittent asthma [...] tarted: 10/10/2005 Smokeless Tobacco: Former Quit: 10/10/2020 Tobacco Cessation:Counseling Given: Not Answered Alcohol Use Standard Drinks/Week Comments No 0 [...] your loved ones. For example, early childhood services coordinator or elderly care for an older [...] Sign Reading Time Taken Comments Blood Pressure 103/69 09/13/2025 8:22 AM EST Pulse 88 09/13/2025 8:22 AM EST Temperature 36.1 C (97 F) 09/13/2025 8:22 AM EST Respiratory Rate 14 09/13/2025 8:22 AM EST Oxygen Saturation 97% 09/11/2025 10:08 AM EST Inhaled Oxygen Concentration - - Weight 110 kg (243 lb) 09/13/2025 8:22 AM EST Height 166.4 cm (5' 5.5 ) 09/13/2025 8:22 AM EST Body Mass Index 39.82 09/13/2025 8:22 AM EST Plan of Treatment Upcoming Encounters Date Type Department Care Team (Late st Contact Info) Description 10/01/2025 11:15 AM EST Office Visit Pulmonology [facility] [address] [facility] [address] [place] [phone] Anita Sethi MD [address] [place] [phone] 10/02/2025 10:15 AM EST Clinical Support Adult [address] [phone] 10/15/2025 1:15 PM EST Office Visit Obstetrics and Gynecology [address] [phone] Espinoza Denson CNM [address] [place] [address] 10/16/2025 1:00 PM EST Procedure visit [facility] - [place] [address] [facility] [address] [place] [phone] Charlee Durant MD [address] [place] [address] 03/14/2026 10:00 AM EDT Office Visit Adult Medicine [address] [phone] Nataly Hein PA [address] [place] [address] Health Maintenance Due Date Last Done Comments Drug Screen 1996 Non-Opioid Controlled Substance Agreement 1996 Pneumococcal Vaccine: Pediatrics (0 to 5 Years) and At-Risk Patients (6 to 49 Years) (1 of 2 - PCV) 2015 Medicare Annual Wellness Visit 09/18/2022 COVID-19 Vaccine ( season) 2025 02/15/2022, 06/23/2021, 02/26/2021 Social Influencers of Health [...] Screening Completed 02/19/2025, 019 Depression Screening Completed 09/13/2025 Influenza Vaccine Completed 09/13/2025, , 07/07/2022, Additional history exists Meningococcal B Vaccine Aged Out No l onger eligible based on patient's age to complete this topic RSV Immunization Patients Under 20 months Aged Out No longer eligible based on patient's age to complete this topic Procedures Procedure Name Priority Date/Time Associated Diagnosis Comments XR LUMBAR SPINE 4+ VIEWS Routine 09/13/2025 9:16 AM EST Chronic bilateral low back pain with bilateral sciatica XR CERVICAL SPINE 4-5 VIEWS Routine 09/13/2025 9:16 AM EST Neck pain PULMONARY FUNCTION TESTING Routine 09/11/2025 10:16 AM EST Moderate persistent asthma, unspecified whether complicated COLONOSCOPY Routine 05/13/2025 4:09 PM EDT Change in bowel habit H pylori ulcer HEPATITIS C ANTIBODY Routine 02/19/2025 9:18 AM EDT Encounter for screening for viral disease HIV 1, 2 ANTIBODY, P24 ANTIGEN WITH REFLEX TO DIFFERENTIATION Routine 02/19/2025 9:18 AM EDT Encounter for screening for viral disease HM PAP SMEAR Routine 01/23/2024 LIPID PANEL Routine 09/22/2023 from Last 3 Months or Most Recently Relevant to Health Maintenance Results * XR Lumbar Spine 4+ Views (09/13/2025 9:16 AM EST) Anatomical Region Laterality Modality Spine, L-spine Radiographic Talisha ging 09/13/2025 1:31 PM EST Impressions 09/13/2025 1:32 PM EST No acute fracture or dislocation of the lumbar spine. -------- FINAL REPORT -------- Dictated By: Jeet Vela Dictated Date: 09/13/2025 13:31 ET Assigned Physician: Jeet Vela Reviewed and Electronically Signed By: Jeet Vela Signed Date: 09/13/2025 13:32 ET Workstation ID: [id number] Transcribed By: Self Edit Transcribed Date: 09/13/2025 13:31 ET Narrative 09/13/2025 1:32 PM EST HISTORY: low back pain TECHNIQUE: 4 views of the lumbar spine COMPARISON: Lumbar spine radiograph from 12/08/2022 FINDINGS: Vertebral body height and disc spaces are preserved. No acute fracture or dislocation is seen. The spinal alignment is well maintained without evidence of spondylolisthesis. Large amount stool throughout the colon. The sacroiliac joints are unremarkable. Procedure Note Jeet Vlea MD - 09/13/2025 HISTORY: low back pain TECHNIQUE: 4 views of the lumbar spine COMPARISON: Lumbar spine radiograph from 12/08/2022 FINDINGS: Vertebral body height and disc spaces are preserved. No acute fracture ordislocation is seen. The spinal alignment is well maintained withoutevidence of spondylolisthesis. Large amount stool throughout the colon.The sacroiliac joints are unremarkable. IMPRESSION: No acute fracture or dislocation of the lumbar spine. -------- FINAL REPORT -------- Dictated By: Jeet Vela Dictated Date: 09/13/2025 13:31 ET Assigned Physician: Jeet Vela Reviewed and Electronically Signed By: Jeet Vela Signed Date: 09/13/2025 13:32 ET Workstation ID: [id number] Transcribed By: Self Edit Transcribed Date: 09/13/2025 13:31 ET Nataly GIPSON IMG XR PROCEDURES Final Resul t * XR Cervical Spine 4-5 Views (09/13/2025 9:16 AM EST) Anatomical Region Laterality Modality Spine, C-spine Radiographic Talisha ging 09/13/2025 10:1 6 AM EST Impressions 09/13/2025 10:23 AM EST No fracture or dislocation of the cervical spine. -------- FINAL REPORT -------- Dictated By: Jeet Vela Dictated Date: 09/13/2025 10:16 ET Assigned Physician: Jeet Vela Reviewed and Electronically Signed By: Jeet Vela Signed Date: 09/13/2025 10:23 ET Workstation ID: [id number] Transcribed By: Self Edit Transcribed Date: 09/13/2025 10:16 ET Narrative 09/13/2025 10:23 AM EST HISTORY: neck pain TECHNIQUE: 4 views of the cervical spine COMPARISON: Cervical spine radiograph from 12/08/2022 FINDINGS: The cervical spine is visualized from C1-C6. Vertebral body height and disc spaces are preserved. The cervical alignment is maintained without spondylolisthesis. No acute fracture or dislocation is seen. There is no prevertebral soft tissue swelling. Procedure Note Jeet Vela MD - 09/13/2025 HISTORY: neck pain TECHNIQUE: 4 views of the cervical spine COMPARISON: Cervical spine radiograph from 12/08/2022 FINDINGS: The cervical spine is visualized from C1-C6. Vertebral body height anddisc spaces are preserved. The cervical alignment is maintained withoutspondylolisthesis. No acute fracture or dislocation is seen. There is noprevertebral soft tissue swelling. IMPRESSION: No fracture or dislocation of the cervical spine. -------- FINAL REPORT -------- Dictated By: Jeet Vela Dictated Date: 09/13/2025 10:16 ET Assigned Physician: Jeet Vela Reviewed and Electronically Signed By: Jeet Vela Signed Date: 09/13/2025 10:23 ET Workstation ID: [id number] Transcribed By: Self Edit Transcribed Date: 09/13/2025 10:16 ET Nataly GIPSON IMG XR PROCEDURES Final Resul t * Pulmonary function testing: Carbon Monoxide Diffusing Capacity, Nitrogen Wash Out, Spirometry with Bronchodilator, Vital Capacity Test, Nitric Oxide Gas Determination (09/11/2025 10:16 AM EST) Impressions Anita Sethi MD - 09/11/2025 10:16 AM EST 09/11/2025 Spirometry FEV1 is 81% normal, FVC 77% normal, FEV1/FVC ratio is normal, no bronchodilators was done since the patient used albuterol before the visit Lung volume TLC is normal 89% predicted, RV/TLC 117% normal Diffusion capacity DLCO is 59% predicted, DLCO/VA is 87% predicted NIOX 11 ppb normal In summary, this pulm function test shows mild restrictive changes, diffusion capacity slight decrease but normalized when adjusted for alveolar volume. When compared to the last test from July 2024, there has been some decline in the diffusion capacity Kiki Mix MD PFT ORDERABLES Final Result * COLONOSCOPY Anesthesia - [facility]; [facility] ENDOSCOPY [...] pathology results. Narrative 05/13/2025 4:08 PM EDT [facility] GI Patient Name: Anabel Thomas Procedure Date: 05/13/2025 3:38 PM Date of : 1995 Age: 29 Gender: Female Note Status: Finalized Attending MD: Kaleigh Childress DO, [id number] Procedure Date No Time: 05/13/2025 Procedure: Colonoscopy [...] the physician, the nurse, the anesthesiologist, the lending activities supervisor and the emissions repair technician in the pre-procedure area in the [...] for histology. Procedure Code(s): --- Professional --- 26163, Colonoscopy, flexible; with removal of tumor(s), polyp(s), or other lesion(s) by snare technique 11703, 59, Colonoscopy, flexible; with biopsy, single or multiple Diagnosis Code(s): --- Professional --- K64.9, Unspecified hemorrhoids D12.0, Benign neoplasm of cecum R10.84, Generalized abdominal pain CPT copyright 2020 [employer]. All rights reserved. The codes documented in this report are preliminary and upon welt treater review may be revised to meet current compliance requirements. KALEIGH Childress DO 05/13/2025 4:08:23 PM This report has been signed electronically.Kaleigh Childress DO Number of Addenda: 0 Note Initiated On: 05/13/2025 3:38 PM Scope Withdrawal Time: 0 hours 7 minutes 10 seconds Scope In: Scope Out: 4:06:52 PM Endoscopy Department at [facility] - [address] [place] [phone] Procedure Note Kaleigh Childress DO - 05/13/2025 [facility] GI Patient Name: Anabel Thomas Procedure Date: 05/13/2025 3:38 PM Date of : 1995 Age: 29 Gender: Female Note Status: Finalized Attending MD: Kaleigh Childress DO, [id number] Procedure Date No Time: 05/13/2025 Procedure: Colonoscopy [...] the physician, the nurse, the anesthesiologist, the lending activities supervisor and thetechnician in the pre-procedure area in [...] for histology. Procedure Code(s): --- Professional --- 74682, Colonoscopy, flexible; with removal of tumor(s), polyp(s), or other lesion(s) by snare technique 14567, 59, Colonoscopy, flexible; with biopsy,single or multiple Diagnosis Code(s): --- Professional --- K64.9, Unspecified hemorrhoids D12.0, Benign neoplasm of cecum R10.84, Generalized abdominal pain CPT copyright 2021 [employer]. All rights reserved. The codes documented in this report are preliminary and upon welt treater reviewmay be revised to meet current compliance requirements. KALEIGH Childress DO 05/13/2025 4:08:23 PM This report has been signed electronically.Kaleigh Childress DO Number of Addenda: 0 Note Initiated On: 05/13/2025 3:38 PM Scope Withdrawal Time: 0 hours 7 minutes 10 seconds Scope In: Scope Out: 4:06:52 PM Endoscopy Department at [facility] - [address] [place] [phone] IMPRESSION: - Hemorrhoids found on perianal exam. [...] DO GI~PROCEDURE ORDERABLES Final Re sult * Hepatitis C antibody (02/19/2025 9:18 AM EDT) Hepatitis C Antibody Negative Negative LAB CHEMISTRY METHOD 02/19/2025 2:42 PM EDT [facility] Blood Venous blood specimen / Unknown Venipuncture / Unknown 02/19/2025 9:18 AM EDT 02/19/2025 9:18 AM EDT [facility] BLOOD ORDERABLES Final Re sult [facility] [address] [place] [address], [place] [phone] * HIV 1,2 antibody, p24 antigen with reflex to differentiation (02/19/2025 9:18 AM EDT) [facility] HIV Combo AB/AG Negative Negative LAB CHEMISTRY METHOD 02/19/2025 2:43 PM EDT [facility] Blood Venous blood specimen / Unknown Venipuncture / Unknown 02/19/2025 9:18 AM EDT 02/19/2025 9:18 AM EDT Narrative [facility] - 02/19/2025 2:43 PM EDT This assay is a 4th generation assay allowing for earlier detection of HIV infection by detecting the presence of the HIV-1 p24 antigen as well as the traditional antibodies to HIV type 1 (including group O) and type 2. Use of a 4th generation assay is the current CDC recommendation for HIV screening. Espinoza Denson [facility] BLOOD ORDERABLES Final Re sult [facility] [address] [place] [address], [place] [phone] * Pap Smear (01/23/2024) Pap smear Negative, [...] Most Recently Relevant to Health Maintenance Insurance [facility] Member Subscriber Plan / Payer (Ef fective 2020-Present) Name:ANABEL THOMAS Relation to Subscriber:Self Name:Anabel Thomas Payer ID:[id number] Group ID:[id number] Type:Not on file Address: [place] [address] [id number] Care Teams Aix Administrator Relationship Specialty Start Date End Date Deepti Espinoza MD [address] [facility], [place] PCP - General Internal Medicine 04/26/22
--- OUTSIDE RECORDS SUMMARY | 2025-09-26 11:08 | XMS_ITS | Encounter Summary ---
Author Organization [facility] Address [address] [place] [address] Phone Care Team Providers Care [place] Name Role Phone Madison Tamayo MD Primary Care Provider [phone] Encounter Details Date Type Department Care Team (Late st Contact Info) Description 05/26/2017 Conversion Encounter [facility] [place] [address] [place] [address] Social History Tobacco Use Types Packs/Day Years [...] on filedocumented in this encounter Care Teams [place] Relationship Specialty Start Date End Date Madison Tamayo MD [address] [place] [address] PCP - General 05/20/17 03/16/23 documented as of this encounter
--- OUTSIDE RECORDS SUMMARY | 2025-09-26 11:08 | XMS_ITS | Encounter Summary ---
Author Organization [facility] Address [address] [place] [phone] Phone Care Team Providers Care Medical Affairs Specialist Name Role Phone Madison Tamayo MD Primary Care Provider [phone] Encounter Details Date Type Department Care Team (Late st Contact Info) Description 09/03/2014 Documentation EM Family Medicine [address] [place] [address] Family Medicine, Physician [address] [place] [phone] Social History Tobacco Use Types Packs/Day Years [...] on filedocumented in this encounter Care Teams Medical Affairs Specialist Relationship Specialty Start Date End Date Madison Tamayo MD [address] [place] [phone] PCP - General 05/20/17 03/16/23 documented as of this encounter
--- OUTSIDE RECORDS SUMMARY | 2025-09-26 11:08 | XMS_ITS | Encounter Summary ---
Author Organization [facility] Address [address] [place] [address] Care Team Providers Care Director Speech Name Role Phone Deepti Espinoza MD Primary Care Pr ovider Encounter Details Date Type Department Care Team ([facility] st Contact Info) Description 09/25/2025 Results Follow-Up Adult Medicine [address] [phone] Nataly Hein PA [address] [place] [address] Social History Tobacco Use Types Packs/Day Years [...] care for your loved ones. For example, rn maternal child or elderly care for an older adult? [...] as of this encounter Plan of Treatment Upcoming Encounters Date Type Department Care Team (Late st Contact Info) Description 10/01/2025 11:15 AM EST Office Visit Pulmonology - [address] [place] [address] Anita Sethi MD [address] [place] [phone] 10/02/2025 10:15 AM EST Clinical Support Adult Medicine [place] - [address] [phone] 10/15/2025 1:15 PM EST Office Visit Obstetrics and Gynecology - [address] [phone] Espinoza Denson CNM [address] [place] [address] 10/16/2025 1:00 PM EST Procedure visit [facility] [address] [phone] Charlee Durant MD [address] [place] [address] 03/14/2026 10:00 AM EDT Office Visit Adult Medicine [address] [phone] Nataly Hein PA [address] [place] [address] documented as of this encounter Visit Diagnoses Not on filedocumented in this encounter Additional Health Concerns Assessment Noted Time PHQ-9 Depression Total Score: 14 025 8:28 AM EST documented as of this encounter Care Teams Director Speech Relationship Specialty Start Date End Date Deepti sEpinoza MD [address] [place], [place] PCP - General Internal Medicine 04/26/22 documented as of this encounter
--- OUTSIDE RECORDS SUMMARY | 2025-09-26 11:08 | XMS_ITS | Clinical Summary ---
Author Organization [facility] Address [address] [place] [address] Phone Care Team Providers Care Sheet Fed Printer Name Role Phone Pcp, Unknown Primary Care [...] 2014 HIV ONE-TIME SCREENING (18-65 YEARS) 2014 PAP SMEAR 2017 Adult Td,Tdap Booster 12/02/2018 12/02/2008 INFLUENZA VACCINE (#1) 2025 5, 08/01/2014, 06/24/2011, Additional history exists COVID-19 VACCINE ( season) 2025 06/23/2021, 02/26/2021 HIB VACCINES Completed 01/20/1998, 05/10, 03/11/1997, Additional history exists MENINGOCOCCAL VACCINES (ACWY) Completed 12/19/2014, 07/08/2010 HEPATITIS A VACCINES Completed 08/26/2015, 08/01/20 14 MENINGOCOCCAL VACCINES (B) Aged Out N o longer eligible based on patient's age to complete this topic PNEUMOCOCCAL VACCINES (0-49 years) Aged Out No longer eligible based on patient's age to complete this topic Medical Devices Not on file Insurance MEDICARE PART A & [place] [facility] [place] [facility] & [place] [facility] Care Teams Sheet Fed Printer Relationship Specialty Start Date End Date Pcp, Unknown PCP - General 09/02/20 Additional Source Comments The information contained in this document represents components of the legal health record. It is not the complete legal health record.[facility]
--- OUTSIDE RECORDS SUMMARY | 2025-09-26 11:08 | XMS_ITS | Clinical Summary ---
Author Organization [facility] Address [address] [place] [phone] Phone Care Team Providers Care Wood Carving Machine Operator Name Role Phone Unavailable Primary Care Provider [...] of Diabetes mellitus, Family history of Sudden /AR under age 55, Family history of Seizure [...] complete this topic Procedures * Due to [place] law, this organization might not be sharing sensitive test results. Procedure Name Priority Date/Time Associated Diagnosis Comments CHLAMYDIA AND GONORRHEA, AMPLIFIED Routine 04/25/2017 1:56 PM EDT from Last 3 Months or Most Recently Relevant to Health Maintenance Results * Due to [place] law, this organization might not be sharing sensitive test results. * Chlamydia and Gonorrhoea, Amplified (04/25/2017 1:56 PM EDT) [facility] URINE GC AMP PROBE NEGATIVE [facility] Comment: No Neisseria Gonorrhoeae RNA detected in this patient's sample (REFERENCE RANGE/NORMAL VALUE: NOT DETECTED) NOTE: This test uses oil dispatcher-mediated amplification method to detect rRNA from C.Trachomatis [...] without risk of sexual abuse. Consult the [facility] if needed. Contact phone number . Therapeutic failure or success cannot be determined with the Aptima Combo2 assay since nucleic acid may persist following appropriate antimicrobial therapy. The Centers for Disease Control and Prevention (CDC) recommends confirmatory retesting using culture or a different nucleic acid amplification test when positive results occur, if indicated. Testing performed or reported by [facility], a Service of [facility], [facility] Sudha Chambers, [place] [address] CLIA [id number] Richard Harley MD, PhD, Assessment Manager URINE CHLAMYDIA AMP PROBE NEGATIVE [facility] Comment: No Chlamydia Trachomatis RNA detected in this patient's sample (REFERENCE RANGE/NORMAL VALUE: NOT DETECTED) 04/25/2017 1:56 PM EDT Narrative [facility] - 04/25/2017 1:56 PM EDT URINE CHLAMYDIA GC AMP PROBE us Madison Tamayo MD LAB MICROBIOLOGY - GENERAL ORDER DANAY Final Result [facility] [address] [place] [address], [place] from Last 3 Months or Most Recently Relevant to Health Maintenance
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
--- OUTSIDE RECORDS SUMMARY | 2025-09-26 11:08 | XMS_ITS | Encounter Summary ---
Author Organization [facility] Address [address] [place] [address] Phone Care Team Providers Care Supervisor Sewing Room Name Role Phone Madison Tamayo MD Primary Care Provider [phone] Encounter Details Date Type Department Care Team (Late st Contact Info) Description 01/20/2015 Documentation EM Family Medicine [address] [place] [address] Family Medicine, Physician [address] [place] [phone] Social History Tobacco Use Types Packs/Day Years [...] on filedocumented in this encounter Care Teams Supervisor Sewing Room Relationship Specialty Start Date End Date Madison Tamayo MD [address] [place] [address] PCP - General 05/20/17 03/16/23 documented as of this encounter
--- OUTSIDE RECORDS SUMMARY | 2025-09-26 11:08 | XMS_ITS | Encounter Summary ---
Author Organization [facility] Address [address] [place] [address] Phone Care Team Providers Care Global Sales Executive Name Role Phone Madison Tamayo MD Primary Care Provider [phone] Encounter Details Date Type Department Care Team (Late st Contact Info) Description 01/09/2015 Documentation EM Family Medicine [address] [place] [address] Family Medicine, Physician [address] [place] [phone] Social History Tobacco Use Types Packs/Day Years [...] on filedocumented in this encounter Care Teams Global Sales Executive Relationship Specialty Start Date End Date Madison Tamayo MD [address] [place] [address] PCP - General 05/20/17 03/16/23 documented as of this encounter
--- OUTSIDE RECORDS SUMMARY | 2025-09-26 11:08 | XMS_ITS | Encounter Summary ---
Author Organization [facility] Address [address] [place] [address] Phone Care Team Providers Care Typesetting Machine Operator/Tender Name Role Phone Madison Tamayo MD Primary Care Provider [phone] Encounter Details Date Type Department Care Team (Late st Contact Info) Description 08/03/2016 Documentation EM Family Medicine [address] [place] [address] Family Medicine, Physician [address] [place] [phone] Social History Tobacco Use Types Packs/Day Years [...] on filedocumented in this encounter Care Teams Typesetting Machine Operator/Tender Relationship Specialty Start Date End Date Madison Tamayo MD [address] [place] [phone] PCP - General 05/20/17 03/16/23 documented as of this encounter
== END 2025-09-26 11:17 | disposition home or self-care (01) ==
LOC: HO.HWS 09:35
PROVIDERS: PCP Family Medicine; Visit Provider Obstetrics & Gynecology
DX: R10.20 Pelvic and perineal pain unspecified side (principal)
CPT/HCPCS: 99213